=== PATIENT | female | born 1945 | race Caucasian/White ===

== ENCOUNTER 2016-09-20 11:33 | Emergency (ER) | payer MEDICARE ==
[2016-09-20 11:48] VITALS: BP 132/66; PULSE 73; RESP 16; TEMP 98.6
[2016-09-20] MEDS ORDERED: TOPICAL SKIN ADHESIVE 1 EACH AMP TOPICAL ONE (12:14)
[2016-09-20] MEDS ORDERED: DIPH,PERTUS(ACELL)TETVAC-LF 0.5 ML VIAL IM ONE (12:22)
--- NOTE | 2016-09-20 12:34 | ED ---
General Adult HPI - General Chief complaint: Wound/Laceration Stated complaint: LEFT INDEX FINGER LACERATION Time Seen by Provider: 09/20/16 11:50 Source: patient, RN notes reviewed Mode of arrival: ambulatory Limitations: no limitations - History of Present Illness Initial comments: Patient 71-year-old female who presents emergency room today with a chief complaint of laceration located to the left index finger that occurred just prior to arrival. She does admit that she was cutting up some meat for stool in the knife slipped causing laceration. States she's unsure of tetanus status. She admits to pain locally denies any other complaints. Patient denies any recent fever, chills, shortness of breath, chest pain, back pain, abdominal pain, nausea or vomiting, numbness or tingling, dysuria or hematuria, constipation or diarrhea, headaches or visual changes, or any other complaints. - Related Data Home Medications Medication Instructions Recorded Confirmed Acetaminophen Tab [Tylenol Tab] 1,000 mg PO Q4H PRN 09/20/16 09/20/16 Fluticasone/Salmeterol [Advair 1 puff INHALATION RT-BID 09/20/16 09/20/16 500-50 Diskus] Ibuprofen [Motrin] 800 mg PO Q6HR PRN 09/20/16 09/20/16 Montelukast [Singulair] 10 mg PO HS 09/20/16 09/20/16 Sertraline [Zoloft] 100 mg PO HS 09/20/16 09/20/16 Simvastatin [Zocor] 20 mg PO HS 09/20/16 09/20/16 Previous Rx's Medication Instructions Recorded Cephalexin [Keflex] 500 mg PO Q12HR 7 Days 09/20/16 Allergies Allergy/AdvReac Type Severity Reaction Status Date / Time No Known Allergies Allergy Verified 09/20/16 12:13 Review of Systems ROS Statement: Those systems with pertinent positive or pertinent negative responses have been documented in the HPI. ROS Other: All systems not noted in ROS Statement are negative. Past Medical History Past Medical History: Asthma, Hyperlipidemia History of Any Multi-Drug Resistant Organisms: None Reported Past Surgical History: Breast Surgery, Hysterectomy Past Psychological History: Depression Smoking Status: Former smoker Past Alcohol Use History: Occasional Past Drug Use History: None Reported General Exam - General Exam Comments Initial Comments: General: The patient is awake and alert, in no distress, and does not appear acutely ill. Neck: The neck is supple, there is no tenderness or JVD. Cardiovascular: There is a regular rate and rhythm. No murmur, rub or gallop is appreciated. Respiratory: Lungs are clear to auscultation, respirations are non-labored, breath sounds are equal. No wheezes, stridor, rales, or rhonchi. Musculoskeletal: Full range motion. Sensation intact. Pulses equal bilaterally 2+. Strength is 5/5 in all directions. Neurological: A&O x 3. CN II-XII intact, There are no obvious motor or sensory deficits. Coordination appears grossly intact. Speech is normal. Patient does have a 2 cm L-shaped laceration to the lateral aspect of the left proximal index finger. No active bleeding. Psychiatric: Normal mood and affect. Limitations: no limitations Course Vital Signs 09/20/16 11:44 Temperature 98.6 F Pulse Rate 73 Respiratory 16 Rate Blood Pressure 132/66 O2 Sat by Pulse 97 Oximetry Procedures - Procedures Initial comment: 2.5 cm L-shaped laceration to the lateral aspect of the left index finger. No active bleeding. Laceration site anesthetized locally with 1% lidocaine. The area was irrigated heavily with normal saline under pressure. Wound edges approximated and closed with Dermabond. Disposition Clinical Impression: Laceration Disposition: HOME SELF-CARE Condition: Good Instructions: Laceration (ED) Additional Instructions: Please allow the glue to fall off on its own over the next 3-5 days. Please watch for any signs of infection which may include increased pain, swelling, redness, fever or chills. Please use antibiotic as prescribed. Please return for any other concerns. Prescriptions: Cephalexin [Keflex] 500 mg PO Q12HR 7 Days Time of Disposition: 12:24
== END 2016-09-20 13:00 | disposition home or self-care (01) ==
LOC: EC 11:33
DX: S61.211A Laceration without foreign body of left index finger without damage to nail, initial encounter (principal); E78.5 Hyperlipidemia, unspecified; F32.9 Major depressive disorder, single episode, unspecified; J45.909 Unspecified asthma, uncomplicated; Z23 Encounter for immunization; Z79.51 Long term (current) use of inhaled steroids; Z87.891 Personal history of nicotine dependence; Z79.899 Other long term (current) drug therapy; W26.0XXA Contact with knife, initial encounter; Y93.G3 Activity, cooking and baking
CPT/HCPCS: 12001; 90471; 90715; 99282

== ENCOUNTER → 2016-10-05 | Outpatient (CLI) | payer MEDICARE ==
[2016-10-05 12:28] LABS: Appearance,Urine Clear (Clear); Basophils # (A) 0.1 k/uL (0-0.2); Basophils % (A) 1 %; Bilirubin,Urine Negative (Negative); CH 31.2; CHCM 33.3; Eosinophils # (A) 0.4 k/uL (0-0.7); Eosinophils % (A) 6 %; Glucose,Urine (UA) Negative (Negative); HCT 42.5 % (34.0-46.0); HDW 2.17; HGB 13.9 gm/dL (11.4-16.0); Ketones,Urine Negative (Negative); Leukocyte Esterase,Urine Small (Negative); Luc # (Auto) 0.11; Luc % (Auto) 2; Lymphocytes # (A) 1.2 k/uL (1.0-4.8); Lymphocytes % (A) 20 %; MCH 30.8 pg (25.0-35.0); MCHC 32.8 g/dL (31.0-37.0); MCV 94.1 fL (80.0-100.0); Mean Platelet Volume 6.8; Monocytes # (A) 0.4 k/uL (0-1.0); Monocytes % (A) 6 %; Mucus,Urine Rare /hpf; Neutrophils # (A) 3.8 k/uL (1.3-7.7); Neutrophils % (A) 65 %; Nitrite,Urine Negative (Negative); Particle Count 1569; Protein,Urine Negative (Negative); RBC 4.52 m/uL (3.80-5.40); RBC,Urine 1 /hpf (0-5); RDW 12.7 % (11.5-15.5); Squamous Epithelial Cell,Urine <1 /hpf (0-4); UA Billing (MACRO vs. MICRO) MICRO; Urobilinogen,Urine <2.0 mg/dL (<2.0); WBC 5.9 k/uL (3.8-10.6); WBC (Perox) 5.94; WBC,Urine 2 /hpf (0-5)
[2016-10-05 13:18] LABS: Prothrombin Time 10.4 sec (9.0-12.0)
[2016-10-05 13:43] LABS: ALT 30 U/L (9-52); AST 22 U/L (14-36); Alkaline Phosphatase 94 U/L (38-126); Anion Gap 10 mmol/L; Blood Urea Nitrogen 18 mg/dL (7-17); Calcium 9.4 mg/dL (8.4-10.2); Carbon Dioxide 24 mmol/L (22-30); Chloride 107 mmol/L (98-107); Glucose 89 mg/dL (74-99); Non-African American GFR(MDRD) >60 (>60 ml/min/1.73 sqM); Potassium 4.2 mmol/L (3.5-5.1); Sodium 141 mmol/L (137-145); Total Bilirubin 0.6 mg/dL (0.2-1.3); Total Protein 6.5 g/dL (6.3-8.2)
== END | disposition home or self-care (01) ==
LOC: LABPAT 11:56
PROVIDERS: ATTEND Orthopaedic Surgery
DX: Z01.812 Encounter for preprocedural laboratory examination (principal)
CPT/HCPCS: 80053; 81001; 85025; 85610; 85730; 87070

== ENCOUNTER → 2016-10-05 | Outpatient (CLI) | payer MEDICARE ==
--- NOTE | 2016-10-06 10:07 | MM ---
Reason for exam: screening (asymptomatic). Last mammogram was performed 1 year and 1 month ago. History: Patient is postmenopausal. Family history of breast cancer in maternal sister at age 73 and breast cancer in sister at age 72. Benign cyst aspiration of the right breast. 2 benign excisional biopsies of the left breast. 3 benign excisional biopsies of the right breast. Took estrogen for 9 years beginning at age 50. Physical Findings: A clinical breast exam by your physician is recommended on an annual basis and results should be correlated with mammographic findings. MG 3D Screening Mammo W/Cad Bilateral CC and MLO view(s) were taken. Prior study comparison: August 30, 2015, bilateral MG 3d screening mammo w/cad. August 28, 2014, bilateral MG diagnostic mammo w CAD [facility]. The breast tissue is heterogeneously dense. This may lower the sensitivity of mammography. Finding: There are typically benign calcifications in the right breast. No significant changes in finding since August 30, 2015 and August 28, 2014. ASSESSMENT: Benign, BI-RAD 2 RECOMMENDATION: Routine screening mammogram of both breasts in 1 year.
== END | disposition home or self-care (01) ==
LOC: RADMAMWWP 11:33
PROVIDERS: ATTEND Internal Medicine Geriatric Medicine
DX: Z12.31 Encounter for screening mammogram for malignant neoplasm of breast (principal)
CPT/HCPCS: 77063; G0202

== ENCOUNTER 2016-10-19 13:07 | Inpatient (IN) | payer MEDICARE ==
[2016-10-06 09:36] VITALS: BMI 32.1
[~2016-10-19 13:07] MED LIST: ACETAMINOPHEN TAB 500 MG TAB PO ONE; DEXAMETHASONE SOD PHOSPHATE 10 MG/ML 1 ML VIAL IV ONE; HYDROmorphone 1 MG/ML 1 ML SYRINGE IVP PRN; LIDOCAINE 1% 20 ML VIAL (10MG/ML) FOR IV START INTRADERMA PRN; MELOXICAM 7.5 MG TAB PO ONE; MIDAZOLAM 2 MG/2 ML VIAL IV PRN; ONDANSETRON 4 MG/2 ML VIAL IVP ONE; TRANEXAMIC ACID 1,000 MG in SODIUM CHLORIDE 0.9% 100 ML IVPB ONE; ceFAZolin 2 GM in SODIUM CHLORIDE 0.9% 100 ML IVPB ONE; fentaNYL (PF) 50 MCG/ML 20 ML VIAL IVP PRN
[2016-10-19] MEDS: LACTATED RINGERS 1,000 ML IV SCH ×2 (13:39→23:12)
[2016-10-19] MEDS ORDERED: fentaNYL (PF) 50 MCG/ML 2 ML AMP IV ONE (13:52)
[2016-10-19] MEDS ORDERED: TRANEXAMIC ACID 1,000 MG/10 ML VIAL ONE (14:53)
[2016-10-19] MEDS ORDERED: MIDAZOLAM 2 MG/2 ML VIAL ONE (14:53)
[2016-10-19] MEDS ORDERED: PROPOFOL 10 MG/ML 20 ML VIAL IV ONE (14:53)
[2016-10-19] MEDS ORDERED: SODIUM CHLORIDE 0.9% 100 ML BAG ONE (14:53)
[2016-10-19] MEDS ORDERED: fentaNYL (PF) 50 MCG/ML 2 ML AMP ONE (14:53)
[2016-10-19] MEDS ORDERED: ROPIVACAINE 1,100 MG, SODIUM CHLORIDE 0.9% 330 ML MISCELLANE PRN ×2 (14:55)
--- NOTE | 2016-10-19 14:57 | P.ONQ ---
Anesthesiology Proc Note - PNB - Peripheral Nerve Block Performed Right Adductor Canal Infusion Time Out Performed: Yes Indication: Acute Post-Operative Pain, Analgesia Specifically requested for management of pain by DrSridhar: Reginaldo Josue Sedation Type: Sedate with meaningful contact maintained Preparation: Sterile Prep Position: Supine Catheter Depth at Skin (cm): 8 Catheter: Indwelling Needle Types: On-Q Needle Size: 100mm (4") Needle Gauge: 20 Technique: Ultrasound Injectate: 0.5% Ropivacaine (see comment for volume) (20 cc) Blood Aspirated: No Pain Paresthesia on Injection Noted: No Resistance on Injection: Normal Events: Uneventful and Well Tolerated
[2016-10-19] MEDS ORDERED: ceFAZolin 3,000 MG in SODIUM CHLORIDE 0.9% IRRIGATIO 3,000 ML IRRIGATION ONE (15:05)
[2016-10-19] MEDS: ROPIVACAINE 246.25 MG, EPINEPHrine 0.5 MG, KETOROLAC 30 MG, cloNIDine HCL/PF 80 MCG, WA... MISCELLANE ONE ×10 (15:15→16:56)
[2016-10-19] MEDS ORDERED: LACTATED RINGERS 1,000 ML IV ONE (15:23)
--- NOTE | 2016-10-19 16:15 | P.OP ---
Date of Procedure: 10/19/16 Preoperative Diagnosis: Severe osteoarthritis right knee Postoperative Diagnosis: Severe osteoarthritis right knee Procedure(s) Performed: Right total knee arthroplasty Implants: Cho and Nephew Oxinium femoral component size 5, right Cho & Nephew Rizwana II right nonporous tibial baseplate size 5 Cho [employer] Nephew size 11 mm Legion XLPE high flexion articular insert, size 5-6 Cho [employer] Nephew Rizwana II resurfacing patellar component, 32 mm All components were cemented using Lamine bone cement.. The articulation is ceramic on polyethylene. Anesthesia: spinal Surgeon: Reginaldo Josue Manager Presentation #1: Trinity Macdonald Estimated Blood Loss (ml): 50 Pathology: other (Bone and cartilage) Condition: stable Disposition: PACU Indications for Procedure: After failure of conservative treatment we discussed the surgical and nonsurgical treatment options at length. Patient wishes to proceed with a total knee arthroplasty. Complications specific to this procedure were discussed at length, including but not limited to infection, bleeding, stiffness , and nerve injury. Patient is aware of all these complications and informed consent was obtained Operative Findings: The operative findings are consistent with severe osteoarthritis of the right knee Description of Procedure: Patient was seen in the preoperative area consent was reviewed and operative site was marked with a skin marker. Patient was then brought to the operating room and given preoperative antibiotics intravenously. A spinal anesthetic was administered by the anesthesia department. A Fan catheter was then placed by the nursing staff. A tourniquet was placed on the upper thigh and the lower extremity was prepped and draped in usual sterile fashion. A gram of transexamic acid was given. A universal timeout was then performed which confirmed the patient's name, surgical site, ALLERGIES, and consent. The lower extremity was then exsanguinated and tourniquet was inflated to 250 mmHg. A standard and anterior midline approach to the knee was performed. The skin and subcutaneous tissue was dissected down to the patellar tendon. A medial parapatellar arthrotomy was then performed. The knee was then extended, the patellar was everted, and the knee was again flexed. Anterior horns of both menisci were excised, and a release was performed to the posterior medial aspect of the knee. On gross visual inspection, there was complete loss of articular cartilage in the medial and patellofemoral joint spaces. There was also significant cartilage damage in the lateral compartment. There were multiple periarticular osteophytes which were then removed with a Ronguer. The femoral canal was then opened with the appropriate drill, and the intramedullary femoral cutting guide was then placed and set for 4 of valgus. The distal femoral cutting block was then pinned in place, and the distal femur was then cut. The cutting block was then removed and the cut was checked for flatness. Next, the sizing guide was then placed and set for 3 external rotation based off of the epicondylar axis and Whitesides line. After the femur was sized, the appropriate 4-in-1 cutting block was then pinned in place. The anterior condyles were cut without notching. The posterior and chamfer cuts were performed while protecting the collateral ligaments. The cutting block was then removed, and the femoral canal was plugged with autologous bone. Attention was then directed to the tibia. The remaining ACL was removed with a Ronguer, and the tibia was then gently subluxed forward with a large bent knee retractor. Any remaining menisci was excised. The posterior lateral corner was cauterized in order to cauterize the lateral geniculate artery. The extra medullary tibial cutting guide was then placed, set for the appropriate rotation , slope, and depth of resection. The proximal tibia cutting guide was then pinned in place. Proximal tibia was then cut and sized. Next trials were then placed with the appropriate-sized insert. The knee was able to fully extend and flex to 130 and was stable throughout all range of motion. The knee was then extended, patella everted. Patella was then measured, and then using an osteotomy guide, the patella was cut at the appropriate level. The patella was then measured and drilled and the patella trial was then placed. The knee was then taken through range of motion with the patella trial and the patella tracked normally. The knee was then extended patella trial was then removed and the patella was everted. Knee was then flexed and lug holes were drilled through the femoral trial and the femoral trial was then removed. The tibial was then exposed, and the tibial broach guide was then pinned in place after it was set for the appropriate rotation to allow for the most coverage without overhang. The tibia was then broached. The cut surfaces of bone were then irrigated with pulsatile lavage. The posterior structures were injected with the ropivacaine solution. The knee was also irrigated with Irrisept solution. The components were then opened, the cement was mixed, and the components were then cemented in place. The cement was allowed to harden with the knee in full extension. While the cement was hardening, the remaining soft tissues were injected with the ropivacaine solution. After the cemented hardened. The tourniquet was released, and hemostasis was obtained. A second gram of transexamic acid was given. The knee was again irrigated. The knee was again taken through range of motion and found to be stable throughout all range of motion of 0-130, and the patella tracked normally. The fascia was then closed with #2 strata fix suture. The subcutaneous tissue was closed with 3-0 Vicryl and 3-0 strata fix. Dermabond tape was used for the skin, and the patient was placed in a sterile dressing. Patient was then transferred to recovery room in stable condition. The digital assistant DEVIN Berry was required due the complexity surgery and the need for a skilled computer lab assistant. She assisted in positioning, draping , retraction, and closure of the wound.
[2016-10-19] MEDS ORDERED: NALOXONE 0.4 MG/ML 1 ML VIAL IV PRN (16:40)
[2016-10-19] MEDS ORDERED: DIAZEPAM 5 MG TAB PO PRN ×2 (16:40)
[2016-10-19] MEDS ORDERED: HYDROmorphone 1 MG/ML 1 ML SYRINGE IVP PRN ×2 (16:40)
[2016-10-19] MEDS ORDERED: ONDANSETRON 4 MG/2 ML VIAL IVP PRN (16:40)
[2016-10-19] MEDS ORDERED: HYDROcodone/APAP 5-325MG 1 EACH TAB PO PRN (16:40)
[2016-10-19] MEDS ORDERED: BISACODYL 10 MG SUPP RECTAL PRN (16:40)
[2016-10-19] MEDS ORDERED: MAGNESIUM HYDROXIDE 2,400 MG/10 ML CUP PO PRN (16:40)
[2016-10-19] MEDS ORDERED: FAMOTIDINE 20 MG/2 ML VIAL IVP ONE (16:43)
--- NOTE | 2016-10-19 17:35 | XR ---
EXAMINATION TYPE: XR knee limited RT DATE OF EXAM: 10/19/2016 5:06 PM COMPARISON: NONE HISTORY: Postop knee surgery TECHNIQUE: 2 views FINDINGS: There is a right total knee prosthesis. Components appear in anatomic position. IMPRESSION: No complicating process seen.
[2016-10-19] MEDS: SODIUM CHLORIDE 0.9% 1,000 ML IV SCH ×2 (18:18→20:25)
[2016-10-19] MEDS: HYDROcodone/APAP 5-325MG 1 EACH TAB PO PRN (19:14)
[2016-10-19] MEDS: ASPIRIN 325 MG TAB PO SCH (20:20)
[2016-10-19] MEDS: ATORVASTATIN 10 MG TAB PO SCH (20:20)
[2016-10-19] MEDS: SERTRALINE 100 MG TAB PO SCH (20:20)
[2016-10-19] MEDS: MONTELUKAST 10 MG TAB PO SCH (20:20)
[2016-10-19] MEDS: SENNOSIDES-DOCUSATE SODIUM 1 EACH TAB PO SCH (20:21)
[2016-10-19] MEDS: HYDROmorphone 1 MG/ML 1 ML SYRINGE IVP PRN (20:25)
[2016-10-19] MEDS: ceFAZolin 2 GM in SODIUM CHLORIDE 0.9% 100 ML IVPB SCH (23:10)
[2016-10-20] MEDS: HYDROcodone/APAP 5-325MG 1 EACH TAB PO PRN ×3 (00:18→10:34)
[2016-10-20] MEDS: hydrOXYzine PAMOATE 25 MG CAP PO PRN ×5 (00:19→20:34)
[2016-10-20] MEDS: HYDROmorphone 1 MG/ML 1 ML SYRINGE IVP PRN ×3 (01:12→21:40)
[2016-10-20] MEDS: ceFAZolin 2 GM in SODIUM CHLORIDE 0.9% 100 ML IVPB SCH (08:01)
[2016-10-20] MEDS: ASPIRIN 325 MG TAB PO SCH ×2 (08:02→20:11)
[2016-10-20] MEDS: PANTOPRAZOLE 40 MG TABLET PO SCH (08:02)
[2016-10-20] MEDS: MELOXICAM 7.5 MG TAB PO SCH (08:02)
[2016-10-20] MEDS: MULTIVITAMINS, THERA 1 EACH TAB PO SCH (08:03)
[2016-10-20] MEDS: LORATADINE 10 MG TAB PO SCH (08:03)
[2016-10-20 08:51] LABS: Basophils % (A) 0 %; CHCM 32.4; Eosinophils # (A) 0.1 k/uL (0-0.7); Eosinophils % (A) 1 %; HCT 34.6 % (34.0-46.0); HDW 2.12; HGB 11.3 gm/dL (11.4-16.0); Luc # (Auto) 0.14; Luc % (Auto) 2; Lymphocytes # (A) 0.8 k/uL (1.0-4.8); Lymphocytes % (A) 10 %; MCH 31.4 pg (25.0-35.0); MCHC 32.7 g/dL (31.0-37.0); MCV 96.2 fL (80.0-100.0); Mean Platelet Volume 6.8; Monocytes # (A) 0.6 k/uL (0-1.0); Monocytes % (A) 8 %; Neutrophils # (A) 6.1 k/uL (1.3-7.7); Neutrophils % (A) 79 %; RBC 3.59 m/uL (3.80-5.40); RDW 12.9 % (11.5-15.5); WBC 7.7 k/uL (3.8-10.6); WBC (Perox) 8.14
[2016-10-20] MEDS ORDERED: NON-FORMULARY DRUG (Ubidecarenone [Co Q-10] 100 MG) PO SCH (09:00)
[2016-10-20] MEDS: SYMBICORT 160-4.5 MCG INHALER INHALATION PRN ×2 (09:08→20:11)
[2016-10-20] MEDS: ALBUTEROL NEBULIZED 2.5 MG/3 ML INHALATION PRN (09:08)
--- NOTE | 2016-10-20 10:12 | P.PN ---
Progress Note - Text 0845. Anesthesia POD 1.'s. Patient is status post right TKR under spinal anesthesia with a right adductor canal catheter placed for postoperative pain relief. Catheter site is intact clean and dry and 0.2% ropivacaine is running at 8 mL per hour. Patient reports a VAS of 2 while at rest.
[2016-10-20] MEDS: CALCIUM CARB-VIT D 500MG-200UN 1 EACH TAB PO SCH (12:36)
[2016-10-20] MEDS ORDERED: HYDROcodone/APAP 7.5-325MG 1 EACH TAB PO PRN (13:08)
[2016-10-20] MEDS: HYDROcodone/APAP 7.5-325MG 1 EACH TAB PO PRN ×2 (15:27→20:34)
--- NOTE | 2016-10-20 15:48 | P.CONS ---
History of Present Illness - Reason for Consult Consult date: 10/20/16 medical consult medical management Requesting physician: Reginaldo Josue - History of Present Illness this 71-year-old pleasant lady patient of Dr. Schulte. She has underlying history of asthma, migraine, or [place] arthritis, GERD admitted to the hospital for right total knee arthroplasty performed on 10/19/2016. Patient denies any previous complications from surgeries, no prior history of CVA CHF VT DVT or PE in the past. Patient's doing well postoperatively. Patient has GERD symptoms earlier which has resolved. Patient denies any shortness of breath difficulty of breathing. Patient's currently receiving aspirin for DVT prophylaxis, patient does not have any melena hematochezia no dyspepsia. Review of Systems Constitutional: Reports as per HPI, Denies anorexia, Denies chills, Denies chronic headaches, Denies chronic pain, Denies daytime sleepiness, Denies fatigue, Denies fever, Denies lethargy, Denies malaise, Denies night sweats, Denies poor appetite, Denies sweats, Denies weakness, Denies weight gain, Denies weight loss Ears, nose, mouth and throat: Reports as per HPI, Denies ant. neck pain, Denies bleeding gums, Denies dental pain, Denies dysphagia, Denies epistaxis, Denies headache, Denies hoarseness, Denies mouth pain, Denies nasal congestion, Denies nasal discharge, Denies neck fullness/pressure, Denies neck lump, Denies nose pain, Denies odynophagia, Denies post-nasal drip, Denies sinus pain, Denies sinus pressure, Denies swelling in mouth, Denies swelling in throat, Denies sore throat, Denies vertigo, Denies voice changes Cardiovascular: Reports as per HPI, Denies claudication, Denies decreased exercise tolerance, Denies dyspnea on exertion, Denies edema, Denies high blood pressure, Denies irregular heart beat, Denies leg edema, Denies lightheadedness , Denies orthopnea, Denies palpitations, Denies paroxysmal nocturnal dyspnea, Denies phlebitis, Denies rapid heart beat, Denies shortness of breath, Denies syncope Respiratory: Reports as per HPI, Denies congestion, Denies cough, Denies cough with sputum, Denies dyspnea, Denies excessive sputum, Denies hemoptysis, Denies home oxygen, Denies pain, Denies pain on inspiration, Denies pleurisy, Denies respiratory infections, Denies sleep apnea, Denies snoring, Denies wheezing Gastrointestinal: Reports as per HPI, Reports dyspepsia, Denies abdominal pain, Denies belching, Denies bloating, Denies BRBPR, Denies change in bowel habits, Denies coffee ground emesis, Denies constipation, Denies diarrhea, Denies early satiety, Denies excessive gas, Denies heartburn, Denies hematemesis, Denies hematochezia, Denies indigestion, Denies jaundice, Denies lactose intolerance, Denies loss of appetite, Denies melena, Denies nausea, Denies vomiting Genitourinary: Reports as per HPI, Denies abnormal vaginal bleeding, Denies decreased libido, Denies difficulty conceiving, Denies difficulty voiding, Denies dysmenorrhea, Denies dyspareunia, Denies dysuria, Denies flank pain, Denies genital sores, Denies hematuria, Denies hot flashes, Denies incomplete emptying, Denies kidney stones, Denies menorrhagia, Denies mixed incontinence, Denies nocturia, Denies pelvic pain, Denies post void dribbling, Denies , Denies prolapse symptoms, Denies stress incontinence, Denies urge incontinence , Denies urgency, Denies urinary frequency, Denies vaginal discharge, Denies vaginal dryness, Denies vaginal itching, Denies vaginal odor Menstruation: Reports as per HPI, Denies amenorrhea, Denies amenorrhea on BC, Denies currently menstrual, Denies cycle < 21 days, Denies cycle > 35 days, Denies cycle variable, Denies menses 1-7 days, Denies menses 8 or > days, Denies menses variable, Denies period heavy, Denies period light, Denies period normal, Denies period spotting, Denies post hysterectomy, Denies postmenopausal , Denies premenarcheal Musculoskeletal: Reports as per HPI, Denies arm numbness/tingling, Denies atrophy, Denies fractures, Denies frequent falls, Denies gait dysfunction, Denies hot joints, Denies leg numbness/tingling, Denies limitation of motion, Denies loss of height, Denies low back pain, Denies morning stiffness, Denies muscle cramps, Denies muscle weakness, Denies myalgias, Denies neck pain, Denies neck stiffness, Denies prior amputations, Denies redness of joints, Denies shooting arm pain, Denies shooting leg pain Integumentary: Reports as per HPI, Denies acne, Denies boils, Denies brittle nails, Denies change in hair/nails, Denies color changes, Denies darkening of skin, Denies depigmentation, Denies dryness, Denies foot/leg ulcers, Denies growths, Denies hirsutism, Denies lesions, Denies onychomycosis, Denies pruritus , Denies rash, Denies sores, Denies striae, Denies unusual bruising, Denies wounds Neurological: Reports as per HPI, Denies aphasia, Denies ataxia, Denies balance difficulties, Denies burning pain, Denies change in mentation, Denies change in smell/taste, Denies change in speech, Denies confusion, Denies convulsions, Denies double vision, Denies gait dysfunction, Denies head injury, Denies headaches, Denies hearing difficulties, Denies lack of coordination, Denies loss of vision, Denies memory loss, Denies migraines, Denies motor disturbance, Denies numbness, Denies paralysis, Denies paresthesias, Denies seizures, Denies sensory deficit, Denies spasticity, Denies syncope, Denies tic, Denies tingling , Denies transient paralysis, Denies tremors, Denies vertigo, Denies weakness, Denies visual changes Psychiatric: Reports as per HPI, Denies anhedonia, Denies anxiety, Denies anxiety attacks, Denies change in appetite, Denies change in libido, Denies change in sleep habits, Denies confusion, Denies depression, Denies difficulty concentrating, Denies disorientation, Denies hallucinations, Denies hopelessness , Denies hypersomnia, Denies insomnia, Denies irritability, Denies memory loss, Denies mood swings, Denies paranoia, Denies sadness/tearfulness, Denies sleep disturbances, Denies suicidal ideation Endocrine: Reports as per HPI, Denies cold intolerance, Denies deepening of the voice, Denies excessive sweating, Denies excessive thirst, Denies fatigue, Denies flushing, Denies heat intolerance, Denies high blood sugars, Denies increase in ring/shoe/hat size, Denies low blood sugars, Denies nocturia, Denies palpitations, Denies polydipsia, Denies polyphagia, Denies polyuria, Denies proptosis, Denies recent glucocorticoid use, Denies thyroid mass, Denies weight change Hematologic/Lymphatic: Reports as per HPI, Denies easy bleeding, Denies easy bruising, Denies lymphadenopathy, Denies lymphedema, Denies thrombophilia Allergic/Immunologic: Reports as per HPI, Denies allergic rhinitis, Denies anaphylaxis, Denies angioedema, Denies gluten intolerance, Denies persistent infections, Denies seasonal allergies, Denies urticaria, Denies wheezing Past Medical History Past Medical History: Asthma, GERD/Reflux, Osteoarthritis (OA) Additional Past Medical History / Comment(s): MIGRAINES., RIGHT ARM FX 08/24/16 - WEARING BRACE NOW. History of Any Multi-Drug Resistant Organisms: None Reported Past Surgical History: Hysterectomy Additional Past Surgical History / Comment(s): BREAST BX (X5). Past Anesthesia/Blood Transfusion Reactions: No Reported Reaction, Motion Sickness Past Psychological History: Anxiety, Depression Smoking Status: Former smoker Past Alcohol Use History: Occasional Additional Past Alcohol Use History / Comment(s): QUIT SMOKING 05/23/2001. SMOKED APPROX 40 YEARS, 1 PPD OR LESS. Past Drug Use History: None Reported - Past Family History Sister(s) Family Medical History: Cancer, Pulmonary Embolus Additional Family Medical History / Comment(s): 2 SISTERS -BREAST CANCER Medications and Allergies Home Medications Medication Instructions Recorded Confirmed Type Acetaminophen Tab [Tylenol Tab] 1,000 mg PO Q6H PRN 09/20/16 10/19/16 History Fluticasone/Salmeterol [Advair 1 puff INHALATION RT-BID PRN 09/20/16 10/19/16 History 500-50 Diskus] Ibuprofen [Motrin] 800 mg PO BID PRN 09/20/16 10/19/16 History Montelukast [Singulair] 10 mg PO HS 09/20/16 10/19/16 History Sertraline [Zoloft] 100 mg PO HS 09/20/16 10/19/16 History Simvastatin [Zocor] 20 mg PO HS 09/20/16 10/19/16 History Albuterol Inhaler [Ventolin Hfa 1 - 2 puff INHALATION RT-Q6H PRN 10/06/16 History Inhaler] Calcium Carbonate/Vitamin D3 1 tab PO DAILY 10/06/16 10/19/16 History [Calcium 500-Vit D3 600 Tablet] Cetirizine HCl [Zyrtec] 10 mg PO DAILY 10/06/16 10/19/16 History HYDROcodone/APAP 5-325MG [Elbert 1 tab PO DIRECTED PRN 10/06/16 10/19/16 History 5-325] Multivitamins, Thera [Multivitamin] 1 tab PO DAILY 10/06/16 10/19/16 History Omeprazole [PriLOSEC] 20 mg PO AC-BRKFST 10/06/16 10/19/16 History Ubidecarenone [Co Q-10] 100 mg PO DAILY 10/06/16 10/19/16 History Ergocalciferol (Vitamin D2) 50,000 unit PO Q7D 10/19/16 10/19/16 History [Vitamin D2] Allergies Allergy/AdvReac Type Severity Reaction Status Date / Time No Known Allergies Allergy Verified 10/06/16 09:15 Physical Exam Vitals: Vital Signs Temp Pulse Pulse Pulse Resp BP Pulse Ox 10/20/16 14:17 98.1 F 69 16 99/52 90 L 10/20/16 09:16 67 10/20/16 09:08 67 10/20/16 07:00 98.3 F 66 15 95/57 91 L 10/20/16 00:15 97.9 F 58 L 16 110/66 92 L 10/19/16 19:45 68 138/66 10/19/16 19:33 97.2 F L 67 16 142/60 93 L 10/19/16 19:30 67 136/64 10/19/16 19:15 65 142/60 10/19/16 19:14 16 10/19/16 19:00 127 H 141/74 10/19/16 18:45 70 131/72 10/19/16 18:30 70 130/83 10/19/16 18:15 71 123/74 10/19/16 18:00 66 128/67 10/19/16 17:45 97.3 F L 85 16 125/69 99 10/19/16 17:22 60 16 117/58 92 L 10/19/16 17:07 58 L 16 119/58 93 L 10/19/16 16:51 62 16 113/59 93 L 10/19/16 16:36 97 F L 60 16 114/55 98 Intake and Output 10/20/16 10/20/16 10/20/16 06:59 14:59 22:59 Intake Total 600 960 Output Total 500 Balance 600 460 Intake: IV 600 Sodium Chloride 0.9% 1, 600 000 ml @ 75 mls/hr IV . [id number] Rx#:[id number] Oral 960 Output: Urine 500 Uretheral (Fan) 500 Other: # Voids 1 - Constitutional General appearance: cooperative, no acute distress, obese - EENT Eyes: anicteric sclerae, EOMI, PERRLA, dentition normal, normal appearance ENT: hearing grossly normal, NA/AT, normal oropharynx - Neck Neck: no lymphadenopathy, normal ROM, no other, no rigidity, no stridor, no thyromegaly - Respiratory Respiratory: bilateral: CTA, negative: diminished, dullness, rales, rhonchi, wheezing - Cardiovascular Rhythm: regular Heart sounds: normal: S1, S2 Abnormal Heart Sounds: no systolic murmur, no diastolic murmur, no rub, no S3 Gallop, no S4 Gallop, no click, no other - Gastrointestinal General gastrointestinal: no absent bowel sounds, no decreased bowel sounds, no distended, no hepatomegaly, no hyperactive bowel sounds, normal bowel sounds, no organomegaly, no rigid, no scaphoid, soft, no splenomegaly, no tenderness, no umbilical hernia, no ventral hernia - Integumentary Integumentary: normal, normal turgor - Neurologic Neurologic: CNII-XII intact - Musculoskeletal Musculoskeletal: strength equal bilaterally - Psychiatric Psychiatric: A&O x's 3, appropriate affect, intact judgment & insight Results CBC & Chem 7: 10/20/16 08:07 Labs: Abnormal Lab Results - Last 24 Hours (Table) 10/20/16 Range/Units 08:07 RBC 3.59 L (3.80-5.40) m/uL Hgb 11.3 L (11.4-16.0) gm/dL Lymphocytes # 0.8 L (1.0-4.8) k/uL Laboratory Results WBC 7.7 k/uL (3.8-10.6) 10/20/16 08:07 RBC 3.59 m/uL (3.80-5.40) L 10/20/16 08:07 Hgb 11.3 gm/dL (11.4-16.0) L 10/20/16 08:07 Hct 34.6 % (34.0-46.0) 10/20/16 08:07 MCV 96.2 fL (80.0-100.0) 10/20/16 08:07 MCH 31.4 pg (25.0-35.0) 10/20/16 08:07 MCHC 32.7 g/dL (31.0-37.0) 10/20/16 08:07 RDW 12.9 % (11.5-15.5) 10/20/16 08:07 Plt Count 205 k/uL (150-450) 10/20/16 08:07 Neutrophils % 79 % 10/20/16 08:07 Lymphocytes % 10 % 10/20/16 08:07 Monocytes % 8 % 10/20/16 08:07 Eosinophils % 1 % 10/20/16 08:07 Basophils % 0 % 10/20/16 08:07 Neutrophils # 6.1 k/uL (1.3-7.7) 10/20/16 08:07 Lymphocytes # 0.8 k/uL (1.0-4.8) L 10/20/16 08:07 Monocytes # 0.6 k/uL (0-1.0) 10/20/16 08:07 Eosinophils # 0.1 k/uL (0-0.7) 10/20/16 08:07 Basophils # 0.0 k/uL (0-0.2) 10/20/16 08:07 Assessment and Plan Plan: 1. Right total knee arthroplasty performed 10/19/2016, doing well postoperatively without any complications. Patient is onaspirin 325 twice a day for DVT prophylaxis, Protonix for GI prophylaxis and incentive spirometry program. Anticipate home with therapies 2. Asthma without any exacerbation patient has Advair 500 when necessary basis from home, has albuterol on a when necessary basis 3. GERD on maintenance PPI 4. ARTHRITIS 5. Migraines controlled at acquiring any prophylactic treatments 6. Surgical menopause with prior history of PAVITHRA/BSO secondary to fibroids 7. Anxiety stableon Zoloft 8. Previous tobacco use quit in 2000, asymptomatic 9. History of PE in the family related to cancer Thank you Dr. Josue in aallowing us to participate in the care of your patient. We'll going to follow her with you during this current hospitalization Further recommendations to be made on her care depending on her progress 10. DVT prophylaxis with aspirin 325 mg twice a day 11. Medication safety with [place] list for geriatric monitoring will be closely followed Time with Patient: Greater than 30
[2016-10-20] MEDS: SODIUM CHLORIDE 0.9% 1,000 ML IV SCH (20:04)
[2016-10-20] MEDS: LACTATED RINGERS 1,000 ML IV SCH (20:04)
[2016-10-20] MEDS: ATORVASTATIN 10 MG TAB PO SCH (20:11)
[2016-10-20] MEDS: SERTRALINE 100 MG TAB PO SCH (20:11)
[2016-10-20] MEDS: SENNOSIDES-DOCUSATE SODIUM 1 EACH TAB PO SCH (20:11)
[2016-10-20] MEDS: MONTELUKAST 10 MG TAB PO SCH (20:11)
--- NOTE | 2016-10-20 20:11 | P.PN ---
Subjective Principal diagnosis: Status post total knee arthroplasty. This is a pleasant 71-year-old female who is status post right total knee arthroplasty. Today's postoperative day #1. Patient is seen and evaluated at bedside today. She states that she's been up ambulating with physical therapy. Her pain is well-controlled. She has no other new complaints at this time. Objective - Vital Signs Vital signs: Vital Signs Temp 98.7 F 10/20/16 19:00 Pulse 68 10/20/16 19:00 Resp 16 10/20/16 19:00 BP 101/51 10/20/16 19:00 Pulse Ox 92 L 10/20/16 19:00 Intake & Output 10/20/16 10/20/16 10/21/16 06:59 18:59 06:59 Intake Total 900 960 480 Output Total 550 1075 Balance 350 -115 480 Intake: IV 900 Sodium Chloride 0.9% 1, 900 000 ml @ 75 mls/hr IV . [id number] CRUZ Rx#:[id number] Oral 960 480 Output: Urine 550 1075 Uretheral (Fan) 550 500 Other: Voiding Method Indwelling Catheter # Voids 1 - Exam The patient does not appear in acute distress. Alert and orientated 3. Dressing is clean dry and intact. Incision appears fine with no erythema or active drainage. Calf is soft and nontender. Good foot and ankle motion without difficulty. Sensation and circulatory status is intact. - Labs CBC & Chem 7: 10/20/16 08:07 Labs: Abnormal Lab Results - Last 24 Hours (Table) 10/20/16 Range/Units 08:07 RBC 3.59 L (3.80-5.40) m/uL Hgb 11.3 L (11.4-16.0) gm/dL Lymphocytes # 0.8 L (1.0-4.8) k/uL Assessment and Plan (1) Primary osteoarthritis of right knee Status: Acute (2) Status post right knee replacement Status: Acute Plan: 1. Continue with routine postoperative care. 2. Anticoagulation with aspirin. 3. Physical therapy and CPM today. 4. Appreciate input from medicine. 5. Anticipate discharge to home with home care likely tomorrow.
[2016-10-21] MEDS: HYDROcodone/APAP 7.5-325MG 1 EACH TAB PO PRN ×3 (02:52→14:10)
[2016-10-21] MEDS: hydrOXYzine PAMOATE 25 MG CAP PO PRN ×3 (02:52→14:11)
[2016-10-21] MEDS: ALBUTEROL NEBULIZED 2.5 MG/3 ML INHALATION PRN (08:57)
[2016-10-21] MEDS: HYDROmorphone 1 MG/ML 1 ML SYRINGE IVP PRN (08:57)
[2016-10-21] MEDS: SYMBICORT 160-4.5 MCG INHALER INHALATION PRN (08:57)
[2016-10-21] MEDS: ASPIRIN 325 MG TAB PO SCH (09:10)
[2016-10-21] MEDS: MELOXICAM 7.5 MG TAB PO SCH (09:10)
[2016-10-21] MEDS: LORATADINE 10 MG TAB PO SCH (09:11)
[2016-10-21] MEDS: MULTIVITAMINS, THERA 1 EACH TAB PO SCH (09:12)
[2016-10-21] MEDS: PANTOPRAZOLE 40 MG TABLET PO SCH (09:13)
--- NOTE | 2016-10-21 09:41 | P.DS ---
Providers Date of admission: 10/19/16 13:07 Expected date of discharge: 10/21/16 Attending physician: Reginaldo Josue Consults: 10/19/16 16:40 Consult Physician Routine Consulting Provider: Isac Myrick Reason/Comments: medical management Do you want consulting provider notified?: Yes Primary care physician: Isac Myrick - Discharge Diagnosis(es) (1) Primary osteoarthritis of right knee Current Visit: Yes Status: Acute (2) Status post right knee replacement Current Visit: Yes Status: Acute (3) History of wrist fracture Current Visit: Yes Status: Acute Hospital Course: This is a pleasant 71-year-old female last seen in our office with complaints of right knee pain. Patient has known history of degenerative arthritis of the right knee and presented to discuss options. After discussion and consideration , patient elected to proceed with a total knee arthroplasty of the right knee. The patient was seen preoperatively and medically cleared for surgery by her primary care physician. The patient was admitted to [facility] and underwent right total knee arthroplasty with Dr. Reginaldo Josue. The procedure was performed without complications or sequelae. The patient has done well postoperatively. The patient was seen and evaluated at bedside today and denies any new complaints. She did have some difficulty with pain control and her Collins has been increased. Dressing is clean dry and intact. Incision looks fine with no erythema or active drainage. Soft tissue swelling about the knee as expected with the procedure. She does have tenderness in the calf and swelling of her right lower extremity. Doppler ultrasound has been ordered to rule out DVT. The patient has full foot and ankle motion without difficulty. Patient's right lower extremity is neurovascular intact. Patient is orthopedically stable for discharge to home today if Doppler ultrasound is negative. Pertinent Studies: Laboratory Tests 10/20/16 08:07 WBC 7.7 RBC 3.59 L Hgb 11.3 L Hct 34.6 MCV 96.2 Patient Condition at Discharge: Good Plan - Discharge Summary New Discharge Prescriptions: Aspirin 325 mg PO BID #60 tab HYDROcodone/APAP 7.5-325MG [Collins 7.5] 1 - 2 each PO Q6HR PRN #90 tab PRN Reason: Pain Sennosides-Docusate Sodium [Senokot-S] 2 tab PO DAILY #60 tablet hydrOXYzine PAMOATE [Vistaril] 25 mg PO QID PRN #40 cap PRN Reason: Pain Discharge Medication List Acetaminophen Tab [Tylenol Tab] 1,000 mg PO Q6H PRN 09/20/16 [History] Fluticasone/Salmeterol [Advair 500-50 Diskus] 1 puff INHALATION RT-BID PRN 09/20 [History] Ibuprofen [Motrin] 800 mg PO BID PRN 09/20/16 [History] Montelukast [Singulair] 10 mg PO HS 09/20/16 [History] Sertraline [Zoloft] 100 mg PO HS 09/20/16 [History] Simvastatin [Zocor] 20 mg PO HS 09/20/16 [History] Albuterol Inhaler [Ventolin Hfa Inhaler] 1 - 2 puff INHALATION RT-Q6H PRN [History] Calcium Carbonate/Vitamin D3 [Calcium 500-Vit D3 600 Tablet] 1 tab PO DAILY [History] Cetirizine HCl [Zyrtec] 10 mg PO DAILY 10/06/16 [History] Multivitamins, Thera [Multivitamin] 1 tab PO DAILY 10/06/16 [History] Omeprazole [PriLOSEC] 20 mg PO AC-BRKFST 10/06/16 [History] Ubidecarenone [Co Q-10] 100 mg PO DAILY 10/06/16 [History] Ergocalciferol (Vitamin D2) [Vitamin D2] 50,000 unit PO Q7D 10/19/16 [History] Aspirin 325 mg PO BID #60 tab 10/21/16 [Rx] HYDROcodone/APAP 7.5-325MG [Collins 7.5] 1 - 2 each PO Q6HR PRN #90 tab 10/21/16 [ Rx] Sennosides-Docusate Sodium [Senokot-S] 2 tab PO DAILY #60 tablet 10/21/16 [Rx] hydrOXYzine PAMOATE [Vistaril] 25 mg PO QID PRN #40 cap 10/21/16 [Rx] Follow up Appointment(s)/Referral(s): [facility], [NON-STAFF] - 1 Week Reginaldo Josue DO [Doctor of Osteopathic Medicine] - 2 Weeks Activity/Diet/Wound Care/Special Instructions: pt to call [facility] when you get home so your CPM machine can be delivered - Weightbearing as tolerated with a walker CPM daily Daily dressing changes, keep incision clean and dry [facility] with questions or concerns [phone]
[2016-10-21] MEDS: SODIUM CHLORIDE 0.9% 1,000 ML IV SCH (10:47)
--- NOTE | 2016-10-21 11:00 | US ---
EXAMINATION TYPE: US venous doppler duplex LE RT DATE OF EXAM: 10/21/2016 10:43 AM COMPARISON: NONE CLINICAL HISTORY: 71-year-old female with pain, swelling rule out DVT. Status post right knee replace ment. Complaining of pain and swelling TECHNIQUE: Duplex Doppler ultrasound examination of the right lower extremity. FINDINGS: SIDE PERFORMED: Right VESSELS IMAGED: External Iliac Vein (EIV) Common Femoral Vein Deep Femoral Vein Greater Saphenous Vein * Femoral Vein Popliteal Vein Small Saphenous Vein * Proximal Calf Veins (* superficial vessels) Right Leg: No evidence of DVT IMPRESSION: No evidence for DVT within the right lower extremity imaged from the groin to the upper calf.
[2016-10-21 11:58] VITALS: BP 112/56; PULSE 76; RESP 14; TEMP 97.6
[2016-10-21] MEDS: CALCIUM CARB-VIT D 500MG-200UN 1 EACH TAB PO SCH (12:54)
== END 2016-10-21 14:21 | disposition home or self-care (01) | DRG 470 ==
LOC: 2ORMAIN 13:07 → 3SUR 16:59
PROVIDERS: ADMIT Orthopaedic Surgery; ATTEND Orthopaedic Surgery
PROC: 0SRC0J9 Replacement of Right Knee Joint with Synthetic Substitute, Cemented, Open Approach (ICD-10-PCS; principal; 2016-10-19 14:45)
DX: M17.11 Unilateral primary osteoarthritis, right knee (principal); F41.9 Anxiety disorder, unspecified; J45.909 Unspecified asthma, uncomplicated; K21.9 Gastro-esophageal reflux disease without esophagitis; Z87.891 Personal history of nicotine dependence; Z79.899 Other long term (current) drug therapy
CPT/HCPCS: 85025; 88300; 94640

== ENCOUNTER → 2017-10-27 | Outpatient (CLI) | payer MEDICARE ==
[2017-10-27 12:00] LABS: Blood Urea Nitrogen 24 mg/dL (7-17)
--- NOTE | 2017-10-27 12:54 | CT ---
EXAMINATION TYPE: CT chest angio for PE DATE OF EXAM: 10/27/2017 COMPARISON: NONE HISTORY: 72-year-old female Possible pulmonary embolism, trouble breathing since Wednesday. TECHNIQUE: Contiguous axial scanning of the chest performed with IV Contrast, patient injected with 1 00 mL of Omnipaque 350. Coronal/sagittal MIP reconstructions performed. CT DLP: 371.0 mGycm Automated exposure control for dose reduction was used. FINDINGS: Heart is normal size without pericardial effusion. Mild coronary vascular calcifications are present. Mildly ectatic ascending aorta at 3.6 cm. Conventional arch vessel branching anatomy. There is aneury sm of the upper descending thoracic aorta at 3.7 cm and ectasia of the lower descending thoracic aort a at 2.7 cm. No thoracic lymphadenopathy. There is satisfactory opacification of the pulmonary arterial system without evidence for pulmonary e mbolus. - Mild diffuse bronchial wall thickening and some scattered endobronchial mucous plugging such as in the basal right lower lobe, axial image 101. - Mild biapical pleural-parenchymal scarring. - 5 mm subpleural pulmonary nodule anterolateral right mid lung axial image 79. - 4 mm subpleural pulmonary nodule anterior right upper lobe axial image 59. - Adjacent 4 mm pulmonary nodule along the major fissure, axial image 56. - 4 mm pulmonary nodule peripheral right midlung axial image 51. - 4 mm left upper lobe pulmonary nodule axial image 44. - Additional scattered 3 to 4 mm pulmonary nodules on the left axial image 65 both anteriorly and pos teriorly and axial image 76. There is left lower lobar collapse noted. No pleural effusion. Moderate-sized hernia. There is some mucosal irregularity which could represent prominent gastric fol ds, refer to axial image 110 through 114. Calcified granulomas in the spleen. Bones: No osseous destructive process. IMPRESSION: 1. NO EVIDENCE FOR PULMONARY EMBOLUS. 2. 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 3. COMPLETE LEFT LOWER LOBAR COLLAPSE. ENDOBRONCHIAL EVALUATION CLINICALLY INDICATED. 4. SCATTERED 5 MM AND SMALLER PULMONARY NODULES. SIX-MONTH FOLLOW-UP RECOMMENDED. 5. MODERATE-SIZED HIATAL HERNIA. MUCOSAL IRREGULARITY COULD REPRESENT PROMINENT GASTRIC FOLDS IN THE HERNIA. DIRECT VISUALIZATION CAN EXCLUDE A POLYPOID NEOPLASM.
== END | disposition home or self-care (01) ==
LOC: RADCTMAIN 11:29
PROVIDERS: ATTEND Internal Medicine
DX: I71.2 Thoracic aortic aneurysm, without rupture (principal); J98.19 Other pulmonary collapse; R91.8 Other nonspecific abnormal finding of lung field; K44.9 Diaphragmatic hernia without obstruction or gangrene
CPT/HCPCS: 82565; 84520; 71275; 36415; Q9967

== ENCOUNTER 2017-11-04 11:27 | Day surgery (SDC) | payer MEDICARE ==
[2017-11-03 09:00] VITALS: BMI 35.5
[~2017-11-04 11:27] MED LIST changes: -ACETAMINOPHEN TAB 500 MG TAB PO ONE; +ALBUTEROL NEB (CONC) 2.5 MG/0.5 ML INHALATION ONE; -DEXAMETHASONE SOD PHOSPHATE 10 MG/ML 1 ML VIAL IV ONE; -HYDROmorphone 1 MG/ML 1 ML SYRINGE IVP PRN; +LACTATED RINGERS 1,000 ML IV ONE; -LIDOCAINE 1% 20 ML VIAL (10MG/ML) FOR IV START INTRADERMA PRN; +LIDOCAINE 2% (PF) 20 MG/ML 2 ML AMP INHALATION ONE; -MELOXICAM 7.5 MG TAB PO ONE; -MIDAZOLAM 2 MG/2 ML VIAL IV PRN; -ONDANSETRON 4 MG/2 ML VIAL IVP ONE; +Pre Op ABX Message 1 EACH MISC MISCELLANE ONE; -TRANEXAMIC ACID 1,000 MG in SODIUM CHLORIDE 0.9% 100 ML IVPB ONE; -ceFAZolin 2 GM in SODIUM CHLORIDE 0.9% 100 ML IVPB ONE; -fentaNYL (PF) 50 MCG/ML 20 ML VIAL IVP PRN
[2017-11-04 11:56] VITALS: TEMP 97.9
[2017-11-04] MEDS ORDERED: LIDOCAINE 1% 20 ML VIAL (10MG/ML) FOR IV START INTRADERMA ONE (11:57)
[2017-11-04 12:02] LABS: Glucose,Whole Blood 70 mg/dL (75-99)
[2017-11-04] MEDS ORDERED: MIDAZOLAM 2 MG/2 ML VIAL ONE (12:45)
[2017-11-04] MEDS ORDERED: PROPOFOL 10 MG/ML 20 ML VIAL IV ONE (12:45)
[2017-11-04] MEDS ORDERED: LIDOCAINE 2% INJ 20 MG/ML INTRATRACH ONE (12:59)
[2017-11-04 13:24] VITALS: BP 129/71; PULSE 87; RESP 18
[2017-11-04 16:09] LABS: Appearance,BF Hazy; Nucleated Cells, Body Fluid 28 /uL; RBC, Body Fluid 98 /uL
[2017-11-04 16:52] LABS: Mononuclear WBC,Body Fluid 84 %; Polynuclear WBC,Body Fluid 16 %; Total Cells Counted,Body Fluid 100
--- NOTE | 2017-11-04 21:05 | PCN ---
PROCEDURE NOTE Bronchoscopy and bronchoalveolar lavage of the left lower lobe. PREOPERATIVE DIAGNOSIS: Left lower lobe collapse noted on CT of the chest. POSTOPERATIVE DIAGNOSIS: No evidence of left lower lobe collapse on on bronchoscopic evaluation of the left lower lobe. ANESTHESIA USED: IV conscious sedation. Please refer to [employer] documentation. PROCEDURE: Patient was placed in the supine position, O2 was applied via nasal cannula, and we monitored her O2 saturation, monitored pulse oximetry and blood pressure was intermittently monitored, monitored. After adequate IV conscious sedation, the bronchoscope was inserted through the right naris down to the area of the vocal cords, which were patent. Lidocaine applied over the vocal cords and the bronchoscope was advanced further down. Thorough examination was done of the whole airways. There was no evidence of any endobronchial tumors. I went down to the left lower lobe, and there was clearly no evidence of endobronchial tumor and no collapse was noted of the left lower lobe. Bronchoalveolar lavage of the left lower lobe was done. Fluid was sent for the further diagnostic studies. No evidence of any immediate complications. MMODL / IJN: [id number] /
== END 2017-11-04 13:48 | disposition home or self-care (01) ==
LOC: ORWHC2ENDO 11:27
PROVIDERS: ATTEND Internal Medicine
DX: J45.21 Mild intermittent asthma with (acute) exacerbation (principal); J20.9 Acute bronchitis, unspecified; R04.2 Hemoptysis; K21.9 Gastro-esophageal reflux disease without esophagitis; E78.5 Hyperlipidemia, unspecified; F32.9 Major depressive disorder, single episode, unspecified; J45.909 Unspecified asthma, uncomplicated; Z87.891 Personal history of nicotine dependence; I10 Essential (primary) hypertension; Z79.2 Long term (current) use of antibiotics; Z79.899 Other long term (current) drug therapy; Z88.1 Allergy status to other antibiotic agents
CPT/HCPCS: 94640; 88108; 88305; 89050; 87070; 87205; 87116; 87206; 31624; J2001 ×2; J2250; J2704

== ENCOUNTER → 2017-12-15 | Outpatient (CLI) | payer MEDICARE ==
--- NOTE | 2017-12-16 16:13 | BD ---
EXAMINATION TYPE: MG DEXA axial skeleton. DATE OF EXAM: 12/15/2017 COMPARISON: NONE CLINICAL HISTORY: 72 year-old male known osteoporosis Height: 5 FT 4 IN Weight: 227 FRAX RISK QUESTIONS: Alcohol (3 or more units per day): NO Family History (Parent hip fracture): NO Glucocorticoids (More than 3mos): YES (Ex: prednisone, prednisolone, methylprednisolone, dexamethasone, and hydrocortisone). History of Fracture in Adulthood: YES Secondary Osteoporosis: 1. Type 1 Diabetes: NO 2. Hyperthyroidism: NO 3. Menopause before 45: NO 4. Malnutrition: NO 5. Chronic liver disease: NO Rheumatoid Arthritis: NO Current Tobacco Use: NO RISK FACTORS HISTORY OF: History of Wrist Fracture: RT WRIST When: 2016 Family History of Osteoporosis: YES Active: YES Postmenopausal woman: TOTAL HYST AGE 50 Take estrogen and/or progesterone medications: SHE DID NO LONGER USES Lost more than 2 inches in height since high school: YES MEDICATIONS: Prednisone or other steroids: ASTHMA How Long: CURRENTLY ON STEROIDS ON/OFF 10 YEARS Additional Medications: SPIRIVA, ALBUTEROL, SINGULAIR, PREDNISONE, ZOLOFT, OMEPRAZOLE,CYNBALTA,SIMVAS TATIN Additional History: EXAM MEASUREMENTS: Bone mineral densitometry was performed using the [employer]. Bone mineral density as measured about the Lumbar spine is: ----- L1-L4(G/cm2): 1.016 T Score Values are as follows: ----- L2: -0.7 ----- L3: -1.9 ----- L4: -1.5 ----- L1-L4: -1.4 Bone mineral density has: DECREASED -5.3 % since study of: 2014 Bone mineral density about the R hip (g/cm2): 0.900 Bone mineral density about the L hip (g/cm2): 0.899 T Score values are as follows: -----R Neck: -1.0 -----L Neck: -1.0 -----R Total: -1.0 -----L Total: -1.0 Bone mineral density has: DECREASED -6.3 % since study of: 2014 IMPRESSION: Osteopenia (T Score between -2.5 and -1). There is slightly increased risk of fracture and the patient may be considered for treatment. Re-Screen 2-5 years. NOTE: T-SCORE=SD OF THE YOUNG ADULT MEAN.
--- NOTE | 2017-12-17 10:06 | MM ---
Reason for exam: screening (asymptomatic). Last mammogram was performed 1 year and 2 months ago. History: Patient is postmenopausal. Family history of breast cancer in maternal sister at age 73 and breast cancer in sister at age 72. Benign cyst aspiration of the right breast. 2 benign excisional biopsies of the left breast. 3 benign excisional biopsies of the right breast. Took estrogen for 9 years beginning at age 50. Physical Findings: A clinical breast exam by your physician is recommended on an annual basis and results should be correlated with mammographic findings. MG 3D Screening Mammo W/Cad Bilateral CC and MLO view(s) were taken. Prior study comparison: October 05, 2016, bilateral MG 3d screening mammo w/ cad. August 30, 2015, bilateral MG 3d screening mammo w/cad. There are scattered fibroglandular densities. New suspicious focal asymmetry anterior upper inner quadrant left breast. ASSESSMENT: Incomplete: need additional imaging evaluation, BI-RAD 0 RECOMMENDATION: Special view mammogram and ultrasound of the left breast. [facility] will attempt to contact patient to return for supplemental views and ultrasound. EDWARD
== END ==
LOC: RADMAMWWP 14:38
PROVIDERS: ATTEND Internal Medicine Geriatric Medicine
DX: Z12.31 Encounter for screening mammogram for malignant neoplasm of breast (principal); M81.0 Age-related osteoporosis without current pathological fracture; M85.80 Other specified disorders of bone density and structure, unspecified site
CPT/HCPCS: 77063; 77067; 77080

== ENCOUNTER → 2017-12-24 | Outpatient (CLI) | payer MEDICARE ==
--- NOTE | 2017-12-27 11:02 | MM ---
Reason for exam: additional evaluation requested from abnormal screening. Last mammogram was performed less than 1 month ago. History: Patient is postmenopausal. Family history of breast cancer in maternal sister at age 73 and breast cancer in sister at age 72. Benign cyst aspiration of the right breast. 2 benign excisional biopsies of the left breast. 3 benign excisional biopsies of the right breast. Took estrogen for 9 years beginning at age 50. Physical Findings: Nurse Summary: 1.5cm nodule in the left breast at 11 o'clock (nurse kp). MG 3D Work Up W/Cad LT Spot compression CC, spot compression MLO, and LM view(s) were taken of the left breast. Prior study comparison: December 15, 2017, bilateral MG 3d screening mammo w/cad. October 05, 2016, bilateral MG 3d screening mammo w/cad. The breast tissue is heterogeneously dense. This may lower the sensitivity of mammography. Spiculated mass left breast 10 o'clock. These results were verbally communicated with the patient and result sheet given to the patient on 12/24/17. ASSESSMENT: Incomplete: need additional imaging evaluation, BI-RAD 0 RECOMMENDATION: Ultrasound of the left breast.
--- NOTE | 2017-12-27 11:13 | USB ---
Reason for exam: additional evaluation requested from abnormal screening. History: Patient is postmenopausal. Family history of breast cancer in maternal sister at age 73 and breast cancer in sister at age 72. Benign cyst aspiration of the right breast. 2 benign excisional biopsies of the left breast. 3 benign excisional biopsies of the right breast. Took estrogen for 9 years beginning at age 50. US Breast Workup LT Left breast ultrasound includes all four quadrants, the retroareolar region and axilla. Finding demonstrates a 0.8 x 0.5 x 0.6cm hypoechoic lesion at 10 o'clock and a 1.2 x 0.9 x 0.9cm irregular, hypoechoic lesion at 10 o'clock. These results were verbally communicated with the patient and result sheet given to the patient on 12/24/17. ASSESSMENT: Highly suggestive of malignancy, BI-RAD 5 RECOMMENDATION: Ultrasound core biopsy of the left breast. Called Dr. Myrick with mammographic findings and has scheduled an appointment for the patient for 12/30/17 at 9:[address] Austin. Biopsy scheduled for 01/05/18 at 2 o'clock. PRELIMINARY REPORT CALLED AND FAXED TO DR. AUSTIN ON 12/24/17.
== END | disposition home or self-care (01) ==
LOC: RADMAMWWP 14:51
PROVIDERS: ATTEND Internal Medicine Geriatric Medicine
DX: R92.8 Other abnormal and inconclusive findings on diagnostic imaging of breast (principal)
CPT/HCPCS: 77065; 76641; G0279

== ENCOUNTER → 2018-01-05 | Day surgery (SDC) | payer MEDICARE ==
--- NOTE | 2018-01-05 14:26 | USB ---
ULTRASOUND GUIDED ULTRASOUND CORE BIOPSY LEFT BREAST: CLINICAL HISTORY: 10:00 left breast lesion FINDINGS: The procedure was explained to the patient. The risks, complications, benefits and alternatives were discussed and any questions were answered. Informed consent was obtained. Patient was placed supin e on the ultrasound table and prepped and draped in the usual sterile fashion. Utilizing a 14 gauge needle, 4 passes were made into the requested lesion within the left breast. Clip was placed overlyi ng the lesion post procedure. Postprocedural mammogram demonstrates the clip to be in ideal location. Patient was stable throughout the procedure. Pathology is pending. All elements of maximal barrier and sterile technique were utilized. IMPRESSION: 1. Successful ultrasound guided core biopsy left breast lesion with pathology pending.
--- NOTE | 2018-01-05 14:37 | MM ---
Reason for exam: additional evaluation requested from abnormal screening. Last mammogram was performed less than 1 month ago. History: Patient is postmenopausal. Family history of breast cancer in maternal sister at age 73 and breast cancer in sister at age 72. Benign cyst aspiration of the right breast. 2 benign excisional biopsies of the left breast. 3 benign excisional biopsies of the right breast. Took estrogen for 9 years beginning at age 50. MG Diagnostic Mammo LT Wo CAD CC and MLO view(s) were taken of the left breast. Prior study comparison: December 24, 2017, left breast MG 3d work up w/cad LT. December 15, 2017, bilateral MG 3d screening mammo w/cad. ASSESSMENT: Post procedure mammogram for marker placement RECOMMENDATION: Ultrasound of the left breast in 6 months. PENDING PATHOLOGY RESULTS.
[2018-01-05 14:52] VITALS: BP 130/69; PULSE 76; RESP 18; TEMP 97.8
== END ==
LOC: RADUSWWP 11:49
PROVIDERS: ATTEND Surgery
DX: C50.212 Malignant neoplasm of upper-inner quadrant of left female breast (principal)
CPT/HCPCS: 77065; 19083; A4648; J2001; 88305; 88342

== ENCOUNTER 2018-02-08 10:02 | Day surgery (SDC) | payer MEDICARE ==
[2018-02-03 08:57] VITALS: BMI 35.5
[~2018-02-08 10:02] MED LIST changes: -ALBUTEROL NEB (CONC) 2.5 MG/0.5 ML INHALATION ONE; -LACTATED RINGERS 1,000 ML IV ONE; +LACTATED RINGERS 1,000 ML IV SCH; +LIDOCAINE 1% 20 ML VIAL (10MG/ML) FOR IV START INTRADERMA PRN; -LIDOCAINE 2% (PF) 20 MG/ML 2 ML AMP INHALATION ONE; +MIDAZOLAM 2 MG/2 ML VIAL IV PRN
[2018-02-08] MEDS ORDERED: ALPRAZolam 0.25 MG TAB PO ONE (11:43)
[2018-02-08] MEDS ORDERED: SODIUM BICARB 4% 5 ML VIAL (0.48 MEQ/ML) MISCELLANE ONE (12:08)
[2018-02-08] MEDS ORDERED: LIDOCAINE 1% INJ 10MG/ML (20 ML MDV) SQ ONE (12:08)
[2018-02-08] MEDS ORDERED: BUPIVACAINE (PF) 0.5% 30 ML VIAL SQ ONE ×2 (12:43→12:55)
[2018-02-08 12:54] LABS: Basophils % (A) 0 %; Eosinophils # (A) 0.1 k/uL (0-0.7); Eosinophils % (A) 1 %; HCT 43.2 % (34.0-46.0); HGB 14.4 gm/dL (11.4-16.0); Lymphocytes # (A) 0.7 k/uL (1.0-4.8); Lymphocytes % (A) 9 %; MCH 30.8 pg (25.0-35.0); MCHC 33.3 g/dL (31.0-37.0); MCV 92.6 fL (80.0-100.0); Mean Platelet Volume 7.2; Monocytes # (A) 0.3 k/uL (0-1.0); Monocytes % (A) 4 %; Neutrophils # (A) 6.7 k/uL (1.3-7.7); Neutrophils % (A) 86 %; Platelet Count 320 k/uL (150-450); RBC 4.66 m/uL (3.80-5.40); RDW 14.2 % (11.5-15.5); WBC 7.9 k/uL (3.8-10.6)
[2018-02-08] MEDS ORDERED: DEXAMETHASONE SOD PHOSPHATE 10 MG/ML 1 ML VIAL IV ONE (13:07)
[2018-02-08] MEDS ORDERED: ONDANSETRON 4 MG/2 ML VIAL IVP ONE (13:07)
[2018-02-08] MEDS ORDERED: HYDROCORTISONE SUCCINATE 100 MG/2 ML VIAL IV ONE (13:08)
[2018-02-08 13:10] LABS: Potassium 4.6 mmol/L (3.5-5.1)
[2018-02-08] MEDS ORDERED: ceFAZolin IN SWFI 2 GM/20 ML SYRINGE IVP STA (13:15)
[2018-02-08] MEDS ORDERED: ePHEDrine SULFATE/0.9% NACL/PF 50 MG/5 ML SYRINGE IV ONE (13:21)
[2018-02-08] MEDS ORDERED: PROPOFOL 10 MG/ML 20 ML VIAL IV ONE (13:21)
[2018-02-08] MEDS ORDERED: LIDOCAINE 1% INJ 10MG/ML (20 ML MDV) ONE (13:21)
[2018-02-08] MEDS ORDERED: ALBUTEROL INHALER 60 PUFF/8 GM INHALER INHALATION ONE (13:21)
[2018-02-08] MEDS ORDERED: fentaNYL (PF) 50 MCG/ML 2 ML AMP ONE (13:21)
[2018-02-08] MEDS ORDERED: MIDAZOLAM 2 MG/2 ML VIAL ONE (13:21)
[2018-02-08] MEDS ORDERED: SUCCINYLCHOLINE CHLORIDE 100 MG/5 ML SYR IV ONE (13:21)
--- NOTE | 2018-02-08 13:36 | NM ---
EXAMINATION TYPE: NM sentinel node injection DATE OF EXAM: 02/08/2018 COMPARISON: NONE HISTORY: IRRITATING LEFT DUCTAL CARCINOMA TECHNIQUE AND FINDINGS: The procedure of sentinel lymph node injection was explained to the patient. The benefits, alternatives, and risks were discussed. An informed consent was then obtained. Overlying skin is cleaned with sterile alcohol. Following this, 473 uCi Tc99m Tilmanocept was inject ed into the upper outer quadrant. The patient tolerated the procedure well without any immediate complication. The patient was kept in the radiology department for short stay after the procedure and then taken to surgery for surgical p rocedure what is presumed intraoperative gamma probe will be used for sentinel lymph node detection. IMPRESSION: Left breast radiotracer injection for sentinel node localization as above.
[2018-02-08 14:53] VITALS: TEMP 97
--- NOTE | 2018-02-08 14:53 | P.OP ---
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 Procedure(s) Performed: Left breast excisional biopsy with needle localization and left axillary sentinel lymph node biopsy Anesthesia: SUZE Surgeon: Talon High Estimated Blood Loss (ml): 10 Pathology: other (Left breast lumpectomy for CA and left axillary sentinel lymph node) Condition: stable Disposition: same day Indications for Procedure: The patient is a 72 white female who underwent recent mammography was found to have a suspicious density in the left breast around the 10 o'clock position upper inner quadrant. Core biopsy revealed it to be a ductal carcinoma. Lesion was somewhat small. After extensive discussion patient opted for wide excision of this lesion with needle localization in addition to a left axillary sentinel lymph node biopsy and informed consent was obtained procedure is having been explained to her including potential complication particular bleeding and infection hematoma seroma deformity etc. she understood and agree to proceed. Operative Findings: Left breast infiltrating ductal carcinoma upper inner quadrant with left axillary sentinel lymph node negative for metastases on frozen section Description of Procedure: After induction of general endotracheal anesthesia the entire left chest wall including the left breast and axilla and upper arm were prepped with ChloraPrep. Static was infiltrated into the left axillary sentinel lymph node was identified the Enigma probe. A transverse incision was made deepened through the copious subcutaneous fat. The sentinel lymph node was identified grasped with an Allis clamp and excised. There was no background count. Frozen section revealed this to be negative for metastatic disease. Attention was then turned to the needle localization site. Local anesthetic was again infiltrated in a transverse incision was made at the wire insertion site on the medial aspect the of the left breast and extended laterally. Wide excision around the wire was accomplished and specimen mammography confirmed the abnormality within the specimen. Thoroughly irrigated. Small micro-clips were placed in the base of the wound to facilitate radiation therapy. Closure was then achieved for both the wounds with interrupted 4-0 Vicryl for the subcutaneous tissues and possible Monocryl subcuticular suture and Steri-Strips for the skin. Pressure dressing was applied. All counts were correct. Patient remained stable was transferred to the recovery room in good and stable condition. Plan - Discharge Summary New Discharge Prescriptions: New traMADol HCL [Ultram] 50 mg PO Q6HR PRN 3 Days #12 tab PRN Reason: Pain Continue Sertraline [Zoloft] 100 mg PO HS Simvastatin [Zocor] 20 mg PO HS Montelukast [Singulair] 10 mg PO HS Cetirizine HCl [Zyrtec] 10 mg PO DAILY PRN PRN Reason: Allergy Symptoms Omeprazole [PriLOSEC] 20 mg PO AC-BRKFST Albuterol Inhaler [Ventolin Hfa Inhaler] 1 - 2 puff INHALATION RT-Q6H PRN PRN Reason: Shortness Of Breath predniSONE See Taper PO DAILY Fluticasone/Salmeterol [Advair 250-50 Diskus] 1 inhalation PO BID Amoxic-Pot Clav 875-125Mg [Augmentin 875-125] 1 tab PO BID Ibuprofen [Motrin] 800 mg PO TID PRN PRN Reason: Pain Discharge Medication List Montelukast [Singulair] 10 mg PO HS 09/20/16 [History] Sertraline [Zoloft] 100 mg PO HS 09/20/16 [History] Simvastatin [Zocor] 20 mg PO HS 09/20/16 [History] Albuterol Inhaler [Ventolin Hfa Inhaler] 1 - 2 puff INHALATION RT-Q6H PRN [History] Cetirizine HCl [Zyrtec] 10 mg PO DAILY PRN 10/06/16 [History] Omeprazole [PriLOSEC] 20 mg PO AC-BRKFST 10/06/16 [History] predniSONE See Taper PO DAILY 11/03/17 [History] Amoxic-Pot Clav 875-125Mg [Augmentin 875-125] 1 tab PO BID 02/03/18 [History] Fluticasone/Salmeterol [Advair 250-50 Diskus] 1 inhalation PO BID 02/03/18 [ History] Ibuprofen [Motrin] 800 mg PO TID PRN 02/03/18 [History] traMADol HCL [Ultram] 50 mg PO Q6HR PRN 3 Days #12 tab 02/08/18 [Rx] Follow up Appointment(s)/Referral(s): Talon High MD [STAFF PHYSICIAN] - 1 Week Patient Instructions/Handouts: *Surgery [facility] - ([facility]) Breast Biopsy Instructions Discharge Disposition: HOME SELF-CARE
[2018-02-08] MEDS ORDERED: HYDROmorphone 0.5 MG/0.5 ML SYRINGE IVP ONE ×3 (14:59→15:18)
[2018-02-08] MEDS ORDERED: IV FLUID CONTINUATION 825 ML IV ONE (15:44)
[2018-02-08] MEDS ORDERED: traMADol 50 MG TAB PO ONE (15:55)
[2018-02-08 15:56] VITALS: RESP 18
[2018-02-08 16:20] VITALS: BP 146/73; PULSE 67
--- NOTE | 2018-02-09 14:35 | MM ---
EXAMINATION TYPE: MG pre op needle loc LT, MG surgical specimen LT DATE OF EXAM: 02/08/2018 12:56 PM COMPARISON: NONE HISTORY: Malignancy left breast Informed consent was obtained and all the patient's questions were answered. The clip marker in question was localized mammographically. The standard sterile technique was utilized, as well as appropriate local anesthesia with 1% Lidocaine and bicarbonate. Localization needle followed by placement of a guidewire was performed under mammographic guidance. Verification images demonstrate appropriate deployment of the guidewire. The patient tolerated the procedure well and left the department in stable condition. Specimen radiograph demonstrates the clip in question to reside within the specimen. IMPRESSION: Successful needle localization and open biopsy left breast with pathology results pending . Pathology Results: Malignant A. SENTINEL LYMPH NODE #1, BIOPSY: TWO LYMPH NODES NEGATIVE FOR METASTASIS. CK7 AND MARGARITO IMMUNOPEROXIDASE STAINS ARE CONFIRMATORY (CONTROLS APPROPRIATE). B. BREAST, LEFT, LUMPECTOMY: INVASIVE DUCTAL CARCINOMA AND DUCTAL CARCINOMA IN SITU, MARGINS NEGATIVE FOR MALIGNANCY. SEE SURGICAL PATHOLOGY CANCER CASE SUMMARY. Recommendation Surgical consult of the left breast. Ultrasound of the left breast in 6 months. (second mass at 10 o'clock zone A 0.8 x 0.5 x 0.6cm may also have been surgically removed due to proximity, however 6 month follow up recommended to ensure no interval growth) MTDD
== END 2018-02-08 16:52 | disposition home or self-care (01) ==
LOC: OR 10:02
PROVIDERS: ATTEND Surgery
DX: C50.212 Malignant neoplasm of upper-inner quadrant of left female breast (principal); J45.909 Unspecified asthma, uncomplicated; F32.9 Major depressive disorder, single episode, unspecified; K21.9 Gastro-esophageal reflux disease without esophagitis; E78.00 Pure hypercholesterolemia, unspecified; Z80.3 Family history of malignant neoplasm of breast; Z79.51 Long term (current) use of inhaled steroids; Z79.899 Other long term (current) drug therapy; Z79.1 Long term (current) use of non-steroidal anti-inflammatories (NSAID); Z79.52 Long term (current) use of systemic steroids
CPT/HCPCS: 19301; 38525; 80051; 85025; 88342; 88331; 88307; 88341; 76098; 19281; 38792; A9520; J2250; J1100; J1720; J2405; J2001; J3010; J0330; J2704; J1170; 93005

== ENCOUNTER → 2018-05-05 | Outpatient (CLI) | payer MEDICARE ==
--- NOTE | 2018-05-05 17:06 | CT ---
EXAMINATION TYPE: CT chest wo/w con DATE OF EXAM: 05/05/2018 COMPARISON: Prior CT chest 10/08/2010 HISTORY: Patient complains of chronic cough. CT DLP: 883.5 mGycm Automated exposure control for dose reduction was used. CONTRAST: CT scan of the chest is performed without and with IV Contrast, patient injected with 100 mL of Isovu e 300. FINDINGS: LUNGS: The lungs are remarkable for nodular density axial image 28 right upper lobe, soft tissue nodu le is indeterminate, likely stable. Some additional subcentimeter nodular densities are present, like ly stable. There is no pleural effusion or pneumothorax seen. The tracheobronchial tree is patent. MEDIASTINUM: There are no greater than 1 cm hilar or mediastinal lymph nodes. No pericardial effusi on is seen. Pulmonary artery is prominent, correlate for possible pulmonary artery hypertension. The re are coronary artery calcifications present. AORTA: No additional significant abnormality is seen. OTHER: There is a large hiatal hernia with intrathoracic stomach which is increased in size compared to prior exam. Multiple calcifications are present within the spleen. Duodenal diverticulum is suspe cted. Liver shows low attenuation possibly due to hepatic steatosis. Colonic interposition present an terior to the liver. IMPRESSION: Large hiatal hernia with intrathoracic stomach. Correlate for possible pulmonary artery hypertension. Probable granulomatous disease. Additional findings above.
--- NOTE | 2018-05-06 12:33 | ECHOF ---
Referral Reason:J84.10 Pulmonary Fibrosis R06.02 Shortness Breath MEASUREMENTS -------- HEIGHT: 162.6 cm WEIGHT: 99.8 kg BP: RVIDd: 3.2 cm (< 3.3) IVSd: 1.2 cm (0.6 - 1.1) LVIDd: 4.6 cm (3.9 - 5.3) LVPWd: 1.2 cm (0.6 - 1.1) IVSs: 1.5 cm LVIDs: 3.5 cm LVPWs: 1.5 cm LAESV Index (A-L): 25.05 ml/m Ao Diam: 3.0 cm (2.0 - 3.7) AV Cusp: 2.1 cm (1.5 - 2.6) LA Diam: 2.5 cm (2.7 - 3.8) MV EXCURSION: 15.119 mm (> 18.000) MV EF SLOPE: 63 mm/s (70 - 150) EPSS: 1.0 cm MV E Earl: 0.51 m/s MV DecT: 242 ms MV A Earl: 0.95 m/s MV E/A Ratio: 0.53 RAP: 5.00 mmHg RVSP: 18.48 mmHg FINDINGS -------- Sinus rhythm. This was a technically good study. The left ventricular size is normal. There is mild concentric left ventricular hypertrophy. Overa ll left ventricular systolic function is normal with, an EF between 55 - 60 %. The right ventricle is mildly enlarged. Normal LA size by volume 22+/-6 ml/m2. RA appears enlarged. The aortic valve is trileaflet, and appears structurally normal. No aortic stenosis or regurgitation. The mitral valve leaflets are mildly thickened. Mild mitral regurgitation is present. Trace tricuspid regurgitation present. Right ventricular systolic pressure is normal at < 35 mmHg. The right ventricular systolic pressure, as measured by Doppler, is 18.48mmHg. The pulmonic valve was not well visualized. There is no pulmonic regurgitation present. The aortic root size is normal. Normal inferior vena cava with normal inspiratory collapse consistent with estimated right atrial pre ssure of 5 mmHg. There is no pericardial effusion. CONCLUSIONS -------- 1. Sinus rhythm. 2. This was a technically good study. 3. The left ventricular size is normal. 4. There is mild concentric left ventricular hypertrophy. 5. Overall left ventricular systolic function is normal with, an EF between 55 - 60 %. 6. The right ventricle is mildly enlarged. 7. Normal LA size by volume 22+/-6 ml/m2. 8. RA appears enlarged. 9. The aortic valve is trileaflet, and appears structurally normal. No aortic stenosis or regurgitati on. 10. The mitral valve leaflets are mildly thickened. 11. Mild mitral regurgitation is present. 12. Trace tricuspid regurgitation present. 13. Right ventricular systolic pressure is normal at < 35 mmHg. 14. The pulmonic valve was not well visualized. 15. There is no pulmonic regurgitation present. 16. The aortic root size is normal. 17. There is no pericardial effusion. CREDIT ADMINISTRATION SPECIALIST: Hadley Hobson RDCS
== END | disposition home or self-care (01) ==
LOC: RADECHMAIN 14:55
PROVIDERS: ATTEND Internal Medicine Geriatric Medicine
DX: K44.9 Diaphragmatic hernia without obstruction or gangrene (principal); I34.0 Nonrheumatic mitral (valve) insufficiency
CPT/HCPCS: 93306; 71270; Q9967

== ENCOUNTER → 2018-06-22 | Outpatient (CLI) | payer MEDICARE ==
--- NOTE | 2018-06-22 10:39 | FL ---
EXAMINATION TYPE: FL barium swallow DATE OF EXAM: 06/22/2018 CLINICAL HISTORY: Enlarging paraesophageal/hiatal hernia. TECHNIQUE: A double contrast esophagram is performed utilizing air and barium. A total of 2 minutes and 11 seconds of fluoroscopic time was utilized during procedure. 40 fluoroscopic images were saved . COMPARISON: CT thorax dated 05/05/2018. FINDINGS: The esophagus shows normal motility and emptying into the stomach. There is a moderate hiat al hernia as seen on the prior CT dated 05/05/2018. This is distensible and enlarges throughout the ex am with administration of larger volumes of contrast. Moderate grade gastroesophageal reflux and intr aesophageal reflux was seen during real time performance of this study originating from stasis of con trast in the hiatal hernia. No stricture is seen. IMPRESSION: Moderate hiatal hernia and moderate grade intraesophageal/gastroesophageal reflux origina ting from residual contrast within the hernia pouch.
== END | disposition home or self-care (01) ==
LOC: RADFLWHC 09:38
PROVIDERS: ATTEND Thoracic Surgery (Cardiothoracic Vascular Surgery)
DX: K44.9 Diaphragmatic hernia without obstruction or gangrene (principal); K21.9 Gastro-esophageal reflux disease without esophagitis
CPT/HCPCS: 74220

== ENCOUNTER → 2018-06-27 | Outpatient (CLI) | payer MEDICARE ==
--- NOTE | 2018-06-27 13:56 | NM ---
EXAMINATION TYPE: NM gastric emptying study DATE OF EXAM: 06/27/2018 COMPARISON: NONE HISTORY: 72-year-old female increased appetite, heartburn, reflux, paraesophageal hernia. Technique: Following administration of 2.1 mCi Tc 99m Sulfur Colloid with 1 cup of oatmeal projection images of the abdomen were obtained from 2 minutes up to 60 minutes post ingestion. When possible, b oth anterior and posterior projection images were obtained to allow the calculation of the geometric mean activity. Findings: Clearance: 43 % Half-life: 61 min Gastroesophageal reflux: None identified IMPRESSION: The calculated T 1/2 at 60 minutes does not suggest gastroparesis. No gastroesophageal reflux visuali zed during the course of the study. Gastric emptying normal percentage values: 60 minutes: <90% retention (>10% emptying) is normal; less than 30% retention (>70% emptying) suggest s abnormally rapid emptying. 90 minutes: <65% retention (> 35% emptying) is normal. 120 minutes: <60% retention (> 40% emptying) is normal. 180 minutes: <30% retention (> 70% emptying) is normal. Gastric emptying T-1/2: Solid: The normal range is 60-105 minutes
== END | disposition home or self-care (01) ==
LOC: RADNMMAIN 06-24 06:56
PROVIDERS: ATTEND Thoracic Surgery (Cardiothoracic Vascular Surgery)
DX: K44.9 Diaphragmatic hernia without obstruction or gangrene (principal)
CPT/HCPCS: 78264; A9541

== ENCOUNTER 2018-08-05 11:30 | Inpatient (IN) | payer MEDICARE ==
[2018-08-05] MEDS ORDERED: IPRATROPIUM 0.5 MG/2.5 ML NEBU INHALATION STA (11:55)
[2018-08-05] MEDS ORDERED: ALBUTEROL NEBULIZED 2.5 MG/3 ML INHALATION STA (11:55)
[2018-08-05] MEDS ORDERED: DEXAMETHASONE SOD PHOSPHATE 10 MG/ML 1 ML VIAL IV STA (11:56)
--- NOTE | 2018-08-05 12:02 | ED ---
General Adult HPI - General Chief complaint: Shortness of Breath Stated complaint: SOB Source: patient Limitations: no limitations - History of Present Illness Initial comments: Dictation was produced using [employer] - [place] dictation software. please excuse any grammatical, word or spelling errors. Chief Complaint: 73-year-old female with extensive history of persistent asthma presents with dyspnea. History of Present Illness: Patient states she's been feeling dyspneic for the last 2 or 3 days. Patient states she's been getting worse. She denies extensive history of asthma. She has been taking breathing treatments at home with little improvement of her symptoms. Patient has history of large hiatal hernia. She is working with a animal stunner and thoracic surgeon in [place] with plans to get hiatal hernia repair in order to alleviate some of her dyspnea symptoms. Patient states that her dyspnea has been much more worse than usual. She is currently cardiac cleared for the procedure. She has a appointment in August with animal stunner. Plan is to wean patient off steroids until September when she can undergo thoracic surgery. Patient denies any triggers her asthma causing this episode.. The ROS documented in this emergency department record has been reviewed and confirmed by me. Those systems with pertinent positive or negative responses have been documented in the HPI. All other systems are other negative and/or noncontributory. - Related Data Home Medications Medication Instructions Recorded Confirmed Montelukast [Singulair] 10 mg PO HS 09/20/16 08/05/18 Sertraline [Zoloft] 100 mg PO HS 09/20/16 08/05/18 Simvastatin [Zocor] 20 mg PO HS 09/20/16 08/05/18 Albuterol Inhaler [Ventolin Hfa 1 - 2 puff INHALATION RT-Q6H PRN 10/06/16 Inhaler] Ibuprofen [Motrin] 800 mg PO TID PRN 02/03/18 08/05/18 Albuterol Nebulized [Ventolin 2.5 mg INHALATION RT-QID 08/05/18 08/05/18 Nebulized] Budesonide/Formoterol Fumarate 1 puff INHALATION RT-DAILY 08/05/18 08/05/18 [Symbicort 160-4.5 Mcg Inhaler] Ketotifen 0.025% Ophth Soln 1 drop LEFT EYE DAILY 08/05/18 08/05/18 [Zaditor] Omeprazole [PriLOSEC] 20 mg PO BID 08/05/18 08/05/18 predniSONE 5 mg PO DAILY 08/05/18 08/05/18 Allergies Allergy/AdvReac Type Severity Reaction Status Date / Time cefuroxime Allergy Cough Verified 08/05/18 12:26 antibiotic Allergy pt to Uncoded 08/05/18 11:37 bring name day of proc. Review of Systems ROS Statement: Those systems with pertinent positive or pertinent negative responses have been documented in the HPI. ROS Other: All systems not noted in ROS Statement are negative. Past Medical History Past Medical History: Asthma, GERD/Reflux, Hyperlipidemia Additional Past Medical History / Comment(s): MIGRAINES History of Any Multi-Drug Resistant Organisms: None Reported Past Surgical History: Breast Surgery, Hysterectomy, Joint Replacement Additional Past Surgical History / Comment(s): BREAST BX (X5). RT TKA. COLONOSCOPY. BILAT CATARACT SX. hernia Past Anesthesia/Blood Transfusion Reactions: No Reported Reaction Past Psychological History: Depression Smoking Status: Former smoker Past Alcohol Use History: None Reported, Occasional Past Drug Use History: None Reported - Past Family History Sister(s) Family Medical History: Cancer, Pulmonary Embolus Additional Family Medical History / Comment(s): 2 SISTERS -BREAST CANCER General Exam - General Exam Comments Initial Comments: PHYSICAL EXAM: General Impression: Alert and oriented x3, short winded midsentence HEENT: Normocephalic atraumatic, extra-ocular movements intact, pupils equal and reactive to light bilaterally, mucous membranes moist. Cardiovascular: Heart regular rate and rhythm, S1&S2 audible, no murmurs, rubs or gallops Chest: Severe wheezing diffusely worse on the left on the right Abdomen: Bowel sounds present, abdomen soft, non-tender, non-distended, no organomegaly Musculoskeletal: Pulses present and equal in all extremities, no peripheral edema Motor: Power 5/5 bilaterally, no focal deficits noted Neurological: CN II-XII grossly intact, no focal motor or sensory deficits noted Skin: Intact with no visualized rashes Psych: Normal affect and mood Limitations: no limitations Course Vital Signs 08/05/18 08/05/18 08/05/18 11:33 12:45 12:56 Temperature 98.1 F Pulse Rate 106 H 74 70 Respiratory 26 H Rate Blood Pressure 162/95 O2 Sat by Pulse 95 Oximetry 08/05/18 08/05/18 13:13 13:15 Temperature Pulse Rate 84 Respiratory 20 Rate Blood Pressure O2 Sat by Pulse Oximetry Medical Decision Making - Medical Decision Making ED course: 73-year-old female with extensive history of asthma presents with worsening dyspnea. Vital signs upon arrival shows respiratory rate of 26, heart rate of 106, rest vital signs within normal limits. Patient's diffusely wheezy bilaterally. She is showing some signs of respiratory distress. Laboratory evaluation obtained showing no acute processes. Cardiac enzymes are negative. CBC and metabolic panel are within acceptable limits. Chest x-ray shows no acute processes. Patient's clinical presentation consistent with poorly controlled asthma. Did. At this point patient appears well when she is not exerting herself. No clear indication for BiPAP administration at this time. Patient continue around the clock breathing treatments. EKG Interpretation: A 12 lead EKG was obtained. It was interpreted by myself and attending physician. There is a P wave before every QRS complex. Rate is 74. Rhythm is sinus rhythm, OR interval 134, QS 100, QTC 461. QT is not prolonged. No ST segment depression or elevation. Overall, this EKG is unremarkable - Lab Data Result diagrams: 08/05/18 12:16 08/05/18 12:16 Lab Results 08/05/18 08/05/18 08/05/18 Range/Units 12:16 12:16 12:16 WBC 5.2 (3.8-10.6) k/uL RBC 4.21 (3.80-5.40) m/uL Hgb 13.1 (11.4-16.0) gm/dL Hct 39.1 (34.0-46.0) % MCV 92.9 (80.0-100.0) fL MCH 31.1 (25.0-35.0) pg MCHC 33.5 (31.0-37.0) g/dL RDW 13.7 (11.5-15.5) % Plt Count 223 (150-450) k/uL Neutrophils % 63 % Lymphocytes % 13 % Monocytes % 8 % Eosinophils % 13 % Basophils % 1 % Neutrophils # 3.3 (1.3-7.7) k/uL Lymphocytes # 0.7 L (1.0-4.8) k/uL Monocytes # 0.4 (0-1.0) k/uL Eosinophils # 0.7 (0-0.7) k/uL Basophils # 0.1 (0-0.2) k/uL PT (9.0-12.0) sec INR (<1.2) APTT (22.0-30.0) sec Sodium 140 (137-145) mmol/L Potassium 4.2 (3.5-5.1) mmol/L Chloride 110 H (98-107) mmol/L Carbon Dioxide 23 (22-30) mmol/L Anion Gap 7 mmol/L BUN 13 (7-17) mg/dL Creatinine 0.62 (0.52-1.04) mg/dL Est GFR (CKD-EPI)AfAm >90 (>60 ml/min/1.73 sqM) Est GFR (CKD-EPI)NonAf 89 (>60 ml/min/1.73 sqM) Glucose 94 (74-99) mg/dL Calcium 9.2 (8.4-10.2) mg/dL Magnesium 2.0 (1.6-2.3) mg/dL Total Bilirubin 0.5 (0.2-1.3) mg/dL AST 28 (14-36) U/L ALT 30 (9-52) U/L Alkaline Phosphatase 76 (38-126) U/L Total Creatine Kinase 170 H (30-135) U/L CK-MB (CK-2) 3.6 H (0.0-2.4) ng/mL CK-MB (CK-2) Rel Index 2.1 Troponin I <0.012 (0.000-0.034) ng/mL Total Protein 5.9 L (6.3-8.2) g/dL Albumin 3.6 (3.5-5.0) g/dL Influenza Type A RNA (Not Detectd) Influenza Type B (PCR) (Not Detectd) 08/05/18 08/05/18 Range/Units 12:16 13:45 WBC (3.8-10.6) k/uL RBC (3.80-5.40) m/uL Hgb (11.4-16.0) gm/dL Hct (34.0-46.0) % MCV (80.0-100.0) fL MCH (25.0-35.0) pg MCHC (31.0-37.0) g/dL RDW (11.5-15.5) % Plt Count (150-450) k/uL Neutrophils % % Lymphocytes % % Monocytes % % Eosinophils % % Basophils % % Neutrophils # (1.3-7.7) k/uL Lymphocytes # (1.0-4.8) k/uL Monocytes # (0-1.0) k/uL Eosinophils # (0-0.7) k/uL Basophils # (0-0.2) k/uL PT 9.8 (9.0-12.0) sec INR 1.0 (<1.2) APTT 21.9 L (22.0-30.0) sec Sodium (137-145) mmol/L Potassium (3.5-5.1) mmol/L Chloride (98-107) mmol/L Carbon Dioxide (22-30) mmol/L Anion Gap mmol/L BUN (7-17) mg/dL Creatinine (0.52-1.04) mg/dL Est GFR (CKD-EPI)AfAm (>60 ml/min/1.73 sqM) Est GFR (CKD-EPI)NonAf (>60 ml/min/1.73 sqM) Glucose (74-99) mg/dL Calcium (8.4-10.2) mg/dL Magnesium (1.6-2.3) mg/dL Total Bilirubin (0.2-1.3) mg/dL AST (14-36) U/L ALT (9-52) U/L Alkaline Phosphatase (38-126) U/L Total Creatine Kinase (30-135) U/L CK-MB (CK-2) (0.0-2.4) ng/mL CK-MB (CK-2) Rel Index Troponin I (0.000-0.034) ng/mL Total Protein (6.3-8.2) g/dL Albumin (3.5-5.0) g/dL Influenza Type A RNA Not Detected (Not Detectd) Influenza Type B (PCR) Not Detected (Not Detectd) Disposition Clinical Impression: Asthma Disposition: ADMITTED IP TO THIS HOSP Referrals: Isac Myrick MD [Primary Care Provider] - 1-2 days Decision Time: 15:03
[2018-08-05 12:32] LABS: Basophils # (A) 0.1 k/uL (0-0.2); Basophils % (A) 1 %; Eosinophils # (A) 0.7 k/uL (0-0.7); Eosinophils % (A) 13 %; HCT 39.1 % (34.0-46.0); HGB 13.1 gm/dL (11.4-16.0); Lymphocytes # (A) 0.7 k/uL (1.0-4.8); Lymphocytes % (A) 13 %; MCH 31.1 pg (25.0-35.0); MCHC 33.5 g/dL (31.0-37.0); MCV 92.9 fL (80.0-100.0); Mean Platelet Volume 6.8; Monocytes # (A) 0.4 k/uL (0-1.0); Monocytes % (A) 8 %; Neutrophils # (A) 3.3 k/uL (1.3-7.7); Neutrophils % (A) 63 %; Platelet Count 223 k/uL (150-450); RBC 4.21 m/uL (3.80-5.40); RDW 13.7 % (11.5-15.5); WBC 5.2 k/uL (3.8-10.6)
[2018-08-05 12:43] LABS: ALT 30 U/L (9-52); AST 28 U/L (14-36); Albumin 3.6 g/dL (3.5-5.0); Alkaline Phosphatase 76 U/L (38-126); Anion Gap 7 mmol/L; Blood Urea Nitrogen 13 mg/dL (7-17); Calcium 9.2 mg/dL (8.4-10.2); Carbon Dioxide 23 mmol/L (22-30); Chloride 110 mmol/L (98-107); Glucose 94 mg/dL (74-99); Potassium 4.2 mmol/L (3.5-5.1); Sodium 140 mmol/L (137-145); Total Bilirubin 0.5 mg/dL (0.2-1.3); Total Protein 5.9 g/dL (6.3-8.2)
[2018-08-05 12:47] LABS: Partial Thromboplastin Time 21.9 sec (22.0-30.0); Prothrombin Time 9.8 sec (9.0-12.0)
[2018-08-05 13:01] LABS: Creatine Kinase 170 U/L (30-135)
[2018-08-05 13:13] LABS: Creatine Kinase MB 3.6 ng/mL (0.0-2.4); Troponin I <0.012 ng/mL (0.000-0.034)
--- NOTE | 2018-08-05 14:10 | XR ---
EXAMINATION TYPE: XR chest 2V DATE OF EXAM: 08/05/2018 COMPARISON: 10/11/2012 INDICATION: Difficulty breathing, short of breath, asthma TECHNIQUE: Frontal and lateral views of the chest are obtained. FINDINGS: The heart size is upper limits of normal. The pulmonary vasculature is upper limits of normal. There is a focal eventration of the right diaphragm. No suspicious infiltrates are evident. Small pos terior pleural effusion, likely on the left may be present. Small hiatal hernia is present.. IMPRESSION: 1. Small posterior pleural effusion. 2. Small hiatal hernia. 3. Mild cardiomegaly. 4. Borderline prominent pulmonary vascular markings.
[2018-08-05] MEDS ORDERED: NALOXONE 0.4 MG/ML 1 ML VIAL IV PRN (14:52)
[2018-08-05 16:02] LABS: Appearance,Urine Clear (Clear); Bilirubin,Urine Negative (Negative); Blood,Urine Negative (Negative); Color,Urine Light Yellow; Glucose,Urine (UA) Negative (Negative); Ketones,Urine Negative (Negative); Leukocyte Esterase,Urine Negative (Negative); Nitrite,Urine Negative (Negative); Protein,Urine Negative (Negative); Specific Gravity,Urine 1.007 (1.001-1.035); Urobilinogen,Urine <2.0 mg/dL (<2.0)
[2018-08-05] MEDS ORDERED: IPRATROPIUM-ALBUTEROL 3 ML NEB INHALATION PRN (16:43)
[2018-08-05] MEDS: PANTOPRAZOLE 40 MG TABLET PO SCH (18:12)
[2018-08-05] MEDS: methylPREDNISolone SOD SUCCI 125 MG/2 ML VIAL IV SCH (18:12)
[2018-08-05] MEDS ORDERED: IBUPROFEN 200 MG TAB PO STA (18:45)
--- NOTE | 2018-08-05 20:34 | P.HPIM ---
History of Present Illness H&P Date: 08/05/18 Chief Complaint: Severe shortness of breath difficulty of breathing This is a 73-year-old pleasant lady patient of Dr. Myrick. She has underlying history of hypertension, hyperlipidemia, breast cancer requiring lumpectomy, GERD, hiatal hernia, migraines. She was seen in emergency room secondary significant shortness of breath, wheezing, significant cough, no fever no chills , she also has difficulty in adjusting to the new titration of the medication as they were tapering down to oral prednisone that was started 4 weeks ago, she was started on 30 mg prednisone orally oximetry [address] Myrick. She is to see Dr. Steinberg several years ago however she is now going to be transitioned by the pulmonary doctor at [facility] in preparation for her hiatal hernia surgery early next year. It was thought that the hiatal hernia is causing significant problems to her asthma, however she also has underlying both intrinsic and extrinsic asthma, her allergens are noted on the to be from cats however full panel has not been investigated so far. She has one cat at home, patient denies any fever or chills, she has been having multiple episodes of asthma exacerbation for the past several years, has been in and out of prednisone monthly, after tapering doses, patient would go back into full-blown exacerbation. Patient does not have any oxygen requirements at home, has nebulized solution, no Pulmicort, and is on maintenance Symbicort and Singulair. Patient is not on any Xolair shots, however it is unknown whether her IgE levels is elevated at 1 time or the other Review of Systems Constitutional: Reports as per HPI, Reports chills, Reports fatigue Ears, nose, mouth and throat: Reports as per HPI, Denies ant. neck pain, Denies bleeding gums, Denies dental pain, Denies dysphagia, Denies epistaxis, Denies headache, Denies hoarseness, Denies mouth pain, Denies nasal congestion, Denies nasal discharge, Denies neck fullness/pressure, Denies neck lump, Denies nose pain, Denies odynophagia, Denies post-nasal drip, Denies sinus pain, Denies sinus pressure, Denies swelling in mouth, Denies swelling in throat, Denies sore throat, Denies vertigo, Denies voice changes Cardiovascular: Reports as per HPI Respiratory: Reports cough, Reports cough with sputum, Reports dyspnea Genitourinary: Reports as per HPI Menstruation: Reports as per HPI Musculoskeletal: Reports as per HPI, Denies arm numbness/tingling, Denies atrophy, Denies fractures, Denies frequent falls, Denies gait dysfunction, Denies hot joints, Denies leg numbness/tingling, Denies limitation of motion, Denies loss of height, Denies low back pain, Denies morning stiffness, Denies muscle cramps, Denies muscle weakness, Denies myalgias, Denies neck pain, Denies neck stiffness, Denies prior amputations, Denies redness of joints, Denies shooting arm pain, Denies shooting leg pain Integumentary: Reports as per HPI, Denies acne, Denies boils, Denies brittle nails, Denies change in hair/nails, Denies color changes, Denies darkening of skin, Denies depigmentation, Denies dryness, Denies foot/leg ulcers, Denies growths, Denies hirsutism, Denies lesions, Denies onychomycosis, Denies pruritus , Denies rash, Denies sores, Denies striae, Denies unusual bruising, Denies wounds Neurological: Reports as per HPI, Denies aphasia, Denies ataxia, Denies balance difficulties, Denies burning pain, Denies change in mentation, Denies change in smell/taste, Denies change in speech, Denies confusion, Denies convulsions, Denies double vision, Denies gait dysfunction, Denies head injury, Denies headaches, Denies hearing difficulties, Denies lack of coordination, Denies loss of vision, Denies memory loss, Denies migraines, Denies motor disturbance, Denies numbness, Denies paralysis, Denies paresthesias, Denies seizures, Denies sensory deficit, Denies spasticity, Denies syncope, Denies tic, Denies tingling , Denies transient paralysis, Denies tremors, Denies vertigo, Denies weakness, Denies visual changes Psychiatric: Reports as per HPI, Reports anxiety Endocrine: Reports as per HPI, Reports deepening of the voice, Denies cold intolerance, Denies excessive sweating, Denies excessive thirst, Denies fatigue , Denies flushing, Denies heat intolerance, Denies high blood sugars, Denies increase in ring/shoe/hat size, Denies low blood sugars, Denies nocturia, Denies palpitations, Denies polydipsia, Denies polyphagia, Denies polyuria, Denies proptosis, Denies recent glucocorticoid use, Denies thyroid mass, Denies weight change Hematologic/Lymphatic: Reports as per HPI, Denies easy bleeding, Denies easy bruising, Denies lymphadenopathy, Denies lymphedema, Denies thrombophilia Allergic/Immunologic: Reports as per HPI, Denies allergic rhinitis, Denies anaphylaxis, Denies angioedema, Denies gluten intolerance, Denies persistent infections, Denies seasonal allergies, Denies urticaria, Denies wheezing Past Medical History Past Medical History: Asthma, GERD/Reflux, Hyperlipidemia Additional Past Medical History / Comment(s): MIGRAINES, breast cancer with radiation History of Any Multi-Drug Resistant Organisms: None Reported Past Surgical History: Breast Surgery, Hysterectomy, Joint Replacement Additional Past Surgical History / Comment(s): BREAST BX (X5). RT TKA. COLONOSCOPY. BILAT CATARACT SX. hernia with mesh placement. cardiac cath Past Anesthesia/Blood Transfusion Reactions: No Reported Reaction Past Psychological History: Depression Additional Psychological History / Comment(s): mild Smoking Status: Former smoker Past Alcohol Use History: None Reported, Occasional Additional Past Alcohol Use History / Comment(s): QUIT SMOKING 05/23/2001. SMOKED APPROX 40 YEARS, 1 PPD OR LESS. Past Drug Use History: None Reported Additional History: Mother from old age father from old age, 2 son healthy one daughter healthy - Past Family History Sister(s) Family Medical History: Cancer (Breast cancer), Pulmonary Embolus Additional Family Medical History / Comment(s): 2 SISTERS -BREAST CANCER Brother(s) Family Medical History: Cancer (Melanoma prostate cancer) Medications and Allergies Home Medications Medication Instructions Recorded Confirmed Type Montelukast [Singulair] 10 mg PO HS 09/20/16 08/05/18 History Sertraline [Zoloft] 100 mg PO HS 09/20/16 08/05/18 History Simvastatin [Zocor] 20 mg PO HS 09/20/16 08/05/18 History Albuterol Inhaler [Ventolin Hfa 1 - 2 puff INHALATION RT-Q6H PRN 10/06/16 History Inhaler] Ibuprofen [Motrin] 800 mg PO TID PRN 02/03/18 08/05/18 History Albuterol Nebulized [Ventolin 2.5 mg INHALATION RT-QID 08/05/18 08/05/18 History Nebulized] Budesonide/Formoterol Fumarate 1 puff INHALATION RT-DAILY 08/05/18 08/05/18 History [Symbicort 160-4.5 Mcg Inhaler] Ketotifen 0.025% Ophth Soln 1 drop LEFT EYE DAILY 08/05/18 08/05/18 History [Zaditor] Omeprazole [PriLOSEC] 20 mg PO BID 08/05/18 08/05/18 History predniSONE 5 mg PO DAILY 08/05/18 08/05/18 History Allergies Allergy/AdvReac Type Severity Reaction Status Date / Time cefuroxime Allergy Cough Verified 08/05/18 12:26 antibiotic Allergy pt to Uncoded 08/05/18 11:37 bring name day of proc. Physical Exam Vitals: Vital Signs Temp Pulse Pulse Resp BP BP Pulse Ox 08/05/18 17:30 22 08/05/18 16:58 97.7 F 77 20 140/81 94 L 08/05/18 16:40 98.2 F 84 18 140/79 93 L 08/05/18 16:30 80 18 143/77 90 L 08/05/18 16:20 74 16 143/77 93 L 08/05/18 16:10 79 16 143/77 93 L 08/05/18 16:00 89 20 139/76 92 L 08/05/18 15:50 83 16 139/76 92 L 08/05/18 15:40 80 14 139/76 91 L 08/05/18 15:30 81 20 135/84 92 L 08/05/18 15:20 122/92 08/05/18 15:10 122/92 08/05/18 15:00 73 16 132/75 94 L 08/05/18 14:50 78 20 132/75 93 L 08/05/18 14:40 80 17 132/75 95 08/05/18 14:30 86 15 124/61 93 L 08/05/18 14:20 83 18 124/61 93 L 08/05/18 14:10 86 20 124/61 94 L 08/05/18 14:00 124/61 08/05/18 13:50 74 19 124/61 96 08/05/18 13:40 80 16 122/69 96 08/05/18 13:30 80 16 122/69 96 08/05/18 13:20 122/69 08/05/18 13:15 20 08/05/18 13:13 84 08/05/18 13:10 75 18 122/69 97 08/05/18 13:00 70 15 124/80 98 08/05/18 12:56 70 08/05/18 12:50 76 17 124/80 98 08/05/18 12:45 74 08/05/18 12:40 68 18 124/80 96 08/05/18 12:30 78 16 124/66 97 08/05/18 12:20 80 18 124/66 94 L 08/05/18 12:10 87 18 124/66 97 08/05/18 12:00 78 20 126/68 95 08/05/18 11:51 20 08/05/18 11:33 98.1 F 106 H 26 H 162/95 95 Intake and Output 08/05/18 08/05/18 08/05/18 06:59 14:59 22:59 Other: Voiding Method Toilet Weight 104.326 kg - Constitutional General appearance: cooperative, mild distress, no acute distress - EENT Eyes: anicteric sclerae, EOMI, PERRLA, dentition normal ENT: NA/AT, normal oropharynx - Neck Neck: normal ROM - Respiratory Respiratory: bilateral: rhonchi, wheezing, prolonged inspiration, negative: prolonged expiration, other - Cardiovascular Rhythm: regular Heart sounds: normal: S1, S2 Abnormal Heart Sounds: no systolic murmur, no diastolic murmur, no rub, no S3 Gallop, no S4 Gallop, no click, no other - Gastrointestinal General gastrointestinal: normal bowel sounds, soft - Integumentary Integumentary: decreased turgor, normal - Neurologic Neurologic: CNII-XII intact - Musculoskeletal Musculoskeletal: gait normal, strength equal bilaterally - Psychiatric Psychiatric: A&O x's 3, appropriate affect, intact judgment & insight Results CBC & Chem 7: 08/05/18 12:16 08/05/18 12:16 Labs: Abnormal Lab Results - Last 24 Hours (Table) 1108/05/18 08/05/18 Range/Units 12:16 12:16 12:16 Lymphocytes # 0.7 L (1.0-4.8) k/uL APTT (22.0-30.0) sec Chloride 110 H (98-107) mmol/L Total Creatine Kinase 170 H (30-135) U/L CK-MB (CK-2) 3.6 H (0.0-2.4) ng/mL Total Protein 5.9 L (6.3-8.2) g/dL 08/05/18 Range/Units 12:16 Lymphocytes # (1.0-4.8) k/uL APTT 21.9 L (22.0-30.0) sec Chloride (98-107) mmol/L Total Creatine Kinase (30-135) U/L CK-MB (CK-2) (0.0-2.4) ng/mL Total Protein (6.3-8.2) g/dL Laboratory Results WBC 5.2 k/uL (3.8-10.6) 08/05/18 12:16 RBC 4.21 m/uL (3.80-5.40) 08/05/18 12:16 Hgb 13.1 gm/dL (11.4-16.0) 08/05/18 12:16 Hct 39.1 % (34.0-46.0) 08/05/18 12:16 MCV 92.9 fL (80.0-100.0) 08/05/18 12:16 MCH 31.1 pg (25.0-35.0) 08/05/18 12:16 MCHC 33.5 g/dL (31.0-37.0) 08/05/18 12:16 RDW 13.7 % (11.5-15.5) 08/05/18 12:16 Plt Count 223 k/uL (150-450) 08/05/18 12:16 Neutrophils % 63 % 08/05/18 12:16 Lymphocytes % 13 % 08/05/18 12:16 Monocytes % 8 % 08/05/18 12:16 Eosinophils % 13 % 08/05/18 12:16 Basophils % 1 % 08/05/18 12:16 Neutrophils # 3.3 k/uL (1.3-7.7) 08/05/18 12:16 Lymphocytes # 0.7 k/uL (1.0-4.8) L 08/05/18 12:16 Monocytes # 0.4 k/uL (0-1.0) 08/05/18 12:16 Eosinophils # 0.7 k/uL (0-0.7) 08/05/18 12:16 Basophils # 0.1 k/uL (0-0.2) 08/05/18 12:16 PT 9.8 sec (9.0-12.0) 08/05/18 12:16 INR 1.0 (<1.2) 08/05/18 12:16 APTT 21.9 sec (22.0-30.0) L 08/05/18 12:16 Sodium 140 mmol/L (137-145) 08/05/18 12:16 Potassium 4.2 mmol/L (3.5-5.1) 08/05/18 12:16 Chloride 110 mmol/L (98-107) H 08/05/18 12:16 Carbon Dioxide 23 mmol/L (22-30) 08/05/18 12:16 Anion Gap 7 mmol/L 08/05/18 12:16 BUN 13 mg/dL (7-17) 08/05/18 12:16 Creatinine 0.62 mg/dL (0.52-1.04) 08/05/18 12:16 Est GFR (CKD-EPI)AfAm >90 (>60 ml/min/1.73 sqM) 08/05/18 12:16 Est GFR (CKD-EPI)NonAf 89 (>60 ml/min/1.73 sqM) 08/05/18 12:16 Glucose 94 mg/dL (74-99) 08/05/18 12:16 Calcium 9.2 mg/dL (8.4-10.2) 08/05/18 12:16 Magnesium 2.0 mg/dL (1.6-2.3) 08/05/18 12:16 Total Bilirubin 0.5 mg/dL (0.2-1.3) 08/05/18 12:16 AST 28 U/L (14-36) 08/05/18 12:16 ALT 30 U/L (9-52) 08/05/18 12:16 Alkaline Phosphatase 76 U/L (38-126) 08/05/18 12:16 Total Creatine Kinase 170 U/L (30-135) H 08/05/18 12:16 CK-MB (CK-2) 3.6 ng/mL (0.0-2.4) H 08/05/18 12:16 CK-MB (CK-2) Rel Index 2.1 08/05/18 12:16 Troponin I <0.012 ng/mL (0.000-0.034) 08/05/18 12:16 Total Protein 5.9 g/dL (6.3-8.2) L 08/05/18 12:16 Albumin 3.6 g/dL (3.5-5.0) 08/05/18 12:16 Urine Color Light Yellow 08/05/18 15:25 Urine Appearance Clear (Clear) 08/05/18 15:25 Urine pH 5.0 (5.0-8.0) 08/05/18 15:25 Ur Specific [place] 1.007 (1.001-1.035) 08/05/18 15:25 Urine Protein Negative (Negative) 08/05/18 15:25 Urine Glucose (UA) Negative (Negative) 08/05/18 15:25 Urine Ketones Negative (Negative) 08/05/18 15:25 Urine Blood Negative (Negative) 08/05/18 15:25 Urine Nitrite Negative (Negative) 08/05/18 15:25 Urine Bilirubin Negative (Negative) 08/05/18 15:25 Urine Urobilinogen <2.0 mg/dL (<2.0) 08/05/18 15:25 Ur Leukocyte Esterase Negative (Negative) 08/05/18 15:25 Influenza Type A RNA Not Detected (Not Detectd) 08/05/18 13:45 Influenza Type B (PCR) Not Detected (Not Detectd) 08/05/18 13:45 Thrombosis Risk Factor Assmnt - DVT/VTE Prophylaxis DVT/VTE Prophylaxis: Pharmacologic Prophylaxis ordered, Mechanical Prophylaxis ordered - Choose All That Apply Any of the Below Risk Factors Present?: No Each Factor Represents 1 point: Obesity (BMI >25), Serious lung disease incl. pneumonia (< 1month) Each Risk Factor Represents 2 Points: Age 61-74 years, Malignancy Thrombosis Risk Factor Assessment Total Risk Factor Score: 6 Thrombosis Risk Factor Assessment Level: High Risk Assessment and Plan Plan: 1. Severe persistent asthma, having significant difficulties despite prednisone use, patient would be seen by pulmonary, Solu-Medrol IV 60 mg every 6 hours, and nebulized albuterol and Atrovent. Has impending respiratory failure related to her asthma, O2 supplementation, magnesium sulfate 1 g to be given, IgE levels, CT of the chest to rule out pulmonary emboli, patient is high risk based on history of malignancy of the breast in the past, no d-dimer is done Lovenox for prophylaxis influenza test is negative IgE levels to be done, hypersensitivity pneumonitis, Harman level and samaria reflex alpha-1 antitrypsin level 2. Hypoxemic rest or failure, secondary to asthma exacerbation, cannot rule out pulmonary emboli, no d-dimer was done from the ER, we'll going to proceed to CT angiogram to evaluate for PE, patient is high risk for pulmonary emboli with known history of malignancy, O2 supplementation 2. 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 Hyperlipidemia, 4. 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 Known history of breast malignancy in the past, lumpectomy with radiation and chemotherapy 6. Large hiatal hernia, with the anticipated surgery at [facility] for laparoscopic lap Abrahan fundoplication robotic approach planned for early next year at [facility] 7. Extrinsic asthma, with known cat Allergy, unknown whether other allergy testing was performed the past, including mold, food or chemicals this could be decided to be done as an outpatient, GI prophylaxis DVT prophylaxis Lovenox 40 mg subcutaneous every [address] scan chest PE protocol to be done, then can decrease to 40 mg daily
[2018-08-05 20:45] LABS: Glucose,Whole Blood 143 mg/dL (75-99)
[2018-08-05] MEDS: IPRATROPIUM-ALBUTEROL 3 ML NEB INHALATION SCH (20:47)
[2018-08-05] MEDS: BUDESONIDE 1 MG/2 ML NEBU INHALATION SCH (20:47)
[2018-08-05] MEDS: ATORVASTATIN 10 MG TAB PO SCH (22:17)
[2018-08-05] MEDS: MONTELUKAST 10 MG TAB PO SCH (22:17)
[2018-08-05] MEDS: SERTRALINE 100 MG TAB PO SCH (22:17)
[2018-08-05] MEDS: ACETAMINOPHEN TAB 500 MG TAB PO PRN (22:20)
[2018-08-05] MEDS: MELATONIN 5 MG TABLET PO SCH (22:21)
[2018-08-05] MEDS: INSULIN ASPART 100 UNIT/ML 1 ML 10 ML VIAL SQ SCH (22:21)
[2018-08-05] MEDS: ENOXAPARIN 40 MG/0.4 ML SYRINGE SQ SCH (22:21)
[2018-08-06] MEDS: methylPREDNISolone SOD SUCCI 125 MG/2 ML VIAL IV SCH ×4 (00:40→18:22)
[2018-08-06 02:44] LABS: Hemoglobin A1C 5.7 % (4.0-6.0)
[2018-08-06 07:07] LABS: Glucose,Whole Blood 135 mg/dL (75-99)
[2018-08-06] MEDS: BUDESONIDE 1 MG/2 ML NEBU INHALATION SCH ×2 (08:05→20:28)
[2018-08-06] MEDS: IPRATROPIUM-ALBUTEROL 3 ML NEB INHALATION SCH ×4 (08:05→20:28)
--- NOTE | 2018-08-06 09:16 | CT ---
EXAMINATION TYPE: CT angio chest DATE OF EXAM: 08/06/2018 COMPARISON: CT chest May 05, 2018 HISTORY: Cough, SOB CT DLP: 412.2 mGycm. Automated Exposure Control for Dose Reduction was Utilized. CONTRAST: CTA scan of the thorax is performed with IV Contrast, patient injected with 72 mL of Isovue 370, pulm onary embolism protocol. MIP Images are created on CT scanner and reviewed. FINDINGS: LUNGS: There is patchy bibasilar linear scarring and/or atelectasis. There is new focal peripheral co nsolidation in the inferior lateral aspect left upper lobe. There is mild biapical pleural/parenchyma l scarring on current study. No pleural effusion or pneumothorax is seen bilaterally. No suspicious n ew parenchymal nodules or masses are seen. There is stable 6 x 5 mm subpleural nodule right middle lo be axial image 86. This is grossly unchanged from October 27, 2017 study. Smaller nodules superior t o this are stable. Continued CT follow-up advised. MEDIASTINUM: There is slightly suboptimal bolus with heterogeneity but there is no CT evidence for pu lmonary embolism. There are no new greater than 1 cm noncalcified hilar or mediastinal lymph nodes. No significant pericardial effusion is seen. Cardiac silhouette size is stable and upper limits of normal. Coronary artery calcification is redemonstrated which is noted marker for coronary artery dis ease. Moderate size hiatal hernia is redemonstrated. Main pulmonary artery measures 3.0 cm in diamete r on axial image 51. CT findings consistent with mild underlying pulmonary artery hypertension. OTHER: Liver is diffusely low dense consistent with fatty infiltration. Scattered calcifications thro ughout the spleen consistent with product of old granulomatous disease are redemonstrated. Osseous st ructures are somewhat demineralized. IMPRESSION: 1. No CT evidence for acute pulmonary embolism. 2. New patchy bilateral consolidation inferior left upper lobe could reflect focal pneumonia, correla te clinically.
[2018-08-06 10:05] LABS: Basophils % (A) 0 %; Eosinophils % (A) 0 %; HCT 41.3 % (34.0-46.0); HGB 13.7 gm/dL (11.4-16.0); Lymphocytes # (A) 0.3 k/uL (1.0-4.8); Lymphocytes % (A) 5 %; MCH 31.1 pg (25.0-35.0); MCHC 33.2 g/dL (31.0-37.0); MCV 93.6 fL (80.0-100.0); Mean Platelet Volume 6.9; Monocytes # (A) 0.1 k/uL (0-1.0); Monocytes % (A) 2 %; Neutrophils # (A) 6.4 k/uL (1.3-7.7); Neutrophils % (A) 93 %; Platelet Count 239 k/uL (150-450); RBC 4.42 m/uL (3.80-5.40); RDW 13.7 % (11.5-15.5); WBC 6.9 k/uL (3.8-10.6)
[2018-08-06 10:29] LABS: Anion Gap 9 mmol/L; Blood Urea Nitrogen 18 mg/dL (7-17); Carbon Dioxide 23 mmol/L (22-30); Chloride 106 mmol/L (98-107); Glucose 171 mg/dL (74-99); Potassium 4.1 mmol/L (3.5-5.1); Sodium 138 mmol/L (137-145)
[2018-08-06] MEDS: INSULIN ASPART 100 UNIT/ML 1 ML 10 ML VIAL SQ SCH ×4 (10:49→21:28)
[2018-08-06] MEDS: KETOTIFEN 0.025% OPHTH DROPS 5 ML BTL LEFT EYE SCH (10:49)
[2018-08-06] MEDS: ENOXAPARIN 40 MG/0.4 ML SYRINGE SQ SCH (10:50)
[2018-08-06] MEDS: PANTOPRAZOLE 40 MG TABLET PO SCH (10:50)
--- NOTE | 2018-08-06 11:40 | P.CNPUL ---
History of Present Illness Consult date: 08/06/18 Requesting physician: Shelia Thompson Reason for consult: dyspnea, asthma Chief complaint: Shortness of breath, chest tightness, wheezing History of present illness: This is a very pleasant 73-year-old female patient who follows with Dr. Myrick as her primary care physician. She has a history of breast cancer, depression, gastroesophageal reflux disease, migraines, hyperlipidemia, ALLERGIC rhinitis, large hiatal hernia. She was has a history of moderate persistent steroid dependent chronic bronchial asthma and follows with Dr. Ayon in our office for the same. She was last seen in May and treated for an exacerbation. Since that time she had been doing quite well. She has been maintained on Advair, Singulair, Ventolin. She is also on prednisone 5 mg daily. He is being considered for hiatal hernia repair through [facility]. She presented here to the emergency room yesterday after developing increasing shortness of breath, cough and congestion over the past 2 days. Her chest x- ray revealed evidence of small posterior pleural effusion, hiatal hernia, Mild cardiomegaly with prominent pulmonary vascular markings. CT angiogram showed no evidence of pulmonary embolism. There is new patchy bilateral consolidation inferior left upper lobe could reflect a focal pneumonia. No leukocytosis. She 's been afebrile. Maintaining O2 saturations in the 90s on room air. Hemodynamically stable. White count 6.9. Hemoglobin 13.7. Creatinine 0.58. Influenza screen negative. She is seen today in consultation on the regular medical floor. She is awake and alert in no acute distress. She does have a loose nonproductive cough. No chills or night sweats. Review of Systems 14 point review of system was conducted. All negative other than as mentioned in the HPI. Past Medical History Past Medical History: Asthma, GERD/Reflux, Hyperlipidemia Additional Past Medical History / Comment(s): MIGRAINES, breast cancer with radiation History of Any Multi-Drug Resistant Organisms: None Reported Past Surgical History: Breast Surgery, Hysterectomy, Joint Replacement Additional Past Surgical History / Comment(s): BREAST BX (X5). RT TKA. COLONOSCOPY. BILAT CATARACT SX. hernia with mesh placement. cardiac cath Past Anesthesia/Blood Transfusion Reactions: No Reported Reaction Past Psychological History: Depression Additional Psychological History / Comment(s): mild Smoking Status: Former smoker Past Alcohol Use History: None Reported, Occasional Additional Past Alcohol Use History / Comment(s): QUIT SMOKING 05/23/2001. SMOKED APPROX 40 YEARS, 1 PPD OR LESS. Past Drug Use History: None Reported - Past Family History Sister(s) Family Medical History: Cancer (Breast cancer), Pulmonary Embolus Additional Family Medical History / Comment(s): 2 SISTERS -BREAST CANCER Brother(s) Family Medical History: Cancer (Melanoma prostate cancer) Medications and Allergies Home Medications Medication Instructions Recorded Confirmed Type Montelukast [Singulair] 10 mg PO HS 09/20/16 08/05/18 History Sertraline [Zoloft] 100 mg PO HS 09/20/16 08/05/18 History Simvastatin [Zocor] 20 mg PO HS 09/20/16 08/05/18 History Albuterol Inhaler [Ventolin Hfa 1 - 2 puff INHALATION RT-Q6H PRN 10/06/16 History Inhaler] Ibuprofen [Motrin] 800 mg PO TID PRN 02/03/18 08/05/18 History Albuterol Nebulized [Ventolin 2.5 mg INHALATION RT-QID 08/05/18 08/05/18 History Nebulized] Budesonide/Formoterol Fumarate 1 puff INHALATION RT-DAILY 08/05/18 08/05/18 History [Symbicort 160-4.5 Mcg Inhaler] Ketotifen 0.025% Ophth Soln 1 drop LEFT EYE DAILY 08/05/18 08/05/18 History [Zaditor] Letrozole [Femara] 2.5 dose PO HS 08/05/18 08/05/18 History Omeprazole [PriLOSEC] 20 mg PO BID 08/05/18 08/05/18 History predniSONE 5 mg PO DAILY 08/05/18 08/05/18 History Allergies Allergy/AdvReac Type Severity Reaction Status Date / Time cefuroxime Allergy Cough Verified 08/05/18 12:26 antibiotic Allergy pt to Uncoded 08/05/18 11:37 bring name day of proc. Physical Exam Vitals: Vital Signs Temp Pulse Pulse Resp BP BP Pulse Ox 08/06/18 08:24 88 08/06/18 08:05 86 08/06/18 07:42 97.0 F L 90 16 131/77 90 L 08/05/18 23:00 96.8 F L 73 18 143/75 96 08/05/18 21:04 88 08/05/18 20:48 84 08/05/18 17:30 22 08/05/18 16:58 97.7 F 77 20 140/81 94 L 08/05/18 16:40 98.2 F 84 18 140/79 93 L 08/05/18 16:30 80 18 143/77 90 L 08/05/18 16:20 74 16 143/77 93 L 08/05/18 16:10 79 16 143/77 93 L 08/05/18 16:00 89 20 139/76 92 L 08/05/18 15:50 83 16 139/76 92 L 08/05/18 15:40 80 14 139/76 91 L 08/05/18 15:30 81 20 135/84 92 L 08/05/18 15:20 122/92 08/05/18 15:10 122/92 08/05/18 15:00 73 16 132/75 94 L 08/05/18 14:50 78 20 132/75 93 L 08/05/18 14:40 80 17 132/75 95 08/05/18 14:30 86 15 124/61 93 L 08/05/18 14:20 83 18 124/61 93 L 08/05/18 14:10 86 20 124/61 94 L 08/05/18 14:00 124/61 08/05/18 13:50 74 19 124/61 96 08/05/18 13:40 80 16 122/69 96 08/05/18 13:30 80 16 122/69 96 08/05/18 13:20 122/69 08/05/18 13:15 20 08/05/18 13:13 84 08/05/18 13:10 75 18 122/69 97 08/05/18 13:00 70 15 124/80 98 08/05/18 12:56 70 08/05/18 12:50 76 17 124/80 98 08/05/18 12:45 74 08/05/18 12:40 68 18 124/80 96 08/05/18 12:30 78 16 124/66 97 08/05/18 12:20 80 18 124/66 94 L 08/05/18 12:10 87 18 124/66 97 08/05/18 12:00 78 20 126/68 95 08/05/18 11:51 20 08/05/18 11:33 98.1 F 106 H 26 H 162/95 95 Intake and Output 08/05/18 08/06/18 08/06/18 22:59 06:59 14:59 Other: Voiding Method Toilet # Voids 2 2 GENERAL EXAM: Alert, active, comfortable in no apparent distress. HEAD: Normocephalic. EYES: Normal reaction of pupils, equal size. NOSE: Clear with pink turbinates. THROAT: No erythema or exudates. NECK: No masses, no JVD. CHEST: No chest wall deformity. LUNGS: Equal air entry with lateral end expiratory wheeze, few scattered rhonchi CVS: S1 and S2 normal with no audible murmur, regular rhythm. ABDOMEN: No hepatosplenomegaly, normal bowel sounds, no guarding or rigidity. SPINE: No scoliosis or deformity SKIN: No rashes CENTRAL NERVOUS SYSTEM: No focal deficits, tone is normal in all 4 extremities. EXTREMITIES: There is no peripheral edema. No clubbing, no cyanosis. Peripheral pulses are intact. Results - Laboratory Findings CBC and BMP: 08/06/18 09:25 08/06/18 09:25 PT/INR, D-dimer PT 9.8 sec (9.0-12.0) 08/05/18 12:16 INR 1.0 (<1.2) 08/05/18 12:16 Abnormal lab findings: Abnormal Labs 08/05/18 08/05/18 08/05/18 12:16 12:16 12:16 Lymphocytes # 0.7 L APTT Chloride 110 H BUN Glucose POC Glucose (mg/dL) Total Creatine Kinase 170 H CK-MB (CK-2) 3.6 H Total Protein 5.9 L 08/05/18 08/05/18 08/06/18 12:16 20:44 07:02 Lymphocytes # APTT 21.9 L Chloride BUN Glucose POC Glucose (mg/dL) 143 H 135 H Total Creatine Kinase CK-MB (CK-2) Total Protein 08/06/18 08/06/18 09:25 09:25 Lymphocytes # 0.3 L APTT Chloride BUN 18 H Glucose 171 H POC Glucose (mg/dL) Total Creatine Kinase CK-MB (CK-2) Total Protein - Diagnostic Findings Chest x-ray: image reviewed CT scan - chest: image reviewed Assessment and Plan Assessment: Impression: #1 Acute exacerbation of moderate persistent asthma possibly, complicated by left upper lobe focal pneumonia. #2 Moderate hiatal hernia. #3 Gastroesophageal reflux disease. #4 History of depression. #5 Is to have migraines. #6 Hyperlipidemia. #7 History of breast cancer status post radiation. Plan: The patient was seen and evaluated by Dr. Ayon. Chest x-ray CAT scan and labs all reviewed. We'll go ahead and continue her treatment for her asthma exacerbation and including Symbicort, Singulair, DuoNeb inhalations, IV Solu- Medrol. She isn't on antibiotics in the form of Levaquin. Lovenox for DVT prophylaxis. Protonix for GI prophylaxis. We will increase her activity as tolerated. We'll continue to follow and make further recommendations based on her clinical status. I, the cosigning physician, performed a history & physical examination of the patient. Lungs sounds with bilateral end expiratory wheeze, few scattered rhonchi Maintaining good O2 saturations in the 90s on room air. I discussed the assessment and plan of care with my nurse practitioner, Gwen Moura. I attest to the above consultation as dictated by her. Time with Patient: Greater than 30
[2018-08-06 12:13] LABS: Glucose,Whole Blood 111 mg/dL (75-99)
[2018-08-06] MEDS: LEVOFLOXACIN 750MG-D5W PMX 750 MG in DEXTROSE/WATER 1 150ML.BAG IVPB SCH (13:46)
[2018-08-06] MEDS: PROMETHAZ-COD 6.25-10 MG/5 ML 5 ML CUP PO PRN (15:17)
--- NOTE | 2018-08-06 16:46 | P.PN ---
Subjective Progress Note Date: 08/06/18 This is a 73-year-old pleasant lady patient of Dr. Myrick. She has underlying history of hypertension, hyperlipidemia, breast cancer requiring lumpectomy, GERD, hiatal hernia, migraines. She was seen in emergency room secondary significant shortness of breath, wheezing, significant cough, no fever no chills , she also has difficulty in adjusting to the new titration of the medication as they were tapering down to oral prednisone that was started 4 weeks ago, she was started on 30 mg prednisone orally oximetry [address] Mryick. She is to see Dr. Steinberg several years ago however she is now going to be transitioned by the pulmonary doctor at [facility] in preparation for her hiatal hernia surgery early next year. It was thought that the hiatal hernia is causing significant problems to her asthma, however she also has underlying both intrinsic and extrinsic asthma, her allergens are noted on the to be from cats however full panel has not been investigated so far. She has one cat at home, patient denies any fever or chills, she has been having multiple episodes of asthma exacerbation for the past several years, has been in and out of prednisone monthly, after tapering doses, patient would go back into full-blown exacerbation. Patient does not have any oxygen requirements at home, has nebulized solution, no Pulmicort, and is on maintenance Symbicort and Singulair. Patient is not on any Xolair shots, however it is unknown whether her IgE levels is elevated at 1 time or the other. 08/06: Patient states that she is continuing to cough and still has shortness of breath with ambulation. She is still using O2 at night at 2 L. Patient did have a CTA done today to rule out PE. CTA results show no acute pulmonary embolism. New patchy bilateral consolidation inferior left upper lobe could reflect focal pneumonia. Patient has been afebrile vital signs have remained stable. Review of systems: All systems: negative Constitutional: Denies fatigue, Denies chills, Denies fever Eyes: denies blurred vision, denies pain Ears, nose, mouth and throat: Denies headache, Denies sore throat Cardiovascular: Reports decreased exercise tolerance, Reports dyspnea on exertion, Denies chest pain, Denies lightheadedness, Denies shortness of breath , Denies syncope Respiratory: Denies cough, Denies cough with sputum, Denies dyspnea, Denies excessive sputum, Denies hemoptysis, Denies home oxygen, Denies wheezing Gastrointestinal: Denies abdominal pain, Denies diarrhea, Denies nausea, Denies vomiting Genitourinary: Denies dysuria Musculoskeletal: Denies myalgias Integumentary: Denies pruritus, Denies rash Neurological: Denies numbness, Denies weakness Psychiatric: Denies anxiety, Denies depression Endocrine: Denies fatigue, Denies weight change Objective - Vital Signs Vital signs: Vital Signs Temp 97.6 F 08/06/18 14:43 Pulse 92 08/06/18 16:08 Resp 18 08/06/18 16:08 BP 138/73 08/06/18 14:43 Pulse Ox 93 L 08/06/18 14:43 Intake & Output 08/05/18 08/06/18 08/06/18 18:59 06:59 18:59 Intake Total 600 Balance 600 Weight 104.326 kg Intake: Oral 600 Other: Voiding Method Toilet Toilet # Voids 2 3 - Constitutional General appearance: Present: cooperative, no acute distress, obese - EENT Eyes: Present: anicteric sclerae, EOMI, PERRLA ENT: Present: hearing grossly normal, normal oropharynx - Neck Neck: Present: normal ROM. Absent: lymphadenopathy - Respiratory Respiratory: bilateral: diminished, rhonchi, wheezing, negative: dullness, rales - Cardiovascular Rhythm: regular Heart sounds: normal: S1, S2 Abnormal Heart Sounds: Absent: systolic murmur, diastolic murmur, rub, S3 Gallop , S4 Gallop, click, other - Gastrointestinal General gastrointestinal: Present: normal bowel sounds, soft. Absent: tenderness - Integumentary Integumentary: Present: decreased turgor, normal - Neurologic Neurologic: Present: CNII-XII intact - Musculoskeletal Musculoskeletal: Present: gait normal, generalized weakness, strength equal bilaterally - Labs CBC & Chem 7: 08/06/18 09:25 08/06/18 09:25 Labs: Abnormal Lab Results - Last 24 Hours (Table) 08/05/18 08/06/18 08/06/18 Range/Units 20:44 07:02 09:25 Lymphocytes # 0.3 L (1.0-4.8) k/uL BUN (7-17) mg/dL Glucose (74-99) mg/dL POC Glucose (mg/dL) 143 H 135 H (75-99) mg/dL 08/06/18 08/06/18 Range/Units 09:25 11:53 Lymphocytes # (1.0-4.8) k/uL BUN 18 H (7-17) mg/dL Glucose 171 H (74-99) mg/dL POC Glucose (mg/dL) 111 H (75-99) mg/dL Microbiology - Last 24 Hours (Table) 08/05/18 12:16 Blood Culture - Preliminary Blood No Growth after 24 hours Assessment and Plan Plan: 1. Severe persistent asthma, having significant difficulties despite prednisone use, patient would be seen by pulmonary, Solu-Medrol IV 60 mg every 6 hours, and nebulized albuterol and Atrovent. Has impending respiratory failure related to her asthma, O2 supplementation, magnesium sulfate 1 g to be given, IgE levels, CTA of the chest was negative for pulmonary emboli. 2. Hypoxemic rest or failure, secondary to asthma exacerbation, prednisone 60 mg IV every 6 6 hours 2. 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 Community-acquired pneumonia, levofloxacin 750 mg daily 4. Hyperlipidemia, atorvastatin 10 mg 5. CK D stage II, nephrotoxins to be avoided, 6. Known history of breast malignancy in the past, lumpectomy with radiation and chemotherapy 7. Large hiatal hernia, with the anticipated surgery at [facility] for laparoscopic lap Abrahan fundoplication robotic approach planned for early next year at [facility] 8. Extrinsic asthma, with known cat Allergy, unknown whether other allergy testing was performed the past, including mold, food or chemicals this could be decided to be done as an outpatient, continue Singulair 10 mg by mouth at night GI prophylaxis Protonix DVT prophylaxis Lovenox 40 mg subcutaneous daily Impression and plan of care have been directed as dictated by the signing physician. Kady Lopes nurse practitioner acting as scribe for signing physician.
[2018-08-06 17:35] LABS: Glucose,Whole Blood 141 mg/dL (75-99)
[2018-08-06 20:13] LABS: Glucose,Whole Blood 120 mg/dL (75-99)
[2018-08-06] MEDS: SERTRALINE 100 MG TAB PO SCH (21:27)
[2018-08-06] MEDS: ATORVASTATIN 10 MG TAB PO SCH (21:27)
[2018-08-06] MEDS: MONTELUKAST 10 MG TAB PO SCH (21:27)
[2018-08-06] MEDS: MELATONIN 5 MG TABLET PO SCH (21:28)
[2018-08-06] MEDS: LETROZOLE 2.5 MG TAB PO SCH (21:36)
[2018-08-06] MEDS: IBUPROFEN 800 MG TAB PO PRN (21:50)
[2018-08-07] MEDS: methylPREDNISolone SOD SUCCI 125 MG/2 ML VIAL IV SCH ×5 (00:05→23:10)
[2018-08-07] MEDS: PSYLLIUM HUSK 100% 6 GM PACKET PO PRN ×2 (00:13→20:50)
[2018-08-07] MEDS: PROMETHAZ-COD 6.25-10 MG/5 ML 5 ML CUP PO PRN (05:23)
[2018-08-07] MEDS: IBUPROFEN 800 MG TAB PO PRN ×2 (07:06→21:36)
[2018-08-07 07:32] LABS: Glucose,Whole Blood 122 mg/dL (75-99)
[2018-08-07] MEDS: INSULIN ASPART 100 UNIT/ML 1 ML 10 ML VIAL SQ SCH ×4 (07:36→20:48)
[2018-08-07] MEDS: ENOXAPARIN 40 MG/0.4 ML SYRINGE SQ SCH (07:39)
[2018-08-07] MEDS: PANTOPRAZOLE 40 MG TABLET PO SCH (07:39)
[2018-08-07] MEDS: KETOTIFEN 0.025% OPHTH DROPS 5 ML BTL LEFT EYE SCH (07:40)
[2018-08-07] MEDS: BUDESONIDE 1 MG/2 ML NEBU INHALATION SCH ×2 (07:47→19:22)
[2018-08-07] MEDS: IPRATROPIUM-ALBUTEROL 3 ML NEB INHALATION SCH ×4 (07:47→19:22)
[2018-08-07] MEDS: LEVOFLOXACIN 750MG-D5W PMX 750 MG in DEXTROSE/WATER 1 150ML.BAG IVPB SCH (09:47)
[2018-08-07 11:50] LABS: Glucose,Whole Blood 127 mg/dL (75-99)
--- NOTE | 2018-08-07 15:32 | P.PN ---
Subjective Progress Note Date: 08/07/18 Principal diagnosis: Acute exacerbation of moderate persistent bronchial asthma. Possible left upper lobe limited pneumonia. This is a very pleasant 73-year-old female patient who follows with Dr. Myrick as her primary care physician. She has a history of breast cancer, depression, gastroesophageal reflux disease, migraines, hyperlipidemia, ALLERGIC rhinitis, large hiatal hernia. She was has a history of moderate persistent steroid dependent chronic bronchial asthma and follows with Dr. Ayon in our office for the same. She was last seen in May and treated for an exacerbation. Since that time she had been doing quite well. She has been maintained on Advair, Singulair, Ventolin. She is also on prednisone 5 mg daily. He is being considered for hiatal hernia repair through [facility]. She presented here to the emergency room yesterday after developing increasing shortness of breath, cough and congestion over the past 2 days. Her chest x- ray revealed evidence of small posterior pleural effusion, hiatal hernia, Mild cardiomegaly with prominent pulmonary vascular markings. CT angiogram showed no evidence of pulmonary embolism. There is new patchy bilateral consolidation inferior left upper lobe could reflect a focal pneumonia. No leukocytosis. She 's been afebrile. Maintaining O2 saturations in the 90s on room air. Hemodynamically stable. White count 6.9. Hemoglobin 13.7. Creatinine 0.58. Influenza screen negative. She is seen today in consultation on the regular medical floor. She is awake and alert in no acute distress. She does have a loose nonproductive cough. No chills or night sweats. Patient was seen today on 08/07/2018, continues to have cough wheezing shortness of breath, she has difficulty clearing her secretions. Patient is maximized on bronchodilators, steroids, antibiotics, but no significant improvement is noted in the last 24 hours. Today I recommended a sputum culture , and depending on the culture if diagnostic we could consider addressing that accordingly with antibiotics. In the meantime the patient is on Levaquin. Objective - Vital Signs Vital signs: Vital Signs Temp 98.3 F 08/07/18 05:56 Pulse 88 08/07/18 15:15 Resp 18 08/07/18 05:56 BP 146/83 08/07/18 05:56 Pulse Ox 93 L 08/07/18 07:47 Intake & Output 1108/07/18 08/07/18 18:59 06:59 18:59 Intake Total 1200 Balance 1200 Intake: Oral 1200 Other: Voiding Method Toilet # Voids 1 2 - Exam GENERAL EXAM: Revealed a 73-year-old female in no distress.. HEAD: Normocephalic. Atraumatic EYES: PERRLA, EOMI, no icterus. NOSE: Clear with pink turbinates. THROAT: No erythema or exudates. NECK: No masses, no JVD. CHEST: No chest wall deformity. LUNGS: Diffuse rhonchi and wheezes noted bilaterally. Symmetrical chest expansion noted. No dullness. No chest wall tenderness. CVS: S1 and S2 normal with no audible murmur, regular rhythm. ABDOMEN: Obese, soft, No hepatosplenomegaly, normal bowel sounds, no guarding or rigidity. SPINE: No scoliosis or deformity SKIN: No rashes CENTRAL NERVOUS SYSTEM: Alert oriented 3, no gross focal neurologic deficits. EXTREMITIES: There is no peripheral edema. No clubbing, no cyanosis. Peripheral pulses are intact. - Labs CBC & Chem 7: 08/06/18 09:25 08/06/18 09:25 Labs: Abnormal Lab Results - Last 24 Hours (Table) 08/06/18 08/06/18 08/07/18 Range/Units 16:59 20:13 07:06 POC Glucose (mg/dL) 141 H 120 H 122 H (75-99) mg/dL 08/07/18 Range/Units 11:48 POC Glucose (mg/dL) 127 H (75-99) mg/dL Microbiology - Last 24 Hours (Table) 08/05/18 12:16 Blood Culture - Preliminary Blood No Growth after 48 hours Assessment and Plan Assessment: #1 Acute exacerbation of moderate persistent asthma possibly, possibly complicated by limited left upper lobe infiltrate, not seen on chest x-ray, but seen on CT of the chest only. Possible community-acquired pneumonia. #2 Moderate hiatal hernia. #3 Gastroesophageal reflux disease. #4 History of depression. #5 Is to have migraines. #6 Hyperlipidemia. #7 History of breast cancer status post radiation. Recommendation: Continue antibiotics/Levaquin, continue bronchodilators, steroids, requested sputum for culture, may have to eventually consider bronchoscopy depending on the response to treatment over the next few days. Time with Patient: Less than 30
--- NOTE | 2018-08-07 16:04 | P.PN ---
Subjective Progress Note Date: 08/07/18 This is a 73-year-old pleasant lady patient of Dr. Myrick. She has underlying history of hypertension, hyperlipidemia, breast cancer requiring lumpectomy, GERD, hiatal hernia, migraines. She was seen in emergency room secondary significant shortness of breath, wheezing, significant cough, no fever no chills , she also has difficulty in adjusting to the new titration of the medication as they were tapering down to oral prednisone that was started 4 weeks ago, she was started on 30 mg prednisone orally oximetry [address] Myrick. She is to see Dr. Steinberg several years ago however she is now going to be transitioned by the pulmonary doctor at [facility] in preparation for her hiatal hernia surgery early next year. It was thought that the hiatal hernia is causing significant problems to her asthma, however she also has underlying both intrinsic and extrinsic asthma, her allergens are noted on the to be from cats however full panel has not been investigated so far. She has one cat at home, patient denies any fever or chills, she has been having multiple episodes of asthma exacerbation for the past several years, has been in and out of prednisone monthly, after tapering doses, patient would go back into full-blown exacerbation. Patient does not have any oxygen requirements at home, has nebulized solution, no Pulmicort, and is on maintenance Symbicort and Singulair. Patient is not on any Xolair shots, however it is unknown whether her IgE levels is elevated at 1 time or the other. 08/06: Patient states that she is continuing to cough and still has shortness of breath with ambulation. She is still using O2 at night at 2 L. Patient did have a CTA done today to rule out PE. CTA results show no acute pulmonary embolism. New patchy bilateral consolidation inferior left upper lobe could reflect focal pneumonia. Patient has been afebrile vital signs have remained stable. 08/07: Patient is ambulatory in her room still complaining of a cough and wheezes. She states that she is feeling better she has saturating 93% on room air. Discussed with patient that we will change her from IV steroids to oral steroids probably tomorrow. Patient remained afebrile and vital signs are stable. Review Of Systems: Constitutional: No fever, no chills, no night sweats. No weight change. No weakness, fatigue or lethargy. No daytime sleepiness. EENT: No headache. No blurred vision or double vision, no loss of vision. No loss of Hearing, no ringing in the ears, no dizziness. No nasal drainage or congestion. No epistaxis. No sore throat. Lungs: No shortness of breath, cough, no sputum production. No wheezing. Cardiovascular: No chest pain, no lower extremity edema. No palpitations. No paroxysmal nocturnal dyspnea. No orthopnea. No lightheadedness or dizziness. No syncopal episodes. Abdominal: no abdominal discomfort. No nausea, vomiting. no diarrhea. No constipation. No bloody or tarry stools. improved loss of appetite. Genitourinary: No dysuria, increased frequency, urgency. No urinary retention. Musculoskeletal: No myalgias. No muscle weakness, no gait dysfunction, no frequent falls. No back pain. No neck pain. Integumentary: No wounds, no lesions. No rash or pruritus. No unusual bruising. No change in hair or nails. Neurologic: No aphasia. No facial droop. No change in mentation. No head injury. No headache. No paralysis. No paresthesia. Psychiatric: No depression. No anxiety. No mood swings. Endocrine: No abnormal blood sugars. No weight change. No excessive sweating or thirst. Objective - Vital Signs Vital signs: Vital Signs Temp 97.4 F L 08/07/18 14:53 Pulse 90 08/07/18 15:25 Resp 16 08/07/18 14:53 BP 134/79 08/07/18 14:53 Pulse Ox 93 L 08/07/18 14:53 Intake & Output 08/06/18 08/07/18 08/07/18 18:59 06:59 18:59 Intake Total 1200 600 Balance 1200 600 Intake: Oral 1200 600 Other: Voiding Method Toilet # Voids 1 2 3 - Constitutional General appearance: Present: cooperative, no acute distress, obese - EENT Eyes: Present: anicteric sclerae, EOMI, PERRLA ENT: Present: hearing grossly normal, NA/AT - Neck Neck: Present: normal ROM. Absent: lymphadenopathy, rigidity - Respiratory Respiratory: bilateral: wheezing, negative: diminished, dullness, rales, rhonchi - Cardiovascular Rhythm: regular Heart sounds: normal: S1, S2 Abnormal Heart Sounds: Absent: systolic murmur, diastolic murmur, rub, S3 Gallop , S4 Gallop, click, other - Gastrointestinal General gastrointestinal: Present: normal bowel sounds, soft. Absent: organomegaly, tenderness - Integumentary Integumentary: Present: normal turgor - Neurologic Neurologic: Present: CNII-XII intact - Musculoskeletal Musculoskeletal: Present: gait normal, generalized weakness, strength equal bilaterally - Psychiatric Psychiatric: Present: A&O x's 3, appropriate affect, intact judgment & insight - Labs CBC & Chem 7: 08/06/18 09:25 08/06/18 09:25 Labs: Abnormal Lab Results - Last 24 Hours (Table) 08/06/18 08/06/18 08/07/18 Range/Units 16:59 20:13 07:06 POC Glucose (mg/dL) 141 H 120 H 122 H (75-99) mg/dL 08/07/18 Range/Units 11:48 POC Glucose (mg/dL) 127 H (75-99) mg/dL Microbiology - Last 24 Hours (Table) 08/05/18 12:16 Blood Culture - Preliminary Blood No Growth after 48 hours Assessment and Plan Plan: 1. Severe persistent asthma, having significant difficulties despite prednisone use, patient would be seen by pulmonary, Solu-Medrol IV 60 mg every 6 hours, and nebulized albuterol and Atrovent. Has impending respiratory failure related to her asthma, O2 supplementation, magnesium sulfate 1 g to be given, IgE levels, CTA of the chest was negative for pulmonary emboli. 2. Hypoxemic rest or failure, secondary to asthma exacerbation, IV Solu-Medrol 60 mg every 6 hours we will consider changing to oral prednisone tomorrow 2. 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 Community-acquired pneumonia, levofloxacin 750 mg daily 4. Hyperlipidemia, atorvastatin 10 mg 5. CK D stage II, nephrotoxins to be avoided, 6. Known history of breast malignancy in the past, lumpectomy with radiation and chemotherapy 7. Large hiatal hernia, with the anticipated surgery at [facility] for laparoscopic lap Abrahan fundoplication robotic approach planned for early next year at [facility] 8. Extrinsic asthma, with known cat Allergy, unknown whether other allergy testing was performed the past, including mold, food or chemicals this could be decided to be done as an outpatient, continue Singulair 10 mg by mouth at night GI prophylaxis Protonix DVT prophylaxis Lovenox 40 mg subcutaneous daily Impression and plan of care have been directed as dictated by the signing physician. Kady Lopes nurse practitioner acting as scribe for signing physician.
[2018-08-07] MEDS: guaiFENesin-Coden 100-10MG/5ML 10 ML CUP PO PRN ×2 (17:06→23:10)
[2018-08-07 17:21] LABS: Glucose,Whole Blood 130 mg/dL (75-99)
[2018-08-07 20:40] LABS: Glucose,Whole Blood 175 mg/dL (75-99)
[2018-08-07] MEDS: SERTRALINE 100 MG TAB PO SCH (20:49)
[2018-08-07] MEDS: LETROZOLE 2.5 MG TAB PO SCH (20:49)
[2018-08-07] MEDS: ATORVASTATIN 10 MG TAB PO SCH (20:49)
[2018-08-07] MEDS: MONTELUKAST 10 MG TAB PO SCH (21:34)
[2018-08-07] MEDS: MELATONIN 5 MG TABLET PO SCH (21:34)
[2018-08-08] MEDS: methylPREDNISolone SOD SUCCI 125 MG/2 ML VIAL IV SCH ×4 (05:09→23:26)
[2018-08-08 05:16] LABS: Angiotensin-1 Converting Enz. 23 U/L (8-52)
[2018-08-08] MEDS ORDERED: ASPIRIN-ACET-CAFF 250-250-65MG 1 EACH TAB PO PRN (06:09)
[2018-08-08 07:05] LABS: Glucose,Whole Blood 121 mg/dL (75-99)
[2018-08-08] MEDS: INSULIN ASPART 100 UNIT/ML 1 ML 10 ML VIAL SQ SCH ×4 (07:15→21:37)
[2018-08-08] MEDS: PANTOPRAZOLE 40 MG TABLET PO SCH (07:44)
[2018-08-08] MEDS: ENOXAPARIN 40 MG/0.4 ML SYRINGE SQ SCH (07:44)
[2018-08-08] MEDS: KETOTIFEN 0.025% OPHTH DROPS 5 ML BTL LEFT EYE SCH (07:45)
[2018-08-08] MEDS: IPRATROPIUM-ALBUTEROL 3 ML NEB INHALATION SCH ×4 (08:20→21:16)
[2018-08-08] MEDS: BUDESONIDE 1 MG/2 ML NEBU INHALATION SCH ×2 (08:20→21:16)
[2018-08-08] MEDS: LEVOFLOXACIN 750MG-D5W PMX 750 MG in DEXTROSE/WATER 1 150ML.BAG IVPB SCH (10:35)
[2018-08-08 12:19] LABS: Glucose,Whole Blood 117 mg/dL (75-99)
[2018-08-08] MEDS: guaiFENesin-Coden 100-10MG/5ML 10 ML CUP PO PRN ×2 (14:33→21:38)
[2018-08-08] MEDS: PSYLLIUM HUSK 100% 6 GM PACKET PO PRN (14:33)
--- NOTE | 2018-08-08 15:20 | P.PN ---
Subjective Progress Note Date: 08/08/18 Principal diagnosis: Acute exacerbation of moderate persistent bronchial asthma, complicated by left upper lobe limited pneumonia. This is a very pleasant 73-year-old female patient who follows with Dr. Myrick as her primary care physician. She has a history of breast cancer, depression, gastroesophageal reflux disease, migraines, hyperlipidemia, ALLERGIC rhinitis, large hiatal hernia. She was has a history of moderate persistent steroid dependent chronic bronchial asthma and follows with Dr. Ayon in our office for the same. She was last seen in May and treated for an exacerbation. Since that time she had been doing quite well. She has been maintained on Advair, Singulair, Ventolin. She is also on prednisone 5 mg daily. He is being considered for hiatal hernia repair through [facility]. She presented here to the emergency room yesterday after developing increasing shortness of breath, cough and congestion over the past 2 days. Her chest x- ray revealed evidence of small posterior pleural effusion, hiatal hernia, Mild cardiomegaly with prominent pulmonary vascular markings. CT angiogram showed no evidence of pulmonary embolism. There is new patchy bilateral consolidation inferior left upper lobe could reflect a focal pneumonia. No leukocytosis. She 's been afebrile. Maintaining O2 saturations in the 90s on room air. Hemodynamically stable. White count 6.9. Hemoglobin 13.7. Creatinine 0.58. Influenza screen negative. She is seen today in consultation on the regular medical floor. She is awake and alert in no acute distress. She does have a loose nonproductive cough. No chills or night sweats. Patient was seen today on 08/07/2018, continues to have cough wheezing shortness of breath, she has difficulty clearing her secretions. Patient is maximized on bronchodilators, steroids, antibiotics, but no significant improvement is noted in the last 24 hours. Today I recommended a sputum culture , and depending on the culture if diagnostic we could consider addressing that accordingly with antibiotics. In the meantime the patient is on Levaquin. The patient is seen again today 08/08/2018 in follow-up on the regular medical floor. She's been slow to progress. She continues with a loose nonproductive cough. Still short of breath with minimal exertion. She is afebrile. Maintaining O2 saturations in the 90s on room air. Blood culture reveals no growth to date. He has been maintained on DuoNeb inhalations, Pulmicort inhalations, Singulair, IV Solu-Medrol him a antibiotics in the form of Levaquin. Objective - Vital Signs Vital signs: Vital Signs Temp 97.8 F 08/08/18 14:12 Pulse 98 08/08/18 14:12 Resp 22 08/08/18 14:12 BP 163/71 08/08/18 14:12 Pulse Ox 96 08/08/18 14:12 Intake & Output 08/07/18 08/08/18 08/08/18 18:59 06:59 18:59 Intake Total 600 600 Balance 600 600 Intake: Oral 600 600 Other: Voiding Method Toilet # Voids 3 2 2 - Exam GENERAL EXAM: Revealed a 73-year-old female in no distress.. HEAD: Normocephalic. Atraumatic EYES: PERRLA, EOMI, no icterus. NOSE: Clear with pink turbinates. THROAT: No erythema or exudates. NECK: No masses, no JVD. CHEST: No chest wall deformity. LUNGS: Diffuse rhonchi and wheezes noted bilaterally. Symmetrical chest expansion noted. No dullness. No chest wall tenderness. CVS: S1 and S2 normal with no audible murmur, regular rhythm. ABDOMEN: Obese, soft, No hepatosplenomegaly, normal bowel sounds, no guarding or rigidity. SPINE: No scoliosis or deformity SKIN: No rashes CENTRAL NERVOUS SYSTEM: Alert oriented 3, no gross focal neurologic deficits. EXTREMITIES: There is no peripheral edema. No clubbing, no cyanosis. Peripheral pulses are intact. - Labs CBC & Chem 7: 08/06/18 09:25 08/06/18 09:25 Labs: Abnormal Lab Results - Last 24 Hours (Table) 08/07/18 08/07/18 08/08/18 Range/Units 17:00 20:38 07:01 POC Glucose (mg/dL) 130 H 175 H 121 H (75-99) mg/dL 08/08/18 Range/Units 12:16 POC Glucose (mg/dL) 117 H (75-99) mg/dL Microbiology - Last 24 Hours (Table) 08/05/18 12:16 Blood Culture - Preliminary Blood No Growth after 72 hours Assessment and Plan Assessment: Impression: #1 Acute exacerbation of moderate persistent asthma possibly, complicated by left upper lobe focal pneumonia. #2 Moderate hiatal hernia. #3 Gastroesophageal reflux disease. #4 History of depression. #5 Is to have migraines. #6 Hyperlipidemia. #7 History of breast cancer status post radiation. Plan: The patient was seen and evaluated by Dr. Hernández. We will continue with her current medications. We'll plan for bronchoscopy with BAL in the a.m. We will increase her activity as tolerated. We'll continue to follow and make further recommendations based on her clinical status. I, the cosigning physician, performed a history & physical examination of the patient. Lungs sounds with bilateral end expiratory wheeze, few scattered rhonchi. Maintaining good O2 saturations in the 90s on room air. I discussed the assessment and plan of care with my nurse practitioner, Gwen Moura. I attest to the above consultation as dictated by her.
--- NOTE | 2018-08-08 16:27 | P.PN ---
Subjective Progress Note Date: 08/08/18 This is a 73-year-old pleasant lady patient of Dr. Myrick. She has underlying history of hypertension, hyperlipidemia, breast cancer requiring lumpectomy, GERD, hiatal hernia, migraines. She was seen in emergency room secondary significant shortness of breath, wheezing, significant cough, no fever no chills , she also has difficulty in adjusting to the new titration of the medication as they were tapering down to oral prednisone that was started 4 weeks ago, she was started on 30 mg prednisone orally oximetry [address] Myrick. She is to see Dr. Steinberg several years ago however she is now going to be transitioned by the pulmonary doctor at [facility] in preparation for her hiatal hernia surgery early next year. It was thought that the hiatal hernia is causing significant problems to her asthma, however she also has underlying both intrinsic and extrinsic asthma, her allergens are noted on the to be from cats however full panel has not been investigated so far. She has one cat at home, patient denies any fever or chills, she has been having multiple episodes of asthma exacerbation for the past several years, has been in and out of prednisone monthly, after tapering doses, patient would go back into full-blown exacerbation. Patient does not have any oxygen requirements at home, has nebulized solution, no Pulmicort, and is on maintenance Symbicort and Singulair. Patient is not on any Xolair shots, however it is unknown whether her IgE levels is elevated at 1 time or the other. 08/06: Patient states that she is continuing to cough and still has shortness of breath with ambulation. She is still using O2 at night at 2 L. Patient did have a CTA done today to rule out PE. CTA results show no acute pulmonary embolism. New patchy bilateral consolidation inferior left upper lobe could reflect focal pneumonia. Patient has been afebrile vital signs have remained stable. 08/07: Patient is ambulatory in her room still complaining of a cough and wheezes. She states that she is feeling better she has saturating 93% on room air. Discussed with patient that we will change her from IV steroids to oral steroids probably tomorrow. Patient remained afebrile and vital signs are stable. 08/08: Patient has been seen by Dr. Hernández and scheduled for bronchoscopy tomorrow. Patient appears to be comfortable while at rest and breathing is stable. She does get short of breath with minimal activity. She continues to have cough. She is continued on Solu-Medrol 60 mg every 6 hours. She states she had a better night and didn't get more sleep. This morning she refused her cough medicine and she wanted Dr. Urias to hear her without the medicine. Patient's is at the bedside and all questions have been answered. Review Of Systems: Constitutional: No fever, no chills, no night sweats. No weight change. No weakness, fatigue or lethargy. No daytime sleepiness. EENT: No headache. No blurred vision or double vision, no loss of vision. No loss of Hearing, no ringing in the ears, no dizziness. No nasal drainage or congestion. No epistaxis. No sore throat. Lungs: + shortness of breath, +cough, +sputum production. + wheezing. Cardiovascular: No chest pain, no lower extremity edema. No palpitations. No paroxysmal nocturnal dyspnea. No orthopnea. No lightheadedness or dizziness. No syncopal episodes. Abdominal: no abdominal discomfort. No nausea, vomiting. no diarrhea. No constipation. No bloody or tarry stools. improved loss of appetite. Genitourinary: No dysuria, increased frequency, urgency. No urinary retention. Musculoskeletal: No myalgias. No muscle weakness, no gait dysfunction, no frequent falls. No back pain. No neck pain. Integumentary: No wounds, no lesions. No rash or pruritus. No unusual bruising. No change in hair or nails. Neurologic: No aphasia. No facial droop. No change in mentation. No head injury. No headache. No paralysis. No paresthesia. Psychiatric: No depression. No anxiety. No mood swings. Endocrine: No abnormal blood sugars. No weight change. No excessive sweating or thirst. Objective - Vital Signs Vital signs: Vital Signs Temp 98.1 F 08/08/18 05:47 Pulse 88 08/08/18 08:40 Resp 16 08/08/18 05:47 BP 137/79 08/08/18 05:47 Pulse Ox 90 L 08/08/18 05:47 Intake & Output 08/07/18 08/08/18 08/08/18 18:59 06:59 18:59 Intake Total 600 Balance 600 Intake: Oral 600 Other: Voiding Method Toilet # Voids 3 2 - Exam General appearance: Present: cooperative, no acute distress, obese, patient is sitting up on the edge of the bed - EENT Eyes: Present: anicteric sclerae, EOMI, PERRLA ENT: Present: hearing grossly normal, NA/AT - Neck Neck: Present: normal ROM. Absent: lymphadenopathy, rigidity - Respiratory Respiratory: bilateral: wheezing, negative: diminished, dullness, rales, rhonchi - Cardiovascular Rhythm: regular Heart sounds: normal: S1, S2 Abnormal Heart Sounds: Absent: systolic murmur, diastolic murmur, rub, S3 Gallop , S4 Gallop, click, other - Gastrointestinal General gastrointestinal: Present: normal bowel sounds, soft. Absent: organomegaly, tenderness - Integumentary Integumentary: Present: normal turgor - Neurologic Neurologic: Present: CNII-XII intact - Musculoskeletal Musculoskeletal: Present: gait normal, generalized weakness, strength equal bilaterally - Psychiatric Psychiatric: Present: A&O x's 3, appropriate affect, intact judgment & insight - Labs CBC & Chem 7: 08/06/18 09:25 08/06/18 09:25 Labs: Abnormal Lab Results - Last 24 Hours (Table) 08/07/18 08/07/18 08/07/18 Range/Units 11:48 17:00 20:38 POC Glucose (mg/dL) 127 H 130 H 175 H (75-99) mg/dL 08/08/18 Range/Units 07:01 POC Glucose (mg/dL) 121 H (75-99) mg/dL Microbiology - Last 24 Hours (Table) 08/05/18 12:16 Blood Culture - Preliminary Blood No Growth after 48 hours Assessment and Plan Plan: 1. Acute exacerbation of moderate persistent asthma, having significant difficulties despite prednisone use a pulmonary consult is appreciated. Continue Solu-Medrol 60 mg every 6 hours, DuoNeb treatments 4 times daily and as needed, Pulmicort twice daily, singulair, CTA of the chest was negative for pulmonary emboli. 2. Acute respiratory distress without documented failure, secondary to asthma exacerbation, IV Solu-Medrol 3. 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 Community-acquired pneumonia, levofloxacin 750 mg daily 4. Hyperlipidemia, atorvastatin 10 mg 5. CKD stage II, nephrotoxins to be avoided, 6. Known history of breast malignancy in the past, lumpectomy with radiation and chemotherapy 7. Large hiatal hernia, with the anticipated surgery at [facility] for laparoscopic lap Abrahan fundoplication robotic approach planned for early next year at [facility] 8. Extrinsic asthma, with known cat Allergy, unknown whether other allergy testing was performed the past, including mold, food or chemicals this could be decided to be done as an outpatient, continue Singulair 10 mg by mouth at night GI prophylaxis Protonix DVT prophylaxis Lovenox 40 mg subcutaneous daily Discharge plan: Home Impression and plan of care have been directed as dictated by the signing physician. Julieta Wynn nurse practitioner acting as scribe for signing physician.
[2018-08-08 16:41] LABS: Glucose,Whole Blood 108 mg/dL (75-99)
[2018-08-08] MEDS: MONTELUKAST 10 MG TAB PO SCH (20:58)
[2018-08-08] MEDS: SERTRALINE 100 MG TAB PO SCH (20:58)
[2018-08-08] MEDS: LACTATED RINGERS 1,000 ML IV SCH (20:58)
[2018-08-08] MEDS: LETROZOLE 2.5 MG TAB PO SCH (20:59)
[2018-08-08] MEDS: ATORVASTATIN 10 MG TAB PO SCH (20:59)
[2018-08-08 21:13] LABS: Glucose,Whole Blood 136 mg/dL (75-99)
[2018-08-08] MEDS: MELATONIN 5 MG TABLET PO SCH (21:37)
[2018-08-09] MEDS: methylPREDNISolone SOD SUCCI 125 MG/2 ML VIAL IV SCH ×4 (05:21→23:16)
[2018-08-09] MEDS: BUDESONIDE 1 MG/2 ML NEBU INHALATION SCH ×2 (06:49→20:00)
[2018-08-09] MEDS: IPRATROPIUM-ALBUTEROL 3 ML NEB INHALATION SCH ×4 (06:49→20:00)
[2018-08-09 07:33] LABS: Glucose,Whole Blood 113 mg/dL (75-99)
[2018-08-09] MEDS: INSULIN ASPART 100 UNIT/ML 1 ML 10 ML VIAL SQ SCH ×4 (08:48→21:16)
[2018-08-09] MEDS: KETOTIFEN 0.025% OPHTH DROPS 5 ML BTL LEFT EYE SCH (09:16)
[2018-08-09] MEDS: LEVOFLOXACIN 750MG-D5W PMX 750 MG in DEXTROSE/WATER 1 150ML.BAG IVPB SCH (11:13)
[2018-08-09 12:11] LABS: Glucose,Whole Blood 119 mg/dL (75-99)
[2018-08-09] MEDS ORDERED: IV FLUID CONTINUATION 1,000 ML IV ONE (12:40)
[2018-08-09] MEDS ORDERED: LIDOCAINE 2% INJ 20 MG/ML INTRATRACH ONE (12:57)
--- NOTE | 2018-08-09 13:06 | P.PN ---
Subjective Progress Note Date: 08/09/18 Principal diagnosis: Acute exacerbation of moderate persistent bronchial asthma, complicated by left upper lobe limited pneumonia. This is a very pleasant 73-year-old female patient who follows with Dr. Myrick as her primary care physician. She has a history of breast cancer, depression, gastroesophageal reflux disease, migraines, hyperlipidemia, ALLERGIC rhinitis, large hiatal hernia. She was has a history of moderate persistent steroid dependent chronic bronchial asthma and follows with Dr. Ayon in our office for the same. She was last seen in May and treated for an exacerbation. Since that time she had been doing quite well. She has been maintained on Advair, Singulair, Ventolin. She is also on prednisone 5 mg daily. He is being considered for hiatal hernia repair through [facility]. She presented here to the emergency room yesterday after developing increasing shortness of breath, cough and congestion over the past 2 days. Her chest x- ray revealed evidence of small posterior pleural effusion, hiatal hernia, Mild cardiomegaly with prominent pulmonary vascular markings. CT angiogram showed no evidence of pulmonary embolism. There is new patchy bilateral consolidation inferior left upper lobe could reflect a focal pneumonia. No leukocytosis. She 's been afebrile. Maintaining O2 saturations in the 90s on room air. Hemodynamically stable. White count 6.9. Hemoglobin 13.7. Creatinine 0.58. Influenza screen negative. She is seen today in consultation on the regular medical floor. She is awake and alert in no acute distress. She does have a loose nonproductive cough. No chills or night sweats. Patient was seen today on 08/07/2018, continues to have cough wheezing shortness of breath, she has difficulty clearing her secretions. Patient is maximized on bronchodilators, steroids, antibiotics, but no significant improvement is noted in the last 24 hours. Today I recommended a sputum culture , and depending on the culture if diagnostic we could consider addressing that accordingly with antibiotics. In the meantime the patient is on Levaquin. The patient is seen again today 08/08/2018 in follow-up on the regular medical floor. She's been slow to progress. She continues with a loose nonproductive cough. Still short of breath with minimal exertion. She is afebrile. Maintaining O2 saturations in the 90s on room air. Blood culture reveals no growth to date. He has been maintained on DuoNeb inhalations, Pulmicort inhalations, Singulair, IV Solu-Medrol him a antibiotics in the form of Levaquin. Patient is seen again today 08/09/2018 in follow-up in the bronch suite. She is currently awake and alert in no acute distress. She continues with a loose nonproductive cough. She is maintaining good O2 saturations at 90% on room air. She's been afebrile. Hemodynamically stable. She is still not quite back to her baseline. The plan is for bronchoscopy with BAL today with Dr. Hernández. Objective - Vital Signs Vital signs: Vital Signs Temp 98.3 F 08/09/18 07:00 Pulse 70 08/09/18 11:08 Resp 20 08/09/18 07:00 BP 153/75 08/09/18 07:00 Pulse Ox 90 L 08/09/18 07:00 Intake & Output 08/08/18 08/09/18 08/09/18 18:59 06:59 18:59 Intake Total 600 300 Output Total 1 Balance 600 299 Intake: Oral 600 300 Output: Stool 1 Other: Voiding Method Toilet # Voids 2 1 - Exam GENERAL EXAM: Revealed a 73-year-old female in no distress. On room air. HEAD: Normocephalic. Atraumatic EYES: PERRLA, EOMI, no icterus. NOSE: Clear with pink turbinates. THROAT: No erythema or exudates. NECK: No masses, no JVD. CHEST: No chest wall deformity. LUNGS: Diffuse rhonchi and wheezes noted bilaterally. Symmetrical chest expansion noted. No dullness. No chest wall tenderness. CVS: S1 and S2 normal with no audible murmur, regular rhythm. ABDOMEN: Obese, soft, No hepatosplenomegaly, normal bowel sounds, no guarding or rigidity. SPINE: No scoliosis or deformity SKIN: No rashes CENTRAL NERVOUS SYSTEM: Alert oriented 3, no gross focal neurologic deficits. EXTREMITIES: There is no peripheral edema. No clubbing, no cyanosis. Peripheral pulses are intact. - Labs CBC & Chem 7: 08/06/18 09:25 08/06/18 09:25 Labs: Abnormal Lab Results - Last 24 Hours (Table) 08/08/18 08/08/18 08/09/18 Range/Units 16:38 21:11 07:19 POC Glucose (mg/dL) 108 H 136 H 113 H (75-99) mg/dL 08/09/18 Range/Units 12:07 POC Glucose (mg/dL) 119 H (75-99) mg/dL Microbiology - Last 24 Hours (Table) 08/05/18 12:16 Blood Culture - Preliminary Blood No Growth after 72 hours Assessment and Plan Assessment: Impression: #1 Acute exacerbation of moderate persistent asthma possibly, complicated by left upper lobe focal pneumonia. #2 Moderate hiatal hernia. #3 Gastroesophageal reflux disease. #4 History of depression. #5 Is to have migraines. #6 Hyperlipidemia. #7 History of breast cancer status post radiation. Plan: The patient was seen and evaluated by Dr. Hernández. Bronchoscopy with BAL performed today. She was noted to have a moderate amount of copious secretions. Cultures and analysis are pending. We will continue with her current medications including bronchodilators, Singulair, IV Solu-Medrol. She remains on Levaquin. We'll continue to follow and make further recommendations based on her clinical status. I, the cosigning physician, performed a history & physical examination of the patient. Lungs sounds with bilateral end expiratory wheeze, few scattered rhonchi. Maintaining good O2 saturations in the 90s on room air. I discussed the assessment and plan of care with my nurse practitioner, Gwen Moura. I attest to the above consultation as dictated by her.
--- NOTE | 2018-08-09 13:29 | PCN ---
PROCEDURE NOTE PROCEDURES: Bronchoscopy, airway exam, therapeutic lavage and BAL right middle lobe. PREOPERATIVE DIAGNOSIS: Tracheobronchomalacia. POSTOPERATIVE DIAGNOSIS: Tracheobronchomalacia. There was informed consent. There was universal timeout. The patient's procedure was done in room #1 of the [facility]. MACHINE [employer]ER provided general anesthesia unconscious sedation. The operators were Dr. Hernández and Dr. Moura. Also in attendance were Marquis and , both RNs. After the patient was adequately sedated and being fully monitored, the bronchoscope was inserted through the right nostril. It passed through the right nasopharynx into the oropharynx. The hypopharynx was identified and topicalized. The hypopharyngeal structures appeared relatively normal save for the right vocal cord which had an area of hemorrhage. The anterior commissure, true cords, false cords, arytenoids, piriform sinuses, right and left vallecula and the epiglottis otherwise appeared normal. After topicalization, bronchoscope was pushed through the glottic opening into the trachea. 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 There was thick secretions noted in the mid to distal trachea. Tracheal kelvin was sharp. The right and left mainstem were topicalized. The right upper lobe and its 3 segments, right middle lobe and its 2 segments, right lower lobe and its 5 segments, the left upper lobe proper and its 2 segments, the lingula and its 2 segments and the left lower lobe and its 4 segments, all had similar findings of moderate to severe bronchitis. There was diffuse airway erythema and hyperemia. There were thick secretions that were noted primarily in the lower lobes. The secretions were very viscid and tenacious and very inspissated and very difficult dissection. They were suctioned with saline lavage. Afterwards, the bronchoscope was wedged into the right middle lobe. The BAL took place. There was no immediate complications. The patient tolerated the procedure relatively well. There was no dominant mass or lesions. Again, the airways were inflamed and there were some areas of mucosal friability noted. The bronchoscope was then withdrawn and the patient will be recovered. MMODL / IJN: [id number] /
[2018-08-09] MEDS: ENOXAPARIN 40 MG/0.4 ML SYRINGE SQ SCH (14:04)
[2018-08-09] MEDS: PANTOPRAZOLE 40 MG TABLET PO SCH (14:04)
[2018-08-09] MEDS: FUROSEMIDE 20 MG TAB PO SCH (15:05)
[2018-08-09] MEDS: IBUPROFEN 800 MG TAB PO PRN (15:06)
[2018-08-09 15:33] LABS: Appearance,BF Cloudy; Color,BF Colorless
--- NOTE | 2018-08-09 15:43 | P.PN ---
Subjective Progress Note Date: 08/09/18 This is a 73-year-old pleasant lady patient of Dr. Myrick. She has underlying history of hypertension, hyperlipidemia, breast cancer requiring lumpectomy, GERD, hiatal hernia, migraines. She was seen in emergency room secondary significant shortness of breath, wheezing, significant cough, no fever no chills , she also has difficulty in adjusting to the new titration of the medication as they were tapering down to oral prednisone that was started 4 weeks ago, she was started on 30 mg prednisone orally oximetry [address] Myrick. She is to see Dr. Steinberg several years ago however she is now going to be transitioned by the pulmonary doctor at [facility] in preparation for her hiatal hernia surgery early next year. It was thought that the hiatal hernia is causing significant problems to her asthma, however she also has underlying both intrinsic and extrinsic asthma, her allergens are noted on the to be from cats however full panel has not been investigated so far. She has one cat at home, patient denies any fever or chills, she has been having multiple episodes of asthma exacerbation for the past several years, has been in and out of prednisone monthly, after tapering doses, patient would go back into full-blown exacerbation. Patient does not have any oxygen requirements at home, has nebulized solution, no Pulmicort, and is on maintenance Symbicort and Singulair. Patient is not on any Xolair shots, however it is unknown whether her IgE levels is elevated at 1 time or the other. 08/06: Patient states that she is continuing to cough and still has shortness of breath with ambulation. She is still using O2 at night at 2 L. Patient did have a CTA done today to rule out PE. CTA results show no acute pulmonary embolism. New patchy bilateral consolidation inferior left upper lobe could reflect focal pneumonia. Patient has been afebrile vital signs have remained stable. 08/07: Patient is ambulatory in her room still complaining of a cough and wheezes. She states that she is feeling better she has saturating 93% on room air. Discussed with patient that we will change her from IV steroids to oral steroids probably tomorrow. Patient remained afebrile and vital signs are stable. 08/08: Patient has been seen by Dr. Hernández and scheduled for bronchoscopy tomorrow. Patient appears to be comfortable while at rest and breathing is stable. She does get short of breath with minimal activity. She continues to have cough. She is continued on Solu-Medrol 60 mg every 6 hours. She states she had a better night and didn't get more sleep. This morning she refused her cough medicine and she wanted Dr. Urias to hear her without the medicine. Patient's is at the bedside and all questions have been answered. 08/09: Patient underwent bronchoscopy with therapeutic lavage and BAL in the right middle lobe. 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 Noted thick secretions with diffuse airway erythema and hyperemia. Patient states the discharge is planned for or Wednesday of this week. She is continued on the same medications. She has been afebrile, pulse ox 90-92% on 2 L nasal cannula. Review Of Systems: Constitutional: No fever, no chills, no night sweats. No weight change. No weakness, fatigue or lethargy. No daytime sleepiness. EENT: No headache. No blurred vision or double vision, no loss of vision. No loss of Hearing, no ringing in the ears, no dizziness. No nasal drainage or congestion. No epistaxis. No sore throat. Lungs: + shortness of breath, +cough, +sputum production. + wheezing. Cardiovascular: No chest pain, no lower extremity edema. No palpitations. No paroxysmal nocturnal dyspnea. No orthopnea. No lightheadedness or dizziness. No syncopal episodes. Abdominal: no abdominal discomfort. No nausea, vomiting. no diarrhea. No constipation. No bloody or tarry stools. improved loss of appetite. Genitourinary: No dysuria, increased frequency, urgency. No urinary retention. Musculoskeletal: No myalgias. No muscle weakness, no gait dysfunction, no frequent falls. No back pain. No neck pain. Integumentary: No wounds, no lesions. No rash or pruritus. No unusual bruising. No change in hair or nails. Neurologic: No aphasia. No facial droop. No change in mentation. No head injury. No headache. No paralysis. No paresthesia. Psychiatric: No depression. No anxiety. No mood swings. Endocrine: No abnormal blood sugars. No weight change. No excessive sweating or thirst. Objective - Vital Signs Vital signs: Vital Signs Temp 98.3 F 08/09/18 07:00 Pulse 72 08/09/18 07:09 Resp 20 08/09/18 07:00 BP 153/75 08/09/18 07:00 Pulse Ox 90 L 08/09/18 07:00 Intake & Output 08/08/18 08/09/18 08/09/18 18:59 06:59 18:59 Intake Total 600 300 Output Total 1 Balance 600 299 Intake: Oral 600 300 Output: Stool 1 Other: Voiding Method Toilet # Voids 2 1 - Exam General appearance: Present: cooperative, no acute distress, obese, patient is sitting up in bed - EENT Eyes: Present: anicteric sclerae, EOMI, PERRLA ENT: Present: hearing grossly normal, NA/AT - Neck Neck: Present: normal ROM. Absent: lymphadenopathy, rigidity - Respiratory Respiratory: bilateral: wheezing, negative: diminished, dullness, rales, rhonchi - Cardiovascular Rhythm: regular Heart sounds: normal: S1, S2 Abnormal Heart Sounds: Absent: systolic murmur, diastolic murmur, rub, S3 Gallop , S4 Gallop, click, other - Gastrointestinal General gastrointestinal: Present: normal bowel sounds, soft. Absent: organomegaly, tenderness - Integumentary Integumentary: Present: normal turgor - Neurologic Neurologic: Present: CNII-XII intact - Musculoskeletal Musculoskeletal: Present: gait normal, generalized weakness, strength equal bilaterally - Psychiatric Psychiatric: Present: A&O x's 3, appropriate affect, intact judgment & insight - Labs CBC & Chem 7: 08/06/18 09:25 08/06/18 09:25 Labs: Abnormal Lab Results - Last 24 Hours (Table) 08/08/18 08/08/18 08/08/18 Range/Units 12:16 16:38 21:11 POC Glucose (mg/dL) 117 H 108 H 136 H (75-99) mg/dL 08/09/18 Range/Units 07:19 POC Glucose (mg/dL) 113 H (75-99) mg/dL Microbiology - Last 24 Hours (Table) 08/05/18 12:16 Blood Culture - Preliminary Blood No Growth after 72 hours Assessment and Plan Plan: 1. Acute exacerbation of moderate persistent asthma, having significant difficulties despite prednisone use a pulmonary consult is appreciated. Continue Solu-Medrol 60 mg every 6 hours, DuoNeb treatments 4 times daily and as needed, Pulmicort twice daily, singulair, CTA of the chest was negative for pulmonary emboli. Patient is status post bronchoscopy and BAL. 2. Acute respiratory distress without documented failure, secondary to asthma exacerbation, IV Solu-Medrol 3. 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 Community-acquired pneumonia, levofloxacin 750 mg daily 4. Hyperlipidemia, atorvastatin 10 mg 5. CKD stage II, nephrotoxins to be avoided, 6. Known history of breast malignancy in the past, lumpectomy with radiation and chemotherapy 7. Large hiatal hernia, with the anticipated surgery at [facility] for laparoscopic lap Abrahan fundoplication robotic approach planned for early next year at [facility] 8. Extrinsic asthma, with known cat Allergy, unknown whether other allergy testing was performed the past, including mold, food or chemicals this could be decided to be done as an outpatient, continue Singulair 10 mg by mouth at night GI prophylaxis Protonix DVT prophylaxis Lovenox 40 mg subcutaneous daily Discharge plan: Home Impression and plan of care have been directed as dictated by the signing physician. Julieta Wynn nurse practitioner acting as scribe for signing physician.
[2018-08-09 17:10] LABS: Glucose,Whole Blood 140 mg/dL (75-99)
[2018-08-09 17:33] LABS: Nucleated Cells, Body Fluid 600 /uL; RBC, Body Fluid 5840 /uL
[2018-08-09 17:35] LABS: Mononuclear WBC,Body Fluid 26 %; Polynuclear WBC,Body Fluid 74 %; Total Cells Counted,Body Fluid 100
[2018-08-09] MEDS: LACTATED RINGERS 1,000 ML IV SCH (18:43)
[2018-08-09] MEDS: MELATONIN 5 MG TABLET PO SCH (21:11)
[2018-08-09] MEDS: MONTELUKAST 10 MG TAB PO SCH (21:11)
[2018-08-09] MEDS: ATORVASTATIN 10 MG TAB PO SCH (21:11)
[2018-08-09] MEDS: LETROZOLE 2.5 MG TAB PO SCH (21:11)
[2018-08-09] MEDS: SERTRALINE 100 MG TAB PO SCH (21:11)
[2018-08-09] MEDS: guaiFENesin-Coden 100-10MG/5ML 10 ML CUP PO PRN (21:27)
[2018-08-09 21:29] LABS: Glucose,Whole Blood 109 mg/dL (75-99)
[2018-08-10] MEDS: methylPREDNISolone SOD SUCCI 125 MG/2 ML VIAL IV SCH (05:35)
[2018-08-10] MEDS: BUDESONIDE 1 MG/2 ML NEBU INHALATION SCH ×2 (07:12→19:38)
[2018-08-10] MEDS: IPRATROPIUM-ALBUTEROL 3 ML NEB INHALATION SCH ×4 (07:12→19:38)
[2018-08-10 07:37] LABS: Glucose,Whole Blood 116 mg/dL (75-99)
[2018-08-10] MEDS: INSULIN ASPART 100 UNIT/ML 1 ML 10 ML VIAL SQ SCH ×4 (09:40→21:36)
[2018-08-10] MEDS: ENOXAPARIN 40 MG/0.4 ML SYRINGE SQ SCH (09:43)
[2018-08-10] MEDS: FUROSEMIDE 20 MG TAB PO SCH (09:43)
[2018-08-10] MEDS: LEVOFLOXACIN 750MG-D5W PMX 750 MG in DEXTROSE/WATER 1 150ML.BAG IVPB SCH (09:43)
[2018-08-10] MEDS: PANTOPRAZOLE 40 MG TABLET PO SCH (09:43)
[2018-08-10] MEDS: KETOTIFEN 0.025% OPHTH DROPS 5 ML BTL LEFT EYE SCH (09:44)
[2018-08-10] MEDS: IBUPROFEN 800 MG TAB PO PRN ×2 (09:51→16:23)
[2018-08-10] MEDS ORDERED: LEVOFLOXACIN 750 MG TAB PO SCH (10:00)
[2018-08-10 10:32] LABS: HCT 39.7 % (34.0-46.0); HGB 13.6 gm/dL (11.4-16.0); MCH 32.1 pg (25.0-35.0); MCHC 34.3 g/dL (31.0-37.0); MCV 93.7 fL (80.0-100.0); Mean Platelet Volume 6.8; Platelet Count 250 k/uL (150-450); RBC 4.23 m/uL (3.80-5.40); RDW 13.6 % (11.5-15.5); WBC 7.5 k/uL (3.8-10.6)
--- NOTE | 2018-08-10 10:43 | P.PN ---
Subjective Progress Note Date: 08/10/18 Principal diagnosis: Acute exacerbation of moderate persistent bronchial asthma, complicated by left upper lobe limited pneumonia This is a very pleasant 73-year-old female patient who follows with Dr. Myrick as her primary care physician. She has a history of breast cancer, depression, gastroesophageal reflux disease, migraines, hyperlipidemia, ALLERGIC rhinitis, large hiatal hernia. She was has a history of moderate persistent steroid dependent chronic bronchial asthma and follows with Dr. Ayon in our office for the same. She was last seen in May and treated for an exacerbation. Since that time she had been doing quite well. She has been maintained on Advair, Singulair, Ventolin. She is also on prednisone 5 mg daily. He is being considered for hiatal hernia repair through [facility]. She presented here to the emergency room yesterday after developing increasing shortness of breath, cough and congestion over the past 2 days. Her chest x- ray revealed evidence of small posterior pleural effusion, hiatal hernia, Mild cardiomegaly with prominent pulmonary vascular markings. CT angiogram showed no evidence of pulmonary embolism. There is new patchy bilateral consolidation inferior left upper lobe could reflect a focal pneumonia. No leukocytosis. She 's been afebrile. Maintaining O2 saturations in the 90s on room air. Hemodynamically stable. White count 6.9. Hemoglobin 13.7. Creatinine 0.58. Influenza screen negative. She is seen today in consultation on the regular medical floor. She is awake and alert in no acute distress. She does have a loose nonproductive cough. No chills or night sweats. Patient was seen today on 08/07/2018, continues to have cough wheezing shortness of breath, she has difficulty clearing her secretions. Patient is maximized on bronchodilators, steroids, antibiotics, but no significant improvement is noted in the last 24 hours. Today I recommended a sputum culture , and depending on the culture if diagnostic we could consider addressing that accordingly with antibiotics. In the meantime the patient is on Levaquin. The patient is seen again today 08/08/2018 in follow-up on the regular medical floor. She's been slow to progress. She continues with a loose nonproductive cough. Still short of breath with minimal exertion. She is afebrile. Maintaining O2 saturations in the 90s on room air. Blood culture reveals no growth to date. He has been maintained on DuoNeb inhalations, Pulmicort inhalations, Singulair, IV Solu-Medrol him a antibiotics in the form of Levaquin. Patient is seen again today 08/09/2018 in follow-up in the bronch suite. She is currently awake and alert in no acute distress. She continues with a loose nonproductive cough. She is maintaining good O2 saturations at 90% on room air. She's been afebrile. Hemodynamically stable. She is still not quite back to her baseline. The plan is for bronchoscopy with BAL today with Dr. Hernández. On 08/10/2018 patient seen in follow-up on medical surgical floor. Patient is status post bronchoscopy with BAL, on today's exam, patient is awake and alert, sitting up in his bed, in no acute distress, coughing has subsided, she has some scattered rhonchi, no dyspnea. Remainder pulse ox is 95% with patient is afebrile, bronchial wash cultures are still pending at this time. Oncology is pending, patient remains on empiric antibiotics, on Levaquin. On IV steroids, nebulized bronchodilators, is improving. Objective - Vital Signs Vital signs: Vital Signs Temp 97.9 F 08/10/18 07:00 Pulse 72 08/10/18 07:35 Resp 18 08/10/18 07:00 BP 164/78 08/10/18 07:00 Pulse Ox 95 08/10/18 07:00 Intake & Output 08/09/18 08/10/18 08/10/18 18:59 06:59 18:59 Intake Total 300 300 Balance 300 300 Intake: IV 300 Oral 300 Other: Voiding Method Toilet Toilet # Voids 4 1 1 - Exam GENERAL EXAM: Revealed a 73-year-old female in no distress. On room air. HEAD: Normocephalic. Atraumatic EYES: PERRLA, EOMI, no icterus. NOSE: Clear with pink turbinates. THROAT: No erythema or exudates. NECK: No masses, no JVD. CHEST: No chest wall deformity. LUNGS: Diffuse rhonchi bilaterally. Symmetrical chest expansion noted. No dullness. No chest wall tenderness. CVS: S1 and S2 normal with no audible murmur, regular rhythm. ABDOMEN: Obese, soft, No hepatosplenomegaly, normal bowel sounds, no guarding or rigidity. SPINE: No scoliosis or deformity SKIN: No rashes CENTRAL NERVOUS SYSTEM: Alert oriented 3, no gross focal neurologic deficits. EXTREMITIES: There is no peripheral edema. No clubbing, no cyanosis. Peripheral pulses are intact. - Labs CBC & Chem 7: 08/06/18 09:25 08/06/18 09:25 Labs: Abnormal Lab Results - Last 24 Hours (Table) 08/09/18 08/09/18 08/09/18 Range/Units 12:07 17:07 21:16 POC Glucose (mg/dL) 119 H 140 H 109 H (75-99) mg/dL 08/10/18 Range/Units 07:16 POC Glucose (mg/dL) 116 H (75-99) mg/dL Microbiology - Last 24 Hours (Table) 08/09/18 12:45 Acid Fast Bacilli Smear - Final Bronchial Washings - Right Acid Fast Bacilli Culture - Preliminary 08/09/18 12:45 Gram Stain - Preliminary Bronchial Washings - Right Bronchial Washings Culture - Preliminary 08/09/18 12:45 Fungal Culture - Preliminary Bronchial Washings - Right 08/05/18 12:16 Blood Culture - Preliminary Blood No Growth after 96 hours Assessment and Plan Plan: #1 Acute exacerbation of moderate persistent asthma possibly, complicated by left upper lobe focal pneumonia. #2 Moderate hiatal hernia. #3 Gastroesophageal reflux disease. #4 History of depression. #5 Is to have migraines. #6 Hyperlipidemia. #7 History of breast cancer status post radiation. Plan: Continue current medical treatment, continue IV steroids, antibiotics, bronchial washing cytology are still pending at this time, no fever no chills, no worsening dyspnea, the cough has subsided, patient is less wheezy on today's exam. Not quite ready for discharge. Continue to follow I performed a history & physical examination of the patient and discussed their management with my nurse practitioner, Cherri Taylor. I reviewed the nurse practitioner's note and agree with the documented findings and plan of care. Lung sounds are positive for diffuse rhonchi. The findings and the impression was discussed with the patient. I attest to the documentation by the nurse practitioner. Time with Patient: Less than 30
[2018-08-10 10:47] LABS: Anion Gap 7 mmol/L; Blood Urea Nitrogen 20 mg/dL (7-17); Calcium 9.3 mg/dL (8.4-10.2); Carbon Dioxide 29 mmol/L (22-30); Chloride 102 mmol/L (98-107); Glucose 101 mg/dL (74-99); Potassium 4.3 mmol/L (3.5-5.1); Sodium 138 mmol/L (137-145)
[2018-08-10 11:54] LABS: Glucose,Whole Blood 122 mg/dL (75-99)
--- NOTE | 2018-08-10 12:45 | P.PN ---
Subjective Progress Note Date: 08/10/18 This is a 73-year-old pleasant lady patient of Dr. Myrick. She has underlying history of hypertension, hyperlipidemia, breast cancer requiring lumpectomy, GERD, hiatal hernia, migraines. She was seen in emergency room secondary significant shortness of breath, wheezing, significant cough, no fever no chills , she also has difficulty in adjusting to the new titration of the medication as they were tapering down to oral prednisone that was started 4 weeks ago, she was started on 30 mg prednisone orally oximetry [address] Myrick. She is to see Dr. Steinberg several years ago however she is now going to be transitioned by the pulmonary doctor at [facility] in preparation for her hiatal hernia surgery early next year. It was thought that the hiatal hernia is causing significant problems to her asthma, however she also has underlying both intrinsic and extrinsic asthma, her allergens are noted on the to be from cats however full panel has not been investigated so far. She has one cat at home, patient denies any fever or chills, she has been having multiple episodes of asthma exacerbation for the past several years, has been in and out of prednisone monthly, after tapering doses, patient would go back into full-blown exacerbation. Patient does not have any oxygen requirements at home, has nebulized solution, no Pulmicort, and is on maintenance Symbicort and Singulair. Patient is not on any Xolair shots, however it is unknown whether her IgE levels is elevated at 1 time or the other. 08/06: Patient states that she is continuing to cough and still has shortness of breath with ambulation. She is still using O2 at night at 2 L. Patient did have a CTA done today to rule out PE. CTA results show no acute pulmonary embolism. New patchy bilateral consolidation inferior left upper lobe could reflect focal pneumonia. Patient has been afebrile vital signs have remained stable. 08/07: Patient is ambulatory in her room still complaining of a cough and wheezes. She states that she is feeling better she has saturating 93% on room air. Discussed with patient that we will change her from IV steroids to oral steroids probably tomorrow. Patient remained afebrile and vital signs are stable. 08/08: Patient has been seen by Dr. Hernández and scheduled for bronchoscopy tomorrow. Patient appears to be comfortable while at rest and breathing is stable. She does get short of breath with minimal activity. She continues to have cough. She is continued on Solu-Medrol 60 mg every 6 hours. She states she had a better night and didn't get more sleep. This morning she refused her cough medicine and she wanted Dr. Urias to hear her without the medicine. Patient's is at the bedside and all questions have been answered. 08/09: Patient underwent bronchoscopy with therapeutic lavage and BAL in the right middle lobe. 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 Noted thick secretions with diffuse airway erythema and hyperemia. Patient states the discharge is planned for or Wednesday of this week. She is continued on the same medications. She has been afebrile, pulse ox 90-92% on 2 L nasal cannula. 08/10: The patient is found sitting up in bed and appears to be in no acute distress. Coughing is improving. She denies any shortness of breath. Pulse ox is 95% on room air. Pulmonary medicine continues to follow. Cytology report is pending. Solu-Medrol will be decreased to 40 mg every 8 hours Anticipate discharge home tomorrow. Review Of Systems: Constitutional: No fever, no chills, no night sweats. No weight change. No weakness, fatigue or lethargy. No daytime sleepiness. EENT: No headache. No blurred vision or double vision, no loss of vision. No loss of Hearing, no ringing in the ears, no dizziness. No nasal drainage or congestion. No epistaxis. No sore throat. Lungs: + shortness of breath, improved cough, no sputum production. + wheezing. Cardiovascular: No chest pain, no lower extremity edema. No palpitations. No paroxysmal nocturnal dyspnea. No orthopnea. No lightheadedness or dizziness. No syncopal episodes. Abdominal: no abdominal discomfort. No nausea, vomiting. no diarrhea. No constipation. No bloody or tarry stools. improved loss of appetite. Genitourinary: No dysuria, increased frequency, urgency. No urinary retention. Musculoskeletal: No myalgias. No muscle weakness, no gait dysfunction, no frequent falls. No back pain. No neck pain. Integumentary: No wounds, no lesions. No rash or pruritus. No unusual bruising. No change in hair or nails. Neurologic: No aphasia. No facial droop. No change in mentation. No head injury. No headache. No paralysis. No paresthesia. Psychiatric: No depression. No anxiety. No mood swings. Endocrine: No abnormal blood sugars. No weight change. No excessive sweating or thirst. Objective - Vital Signs Vital signs: Vital Signs Temp 97.9 F 08/10/18 07:00 Pulse 72 08/10/18 11:16 Resp 18 08/10/18 07:00 BP 164/78 08/10/18 07:00 Pulse Ox 95 08/10/18 07:00 Intake & Output 08/09/18 08/10/18 08/10/18 18:59 06:59 18:59 Intake Total 300 300 Balance 300 300 Intake: IV 300 Oral 300 Other: Voiding Method Toilet Toilet # Voids 4 1 1 - Exam General appearance: Present: cooperative, no acute distress, obese, patient is sitting up in bed - EENT Eyes: Present: anicteric sclerae, EOMI, PERRLA ENT: Present: hearing grossly normal, NA/AT - Neck Neck: Present: normal ROM. Absent: lymphadenopathy, rigidity - Respiratory Respiratory: bilateral: rhonchi, negative: diminished, dullness, rales - Cardiovascular Rhythm: regular Heart sounds: normal: S1, S2 Abnormal Heart Sounds: Absent: systolic murmur, diastolic murmur, rub, S3 Gallop , S4 Gallop, click, other - Gastrointestinal General gastrointestinal: Present: normal bowel sounds, soft. Absent: organomegaly, tenderness - Integumentary Integumentary: Present: normal turgor - Neurologic Neurologic: Present: CNII-XII intact - Musculoskeletal Musculoskeletal: Present: gait normal, generalized weakness, strength equal bilaterally - Psychiatric Psychiatric: Present: A&O x's 3, appropriate affect, intact judgment & insight - Labs CBC & Chem 7: 08/10/18 10:08 08/10/18 10:08 Labs: Abnormal Lab Results - Last 24 Hours (Table) 08/09/18 08/09/18 08/10/18 Range/Units 17:07 21:16 07:16 BUN (7-17) mg/dL Glucose (74-99) mg/dL POC Glucose (mg/dL) 140 H 109 H 116 H (75-99) mg/dL 08/10/18 08/10/18 Range/Units 10:08 11:52 BUN 20 H (7-17) mg/dL Glucose 101 H (74-99) mg/dL POC Glucose (mg/dL) 122 H (75-99) mg/dL Microbiology - Last 24 Hours (Table) 08/09/18 12:45 Acid Fast Bacilli Smear - Final Bronchial Washings - Right Acid Fast Bacilli Culture - Preliminary 08/09/18 12:45 Gram Stain - Preliminary Bronchial Washings - Right Bronchial Washings Culture - Preliminary 08/09/18 12:45 Fungal Culture - Preliminary Bronchial Washings - Right 08/05/18 12:16 Blood Culture - Preliminary Blood No Growth after 96 hours Assessment and Plan Plan: 1. Acute exacerbation of moderate persistent asthma, having significant difficulties despite prednisone use a pulmonary consult is appreciated. Continue Solu-Medrol 60 mg every 6 hours, DuoNeb treatments 4 times daily and as needed, Pulmicort twice daily, singulair, CTA of the chest was negative for pulmonary emboli. Patient is status post bronchoscopy and BAL. Cough is improved. 2. Acute respiratory distress without documented failure, secondary to asthma exacerbation, IV Solu-Medrol decreased to 40 mg every 8 hours 3. 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 Community-acquired pneumonia, levofloxacin 750 mg daily 4. Hyperlipidemia, atorvastatin 10 mg 5. CKD stage II, nephrotoxins to be avoided, 6. Known history of breast malignancy in the past, lumpectomy with radiation and chemotherapy 7. Large hiatal hernia, with the anticipated surgery at [facility] for laparoscopic lap Abrahan fundoplication robotic approach planned for early next year at [facility] 8. Extrinsic asthma, with known cat Allergy, unknown whether other allergy testing was performed the past, including mold, food or chemicals this could be decided to be done as an outpatient, continue Singulair 10 mg by mouth at night GI prophylaxis Protonix DVT prophylaxis Lovenox 40 mg subcutaneous daily Discharge plan: Home in the next 24 hours Impression and plan of care have been directed as dictated by the signing physician. Julieta Wynn nurse practitioner acting as scribe for signing physician.
[2018-08-10 14:18] LABS: Alpha 1 Anti-Trypsin 138 mg/dL (90 - 200)
[2018-08-10] MEDS: methylPREDNISolone SOD SUCCI 40 MG/ML 1 ML VIAL IV SCH (16:23)
[2018-08-10 17:34] LABS: Glucose,Whole Blood 92 mg/dL (75-99)
[2018-08-10] MEDS: FORMOTEROL FUMARATE 20 MCG/2 ML NEBU INHALATION SCH (19:38)
[2018-08-10] MEDS: ATORVASTATIN 10 MG TAB PO SCH (20:45)
[2018-08-10] MEDS: LACTATED RINGERS 1,000 ML IV SCH (20:45)
[2018-08-10] MEDS: SERTRALINE 100 MG TAB PO SCH (20:46)
[2018-08-10] MEDS: LETROZOLE 2.5 MG TAB PO SCH (20:46)
[2018-08-10] MEDS: MONTELUKAST 10 MG TAB PO SCH (20:46)
[2018-08-10] MEDS: MELATONIN 5 MG TABLET PO SCH (20:46)
[2018-08-10] MEDS: PSYLLIUM HUSK 100% 6 GM PACKET PO PRN (20:52)
[2018-08-10 20:57] LABS: Glucose,Whole Blood 142 mg/dL (75-99)
[2018-08-10] MEDS: ACETAMINOPHEN TAB 500 MG TAB PO PRN (21:36)
[2018-08-10 23:24] VITALS: TEMP 98.3
[2018-08-11] MEDS: methylPREDNISolone SOD SUCCI 40 MG/ML 1 ML VIAL IV SCH ×2 (00:03→07:35)
[2018-08-11 06:10] VITALS: BP 123/71; RESP 17
[2018-08-11 07:21] LABS: Glucose,Whole Blood 101 mg/dL (75-99)
[2018-08-11] MEDS: IPRATROPIUM-ALBUTEROL 3 ML NEB INHALATION SCH ×2 (07:30→11:34)
[2018-08-11] MEDS: FORMOTEROL FUMARATE 20 MCG/2 ML NEBU INHALATION SCH (07:30)
[2018-08-11] MEDS: BUDESONIDE 1 MG/2 ML NEBU INHALATION SCH (07:30)
[2018-08-11] MEDS: INSULIN ASPART 100 UNIT/ML 1 ML 10 ML VIAL SQ SCH ×2 (07:32→12:30)
[2018-08-11] MEDS: PANTOPRAZOLE 40 MG TABLET PO SCH (07:36)
[2018-08-11] MEDS: ENOXAPARIN 40 MG/0.4 ML SYRINGE SQ SCH (07:36)
[2018-08-11] MEDS: FUROSEMIDE 20 MG TAB PO SCH (07:36)
[2018-08-11] MEDS: KETOTIFEN 0.025% OPHTH DROPS 5 ML BTL LEFT EYE SCH (07:37)
[2018-08-11] MEDS ORDERED: LEVOFLOXACIN 750 MG TAB PO SCH (10:00)
[2018-08-11] MEDS: IBUPROFEN 800 MG TAB PO PRN (11:18)
[2018-08-11 11:44] VITALS: PULSE 80
[2018-08-11 12:30] LABS: Glucose,Whole Blood 94 mg/dL (75-99)
--- NOTE | 2018-08-11 14:00 | P.PN ---
Subjective Progress Note Date: 08/11/18 Principal diagnosis: Acute exacerbation of moderate persistent bronchial asthma, complicated by left upper lobe limited pneumonia. This is a very pleasant 73-year-old female patient who follows with Dr. Myrick as her primary care physician. She has a history of breast cancer, depression, gastroesophageal reflux disease, migraines, hyperlipidemia, ALLERGIC rhinitis, large hiatal hernia. She was has a history of moderate persistent steroid dependent chronic bronchial asthma and follows with Dr. Ayon in our office for the same. She was last seen in May and treated for an exacerbation. Since that time she had been doing quite well. She has been maintained on Advair, Singulair, Ventolin. She is also on prednisone 5 mg daily. He is being considered for hiatal hernia repair through [facility]. She presented here to the emergency room yesterday after developing increasing shortness of breath, cough and congestion over the past 2 days. Her chest x- ray revealed evidence of small posterior pleural effusion, hiatal hernia, Mild cardiomegaly with prominent pulmonary vascular markings. CT angiogram showed no evidence of pulmonary embolism. There is new patchy bilateral consolidation inferior left upper lobe could reflect a focal pneumonia. No leukocytosis. She 's been afebrile. Maintaining O2 saturations in the 90s on room air. Hemodynamically stable. White count 6.9. Hemoglobin 13.7. Creatinine 0.58. Influenza screen negative. She is seen today in consultation on the regular medical floor. She is awake and alert in no acute distress. She does have a loose nonproductive cough. No chills or night sweats. Patient was seen today on 08/07/2018, continues to have cough wheezing shortness of breath, she has difficulty clearing her secretions. Patient is maximized on bronchodilators, steroids, antibiotics, but no significant improvement is noted in the last 24 hours. Today I recommended a sputum culture , and depending on the culture if diagnostic we could consider addressing that accordingly with antibiotics. In the meantime the patient is on Levaquin. The patient is seen again today 08/08/2018 in follow-up on the regular medical floor. She's been slow to progress. She continues with a loose nonproductive cough. Still short of breath with minimal exertion. She is afebrile. Maintaining O2 saturations in the 90s on room air. Blood culture reveals no growth to date. He has been maintained on DuoNeb inhalations, Pulmicort inhalations, Singulair, IV Solu-Medrol him a antibiotics in the form of Levaquin. Patient is seen again today 08/09/2018 in follow-up in the bronch suite. She is currently awake and alert in no acute distress. She continues with a loose nonproductive cough. She is maintaining good O2 saturations at 90% on room air. She's been afebrile. Hemodynamically stable. She is still not quite back to her baseline. The plan is for bronchoscopy with BAL today with Dr. Hernández. On 08/10/2018 patient seen in follow-up on medical surgical floor. Patient is status post bronchoscopy with BAL, on today's exam, patient is awake and alert, sitting up in his bed, in no acute distress, coughing has subsided, she has some scattered rhonchi, no dyspnea. Remainder pulse ox is 95% with patient is afebrile, bronchial wash cultures are still pending at this time. Oncology is pending, patient remains on empiric antibiotics, on Levaquin. On IV steroids, nebulized bronchodilators, is improving. The patient is seen again today 08/11/2018 in follow-up on the regular medical floor. She is awake and alert in no acute distress. Currently sitting up at the bedside. Maintaining good O2 saturations in the 90s on room air. She denies any worsening shortness of breath, cough or congestion. She does have some low back pain. Otherwise stable. Bronchial wash findings are pending. Blood culture reveals no growth. She remains on Levaquin. Objective - Vital Signs Vital signs: Vital Signs Temp 98.3 F 08/11/18 06:09 Pulse 80 08/11/18 11:44 Resp 17 08/11/18 06:09 BP 123/71 08/11/18 06:09 Pulse Ox 94 L 08/11/18 06:09 Intake & Output 08/10/18 08/11/18 08/11/18 18:59 06:59 18:59 Intake Total 0 Balance 0 Intake: Intake, IV Titration 0 Amount IV Fluid Continuation 1, 0 000 ml @ 0 mls/hr IV .[facility] Rx#:[id number] Lactated Ringers 1,000 ml 0 @ 20 mls/hr IV .Q24H [facility] Rx#:[id number] Other: Voiding Method Toilet # Voids 1 1 - Exam GENERAL EXAM: Revealed a 73-year-old female in no distress. On room air. HEAD: Normocephalic. Atraumatic EYES: PERRLA, EOMI, no icterus. NOSE: Clear with pink turbinates. THROAT: No erythema or exudates. NECK: No masses, no JVD. CHEST: No chest wall deformity. LUNGS: End expiratory wheezes noted bilaterally. Symmetrical chest expansion noted. No dullness. No chest wall tenderness. CVS: S1 and S2 normal with no audible murmur, regular rhythm. ABDOMEN: Obese, soft, No hepatosplenomegaly, normal bowel sounds, no guarding or rigidity. SPINE: No scoliosis or deformity SKIN: No rashes CENTRAL NERVOUS SYSTEM: Alert oriented 3, no gross focal neurologic deficits. EXTREMITIES: There is no peripheral edema. No clubbing, no cyanosis. Peripheral pulses are intact. - Labs CBC & Chem 7: 08/10/18 10:08 08/10/18 10:08 Labs: Abnormal Lab Results - Last 24 Hours (Table) 08/10/18 08/11/18 Range/Units 20:56 07:16 POC Glucose (mg/dL) 142 H 101 H (75-99) mg/dL Microbiology - Last 24 Hours (Table) 08/09/18 12:45 Gram Stain - Final Bronchial Washings - Right Bronchial Washings Culture - Final 08/05/18 12:16 Blood Culture - Preliminary Blood No Growth after 120 hours Assessment and Plan Assessment: Impression: #1 Acute exacerbation of moderate persistent asthma, complicated by left upper lobe focal pneumonia. Status post bronchoscopy with BAL. Cultures are pending. #2 Moderate hiatal hernia. #3 Gastroesophageal reflux disease. #4 History of depression. #5 Is to have migraines. #6 Hyperlipidemia. #7 History of breast cancer status post radiation. Plan: The patient was seen and evaluated by Dr. Hernández. She is cleared for discharge from the pulmonary standpoint. Complete her course of antibiotics. Complete a prednisone burst and taper. Follow-up in our office in 1 week's time. We'll repeat a chest x-ray then. She is encouraged to call sooner with any recurrence of symptoms or other questions or concerns. I, the cosigning physician, performed a history & physical examination of the patient. Lungs sounds with bilateral end expiratory wheeze, Maintaining good O2 saturations in the 90s on room air. I discussed the assessment and plan of care with my nurse practitioner, Gwen Moura. I attest to the above consultation as dictated by her.
--- NOTE | 2018-08-11 14:21 | P.DS ---
Providers Date of admission: 08/07/18 15:06 Expected date of discharge: 08/11/18 Attending physician: Shelia Thompson Consults: 08/05/18 15:01 Consult Physician Routine Consulting Provider: Clare Ayon Consult Reason/Comments: asthma Do you want consulting provider notified?: Yes Primary care physician: [facility] Course: This is a 73-year-old pleasant lady patient of Dr. Myrick. She has underlying history of hypertension, hyperlipidemia, breast cancer requiring lumpectomy, GERD, hiatal hernia, migraines. She was seen in emergency room secondary significant shortness of breath, wheezing, significant cough, no fever no chills , she also has difficulty in adjusting to the new titration of the medication as they were tapering down to oral prednisone that was started 4 weeks ago, she was started on 30 mg prednisone orally oximetry [address] Myrick. She is to see Dr. Steinberg several years ago however she is now going to be transitioned by the pulmonary doctor at [facility] in preparation for her hiatal hernia surgery early next year. It was thought that the hiatal hernia is causing significant problems to her asthma, however she also has underlying both intrinsic and extrinsic asthma, her allergens are noted on the to be from cats however full panel has not been investigated so far. She has one cat at home, patient denies any fever or chills, she has been having multiple episodes of asthma exacerbation for the past several years, has been in and out of prednisone monthly, after tapering doses, patient would go back into full-blown exacerbation. Patient does not have any oxygen requirements at home, has nebulized solution, no Pulmicort, and is on maintenance Symbicort and Singulair. Patient is not on any Xolair shots, however it is unknown whether her IgE levels is elevated at 1 time or the other. 08/06: Patient states that she is continuing to cough and still has shortness of breath with ambulation. She is still using O2 at night at 2 L. Patient did have a CTA done today to rule out PE. CTA results show no acute pulmonary embolism. New patchy bilateral consolidation inferior left upper lobe could reflect focal pneumonia. Patient has been afebrile vital signs have remained stable. 08/07: Patient is ambulatory in her room still complaining of a cough and wheezes. She states that she is feeling better she has saturating 93% on room air. Discussed with patient that we will change her from IV steroids to oral steroids probably tomorrow. Patient remained afebrile and vital signs are stable. 08/08: Patient has been seen by Dr. Hernández and scheduled for bronchoscopy tomorrow. Patient appears to be comfortable while at rest and breathing is stable. She does get short of breath with minimal activity. She continues to have cough. She is continued on Solu-Medrol 60 mg every 6 hours. She states she had a better night and didn't get more sleep. This morning she refused her cough medicine and she wanted Dr. Urias to hear her without the medicine. Patient's is at the bedside and all questions have been answered. 08/09: Patient underwent bronchoscopy with therapeutic lavage and BAL in the right middle lobe. 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 Noted thick secretions with diffuse airway erythema and hyperemia. Patient states the discharge is planned for or Wednesday of this week. She is continued on the same medications. She has been afebrile, pulse ox 90-92% on 2 L nasal cannula. 08/10: The patient is found sitting up in bed and appears to be in no acute distress. Coughing is improving. She denies any shortness of breath. Pulse ox is 95% on room air. Pulmonary medicine continues to follow. Cytology report is pending. Solu-Medrol will be decreased to 40 mg every 8 hours Anticipate discharge home tomorrow. 08/11: Pulse ox is 94% on room air, patient is been afebrile, vital signs are stable. Patient has been cleared for discharge by Dr. Hernández. She is requesting a prescription for ibuprofen and is complaining of lower back pain on the right side since the bronchoscopy. We will also add in Flexeril for home. The patient will be discharged home today in stable condition. Discharge diagnoses: 1. Acute exacerbation of moderate persistent asthma 2. Acute respiratory distress without documented failure, secondary to asthma exacerbation 3. Eosinophilic asthma 4. Community-acquired pneumonia 5. Hyperlipidemia 6. CKD stage II 7. Known history of breast malignancy in the past, lumpectomy with radiation and chemotherapy 8. Large hiatal hernia, with the anticipated surgery at [facility] for laparoscopic lap Abrahan fundoplication robotic approach planned for early next year 9. Extrinsic asthma, with known cat Allergy, Discharge plan: Home Impression and plan of care have been directed as dictated by the signing physician. Julieta Wynn nurse practitioner acting as scribe for signing physician. Patient Condition at Discharge: Good Plan - Discharge Summary New Discharge Prescriptions: New Levofloxacin [Levaquin] 750 mg PO Q24H #3 tab predniSONE 0 mg PO DIRECTED #40 tab Cyclobenzaprine [Flexeril] 5 mg PO TID PRN #30 tablet PRN Reason: muscle spasms Continue Sertraline [Zoloft] 100 mg PO HS Simvastatin [Zocor] 20 mg PO HS Montelukast [Singulair] 10 mg PO HS Albuterol Inhaler [Ventolin Hfa Inhaler] 1 - 2 puff INHALATION RT-Q6H PRN PRN Reason: Shortness Of Breath Ketotifen 0.025% Ophth Soln [Zaditor] 1 drop LEFT EYE DAILY Albuterol Nebulized [Ventolin Nebulized] 2.5 mg INHALATION RT-QID Omeprazole [PriLOSEC] 20 mg PO BID Budesonide/Formoterol Fumarate [Symbicort 160-4.5 Mcg Inhaler] 1 puff INHALATION RT-DAILY Letrozole [Femara] 2.5 dose PO HS Ibuprofen [Motrin] 800 mg PO TID PRN #60 tab PRN Reason: Pain Discontinued predniSONE 5 mg PO DAILY Discharge Medication List Montelukast [Singulair] 10 mg PO HS 09/20/16 [History] Sertraline [Zoloft] 100 mg PO HS 09/20/16 [History] Simvastatin [Zocor] 20 mg PO HS 09/20/16 [History] Albuterol Inhaler [Ventolin Hfa Inhaler] 1 - 2 puff INHALATION RT-Q6H PRN [History] Albuterol Nebulized [Ventolin Nebulized] 2.5 mg INHALATION RT-QID 08/05/18 [ History] Budesonide/Formoterol Fumarate [Symbicort 160-4.5 Mcg Inhaler] 1 puff INHALATION RT-DAILY 08/05/18 [History] Ketotifen 0.025% Ophth Soln [Zaditor] 1 drop LEFT EYE DAILY 08/05/18 [History] Letrozole [Femara] 2.5 dose PO HS 08/05/18 [History] Omeprazole [PriLOSEC] 20 mg PO BID 08/05/18 [History] Cyclobenzaprine [Flexeril] 5 mg PO TID PRN #30 tablet 08/11/18 [Rx] Ibuprofen [Motrin] 800 mg PO TID PRN #60 tab 08/11/18 [Rx] Levofloxacin [Levaquin] 750 mg PO Q24H #3 tab 08/11/18 [Rx] predniSONE 0 mg PO DIRECTED #40 tab 08/11/18 [Rx] Follow up Appointment(s)/Referral(s): Isac Myrick MD [Primary Care Provider] - 1 Week Alexis Hernández DO [Doctor of Osteopathic Medicine] - 1 Week Patient Instructions/Handouts: Asthma (DC), Pneumonia (DC) Activity/Diet/Wound Care/Special Instructions: activity as tolerated resume regular diet Discharge Disposition: HOME SELF-CARE
[2018-08-12] MEDS ORDERED: predniSONE 20 MG TAB PO SCH (09:00)
[2018-08-12 12:11] LABS: Alternaria Alternata IgG <2.0 mcg/mL (< 13.6); Aspergillus fumigatus IgG Not detected (Not detected); Aureobasidium pullulans IgG <2.0 mcg/mL (< 13.6); Cladosporium herbarium IgG 5.7 mcg/mL (< 14.7); Phoma ssp. IgG <2.0 mcg/mL (< 6.6); Saccaharomospora viridis Not detected (Not detected); Saccaharopoly. rectivirgula Not detected (Not detected)
== END 2018-08-11 14:03 | disposition home or self-care (01) | DRG 202 ==
LOC: EC 11:30 → 4MS4W 15:14 → OBSVTOIN 08-07 15:06
PROVIDERS: ADMIT Family Medicine; ATTEND Family Medicine
PROC: 0B9D8ZX Drainage of Right Middle Lung Lobe, Via Natural or Artificial Opening Endoscopic, Diagnostic (ICD-10-PCS; principal; 2018-08-07)
DX: J45.51 Severe persistent asthma with (acute) exacerbation (principal); J18.9 Pneumonia, unspecified organism; J90 Pleural effusion, not elsewhere classified; E78.5 Hyperlipidemia, unspecified; F32.9 Major depressive disorder, single episode, unspecified; G43.909 Migraine, unspecified, not intractable, without status migrainosus; I51.7 Cardiomegaly; R06.03 Acute respiratory distress; J39.8 Other specified diseases of upper respiratory tract; K21.9 Gastro-esophageal reflux disease without esophagitis; K44.9 Diaphragmatic hernia without obstruction or gangrene; N18.2 Chronic kidney disease, stage 2 (mild); R09.02 Hypoxemia; Z79.51 Long term (current) use of inhaled steroids; Z79.52 Long term (current) use of systemic steroids; Z80.3 Family history of malignant neoplasm of breast; Z80.8 Family history of malignant neoplasm of other organs or systems; Z85.3 Personal history of malignant neoplasm of breast; Z86.711 Personal history of pulmonary embolism; Z87.891 Personal history of nicotine dependence; Z90.710 Acquired absence of both cervix and uterus; Z92.3 Personal history of irradiation; Z96.651 Presence of right artificial knee joint; I12.9 Hypertensive chronic kidney disease with stage 1 through stage 4 chronic kidney disease, or unspecified chronic kidney disease; Z92.21 Personal history of antineoplastic chemotherapy; Z98.42 Cataract extraction status, left eye; Z98.41 Cataract extraction status, right eye; Z96.1 Presence of intraocular lens
CPT/HCPCS: 31624; 36415; 71046; 71275; 80048; 80053; 81003; 82103; 82104; 82164; 82550; 82553; 82785; 83036; 83735; 84484; 85025; 85027; 85610; 85730; 86001; 86606; 86609; 87040; 87070; 87102; 87116; 87205; 87206; 87252; 87496; 87498; 87502; 87529; 87634; 87798; 88108; 88305; 89050; 93005; 94640; 94760; 96374; 99285

== ENCOUNTER 2018-08-15 09:56 | Emergency (ER) | payer MEDICARE ==
--- NOTE | 2018-08-15 10:36 | ED ---
SOB HPI - General Chief Complaint: Shortness of Breath Stated Complaint: SOB Time Seen by Provider: 08/15/18 10:03 Source: patient, RN notes reviewed, old records reviewed Mode of arrival: wheelchair Limitations: no limitations - History of Present Illness Initial Comments: This is a 73-year-old female who presents with complaints of shortness of breath and low back pain. She states she was in the hospital 10 days ago and just discharged last week who shortness of breath. She did have a bronchoscopy done during that time. She states she had some pain she was placed on muscle relaxers and ibuprofen she cannot take those because of upset stomach. She states she has sharp pain in her low thoracic back increases with deep breathing and certain movements she feels short of breath because of this. She denies any fevers chills nausea vomiting sweats phlegm production. MD Complaint: shortness of breath, chest pain - Related Data Home Medications Medication Instructions Recorded Confirmed Montelukast [Singulair] 10 mg PO HS 09/20/16 08/15/18 Sertraline [Zoloft] 100 mg PO HS 09/20/16 08/15/18 Simvastatin [Zocor] 20 mg PO HS 09/20/16 08/15/18 Albuterol Inhaler [Ventolin Hfa 1 - 2 puff INHALATION RT-Q6H PRN 10/06/16 Inhaler] Albuterol Nebulized [Ventolin 2.5 mg INHALATION RT-QID 08/05/18 08/15/18 Nebulized] Budesonide/Formoterol Fumarate 1 puff INHALATION RT-DAILY 08/05/18 08/15/18 [Symbicort 160-4.5 Mcg Inhaler] Ketotifen 0.025% Ophth Soln 1 drop LEFT EYE DAILY 08/05/18 08/15/18 [Zaditor] Letrozole [Femara] 2.5 dose PO HS 08/05/18 08/15/18 Omeprazole [PriLOSEC] 20 mg PO BID 08/05/18 08/15/18 predniSONE See Taper PO DIRECTED 08/15/18 08/15/18 Previous Rx's Medication Instructions Recorded Cyclobenzaprine [Flexeril] 5 mg PO TID PRN #30 tablet 08/11/18 Ibuprofen [Motrin] 800 mg PO TID PRN #60 tab 08/11/18 Levofloxacin [Levaquin] 750 mg PO Q24H #3 tab 08/11/18 Hydrocodone/Acetaminophen [[place] 1 each PO Q6HR PRN #12 tab 08/15/18 5-325] Allergies Allergy/AdvReac Type Severity Reaction Status Date / Time cefuroxime AdvReac Cough Verified 08/15/18 10:32 Review of Systems ROS Statement: Those systems with pertinent positive or pertinent negative responses have been documented in the HPI. ROS Other: All systems not noted in ROS Statement are negative. Past Medical History Past Medical History: Asthma, GERD/Reflux, Hyperlipidemia Additional Past Medical History / Comment(s): MIGRAINES, breast cancer with radiation History of Any Multi-Drug Resistant Organisms: None Reported Past Surgical History: Breast Surgery, Hysterectomy, Joint Replacement Additional Past Surgical History / Comment(s): BREAST BX (X5). RT TKA. COLONOSCOPY. BILAT CATARACT SX. hernia with mesh placement. cardiac cath Past Anesthesia/Blood Transfusion Reactions: No Reported Reaction Past Psychological History: Depression Smoking Status: Former smoker Past Alcohol Use History: None Reported, Occasional Past Drug Use History: None Reported - Past Family History Sister(s) Family Medical History: Cancer (Breast cancer), Pulmonary Embolus Additional Family Medical History / Comment(s): 2 SISTERS -BREAST CANCER Brother(s) Family Medical History: Cancer (Melanoma prostate cancer) General Exam - General Exam Comments Initial Comments: This is a well-developed well-nourished awake alert oriented 3 female. Limitations: no limitations General appearance: alert, anxious Head exam: Present: atraumatic, normocephalic, normal inspection Eye exam: Present: normal appearance, PERRL, EOMI. Absent: scleral icterus, conjunctival injection, periorbital swelling ENT exam: Present: normal exam, mucous membranes moist Neck exam: Present: normal inspection. Absent: tenderness, meningismus, lymphadenopathy Respiratory exam: Present: decreased breath sounds. Absent: respiratory distress, wheezes, rales, rhonchi, stridor Cardiovascular Exam: Present: regular rate, normal rhythm, normal heart sounds. Absent: systolic murmur, diastolic murmur, rubs, gallop, clicks GI/Abdominal exam: Present: soft, normal bowel sounds. Absent: distended, tenderness, guarding, rebound, rigid, bruit, pulsatile mass Extremities exam: Present: normal inspection, full ROM, normal capillary refill. Absent: tenderness, pedal edema, joint swelling, calf tenderness Back exam: Present: normal inspection, tenderness, CVA tenderness (L) (Is palpation over the paraspinous muscles of the lower thoracic back that does reproduce the pain) Neurological exam: Present: alert, oriented X3, CN II-XII intact Psychiatric exam: Present: normal affect, normal mood Skin exam: Present: warm, dry, intact, normal color. Absent: rash Course Vital Signs 08/15/18 08/15/18 09:58 12:12 Temperature 98.1 F Pulse Rate 77 69 Respiratory 28 H 20 Rate Blood Pressure 143/85 129/78 O2 Sat by Pulse 97 95 Oximetry Medical Decision Making - Medical Decision Making Some improvement with pain I did discuss case with Dr. Myrick patient will be discharged to follow-up in the office several hearing short course of [place] for pain control as she is not tolerating the current medication well. - Lab Data Result diagrams: 08/15/18 10:15 08/15/18 10:15 Lab Results 08/15/18 08/15/18 08/15/18 Range/Units 10:15 10:15 10:15 WBC 7.8 (3.8-10.6) k/uL RBC 4.96 (3.80-5.40) m/uL Hgb 14.7 (11.4-16.0) gm/dL Hct 45.7 (34.0-46.0) % MCV 92.1 (80.0-100.0) fL MCH 29.5 (25.0-35.0) pg MCHC 32.1 (31.0-37.0) g/dL RDW 13.8 (11.5-15.5) % Plt Count 266 (150-450) k/uL Neutrophils % 73 % Lymphocytes % 14 % Monocytes % 8 % Eosinophils % 3 % Basophils % 0 % Neutrophils # 5.7 (1.3-7.7) k/uL Lymphocytes # 1.1 (1.0-4.8) k/uL Monocytes # 0.6 (0-1.0) k/uL Eosinophils # 0.2 (0-0.7) k/uL Basophils # 0.0 (0-0.2) k/uL PT (9.0-12.0) sec INR (<1.2) APTT (22.0-30.0) sec D-Dimer (<0.60) mg/L FEU Sodium 138 (137-145) mmol/L Potassium 3.8 (3.5-5.1) mmol/L Chloride 105 (98-107) mmol/L Carbon Dioxide 29 (22-30) mmol/L Anion Gap 4 mmol/L BUN 19 H (7-17) mg/dL Creatinine 0.59 (0.52-1.04) mg/dL Est GFR (CKD-EPI)AfAm >90 (>60 ml/min/1.73 sqM) Est GFR (CKD-EPI)NonAf >90 (>60 ml/min/1.73 sqM) Glucose 88 (74-99) mg/dL Calcium 9.2 (8.4-10.2) mg/dL Magnesium 2.3 (1.6-2.3) mg/dL Total Bilirubin 0.6 (0.2-1.3) mg/dL AST 18 (14-36) U/L ALT 28 (9-52) U/L Alkaline Phosphatase 65 (38-126) U/L Total Creatine Kinase 29 L (30-135) U/L CK-MB (CK-2) 0.7 (0.0-2.4) ng/mL CK-MB (CK-2) Rel Index 2.4 Troponin I <0.012 (0.000-0.034) ng/mL NT-Pro-B Natriuret Pep pg/mL Total Protein 6.0 L (6.3-8.2) g/dL Albumin 3.5 (3.5-5.0) g/dL 08/15/18 08/15/18 Range/Units 10:15 10:15 WBC (3.8-10.6) k/uL RBC (3.80-5.40) m/uL Hgb (11.4-16.0) gm/dL Hct (34.0-46.0) % MCV (80.0-100.0) fL MCH (25.0-35.0) pg MCHC (31.0-37.0) g/dL RDW (11.5-15.5) % Plt Count (150-450) k/uL Neutrophils % % Lymphocytes % % Monocytes % % Eosinophils % % Basophils % % Neutrophils # (1.3-7.7) k/uL Lymphocytes # (1.0-4.8) k/uL Monocytes # (0-1.0) k/uL Eosinophils # (0-0.7) k/uL Basophils # (0-0.2) k/uL PT 9.7 (9.0-12.0) sec INR 1.0 (<1.2) APTT 20.9 L (22.0-30.0) sec D-Dimer 1.41 H (<0.60) mg/L FEU Sodium (137-145) mmol/L Potassium (3.5-5.1) mmol/L Chloride (98-107) mmol/L Carbon Dioxide (22-30) mmol/L Anion Gap mmol/L BUN (7-17) mg/dL Creatinine (0.52-1.04) mg/dL Est GFR (CKD-EPI)AfAm (>60 ml/min/1.73 sqM) Est GFR (CKD-EPI)NonAf (>60 ml/min/1.73 sqM) Glucose (74-99) mg/dL Calcium (8.4-10.2) mg/dL Magnesium (1.6-2.3) mg/dL Total Bilirubin (0.2-1.3) mg/dL AST (14-36) U/L ALT (9-52) U/L Alkaline Phosphatase (38-126) U/L Total Creatine Kinase (30-135) U/L CK-MB (CK-2) (0.0-2.4) ng/mL CK-MB (CK-2) Rel Index Troponin I (0.000-0.034) ng/mL NT-Pro-B Natriuret Pep 166 pg/mL Total Protein (6.3-8.2) g/dL Albumin (3.5-5.0) g/dL - EKG Data -: EKG Interpreted by Me EKG shows normal: sinus rhythm (Sinus rhythm a 69. Interval 1:30 QRS duration 90 QT since QTC 376/42 evidence of left exodeviation incomplete right bundle- branch block evidence of LVH nonspecific ST-T wave configuration.) - Radiology Data Radiology results: report reviewed (I did review the imaging and report no evidence of pulmonary embolism there are several areas past she had basal linear scarring or atelectasis. No focal peripheral consolidation inferior lateral aspect left upper lobe evidence of a thoracic wedge deformity query new please see the complete report.), image reviewed Disposition Clinical Impression: Thoracic back pain Disposition: ADMITTED IP TO THIS HOSP Condition: Good Prescriptions: Hydrocodone/Acetaminophen [[place] 5-325] 1 each PO Q6HR PRN #12 tab PRN Reason: Pain Is patient prescribed a controlled substance at d/c from ED?: Yes When asked, does pt state using other controlled substances?: No If prescribed controlled substance>3 days was MAPS reviewed?: Prescribed <3 Days If opioid is for acute pain is fill amount 7 days or less?: Yes If Rx opioid, was Start Talking consent form obtained?: Yes Referrals: Isac Myrick MD [Primary Care Provider] - 1-2 days
[2018-08-15] MEDS ORDERED: KETOROLAC 30 MG/ML 1 ML VIAL IVP STA (10:37)
[2018-08-15 10:46] LABS: Basophils % (A) 0 %; Eosinophils # (A) 0.2 k/uL (0-0.7); Eosinophils % (A) 3 %; HCT 45.7 % (34.0-46.0); HGB 14.7 gm/dL (11.4-16.0); Lymphocytes # (A) 1.1 k/uL (1.0-4.8); Lymphocytes % (A) 14 %; MCH 29.5 pg (25.0-35.0); MCHC 32.1 g/dL (31.0-37.0); MCV 92.1 fL (80.0-100.0); Mean Platelet Volume 6.3; Monocytes # (A) 0.6 k/uL (0-1.0); Monocytes % (A) 8 %; Neutrophils # (A) 5.7 k/uL (1.3-7.7); Neutrophils % (A) 73 %; Platelet Count 266 k/uL (150-450); RBC 4.96 m/uL (3.80-5.40); RDW 13.8 % (11.5-15.5); WBC 7.8 k/uL (3.8-10.6)
[2018-08-15 10:51] LABS: ALT 28 U/L (9-52); AST 18 U/L (14-36); Albumin 3.5 g/dL (3.5-5.0); Alkaline Phosphatase 65 U/L (38-126); Anion Gap 4 mmol/L; Blood Urea Nitrogen 19 mg/dL (7-17); Calcium 9.2 mg/dL (8.4-10.2); Carbon Dioxide 29 mmol/L (22-30); Chloride 105 mmol/L (98-107); Glucose 88 mg/dL (74-99); Magnesium 2.3 mg/dL (1.6-2.3); Potassium 3.8 mmol/L (3.5-5.1); Sodium 138 mmol/L (137-145); Total Bilirubin 0.6 mg/dL (0.2-1.3)
--- NOTE | 2018-08-15 11:00 | XR ---
EXAMINATION TYPE: XR chest 2V DATE OF EXAM: 08/15/2018 COMPARISON: 08/05/2018 and 08/06/2018. HISTORY: Left-sided chest pain and difficulty breathing TECHNIQUE: Frontal and lateral views of the chest are obtained. FINDINGS: There is no focal air space opacity, pleural effusion, or pneumothorax seen. The cardiac silhouette size is again enlarged. The osseous structures are intact. There is mild generalized oss eous demineralization. IMPRESSION: The recently seen opacity within the left upper lobe on the CT dated 08/06/2018 is not w ell appreciated radiographically. Resolving pneumonia is again a possibility.
[2018-08-15 11:06] LABS: Creatine Kinase 29 U/L (30-135)
[2018-08-15 11:07] LABS: Partial Thromboplastin Time 20.9 sec (22.0-30.0); Prothrombin Time 9.7 sec (9.0-12.0)
[2018-08-15 11:20] LABS: Creatine Kinase MB 0.7 ng/mL (0.0-2.4); Troponin I <0.012 ng/mL (0.000-0.034)
[2018-08-15 11:22] LABS: D-Dimer 1.41 mg/L FEU (<0.60)
--- NOTE | 2018-08-15 12:50 | CT ---
EXAMINATION TYPE: CT angio chest DATE OF EXAM: 08/15/2018 12:12 PM COMPARISON: 08/06/2018 HISTORY: Shiortness of breath CT DLP: 396.7 mGycm Automated exposure control for dose reduction was used. CONTRAST: CTA scan of the thorax is performed with IV Contrast, patient injected with 100, wasted 36 ml mL of I sovue 370, pulmonary embolism protocol. . FINDINGS: LUNGS: There is patchy bibasilar linear scarring and/or atelectasis. There is new focal peripheral co nsolidation in the inferior lateral aspect left upper lobe. There is mild biapical pleural/parenchyma l scarring on current study. No pleural effusion or pneumothorax is seen bilaterally. There is stable 6 x 5 mm subpleural nodule right middle lobe which is stable. Smaller nodule superior to this are st able. Numerous subpleural nodules again noted appears stable. Recommend continued follow-up CT scan. Metastases not excluded. Subsegmental consolidation involving the left upper lobe extending from the hilum to the pleura is stable may be postinflammatory rather than infectious correlate clinically. MEDIASTINUM: There is satisfactory enhancement of the pulmonary artery and its branches, there is no CT evidence for pulmonary embolism. There are no greater than 1 cm hilar or mediastinal lymph nodes. The heart is enlarged and there is coronary artery calcification. No pericardial effusion is seen. Moderate-sized hiatal hernia noted. Pulmonary artery measures 3 cm suggestive of mild pulmonary pillo rial hypertension. OTHER: Liver is diffusely low dense consistent with fatty infiltration. Scattered calcifications thr oughout the spleen consistent with product of old granulomatous disease are redemonstrated. Osseous s tructures are somewhat demineralized. Hypertrophic degenerative change of the spine are noted. There is a compression fracture in the midthoracic spine of indeterminate age. Abnormal attenuation within the left breast noted correlate for previous biopsy with surgical clips and skin thickening noted. Co rrelate for history of previous breast cancer. Large hiatal hernia noted. IMPRESSION: 1. No diagnostic evidence of pulmonary embolism. 2. There is a new moderate to wedge fracture involving the mid thoracic spine are not seen on the rec ent CT scan. This could be correlated with follow-up MRI to assess for pathologic fracture. 3. Multiple subcentimeter pulmonary nodules as discussed above but noted on recent exam. Findings are too small to characterize. Metastases not excluded. 4. Persistent left upper lobe area of consolidation may be postinflammatory or postinfectious. 5. Skin thickening and abnormal attenuation within the left breast with suggestion previous biopsy. C orrelate for history of surgical intervention and biopsy. Correlate for history of previous breast ca ncer.
--- NOTE | 2018-08-15 13:35 | ED ---
Medical Decision Making - Lab Data Result diagrams: 08/15/18 10:15 08/15/18 10:15 Lab Results 08/15/18 08/15/18 08/15/18 Range/Units 10:15 10:15 10:15 WBC 7.8 (3.8-10.6) k/uL RBC 4.96 (3.80-5.40) m/uL Hgb 14.7 (11.4-16.0) gm/dL Hct 45.7 (34.0-46.0) % MCV 92.1 (80.0-100.0) fL MCH 29.5 (25.0-35.0) pg MCHC 32.1 (31.0-37.0) g/dL RDW 13.8 (11.5-15.5) % Plt Count 266 (150-450) k/uL Neutrophils % 73 % Lymphocytes % 14 % Monocytes % 8 % Eosinophils % 3 % Basophils % 0 % Neutrophils # 5.7 (1.3-7.7) k/uL Lymphocytes # 1.1 (1.0-4.8) k/uL Monocytes # 0.6 (0-1.0) k/uL Eosinophils # 0.2 (0-0.7) k/uL Basophils # 0.0 (0-0.2) k/uL PT (9.0-12.0) sec INR (<1.2) APTT (22.0-30.0) sec D-Dimer (<0.60) mg/L FEU Sodium 138 (137-145) mmol/L Potassium 3.8 (3.5-5.1) mmol/L Chloride 105 (98-107) mmol/L Carbon Dioxide 29 (22-30) mmol/L Anion Gap 4 mmol/L BUN 19 H (7-17) mg/dL Creatinine 0.59 (0.52-1.04) mg/dL Est GFR (CKD-EPI)AfAm >90 (>60 ml/min/1.73 sqM) Est GFR (CKD-EPI)NonAf >90 (>60 ml/min/1.73 sqM) Glucose 88 (74-99) mg/dL Calcium 9.2 (8.4-10.2) mg/dL Magnesium 2.3 (1.6-2.3) mg/dL Total Bilirubin 0.6 (0.2-1.3) mg/dL AST 18 (14-36) U/L ALT 28 (9-52) U/L Alkaline Phosphatase 65 (38-126) U/L Total Creatine Kinase 29 L (30-135) U/L CK-MB (CK-2) 0.7 (0.0-2.4) ng/mL CK-MB (CK-2) Rel Index 2.4 Troponin I <0.012 (0.000-0.034) ng/mL NT-Pro-B Natriuret Pep pg/mL Total Protein 6.0 L (6.3-8.2) g/dL Albumin 3.5 (3.5-5.0) g/dL 08/15/18 08/15/18 Range/Units 10:15 10:15 WBC (3.8-10.6) k/uL RBC (3.80-5.40) m/uL Hgb (11.4-16.0) gm/dL Hct (34.0-46.0) % MCV (80.0-100.0) fL MCH (25.0-35.0) pg MCHC (31.0-37.0) g/dL RDW (11.5-15.5) % Plt Count (150-450) k/uL Neutrophils % % Lymphocytes % % Monocytes % % Eosinophils % % Basophils % % Neutrophils # (1.3-7.7) k/uL Lymphocytes # (1.0-4.8) k/uL Monocytes # (0-1.0) k/uL Eosinophils # (0-0.7) k/uL Basophils # (0-0.2) k/uL PT 9.7 (9.0-12.0) sec INR 1.0 (<1.2) APTT 20.9 L (22.0-30.0) sec D-Dimer 1.41 H (<0.60) mg/L FEU Sodium (137-145) mmol/L Potassium (3.5-5.1) mmol/L Chloride (98-107) mmol/L Carbon Dioxide (22-30) mmol/L Anion Gap mmol/L BUN (7-17) mg/dL Creatinine (0.52-1.04) mg/dL Est GFR (CKD-EPI)AfAm (>60 ml/min/1.73 sqM) Est GFR (CKD-EPI)NonAf (>60 ml/min/1.73 sqM) Glucose (74-99) mg/dL Calcium (8.4-10.2) mg/dL Magnesium (1.6-2.3) mg/dL Total Bilirubin (0.2-1.3) mg/dL AST (14-36) U/L ALT (9-52) U/L Alkaline Phosphatase (38-126) U/L Total Creatine Kinase (30-135) U/L CK-MB (CK-2) (0.0-2.4) ng/mL CK-MB (CK-2) Rel Index Troponin I (0.000-0.034) ng/mL NT-Pro-B Natriuret Pep 166 pg/mL Total Protein (6.3-8.2) g/dL Albumin (3.5-5.0) g/dL Disposition Clinical Impression: Thoracic back pain Disposition: ADMITTED IP TO THIS HOSP Condition: Good Instructions: Thoracic Pain (ED) Prescriptions: Hydrocodone/Acetaminophen [[place] 5-325] 1 each PO Q6HR PRN #12 tab PRN Reason: Pain Referrals: Isac Myrick MD [Primary Care Provider] - 1-2 days
[2018-08-15 13:47] VITALS: BP 125/76; PULSE 70; RESP 18; TEMP 98.3
== END 2018-08-15 13:49 | disposition home or self-care (01) ==
LOC: EC 09:56
DX: M54.6 Pain in thoracic spine (principal); R06.02 Shortness of breath; R07.9 Chest pain, unspecified; E78.5 Hyperlipidemia, unspecified; F32.9 Major depressive disorder, single episode, unspecified; J45.909 Unspecified asthma, uncomplicated; K21.9 Gastro-esophageal reflux disease without esophagitis; Z87.891 Personal history of nicotine dependence; Z79.899 Other long term (current) drug therapy; Z79.51 Long term (current) use of inhaled steroids; Z88.1 Allergy status to other antibiotic agents; Z85.3 Personal history of malignant neoplasm of breast
CPT/HCPCS: 99285; 96374; 36415; 93005; 85379; 83880; 80053; 82550; 82553; 83735; 84484; 85025; 85610; 85730; 71046; 71275; J1885; Q9967

== ENCOUNTER 2018-08-18 21:15 | Emergency (ER) | payer MEDICARE ==
[2018-08-18 21:28] VITALS: TEMP 98.2
[2018-08-18] MEDS ORDERED: MORPHINE SULFATE 4 MG/ML SYRINGE IVP PRN (21:40)
[2018-08-18] MEDS ORDERED: ONDANSETRON 4 MG/2 ML VIAL IVP STA (21:41)
--- NOTE | 2018-08-18 21:45 | ED ---
General Adult HPI - General Chief complaint: Recheck/Abnormal Lab/Rx Stated complaint: Pain control -sent by Source: family Mode of arrival: wheelchair Limitations: no limitations - History of Present Illness Initial comments: Dictation was produced using [employer] dictation software. please excuse any grammatical, word or spelling errors. Chief Complaint: Back pain History of Present Illness: Patient is 73-year-old female who was recently diagnosed with compression fracture of the mid thoracic spine. Patient was experiencing significant back pain. She was recently diagnosed with this while she was inpatient being treated for something else. Patient had seen the spinal specialist. She is given prescription for [place] and Percocet. She states that it exacerbates her GERD symptoms. Patient is on Protonix. Patient called her primary care physician earlier today. She was instructed that if her pain is so severe she should come to the emergency department for IV analgesics. The ROS documented in this emergency department record has been reviewed and confirmed by me. Those systems with pertinent positive or negative responses have been documented in the HPI. All other systems are other negative and/or noncontributory. - Related Data Home Medications Medication Instructions Recorded Confirmed Montelukast [Singulair] 10 mg PO HS 09/20/16 08/18/18 Sertraline [Zoloft] 100 mg PO HS 09/20/16 08/18/18 Simvastatin [Zocor] 20 mg PO HS 09/20/16 08/18/18 Albuterol Inhaler [Ventolin Hfa 1 - 2 puff INHALATION RT-Q6H PRN 10/06/16 Inhaler] Omeprazole [PriLOSEC] 20 mg PO BID 08/05/18 08/18/18 predniSONE See Taper PO DIRECTED 08/15/18 08/18/18 Baclofen [Lioresal] 10 mg PO TID 08/18/18 08/18/18 Gabapentin [Neurontin] 100 mg PO QID 08/18/18 08/18/18 Previous Rx's Medication Instructions Recorded Ibuprofen [Motrin] 800 mg PO TID PRN #60 tab 08/11/18 Hydrocodone/Acetaminophen [[place] 1 each PO Q6HR PRN #12 tab 08/15/18 5-325] Ondansetron Odt [Zofran Odt] 4 mg PO Q8HR PRN #12 tab 08/18/18 Allergies Allergy/AdvReac Type Severity Reaction Status Date / Time cefuroxime AdvReac Cough Verified 08/18/18 22:21 Review of Systems ROS Statement: Those systems with pertinent positive or pertinent negative responses have been documented in the HPI. ROS Other: All systems not noted in ROS Statement are negative. Past Medical History Past Medical History: Asthma, GERD/Reflux, Hyperlipidemia Additional Past Medical History / Comment(s): MIGRAINES, breast cancer with radiation History of Any Multi-Drug Resistant Organisms: None Reported Past Surgical History: Breast Surgery, Hysterectomy, Joint Replacement Additional Past Surgical History / Comment(s): BREAST BX (X5). RT TKA. COLONOSCOPY. BILAT CATARACT SX. hernia with mesh placement. cardiac cath Past Anesthesia/Blood Transfusion Reactions: No Reported Reaction Past Psychological History: Depression Smoking Status: Former smoker Past Alcohol Use History: None Reported, Occasional Past Drug Use History: None Reported - Past Family History Sister(s) Family Medical History: Cancer (Breast cancer), Pulmonary Embolus Additional Family Medical History / Comment(s): 2 SISTERS -BREAST CANCER Brother(s) Family Medical History: Cancer (Melanoma prostate cancer) General Exam - General Exam Comments Initial Comments: PHYSICAL EXAM: General Impression: Alert and oriented x3, acute distress secondary to pain HEENT: Normocephalic atraumatic, extra-ocular movements intact, pupils equal and reactive to light bilaterally, mucous membranes moist. Cardiovascular: Heart regular rate and rhythm, S1&S2 audible, no murmurs, rubs or gallops Chest: Lungs clear to auscultation bilaterally, no rhonchi, no wheeze, no rales Abdomen: Bowel sounds present, abdomen soft, non-tender, non-distended, no organomegaly Musculoskeletal: Pulses present and equal in all extremities, no peripheral edema, tenderness to palpation of the back Motor: Power 5/5 bilaterally, no focal deficits noted Neurological: CN II-XII grossly intact, no focal motor or sensory deficits noted Skin: Intact with no visualized rashes Psych: Normal affect and mood Limitations: no limitations Course Vital Signs 08/18/18 08/18/18 21:24 23:09 Temperature 98.2 F Pulse Rate 64 88 Respiratory 18 19 Rate Blood Pressure 145/79 125/80 O2 Sat by Pulse 95 95 Oximetry Medical Decision Making - Medical Decision Making ED course: 73-year-old female who presents here for treatment of her compression fracture. Patient is failed outpatient analgesics. All signs upon arrival are within acceptable limits. Chart review shows that patient had recent CT showing To moderate wedge fracture of the mid thoracic spine. Patient believes she got this injury from coughing really hard. Patient is given morphine. She is reevaluated still persistent symptoms. Patient was given 1 mg of IV Dilaudid with improvement of symptoms. Discussed with patient that the Dilaudid while wearout however and her pain will return. Patient does not want to be admitted to the hospital for pain control. Patient given another 0.5 mg of IV Dilaudid. Patient to be discharge. She states she will contact her primary care physician tomorrow for outpatient treatment of her compression fracture. Disposition Clinical Impression: Pain Disposition: HOME SELF-CARE Condition: Good Prescriptions: Ondansetron Odt [Zofran Odt] 4 mg PO Q8HR PRN #12 tab PRN Reason: Nausea Is patient prescribed a controlled substance at d/c from ED?: No Referrals: Isac Myrick MD [Primary Care Provider] - 1-2 days Time of Disposition: 23:24
[2018-08-18] MEDS ORDERED: HYDROmorphone 1 MG/ML 1 ML SYRINGE IVP STA ×2 (22:47→23:22)
[2018-08-18 23:12] VITALS: BP 125/80; PULSE 88; RESP 19
== END 2018-08-18 23:52 | disposition home or self-care (01) ==
LOC: EC 21:15
DX: S22.008A Other fracture of unspecified thoracic vertebra, initial encounter for closed fracture (principal); J45.909 Unspecified asthma, uncomplicated; K21.9 Gastro-esophageal reflux disease without esophagitis; E78.5 Hyperlipidemia, unspecified; F32.9 Major depressive disorder, single episode, unspecified; Z85.3 Personal history of malignant neoplasm of breast; Z95.818 Presence of other cardiac implants and grafts; Z87.891 Personal history of nicotine dependence; Z96.651 Presence of right artificial knee joint; Z79.52 Long term (current) use of systemic steroids; Z79.899 Other long term (current) drug therapy; Z88.1 Allergy status to other antibiotic agents; X58.XXXA Exposure to other specified factors, initial encounter
CPT/HCPCS: 99284; 96374; 96375 ×2; 96376; J2270; J2405; J1170

== ENCOUNTER → 2018-08-25 | Outpatient (CLI) | payer MEDICARE ==
--- NOTE | 2018-08-25 13:55 | NM ---
EXAMINATION TYPE: NM bone 3 phase DATE OF EXAM: 08/25/2018 COMPARISON: CTA chest from 10 days ago. HISTORY: Left breast upper inner quadrant cancer with multiple areas of pain thoracic reason for 3 we eks. Triple phase bone scintigraphy was performed following the injection of 24.6 mCi Tc 99m MDP. Immedia te images and 5 hours post injection images acquired. Images are obtained of the thorax and abdomen. FINDINGS: Dynamic arterial images show no suspicious focal air of increased radiotracer uptake. Normal mild daniel kground lung and renal parenchymal uptake is present. Soft tissue phase images show small focus of in creased radiotracer uptake right of midline in the mid to lower thoracic spine. Delayed phased images show more prominent uptake at this level with some additional involvement horizontally noted. Corresponding to recent CT shows some sclerosis and mild to moderate height loss involving the inferi or T8 vertebra corresponding to area of nuclear medicine concern. IMPRESSION: Differential includes acute/subacute compression fracture versus focal acute infection/os teomyelitis. Correlate clinically.
== END | disposition home or self-care (01) ==
LOC: RADNMMAIN 07:30
PROVIDERS: ATTEND Internal Medicine Geriatric Medicine
DX: C50.212 Malignant neoplasm of upper-inner quadrant of left female breast (principal)
CPT/HCPCS: 78315; A9503

== ENCOUNTER → 2018-08-26 | Outpatient (CLI) | payer MEDICARE ==
[2018-08-26 14:46] LABS: Basophils % (A) 0 %; Eosinophils # (A) 0.1 k/uL (0-0.7); Eosinophils % (A) 1 %; HCT 40.1 % (34.0-46.0); HGB 12.9 gm/dL (11.4-16.0); Lymphocytes # (A) 0.4 k/uL (1.0-4.8); Lymphocytes % (A) 5 %; MCH 29.6 pg (25.0-35.0); MCHC 32.1 g/dL (31.0-37.0); MCV 92.3 fL (80.0-100.0); Mean Platelet Volume 6.5; Monocytes # (A) 0.2 k/uL (0-1.0); Monocytes % (A) 3 %; Neutrophils # (A) 6.5 k/uL (1.3-7.7); Neutrophils % (A) 90 %; Platelet Count 265 k/uL (150-450); RBC 4.35 m/uL (3.80-5.40); RDW 13.6 % (11.5-15.5); WBC 7.2 k/uL (3.8-10.6)
[2018-08-26 15:52] LABS: Erythrocyte Sedimentation Rate 8 mm/hr (0-20)
[2018-08-26 18:48] LABS: Albumin 4.1 g/dL (3.80-4.90); Albumin/Globulin Ratio 3.15 (1.20-2.10); Anion Gap 8.5 mmol/L (4.00-12.00); Calcium 8.8 mg/dL (8.7-10.3); Carbon Dioxide 26.5 mmol/L (21.6-31.8); Globulin 1.3 g/dL (2.1-3.7); Potassium 3.9 mmol/L (3.5-5.5); Total Bilirubin 0.4 mg/dL (0.3-1.2); Total Protein 5.4 g/dL (6.2-8.2)
== END ==
LOC: LABWHC1 14:05
PROVIDERS: ATTEND Internal Medicine Geriatric Medicine
DX: D63.8 Anemia in other chronic diseases classified elsewhere (principal); C50.212 Malignant neoplasm of upper-inner quadrant of left female breast; R60.9 Edema, unspecified
CPT/HCPCS: 36415; 80053; 85025; 85652; 87040

== ENCOUNTER → 2018-08-27 | Outpatient (CLI) | payer MEDICARE | END | disposition home or self-care (01) | LOC: RADPETMAIN 13:58 | PROVIDERS: ATTEND Internal Medicine Critical Care Medicine | DX: Z53.9 Procedure and treatment not carried out, unspecified reason (principal) ==

== ENCOUNTER → 2018-09-02 | Outpatient (CLI) | payer MEDICARE ==
[2018-09-02 15:05] LABS: Appearance,Urine Clear (Clear); Bilirubin,Urine Negative (Negative); Blood,Urine Negative (Negative); Color,Urine Yellow; Glucose,Urine (UA) Negative (Negative); Ketones,Urine Negative (Negative); Leukocyte Esterase,Urine Negative (Negative); Nitrite,Urine Negative (Negative); PH, Urine 6.5 (5.0-8.0); Protein,Urine Negative (Negative); Specific Gravity,Urine 1.015 (1.001-1.035); Urobilinogen,Urine <2.0 mg/dL (<2.0)
[2018-09-02 15:21] LABS: Basophils % (A) 1 %; Eosinophils # (A) 0.1 k/uL (0-0.7); Eosinophils % (A) 2 %; HCT 43.6 % (34.0-46.0); HGB 13.7 gm/dL (11.4-16.0); Lymphocytes # (A) 0.6 k/uL (1.0-4.8); Lymphocytes % (A) 9 %; MCH 29.6 pg (25.0-35.0); MCHC 31.4 g/dL (31.0-37.0); MCV 94.3 fL (80.0-100.0); Mean Platelet Volume 6.6; Monocytes # (A) 0.5 k/uL (0-1.0); Monocytes % (A) 7 %; Neutrophils # (A) 5.4 k/uL (1.3-7.7); Neutrophils % (A) 80 %; Platelet Count 347 k/uL (150-450); RBC 4.62 m/uL (3.80-5.40); RDW 13.8 % (11.5-15.5); WBC 6.8 k/uL (3.8-10.6)
[2018-09-02 15:31] LABS: INR 0.9 (<1.2); Prothrombin Time 9.7 sec (9.0-12.0)
[2018-09-02 18:32] LABS: Albumin 4.4 g/dL (3.80-4.90); Albumin/Globulin Ratio 3.14 (1.20-2.10); Anion Gap 7.9 mmol/L (4.00-12.00); Calcium 9.4 mg/dL (8.7-10.3); Carbon Dioxide 26.1 mmol/L (21.6-31.8); Globulin 1.4 g/dL (1.6-3.3); Potassium 4.8 mmol/L (3.5-5.5); Total Bilirubin 0.3 mg/dL (0.2-1.2); Total Protein 5.8 g/dL (6.2-8.2)
== END | disposition home or self-care (01) ==
LOC: LABWHC1 14:30
PROVIDERS: ATTEND Nurse Practitioner Family
DX: Z01.812 Encounter for preprocedural laboratory examination (principal)
CPT/HCPCS: 36415; 80053; 81003; 85025; 85610; 85730

== ENCOUNTER → 2018-09-03 | Outpatient (CLI) | payer MEDICARE ==
--- NOTE | 2018-09-04 06:27 | PE ---
EXAMINATION TYPE: PET CT fusion skull to thigh DATE OF EXAM: 09/03/2018 COMPARISON: CTA chest August 15, 2018 and older CTs. HISTORY: Solitary pulmonary nodule . History of left-sided breast cancer 2018. TECHNIQUE: Following the intravenous administration of 11.576 mCi of F-18 FDG, whole body images are performed from the skull base to the midthigh. Images are reviewed on the computer in the coronal, axial, and sagittal planes. Reconstructed rotating images are created on independent workstation and reviewed on the computer. A noncontrast CT is performed in conjunction with the PET scan. SCAN: Initial Scan FINDINGS: SKULL BASE AND NECK: No suspicious hypermetabolic uptake is present. CHEST, MEDIASTINUM, AND HILAR REGION: There is redemonstration of focal peripheral elongated consolid ation in the lateral aspect left lung inferiorly mostly in the lingula near axial image 88, superior extension is improved or resolved from prior. No suspicious hypermetabolic uptake is present at this level or remainder of the thorax. There is stable 5 x 4 mm subpleural nodular opacity axial image 96 unchanged from multiple prior studies with additional scattered smaller subpleural nodules redemonstr ated. Surgical changes overlying left breast are noted. ABDOMEN AND PELVIS: No suspicious hypermetabolic uptake is present. OSSEOUS STRUCTURES: Increased hypermetabolic uptake is seen at level of compression fracture T8 level with progression now more moderate in appearance. OTHER CT: Main pulmonary artery measures 3.8 cm at bifurcation axial image 78, CT findings consistent with underlying pulmonary hypertension. Adjacent ascending aorta measures 3.7 cm in diameter. Moderate size fixed hiatal hernia is redemonstrated. Scattered calcifications throughout the spleen are again seen. Uterus is surgically absent or markedly atrophic. There is multilevel facet arthropathy in the mid to lower lumbar spine. IMPRESSION: No suspicious hypermetabolic uptake is seen to suggest malignancy. Increased hypermetabol ic uptake correlates with acute/subacute moderate compression fracture at T8 level.
== END | disposition home or self-care (01) ==
LOC: RADPETMAIN 08:01
PROVIDERS: ATTEND Internal Medicine Critical Care Medicine
DX: M48.54XA Collapsed vertebra, not elsewhere classified, thoracic region, initial encounter for fracture (principal); R91.1 Solitary pulmonary nodule
CPT/HCPCS: 78815; A9552

== ENCOUNTER 2018-09-04 21:25 | Inpatient (IN) | payer MEDICARE ==
--- NOTE | 2018-09-04 21:56 | ED ---
Chest Pain HPI - General Chief Complaint: Chest Pain Stated Complaint: Chest Pain Time Seen by Provider: 09/04/18 21:37 Source: patient, EMS Mode of arrival: EMS Limitations: no limitations - History of Present Illness Initial Comments: Patient is a 73-year-old female presenting for chest pain. Patient states that this pain started suddenly around 8 PM and is located in the middle of her chest. Physical pressure that does not radiate and there are no modifying factors. It is associated with nausea but no vomiting or diarrhea. She also denies any abdominal pain. She has a history of breast cancer and states that on Wednesday, she had a PET scan as well as a bronchoscopy. She admits to having some coughing with blood streaks in it. - Related Data Home Medications Medication Instructions Recorded Confirmed Montelukast [Singulair] 10 mg PO HS 09/20/16 09/04/18 Sertraline [Zoloft] 100 mg PO HS 09/20/16 09/04/18 Simvastatin [Zocor] 20 mg PO HS 09/20/16 09/04/18 Albuterol Inhaler [Ventolin Hfa 1 - 2 puff INHALATION RT-Q6H PRN 10/06/16 Inhaler] Omeprazole [PriLOSEC] 20 mg PO BID 08/05/18 09/04/18 Baclofen [Lioresal] 10 mg PO TID 08/18/18 09/04/18 Gabapentin [Neurontin] 200 mg PO BID 08/18/18 09/04/18 Budesonide [Pulmicort] 0.5 mg INHALATION RT-BID 09/02/18 09/04/18 Doxycycline Hyclate [Vibramycin] 100 mg PO BID 09/02/18 09/04/18 Formoterol Fumarate [Perforomist] 20 mcg INHALATION RT-BID 09/02/18 09/04/18 HYDROcodone/APAP 7.5-325MG [[place] 1 tab PO Q6HR PRN 09/02/18 09/04/18 7.5-325] Ipratropium-Albuterol Nebulize 3 ml INHALATION RT-DAILY PRN 09/02/18 09/04/18 [Duoneb 0.5 mg-3 mg/3 ml Soln] Letrozole [Femara] 2.5 mg PO HS 09/02/18 09/04/18 predniSONE 5 mg PO DAILY 09/02/18 09/04/18 Allergies Allergy/AdvReac Type Severity Reaction Status Date / Time cefuroxime AdvReac Cough Verified 09/04/18 22:00 Review of Systems ROS Statement: Those systems with pertinent positive or pertinent negative responses have been documented in the HPI. Constitutional: Negative for chills, fatigue and fever. HENT: Negative for congestion. Respiratory: Negative for chest tightness, shortness of breath and wheezing. Negative for cough Cardiovascular: Positive for chest pain and negative for palpitations. Gastrointestinal: Negative for abdominal pain. Negative for abdominal distention , diarrhea, nausea and vomiting. Genitourinary: Negative for dysuria. Musculoskeletal: Negative for back pain, neck pain and neck stiffness. Skin: Negative for color change. Neurological: Negative for dizziness, speech difficulty, weakness and light- headedness. Psychiatric/Behavioral: Negative for agitation and confusion. Negative for anxiety ROS Other: All systems not noted in ROS Statement are negative. EKG Findings - EKG Comments: EKG Findings:: EKG shows sinus bradycardia with rate of 58 bpm, AL interval 140 , QRS 94, QTC 428. There are diffuse T-wave inversions in leads V1 through V6. There is 1-[address] depressions in leads V5 and V6. 22:36 - repeat EKG shows normal sinus rhythm with a rate of 70 bpm, AL interval 144, QRS 94, QTC 442. There remains T-wave inversions in V1 through V6. There are no significant changes to ST depressions compared to prior EKG. Past Medical History Past Medical History: Asthma, GERD/Reflux, Hyperlipidemia Additional Past Medical History / Comment(s): MIGRAINES, breast cancer with radiation History of Any Multi-Drug Resistant Organisms: None Reported Past Surgical History: Breast Surgery, Hysterectomy, Joint Replacement Additional Past Surgical History / Comment(s): BREAST BX (X5). RT TKA. COLONOSCOPY. BILAT CATARACT SX. hernia with mesh placement. cardiac cath Past Anesthesia/Blood Transfusion Reactions: No Reported Reaction Past Psychological History: Depression Past Alcohol Use History: None Reported, Occasional - Past Family History Sister(s) Family Medical History: Cancer, Pulmonary Embolus Additional Family Medical History / Comment(s): 2 SISTERS -BREAST CANCER Brother(s) Family Medical History: Cancer Additional Family Medical History / Comment(s): MELANOMA, PROSTATE General Exam - General Exam Comments Initial Comments: Constitutional: Pt is oriented to person, place, and time. Pt appears well- developed and well-nourished. Patient is diaphoretic HENT: Head: Normocephalic and atraumatic. Eyes: EOM are normal. Neck: Normal range of motion. Neck supple. Cardiovascular: Normal rate, regular rhythm, S1 normal, S2 normal and normal heart sounds. Exam reveals no gallop and no friction rub. No murmur heard. Pulmonary/Chest: Effort normal and breath sounds normal. No tachypnea and no bradypnea. No respiratory distress. No wheezes or rales noted. Abdominal: Soft. Bowel sounds are normal. Pt exhibits no shifting dullness, no distension, no pulsatile liver, no fluid wave, no abdominal bruit and no ascites. There is no tenderness. There is no rigidity, no rebound, no guarding, no tenderness at McBurney's point and negative Musa's sign. Musculoskeletal: Normal range of motion. Neurological: Pt is alert and oriented to person, place, and time. No cranial nerve deficit. Skin: Skin is warm and dry. No rash noted. Pt is not diaphoretic. No erythema. No pallor. Psychiatric: Pt has a normal mood and affect. Pt behavior is normal. Thought content normal. Limitations: no limitations Course Vital Signs 09/04/18 09/04/18 09/04/18 21:27 21:33 21:50 Temperature 97.7 F Pulse Rate 63 Respiratory 22 24 Rate Blood Pressure 91/59 91/59 O2 Sat by Pulse 98 Oximetry 09/04/18 09/04/18 09/04/18 22:40 23:10 23:20 Temperature Pulse Rate 72 74 80 Respiratory 15 20 20 Rate Blood Pressure 112/73 108/64 103/65 O2 Sat by Pulse 95 96 96 Oximetry 09/04/18 09/04/18 23:40 23:50 Temperature Pulse Rate 74 81 Respiratory 17 17 Rate Blood Pressure 106/65 114/64 O2 Sat by Pulse 92 L 92 L Oximetry - Reevaluation(s) Reevaluation #1: 09/04/18 22:37 Patient remains hemodynamically stable. D-dimer is elevated therefore CT PE studies will be performed. Repeat EKG shows no progression to a STEMI. Chest Pain MDM - MDM Laboratory studies showed that there is no leukocytosis and from a cardiac standpoint, troponin was negative. Serial EKGs also showed no evidence of acute VT. However, because the patient did have risk factors for pulmonary embolism, he diarrhea was performed and noted to be elevated. Therefore CT PE study was performed and showed bilateral lower lobe pulmonary emboli. Therefore the patient was put on heparin and thought to be appropriate for the telemetry floor as vital signs were within normal limits and there is no evidence of right heart strain.Explained all labs and diagnostic test results and that we will admit patient to hospital. Pt is agreeable to plan and case has been discussed with Dr. Gallo and they agree to accept the pt. Disposition Clinical Impression: Bilateral pulmonary embolism, Elevated troponin, Chest pain Disposition: ADMITTED IP TO THIS HOSP Condition: Fair Referrals: Isac Myrick MD [Primary Care Provider] - 1-2 days Decision to Admit Reason: Admit from EC Decision Date: 09/05/18 Decision Time: 00:25
[2018-09-04] MEDS ORDERED: fentaNYL (PF) 50 MCG/ML 2 ML AMP IV STA (21:58)
[2018-09-04 22:02] LABS: Basophils # (A) 0.1 k/uL (0-0.2); Basophils % (A) 1 %; Eosinophils # (A) 0.2 k/uL (0-0.7); Eosinophils % (A) 3 %; HCT 39.1 % (34.0-46.0); Lymphocytes # (A) 1.3 k/uL (1.0-4.8); Lymphocytes % (A) 25 %; MCH 30.7 pg (25.0-35.0); MCHC 33.2 g/dL (31.0-37.0); MCV 92.4 fL (80.0-100.0); Mean Platelet Volume 6.5; Monocytes # (A) 0.7 k/uL (0-1.0); Monocytes % (A) 13 %; Neutrophils # (A) 2.9 k/uL (1.3-7.7); Neutrophils % (A) 55 %; Platelet Count 318 k/uL (150-450); RBC 4.23 m/uL (3.80-5.40); RDW 13.8 % (11.5-15.5); WBC 5.2 k/uL (3.8-10.6)
[2018-09-04 22:11] LABS: ALT 20 U/L (9-52); AST 17 U/L (14-36); Albumin 3.5 g/dL (3.5-5.0); Alkaline Phosphatase 104 U/L (38-126); Anion Gap 7 mmol/L; Blood Urea Nitrogen 25 mg/dL (7-17); Carbon Dioxide 22 mmol/L (22-30); Chloride 109 mmol/L (98-107); Glucose 117 mg/dL (74-99); Lipase 135 U/L (23-300); Magnesium 2.2 mg/dL (1.6-2.3); Potassium 4.3 mmol/L (3.5-5.1); Sodium 138 mmol/L (137-145); Total Bilirubin 0.2 mg/dL (0.2-1.3); Total Protein 5.7 g/dL (6.3-8.2)
--- NOTE | 2018-09-04 22:14 | XR ---
EXAMINATION TYPE: XR chest 2V DATE OF EXAM: 09/04/2018 COMPARISON: NONE HISTORY: Chest pain TECHNIQUE: Frontal and lateral views of the chest are obtained. FINDINGS: There is no heart failure nor confluent pneumonic infiltrate. There is 75% anterior wedgin g of T8 vertebra. There is no pleural effusion. There are chest leads. There are no hilar masses. IMPRESSION: No active cardiopulmonary disease. There is progression of T8 compression fracture heriberto red to old exam.
[2018-09-04 22:21] LABS: Creatine Kinase 35 U/L (30-135)
[2018-09-04 22:25] LABS: INR 0.9 (<1.2); Prothrombin Time 9.7 sec (9.0-12.0)
[2018-09-04 22:31] LABS: D-Dimer 1.49 mg/L FEU (<0.60)
[2018-09-04 22:32] LABS: Partial Thromboplastin Time 19.7 sec (22.0-30.0)
[2018-09-04 22:34] LABS: Creatine Kinase MB 0.6 ng/mL (0.0-2.4); Troponin I <0.012 ng/mL (0.000-0.034)
--- NOTE | 2018-09-04 23:30 | CT ---
EXAMINATION TYPE: CT chest angio for PE DATE OF EXAM: 09/04/2018 COMPARISON: HISTORY: SOB, Chest pain CT DLP: 350.1 mGycm Automated exposure control for dose reduction was used. CONTRAST: CT Chest for pulmonary embolism performed with with IV Contrast, patient injected with 100 mL of Isov ue 300. FINDINGS: There is subsegmental atelectasis at the lung bases. There is hiatal hernia. There is no pericardial effusion. There is no pleural effusion. There are no hilar masses. Thoracic aorta shows mild atheroma tous change. There is no evidence of dissection. Ascending aorta measures 3.9 cm. There are multiple filling defects in the lower lobe pulmonary artery branches bilaterally. There is no evidence of a saddle embolism. Right ventricle has normal size. Intraventricular septum is in norm al position. IMPRESSION: The exam shows bilateral lower lobe pulmonary emboli. No evidence of right ventricle strain. Exam was discussed with ER physician at 11:30 AM. Patchy linear mild infiltrate and atelectasis at the right lung base and to lesser extent left lung b ase.
[2018-09-04] MEDS ORDERED: HEPARIN SODIUM,PORCINE 5,000 UNIT/ML 1 ML VIAL IV STA (23:31)
[2018-09-05] MEDS: HEPARIN SOD,PORK IN 0.45% NACL 25,000 UNIT in 0.45% NACL 1 250ML.BAG IV SCH ×2 (00:25→13:31)
[2018-09-05] MEDS ORDERED: MORPHINE SULFATE 4 MG/ML SYRINGE IV PRN (00:27)
[2018-09-05] MEDS ORDERED: NITROGLYCERIN SL TABS 0.4 MG TAB SUBLINGUAL PRN (00:27)
[2018-09-05 01:08] VITALS: BMI 36.8
[2018-09-05 04:23] LABS: Creatine Kinase 29 U/L (30-135)
[2018-09-05 04:36] LABS: Creatine Kinase MB 0.5 ng/mL (0.0-2.4); Troponin I <0.012 ng/mL (0.000-0.034)
[2018-09-05] MEDS: oxyCODONE-APAP 7.5-325MG 1 EACH TAB PO PRN ×2 (04:40→11:36)
[2018-09-05] MEDS ORDERED: IPRATROPIUM-ALBUTEROL 3 ML NEB INHALATION PRN (07:50)
[2018-09-05] MEDS ORDERED: BUDESONIDE 0.5 MG/2 ML NEBU INHALATION SCH (08:00)
[2018-09-05] MEDS ORDERED: FORMOTEROL FUMARATE 20 MCG/2 ML NEBU INHALATION SCH (08:00)
[2018-09-05] MEDS ORDERED: predniSONE 5 MG TAB PO SCH (09:00)
[2018-09-05] MEDS ORDERED: DOXYCYCLINE 100 MG CAP PO SCH (09:00)
[2018-09-05] MEDS ORDERED: GABAPENTIN 100 MG CAP PO SCH (09:00)
[2018-09-05 09:04] VITALS: RESP 20
[2018-09-05 11:05] LABS: Creatine Kinase 29 U/L (30-135)
[2018-09-05 11:19] LABS: Creatine Kinase MB 0.5 ng/mL (0.0-2.4); Troponin I <0.012 ng/mL (0.000-0.034)
[2018-09-05 12:14] VITALS: BP 125/68; PULSE 85; TEMP 98.3
--- NOTE | 2018-09-05 12:34 | CONS ---
CONSULTATION This is a pulmonary critical care consultation dated 09/05/2018. DATE OF SERVICE: 09/05/2018 This is a 73-year-old female well known to me. I believe her primary doctor is Dr. Myrick. She presents to the emergency room on September 04 with complaints of chest pain. This started suddenly about 8:00 pm. It was noted in the middle of her chest. She felt like she was having a heart attack. She ended up complaining also some nausea, but did not have any vomiting or diarrhea. She was thought to initially have myocardial infarction. Anyway, the patient was checked out, had blood work and x-rays and also had a CT angiogram which revealed pulmonary embolism. She recently had a bronchoscopy for COPD exacerbation. The cytology was negative. She also had a PET scan that I ordered recently. That was also negative. She denies any other complaints including fever, chills. She was not particularly short of breath. She did not think her COPD was acting up. Currently, she is doing reasonably well. She was going to have kyphoplasty performed by Dr. Medina but that will have to be on hold. HOME MEDICATIONS: Include Singulair, Zoloft, Zocor, albuterol inhaler, omeprazole, baclofen, gabapentin, Pulmicort and Perforomist twice a day, Vibramycin, [place], Duonebs, Famira and prednisone. She is on a small dose of prednisone to help control her disease. ALLERGIES ARE CEFUROXIME. PAST MEDICAL HISTORY: Positive for asthma/COPD, GERD, hyperlipidemia, migraine cephalgia, breast cancer, status post radiation, hysterectomy, joint replacement, and a number of other procedures. She also had a recent bronchoscopy which was cytologically negative. SOCIAL HISTORY: Noncontributory. FAMILY HISTORY: Positive for cancer, pulmonary embolism, melanoma, etc. REVIEW OF SYSTEMS: CONSTITUTIONAL: Negative. Neurologic negative. HEENT negative. Cardiovascular chest pain. PULMONARY: Negative. GI/ negative. Rheumatologic/ Immunological: Negative. Hematologic negative. ENDOCRINOLOGIC/DERMATOLOGIC: Negative. PHYSICAL EXAMINATION: Current vital signs are reviewed. Temperature is 98.5, heart rate 70, respiratory 20, blood pressure 127/64 mean 85, room air saturation 93%. Appears no acute distress. Mostly complaining of back pain where she has a compression fracture. HEENT examination is grossly unremarkable. Mucous membranes are moist. No oral lesions. NECK: Supple. Full range of motion. No adenopathy or thyromegaly. Neck veins are flat. Cardiovascular examination reveals regular rhythm and rate. Heart rate 70. S1, S2 normal. Lungs reveal relatively clear breath sounds. A few scattered mild rhonchi. No wheezes. No crackles. Breath sounds are equal bilaterally. ABDOMEN: Soft. Bowel sounds are heard. Extremities are intact. No cyanosis, clubbing, or edema. Skin without rash. Neurologic examination is brief but nonfocal. LAB DATA: Reviewed. CBC is normal. D-dimer is elevated at 1.49. PT and INR and PTT are all normal. Sodium 138, potassium 4.3, chloride 109 CO2 of 22, BUN and creatinine were 25 and 0.5. Total protein 5.7. X-RAY: Shows no active cardiopulmonary disease. There is progression of T8 compression fracture. CT angiogram of the chest done yesterday at 10:30 at night tonight shows bilateral lower lobe pulmonary emboli. No evidence of right heart strain. Medications are reviewed. ASSESSMENT: 1. Chest pain, secondary to bilateral pulmonary emboli. 2. History of asthma, with recent exacerbation. 3. Status post recent bronchoscopy for airway secretion control. 4. Recent negative PET scan. 5. Hyperlipidemia. 6. Gastroesophageal reflux disease. 7. Migraine cephalgia. 8. History of breast cancer. PLAN: The patient will need Dopplers of the lower extremities to rule out DVT. She should be treated for 3 months. She will be started on a factor 10A inhibitor. I told that the heparin does not break down the clot but rather prevents additional clots from forming and prevents the clots from currently there to be from getting any larger. Her risk factor for pulmonary embolism was very inactive/sedentary lifestyle recently. Additional recommendations and suggestions are forthcoming. She should follow up with her primary doctor. In addition, she should follow up with us in the future. She will need a followup CT scan in about 8-10 weeks. Additional recommendations and suggestions forthcoming. Prognosis is guarded. MMODL / IJN: [id number] /
--- NOTE | 2018-09-05 12:44 | P.HPIM ---
History of Present Illness H&P Date: 09/05/18 (Document also both his H&P and discharge summary) This is a 73-year-old pleasant lady patient of Dr. Myrick. She has underlying history of hypertension, hyperlipidemia, breast cancer requiring lumpectomy, GERD, hiatal hernia, migraines. She was last admitted in August 06 for acute exacerbation of asthma with the community-acquired pneumonia she was seen by pulmonary and bronchoscopy was performed last visit. Patient also underwent CTA on August 06 with no evidence of pulmonary embolism during that visit. Followed by another CTA on August 15 with no evidence of PE in that CTA as well. Patient did improve and was followed in the clinic. She did have some back pain and concern for compression fracture in the thoracic vertebrae. MRI was performed that suggested osteomyelitis. Patient had follow-up with Dr. Medina for bone biopsy. Patient comes in today with acute onset of chest pain that started last night. Patient decided to come to the ER. D-dimer was elevated, CTA was performed which suggested bilateral subsegmental pulmonary embolism. On evaluation patient had a pulse of 88 saturating on room air to 92% with blood pressure 125/68. Labs evaluate suggest a CBC which was normal, CMP suggest a chloride of 109, BUN 25 creatinine 0.5 glucose 117. UA was clear of any infection. We initiated on heparin drip. Pulmonary and Hemoccult was consulted for evaluation of anticoagulation. Patient does document decreased mobility and history of breast cancer that could be the risk factors for patient 's pulmonary embolism. Ultrasound lower extremity was done with which suggested chronic wall changes but normal flow no acute DVT documented. Troponin 3 negative no right heart strain seen. Patient will be followed up in the clinic for assessment of symptoms and echocardiogram if needed Review of Systems Constitutional: Denies chills, Denies fever, Denies lethargy, Denies malaise, Denies poor appetite, Denies weakness, Denies weight loss Eyes: denies decreased vision, denies diplopia, denies discharge, denies pain Ears: deny: decreased hearing Ears, nose, mouth and throat: Denies dental pain, Denies headache, Denies nasal discharge, Denies nose pain Cardiovascular: Endorses chest pain, endorses decreased exercise tolerance, Denies edema, Denies high blood pressure, Denies irregular heart beat, Denies palpitations, Denies paroxysmal nocturnal dyspnea, Denies rapid heart beat, Denies shortness of breath Respiratory: Denies congestion, Denies cough, Denies cough with sputum, Denies dyspnea, Denies home oxygen, Denies wheezing Gastrointestinal: Denies abdominal pain, Denies change in bowel habits, Denies coffee ground emesis, Denies early satiety, Denies excessive gas, Denies heartburn, Denies hematemesis, Denies hematochezia, Denies loss of appetite, Denies nausea, Denies vomiting Genitourinary: Denies dysuria, Denies flank pain, Denies kidney stones, Denies menorrhagia, Denies urgency, Denies urinary frequency Musculoskeletal: Denies gait dysfunction, Denies limitation of motion, Denies morning stiffness, Denies muscle cramps Integumentary: Denies rash, Denies wounds, Denies brittle nails, Denies change in hair/nails, Denies darkening of skin Neurological: Denies balance difficulties, Denies change in speech, Denies double vision, Denies gait dysfunction, Denies loss of vision, Denies motor disturbance, Denies numbness, Denies paralysis, Denies paresthesias, Denies seizures Psychiatric: Denies anxiety, Denies depression Endocrine: Denies excessive sweating, Denies excessive thirst, Denies high blood sugars, Denies palpitations Hematologic/Lymphatic: Denies easy bruising, Denies lymphadenopathy Past Medical History Past Medical History: Asthma, GERD/Reflux, Hyperlipidemia, Pneumonia Additional Past Medical History / Comment(s): MIGRAINES, breast cancer with radiation (march-april)2017 History of Any Multi-Drug Resistant Organisms: None Reported Past Surgical History: Breast Surgery, Heart Catheterization, Hysterectomy, Joint Replacement Additional Past Surgical History / Comment(s): BREAST BX (X5). RT TKA. COLONOSCOPY. BILAT CATARACT SX. hernia with mesh placement. cardiac cath Past Anesthesia/Blood Transfusion Reactions: No Reported Reaction Past Psychological History: Depression Additional Psychological History / Comment(s): mild Smoking Status: Former smoker Past Alcohol Use History: None Reported, Occasional Additional Past Alcohol Use History / Comment(s): QUIT SMOKING 05/23/2001. SMOKED APPROX 40 YEARS, 1 PPD OR LESS. Past Drug Use History: None Reported - Past Family History Sister(s) Family Medical History: Cancer, Pulmonary Embolus Additional Family Medical History / Comment(s): 2 SISTERS -BREAST CANCER Brother(s) Family Medical History: Cancer Additional Family Medical History / Comment(s): MELANOMA, PROSTATE Medications and Allergies Home Medications Medication Instructions Recorded Confirmed Type Montelukast [Singulair] 10 mg PO HS 09/20/16 09/04/18 History Sertraline [Zoloft] 100 mg PO HS 09/20/16 09/04/18 History Simvastatin [Zocor] 20 mg PO HS 09/20/16 09/04/18 History Albuterol Inhaler [Ventolin Hfa 1 - 2 puff INHALATION RT-Q6H PRN 10/06/16 History Inhaler] Omeprazole [PriLOSEC] 20 mg PO BID 08/05/18 09/04/18 History Baclofen [Lioresal] 10 mg PO TID 08/18/18 09/04/18 History Gabapentin [Neurontin] 200 mg PO BID 08/18/18 09/04/18 History Budesonide [Pulmicort] 0.5 mg INHALATION RT-BID 09/02/18 09/04/18 History Doxycycline Hyclate [Vibramycin] 100 mg PO BID 09/02/18 09/04/18 History Formoterol Fumarate [Perforomist] 20 mcg INHALATION RT-BID 09/02/18 09/04/18 History HYDROcodone/APAP 7.5-325MG [[place] 1 tab PO Q6HR PRN 09/02/18 09/04/18 History 7.5-325] Ipratropium-Albuterol Nebulize 3 ml INHALATION RT-DAILY PRN 09/02/18 09/04/18 History [Duoneb 0.5 mg-3 mg/3 ml Soln] Letrozole [Femara] 2.5 mg PO HS 09/02/18 09/04/18 History predniSONE 5 mg PO DAILY 09/02/18 09/04/18 History Apixaban [Eliquis] 5 mg PO BID #60 tab 09/05/18 Rx Allergies Allergy/AdvReac Type Severity Reaction Status Date / Time cefuroxime AdvReac Cough Verified 09/04/18 22:00 Physical Exam Vitals: Vital Signs Temp Pulse Pulse Resp BP BP Pulse Ox 09/05/18 12:00 98.3 F 85 20 125/68 96 09/05/18 10:28 86 12/24/18 10:21 88 09/05/18 10:20 88 09/05/18 10:07 88 09/05/18 09:02 70 20 09/05/18 09:01 98.5 F 70 18 127/64 93 L 09/05/18 04:00 97.9 F 82 18 136/83 93 L 09/05/18 01:24 84 18 09/05/18 01:23 98.1 F 84 18 133/66 95 09/05/18 00:47 98.6 F 09/05/18 00:36 98.1 F 84 18 133/66 95 09/04/18 23:50 81 17 114/64 92 L 09/04/18 23:40 74 17 106/65 92 L 09/04/18 23:20 80 20 103/65 96 09/04/18 23:10 74 20 108/64 96 09/04/18 22:40 72 15 112/73 95 09/04/18 21:50 91/59 09/04/18 21:33 24 09/04/18 21:27 97.7 F 63 22 91/59 98 Intake and Output 09/04/18 09/05/18 09/05/18 22:59 06:59 14:59 Intake Total 144 397.355 Output Total 300 Balance -156 397.355 Intake: Intake, IV Titration 144 157.355 Amount Heparin Sod,Pork in 0.45% 144 157.355 NaCl 25,000 unit In 0.45 % NaCl 1 250ml.bag @ 18 UNITS/KG/HR 18.77 mls/hr IV .[id number] [facility] Rx#: [id number] Oral 240 Output: Urine 300 Other: Voiding Method Bedside Commode Toilet # Voids 1 Weight 104.326 kg 103.5 kg - Constitutional General appearance: cooperative, no acute distress, obese - EENT Eyes: anicteric sclerae, PERRLA, normal appearance ENT: hearing grossly normal - Neck Neck: no lymphadenopathy, normal ROM, no other, no rigidity, no stridor, no thyromegaly - Respiratory Respiratory: bilateral: CTA, negative: diminished, dullness, rales, rhonchi - Cardiovascular Rhythm: regular Heart sounds: normal: S1, S2 Abnormal Heart Sounds: no systolic murmur, no diastolic murmur, no rub, no S3 Gallop, no S4 Gallop, no click, no other - Gastrointestinal General gastrointestinal: normal bowel sounds, soft - Integumentary Integumentary: no rash - Neurologic Neurologic: CNII-XII intact - Musculoskeletal Musculoskeletal: gait normal, strength equal bilaterally - Psychiatric Psychiatric: A&O x's 3, appropriate affect Results CBC & Chem 7: 09/04/18 21:38 09/04/18 21:38 Labs: Abnormal Lab Results - Last 24 Hours (Table) 09/04/18 09/04/18 09/05/18 Range/Units 21:38 21:38 03:51 APTT 19.7 L (22.0-30.0) sec D-Dimer 1.49 H (<0.60) mg/L FEU Chloride 109 H (98-107) mmol/L BUN 25 H (7-17) mg/dL Creatinine 0.50 L (0.52-1.04) mg/dL Glucose 117 H (74-99) mg/dL Total Creatine Kinase 29 L (30-135) U/L Total Protein 5.7 L (6.3-8.2) g/dL 09/05/18 09/05/18 Range/Units 07:25 10:07 APTT 94.3 H (22.0-30.0) sec D-Dimer (<0.60) mg/L FEU Chloride (98-107) mmol/L BUN (7-17) mg/dL Creatinine (0.52-1.04) mg/dL Glucose (74-99) mg/dL Total Creatine Kinase 29 L (30-135) U/L Total Protein (6.3-8.2) g/dL Thrombosis Risk Factor Assmnt - Choose All That Apply Any of the Below Risk Factors Present?: Yes Each Factor Represents 1 point: Medical pt on bed rest, Obesity (BMI >25) Other Risk Factors: Yes Each Risk Factor Represents 3 Points: Age 75 years or older, History of DVT/PE Other congenital or acquired thrombophilia - If yes, enter type in comment: No Thrombosis Risk Factor Assessment Total Risk Factor Score: 8 Thrombosis Risk Factor Assessment Level: High Risk Assessment and Plan Plan: 1. Acute subsegmental pulmonary embolism no right heart strain. An end 3 negative. Patient initiated on heparin drip ultrasound Doppler lower extremity ordered no acute DVT noted. Patient will be discharged on Levaquin is 10 mg twice a day for 7 days followed by 5 mg twice a day. With follow-up with Dr. Hernández. Dr. Cortés as outpatient. 2. Moderate persistent asthma DuoNeb treatments 4 times daily and as needed, Pulmicort twice daily, singulair, CTA of the chest was negative for pulmonary emboli. Patient is status post bronchoscopy and BAL. Tinea prednisone 5 mg by mouth daily 3. 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 Hyperlipidemia, atorvastatin 10 mg 5. CKD stage II, nephrotoxins to be avoided, 6. Known history of breast malignancy in the past, lumpectomy with radiation and chemotherapy 7. Large hiatal hernia, with the anticipated surgery at [facility] for laparoscopic lap Abrahan fundoplication robotic approach planned for early next year at [facility] 8. Extrinsic asthma, with known cat Allergy, unknown whether other allergy testing was performed the past, including mold, food or chemicals this could be decided to be done as an outpatient, continue Singulair 10 mg by mouth at night 9. Compression fracture thoracic spine with concern of osteomellitus on antibiotics. Plan or bone biopsy on will have to likely postpone it as patient is on blood thinners 10. GI prophylaxis Protonix DVT prophylaxis on heparin drip Discharge plan: Home today
--- NOTE | 2018-09-05 14:51 | ECHOF ---
Referral Reason:Pulmonary embolism, evaluation for heart strain MEASUREMENTS -------- HEIGHT: 167.6 cm WEIGHT: 104.3 kg BP: 136/83 RVIDd: 3.4 cm (< 3.3) IVSd: 1.2 cm (0.6 - 1.1) LVIDd: 5.0 cm (3.9 - 5.3) LVPWd: 1.3 cm (0.6 - 1.1) IVSs: 1.6 cm LVIDs: 3.5 cm LVPWs: 1.8 cm LA Diam: 3.9 cm (2.7 - 3.8) LAESV Index (A-L): 27.33 ml/m Ao Diam: 3.6 cm (2.0 - 3.7) AV Cusp: 1.6 cm (1.5 - 2.6) MV EXCURSION: 15.965 mm (> 18.000) MV EF SLOPE: 79 mm/s (70 - 150) EPSS: 1.1 cm MV E Earl: 0.91 m/s MV DecT: 207 ms MV A Earl: 1.15 m/s MV E/A Ratio: 0.79 AV maxP.05 mmHg AV meanP.69 mmHg RAP: 5.00 mmHg RVSP: 33.58 mmHg FINDINGS -------- Sinus rhythm. This was a technically adequate study. The left ventricular size is normal. There is mild concentric left ventricular hypertrophy. Overa ll left ventricular systolic function is normal with, an EF between 60 - 65 %. The right ventricle is mildly enlarged. Normal LA size by volume 22+/-6 ml/m2. The right atrium is normal in size. There is mild aortic valve sclerosis. The mitral valve is normal. Mild tricuspid regurgitation present. There is borderline pulmonary hypertension. The right ventr icular systolic pressure, as measured by Doppler, is 33.58mmHg. The pulmonic valve was not well visualized. The aortic root size is normal. IVC Not well visulized. There is no pericardial effusion. CONCLUSIONS -------- 1. Sinus rhythm. 2. This was a technically adequate study. 3. The left ventricular size is normal. 4. There is mild concentric left ventricular hypertrophy. 5. Overall left ventricular systolic function is normal with, an EF between 60 - 65 %. 6. The right ventricle is mildly enlarged. 7. Normal LA size by volume 22+/-6 ml/m2. 8. The right atrium is normal in size. 9. There is mild aortic valve sclerosis. 10. The mitral valve is normal. 11. Mild tricuspid regurgitation present. 12. There is borderline pulmonary hypertension. 13. The right ventricular systolic pressure, as measured by Doppler, is 33.58mmHg. 14. The pulmonic valve was not well visualized. 15. The aortic root size is normal. 16. IVC Not well visulized. 17. There is no pericardial effusion. SLAG WORKER: Siobhan Nguyễn RDCS
--- NOTE | 2018-09-05 16:18 | US ---
EXAMINATION TYPE: US venous doppler duplex LE BI DATE OF EXAM: 09/05/2018 12:11 PM COMPARISON: US, CT CLINICAL HISTORY: 73-year-old female R/O DVT. PE; Breast CA 2018 SIDE PERFORMED: Bilateral TECHNIQUE: The lower extremity deep venous system is examined utilizing real time linear array sonog noel with graded compression, Doppler sonography and color-flow sonography. FINDINGS: VESSELS IMAGED: Common Femoral Vein Deep Femoral Vein Greater Saphenous Vein * Femoral Vein Popliteal Vein Small Saphenous Vein * Proximal Calf Veins (* superficial vessels) Right Leg: Positive for non occluding DVT right Femoral Vein. 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 Chronic and largely recanalized on the left at the level of the common femoral vein and upper to mid superficial femoral vein. Also nonocclu sive on the right at the level of the femoral vein. No occlusive DVT seen.
[2018-09-05] MEDS ORDERED: MONTELUKAST 10 MG TAB PO SCH (21:00)
[2018-09-05] MEDS ORDERED: SERTRALINE 100 MG TAB PO SCH (21:00)
[2018-09-05] MEDS ORDERED: ATORVASTATIN 10 MG TAB PO SCH (21:00)
[2018-09-05] MEDS ORDERED: LETROZOLE 2.5 MG TAB PO SCH (21:00)
[2018-09-06] MEDS ORDERED: PANTOPRAZOLE 40 MG TABLET PO SCH (07:30)
[2018-09-06] MEDS ORDERED: ASPIRIN 325 MG TAB PO SCH (09:00)
== END 2018-09-05 15:15 | disposition home or self-care (01) | DRG 176 ==
LOC: SUPCPDRO 21:25 → EC 21:25 → 3SCARD 09-05 00:30
PROVIDERS: ADMIT Internal Medicine; ATTEND Internal Medicine
DX: I26.99 Other pulmonary embolism without acute cor pulmonale (principal); M48.54XA Collapsed vertebra, not elsewhere classified, thoracic region, initial encounter for fracture; M86.9 Osteomyelitis, unspecified; E78.5 Hyperlipidemia, unspecified; F32.9 Major depressive disorder, single episode, unspecified; G43.909 Migraine, unspecified, not intractable, without status migrainosus; I12.9 Hypertensive chronic kidney disease with stage 1 through stage 4 chronic kidney disease, or unspecified chronic kidney disease; J44.9 Chronic obstructive pulmonary disease, unspecified; K21.9 Gastro-esophageal reflux disease without esophagitis; K44.9 Diaphragmatic hernia without obstruction or gangrene; N18.2 Chronic kidney disease, stage 2 (mild); J45.40 Moderate persistent asthma, uncomplicated; R77.9 Abnormality of plasma protein, unspecified; Z79.52 Long term (current) use of systemic steroids; Z79.899 Other long term (current) drug therapy; Z88.1 Allergy status to other antibiotic agents; Z96.651 Presence of right artificial knee joint; Z92.3 Personal history of irradiation; Z90.710 Acquired absence of both cervix and uterus; Z87.891 Personal history of nicotine dependence; Z85.3 Personal history of malignant neoplasm of breast; Z98.42 Cataract extraction status, left eye; Z98.41 Cataract extraction status, right eye; Z96.1 Presence of intraocular lens; Z80.8 Family history of malignant neoplasm of other organs or systems; Z80.3 Family history of malignant neoplasm of breast; Z82.49 Family history of ischemic heart disease and other diseases of the circulatory system; Z80.42 Family history of malignant neoplasm of prostate
CPT/HCPCS: 36415; 71046; 71275; 78815; 80053; 81003; 82550; 82553; 83690; 83735; 83880; 84484; 85025; 85379; 85610; 85730; 93005; 93306; 93970; 94640; 96365; 96375; 96376; 99285

== ENCOUNTER → 2018-11-07 | Outpatient (CLI) | payer MEDICARE ==
--- NOTE | 2018-11-07 11:52 | MM ---
Reason for exam: additional evaluation requested from prior study. Last mammogram was performed 10 months ago. History: Patient is postmenopausal and has history of breast cancer at age 72. Family history of breast cancer in maternal sister at age 73 and breast cancer in sister at age 72. Malignant MG pre op needle loc LT of the left breast, February 08, 2018. Lumpectomy of the left breast, February 08, 2018. Malignant US breast needle core LT of the left breast, January 05, 2018. Benign cyst aspiration of the right breast. 2 benign excisional biopsies of the left breast. 3 benign excisional biopsies of the right breast. Took estrogen for 9 years beginning at age 50. Physical Findings: Nurse did not find any significant physical abnormalities on exam. MG 3D Diag Mammo W/Cad LEOBARDO Bilateral CC and MLO view(s) were taken. Prior study comparison: January 05, 2018, left breast MG diagnostic mammo LT wo CAD. December 24, 2017, left breast MG 3d work up w/cad LT. The breast tissue is heterogeneously dense. This may lower the sensitivity of mammography. No significant new findings when compared with previous films. These results were verbally communicated with the patient and result sheet given to the patient on 11/07/18. ASSESSMENT: Benign, BI-RAD 2 RECOMMENDATION: Follow-up diagnostic mammogram of both breasts in 1 year.
== END | disposition home or self-care (01) ==
LOC: RADMAMWWP 10:53
PROVIDERS: ATTEND Radiology Diagnostic Radiology
DX: C50.212 Malignant neoplasm of upper-inner quadrant of left female breast (principal)
CPT/HCPCS: 77066; G0279; 77062

== ENCOUNTER 2018-11-14 11:49 | Inpatient (IN) | payer MEDICARE ==
[2018-11-14] MEDS ORDERED: ALBUTEROL NEBULIZED 2.5 MG/3 ML INHALATION STA (12:30)
[2018-11-14] MEDS ORDERED: methylPREDNISolone SOD SUCCI 125 MG/2 ML VIAL IV STA (12:30)
[2018-11-14] MEDS ORDERED: IPRATROPIUM 0.5 MG/2.5 ML NEBU INHALATION STA (12:30)
--- NOTE | 2018-11-14 12:35 | ED ---
General Adult HPI - General Chief complaint: Shortness of Breath Stated complaint: SOB Time Seen by Provider: 11/14/18 11:50 Source: patient, RN notes reviewed Mode of arrival: ambulatory Limitations: no limitations - History of Present Illness Initial comments: This is a 73-year-old female who presents emergency Department with a recent past medical history significant for pneumonia back in August. Patient states she also has a history of asthma. Patient states after she was seen in July she was diagnosed with pulmonary embolus was because she was sitting on the house and not moving at all. Patient states his embolism started in her legs. Patient comes in today because she's been having left-sided chest pain that is pleuritic in nature and much worse with coughing. Patient states she has been coughing a lot more over that week and coughing up some sputum. Patient states she's very short of breath but that is got some [place] worse over the last couple of days. Patient denies any actual anterior chest pain. Patient denies any fever or chills. Patient denies any previous history of congestive heart. Patient denies any abdominal pain patient denies nausea vomiting or diarrhea. Patient denies any lightheadedness dizziness or near syncopal episode. - Related Data Home Medications Medication Instructions Recorded Confirmed Montelukast [Singulair] 10 mg PO HS 09/20/16 11/14/18 Sertraline [Zoloft] 100 mg PO HS 09/20/16 11/14/18 Simvastatin [Zocor] 20 mg PO HS 09/20/16 11/14/18 Albuterol Inhaler [Ventolin Hfa 1 - 2 puff INHALATION RT-Q6H PRN 10/06/16 Inhaler] Omeprazole [PriLOSEC] 20 mg PO BID 08/05/18 11/14/18 Budesonide [Pulmicort] 0.5 mg INHALATION RT-BID 09/02/18 11/14/18 Formoterol Fumarate [Perforomist] 20 mcg INHALATION RT-BID 09/02/18 11/14/18 HYDROcodone/APAP 7.5-325MG [[place] 1 tab PO Q6HR PRN 09/02/18 11/14/18 7.5-325] Ipratropium-Albuterol Nebulize 3 ml INHALATION RT-DAILY PRN 09/02/18 11/14/18 [Duoneb 0.5 mg-3 mg/3 ml Soln] Letrozole [Femara] 2.5 mg PO HS 09/02/18 11/14/18 Gabapentin [Neurontin] 300 mg PO BID 11/14/18 11/14/18 predniSONE 10 mg PO DAILY 11/14/18 11/14/18 Previous Rx's Medication Instructions Recorded Apixaban [Eliquis] 5 mg PO BID #60 tab 09/05/18 Allergies Allergy/AdvReac Type Severity Reaction Status Date / Time cefuroxime AdvReac Cough Verified 11/14/18 12:20 Review of Systems ROS Statement: Those systems with pertinent positive or pertinent negative responses have been documented in the HPI. ROS Other: All systems not noted in ROS Statement are negative. Past Medical History Past Medical History: Asthma, GERD/Reflux, Hyperlipidemia, Pneumonia, Pulmonary Embolus (PE) Additional Past Medical History / Comment(s): MIGRAINES, breast cancer with radiation (march-april)2017 History of Any Multi-Drug Resistant Organisms: None Reported Past Surgical History: Breast Surgery, Heart Catheterization, Hysterectomy, Joint Replacement Additional Past Surgical History / Comment(s): BREAST BX (X5). RT TKA. COLONOSCOPY. BILAT CATARACT SX. hernia with mesh placement. cardiac cath Past Anesthesia/Blood Transfusion Reactions: No Reported Reaction Past Psychological History: Depression Smoking Status: Former smoker Past Alcohol Use History: None Reported, Occasional Past Drug Use History: None Reported - Past Family History Sister(s) Family Medical History: Cancer, Pulmonary Embolus Additional Family Medical History / Comment(s): 2 SISTERS -BREAST CANCER Brother(s) Family Medical History: Cancer Additional Family Medical History / Comment(s): MELANOMA, PROSTATE General Exam - General Exam Comments Initial Comments: GENERAL: Patient is well-developed and well-nourished. Patient is nontoxic and well- hydrated and is in mild distress. ENT: Neck is soft and supple. No significant lymphadenopathy is noted. Oropharynx is clear. Moist mucous membranes. Neck has full range of motion without eliciting any pain. EYES: The sclera were anicteric and conjunctiva were pink and moist. Extraocular movements were intact and pupils were equal round and reactive to light. Eyelids were unremarkable. PULMONARY: Patient has expiratory wheezing bilaterally and has rhonchi in bases much worse on the left than the right CARDIOVASCULAR: There is a regular rate and rhythm without any murmurs gallops or rubs. ABDOMEN: Soft and nontender with normal bowel sounds. SKIN: Skin is clear with no lesions or rashes and otherwise unremarkable. NEUROLOGIC: Patient is alert and oriented x3. Cranial nerves II through XII are grossly intact. Motor and sensory are also intact. Normal speech, volume and content. Symmetrical smile. MUSCULOSKELETAL: Normal extremities with adequate strength and full range of motion. No lower extremity swelling or edema. No calf tenderness. LYMPHATICS: No significant lymphadenopathy is noted PSYCHIATRIC: Normal psychiatric evaluation. Normal interpersonal interactions appears functionally intact in deals appropriately with others. No signs of depression. No signs of anxiety. Limitations: no limitations Course Vital Signs 11/14/18 11/14/18 11/14/18 11:51 12:55 13:13 Temperature 97.9 F Pulse Rate 95 96 100 Respiratory 18 Rate Blood Pressure 154/78 O2 Sat by Pulse 95 Oximetry 11/14/18 11/14/18 11/14/18 13:30 14:30 15:20 Temperature Pulse Rate 80 90 108 H Respiratory 20 18 22 Rate Blood Pressure 131/72 140/73 135/94 O2 Sat by Pulse 95 95 90 L Oximetry Medical Decision Making - Medical Decision Making EKG shows normal sinus rhythm at 90 bpm MN interval 1:30 QRS is 94 QT interval 358 QTC is 437. Patient's EKG shows no ST segment elevation or depression or T wave abnormalities are noted. Patient's chest x-ray shows no acute abnormality. Patient's CT of the chest showed no pulmonary embolus. Patient was resting comfortably in bed still had the patient ambulated and her pulse ox dropped to 90% she was very tachypneic and this time did not feel she could go home. I spoke with Dr. Coleman he agreed to admit the patient admitted the patient I continue breathing treatments [id number] and I continued steroids. I also consult her planner/scheduler. - Lab Data Result diagrams: 11/14/18 12:10 11/14/18 12:10 Lab Results 11/14/18 11/14/18 11/14/18 Range/Units 12:10 12:10 12:10 WBC 10.9 H (3.8-10.6) k/uL RBC 4.75 (3.80-5.40) m/uL Hgb 14.6 (11.4-16.0) gm/dL Hct 44.6 (34.0-46.0) % MCV 93.8 (80.0-100.0) fL MCH 30.7 (25.0-35.0) pg MCHC 32.7 (31.0-37.0) g/dL RDW 13.9 (11.5-15.5) % Plt Count 281 (150-450) k/uL Neutrophils % 87 % Lymphocytes % 6 % Monocytes % 5 % Eosinophils % 1 % Basophils % 1 % Neutrophils # 9.5 H (1.3-7.7) k/uL Lymphocytes # 0.6 L (1.0-4.8) k/uL Monocytes # 0.5 (0-1.0) k/uL Eosinophils # 0.2 (0-0.7) k/uL Basophils # 0.1 (0-0.2) k/uL PT (9.0-12.0) sec INR (<1.2) APTT (22.0-30.0) sec Sodium 139 (137-145) mmol/L Potassium 4.4 (3.5-5.1) mmol/L Chloride 107 (98-107) mmol/L Carbon Dioxide 22 (22-30) mmol/L Anion Gap 10 mmol/L BUN 20 H (7-17) mg/dL Creatinine 0.57 (0.52-1.04) mg/dL Est GFR (CKD-EPI)AfAm >90 (>60 ml/min/1.73 sqM) Est GFR (CKD-EPI)NonAf >90 (>60 ml/min/1.73 sqM) Glucose 103 H (74-99) mg/dL Calcium 10.0 (8.4-10.2) mg/dL Magnesium 2.1 (1.6-2.3) mg/dL Total Bilirubin 0.6 (0.2-1.3) mg/dL AST 21 (14-36) U/L ALT 30 (9-52) U/L Alkaline Phosphatase 119 (38-126) U/L Troponin I (0.000-0.034) ng/mL NT-Pro-B Natriuret Pep 134 pg/mL Total Protein 7.0 (6.3-8.2) g/dL Albumin 4.6 (3.5-5.0) g/dL 11/14/18 11/14/18 Range/Units 12:10 12:10 WBC (3.8-10.6) k/uL RBC (3.80-5.40) m/uL Hgb (11.4-16.0) gm/dL Hct (34.0-46.0) % MCV (80.0-100.0) fL MCH (25.0-35.0) pg MCHC (31.0-37.0) g/dL RDW (11.5-15.5) % Plt Count (150-450) k/uL Neutrophils % % Lymphocytes % % Monocytes % % Eosinophils % % Basophils % % Neutrophils # (1.3-7.7) k/uL Lymphocytes # (1.0-4.8) k/uL Monocytes # (0-1.0) k/uL Eosinophils # (0-0.7) k/uL Basophils # (0-0.2) k/uL PT 9.8 (9.0-12.0) sec INR 0.9 (<1.2) APTT 24.2 (22.0-30.0) sec Sodium (137-145) mmol/L Potassium (3.5-5.1) mmol/L Chloride (98-107) mmol/L Carbon Dioxide (22-30) mmol/L Anion Gap mmol/L BUN (7-17) mg/dL Creatinine (0.52-1.04) mg/dL Est GFR (CKD-EPI)AfAm (>60 ml/min/1.73 sqM) Est GFR (CKD-EPI)NonAf (>60 ml/min/1.73 sqM) Glucose (74-99) mg/dL Calcium (8.4-10.2) mg/dL Magnesium (1.6-2.3) mg/dL Total Bilirubin (0.2-1.3) mg/dL AST (14-36) U/L ALT (9-52) U/L Alkaline Phosphatase (38-126) U/L Troponin I <0.012 (0.000-0.034) ng/mL NT-Pro-B Natriuret Pep pg/mL Total Protein (6.3-8.2) g/dL Albumin (3.5-5.0) g/dL Disposition Clinical Impression: Asthma with exacerbation Disposition: ADMITTED IP TO THIS HOSP Referrals: Isac Myrick MD [Primary Care Provider] - 1-2 days Time of Disposition: 15:42
[2018-11-14 12:47] LABS: Basophils # (A) 0.1 k/uL (0-0.2); Basophils % (A) 1 %; Eosinophils # (A) 0.2 k/uL (0-0.7); Eosinophils % (A) 1 %; HCT 44.6 % (34.0-46.0); HGB 14.6 gm/dL (11.4-16.0); Lymphocytes # (A) 0.6 k/uL (1.0-4.8); Lymphocytes % (A) 6 %; MCH 30.7 pg (25.0-35.0); MCHC 32.7 g/dL (31.0-37.0); MCV 93.8 fL (80.0-100.0); Mean Platelet Volume 6.7; Monocytes # (A) 0.5 k/uL (0-1.0); Monocytes % (A) 5 %; Neutrophils # (A) 9.5 k/uL (1.3-7.7); Neutrophils % (A) 87 %; Platelet Count 281 k/uL (150-450); RBC 4.75 m/uL (3.80-5.40); RDW 13.9 % (11.5-15.5); WBC 10.9 k/uL (3.8-10.6)
--- NOTE | 2018-11-14 12:59 | XR ---
EXAMINATION TYPE: XR chest 2V DATE OF EXAM: 11/14/2018 COMPARISON: 09/04/2018 HISTORY: Right lower quadrant pain and shortness of breath. History of breast cancer enhancement. TECHNIQUE: Frontal and lateral views of the chest are obtained. FINDINGS: There is no focal air space opacity, pleural effusion, or pneumothorax seen. The cardiac silhouette size is within normal limits. The osseous structures are intact. There is a stable mid t horacic compression deformity. There is generalized osseous demineralization. Moderate hiatal hernia is noted. IMPRESSION: No acute cardiopulmonary process.
[2018-11-14 13:07] LABS: ALT 30 U/L (9-52); AST 21 U/L (14-36); Albumin 4.6 g/dL (3.5-5.0); Alkaline Phosphatase 119 U/L (38-126); Anion Gap 10 mmol/L; Blood Urea Nitrogen 20 mg/dL (7-17); Carbon Dioxide 22 mmol/L (22-30); Chloride 107 mmol/L (98-107); Glucose 103 mg/dL (74-99); Magnesium 2.1 mg/dL (1.6-2.3); Potassium 4.4 mmol/L (3.5-5.1); Sodium 139 mmol/L (137-145); Total Bilirubin 0.6 mg/dL (0.2-1.3)
[2018-11-14 13:13] LABS: INR 0.9 (<1.2); Partial Thromboplastin Time 24.2 sec (22.0-30.0); Prothrombin Time 9.8 sec (9.0-12.0)
--- NOTE | 2018-11-14 14:53 | CT ---
EXAMINATION TYPE: CT chest angio for PE DATE OF EXAM: 11/14/2018 COMPARISON: HISTORY: PE CT DLP: 500.5 mGycm Automated exposure control for dose reduction was used. CONTRAST: CT Chest for pulmonary embolism performed with without and with IV Contrast, patient injected with 10 0 ml mL of Isovue 370. FINDINGS: LUNGS: The lungs are remarkable for some probable basilar atelectatic change, there is no concerning parenchymal mass or nodule identified. There is no pleural effusion or pneumothorax seen. The trac heobronchial tree is patent. MEDIASTINUM: There is satisfactory enhancement of the pulmonary artery and its central branches, ther e is no CT evidence for pulmonary embolism. Small subsegmental branch vessels show no definite filli ng defect but are not all optimally opacified. There are no greater than 1 cm hilar or mediastinal ly mph nodes. No pericardial effusion is seen. AORTA: No additional significant abnormality is seen. OTHER: Duodenal diverticulum is present. There is a partial intrathoracic stomach, hiatal hernia. Sm all cortical cyst associated with the right kidney. Thoracic compression fracture is again noted as o n prior exam. Some mild retropulsion is present. Scattered calcifications within the spleen likely du e to old granulomatous disease. IMPRESSION: No evident pulmonary embolism within the limitations described above. Partial intrathoracic stomac h noted. Additional findings above.
[2018-11-14] MEDS: HYDROcodone/APAP 7.5-325MG 1 EACH TAB PO PRN ×2 (18:16→23:24)
[2018-11-14] MEDS: methylPREDNISolone SOD SUCCI 125 MG/2 ML VIAL IV SCH ×2 (18:16→23:24)
[2018-11-14 20:45] LABS: Glucose,Whole Blood 137 mg/dL (75-99)
[2018-11-14] MEDS: APIXABAN 5 MG TAB PO SCH (20:48)
[2018-11-14] MEDS: GABAPENTIN 300 MG CAP PO SCH (20:48)
[2018-11-14] MEDS: MONTELUKAST 10 MG TAB PO SCH (20:48)
[2018-11-14] MEDS: LETROZOLE 2.5 MG TAB PO SCH (20:49)
[2018-11-14] MEDS: INSULIN ASPART (NovoLOG) 100 UNIT/ML VIAL SQ SCH (20:49)
[2018-11-14] MEDS: SERTRALINE 100 MG TAB PO SCH (20:49)
[2018-11-14] MEDS: IPRATROPIUM-ALBUTEROL 3 ML NEB INHALATION PRN (23:14)
[2018-11-15] MEDS: HYDROcodone/APAP 7.5-325MG 1 EACH TAB PO PRN ×4 (05:26→23:42)
[2018-11-15] MEDS: methylPREDNISolone SOD SUCCI 125 MG/2 ML VIAL IV SCH ×4 (05:27→23:40)
[2018-11-15 06:47] LABS: Glucose,Whole Blood 124 mg/dL (75-99)
[2018-11-15] MEDS: INSULIN ASPART (NovoLOG) 100 UNIT/ML VIAL SQ SCH ×4 (07:21→20:30)
[2018-11-15] MEDS: IPRATROPIUM-ALBUTEROL 3 ML NEB INHALATION PRN ×4 (07:37→20:15)
[2018-11-15] MEDS: APIXABAN 5 MG TAB PO SCH ×2 (08:47→20:40)
[2018-11-15] MEDS: GABAPENTIN 300 MG CAP PO SCH ×2 (08:47→20:40)
[2018-11-15] MEDS ORDERED: ACETAMINOPHEN TAB 325 MG TAB PO PRN (10:17)
--- NOTE | 2018-11-15 11:00 | P.HPIM ---
History of Present Illness H&P Date: 11/15/18 Chief Complaint: Dyspnea with increased cough This is a 73-year-old female one of Dr. 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, hyperlipidemia, history of asthma, GERD, halo hernia, history of breast cancer status post left lumpectomy with radiation therapy currently on letrozole and her 6 month mammogram is free of disease, major depressive disorder, anxiety disorder, patient was recently hospitalized at [facility] on 09/05/2018 after she was found to have bilateral subsegmental pulmonary emboli and she was started on Eliquis 5 mg orally twice every day, patient presented to the emergency department yesterday complaining of increased left-sided rib pain associated with increased shortness of breath and increased coughing patient underwent CTA yesterday that was negative for pulmonary and was of however did show hiatal hernia with partial midthoracic stomach, and subsegmental atelectasis without evidence of any acute pneumonia, patient was getting ready to be discharged home however she developed to have a significant shortness breath and her oxygen dropped to 89% so she was admitted to the hospital for acute asthma exacerbation she was started on Solu-Medrol 60 mg IV push every 6 hours oxygen and pulmonary consultation was obtained. Review of Systems Constitutional: Reports weight gain, Denies anorexia, Denies chronic headaches, Denies lethargy, Denies malaise, Denies weakness Eyes: denies blurred vision, denies bulging eye, denies decreased vision Ears: deny: decreased hearing Ears, nose, mouth and throat: Denies dysphagia, Denies neck fullness/pressure, Denies sore throat, Denies vertigo Cardiovascular: Reports decreased exercise tolerance, Reports dyspnea on exertion, Reports shortness of breath, Denies chest pain, Denies lightheadedness , Denies rapid heart beat, Denies syncope Respiratory: Reports congestion, Reports cough, Denies hemoptysis, Denies home oxygen, Denies sleep apnea, Denies snoring, Denies wheezing Gastrointestinal: Denies abdominal pain, Denies BRBPR, Denies heartburn, Denies hematemesis, Denies hematochezia, Denies melena, Denies nausea, Denies vomiting Genitourinary: Denies dysuria, Denies hematuria Menstruation: Reports postmenopausal Musculoskeletal: Denies myalgias Musculoskeletal: absent: ankle pain, ankle stiffness, ankle swelling, elbow pain , elbow stiffness, elbow swelling, foot pain, foot stiffness, foot swelling, hand pain, hand stiffness, hand swelling, hip pain, hip stiffness, hip swelling , knee pain, knee stiffness, knee swelling, shoulder pain, shoulder stiffness, shoulder swelling, wrist pain, wrist stiffness, wrist swelling Integumentary: Denies pruritus, Denies rash Neurological: Denies numbness, Denies weakness Psychiatric: Reports anxiety, Reports depression, Denies sadness/tearfulness, Denies sleep disturbances, Denies suicidal ideation Endocrine: Reports excessive sweating, Reports flushing, Reports weight change, Denies fatigue Past Medical History Past Medical History: Asthma, GERD/Reflux, Hyperlipidemia, Osteoarthritis (OA), Pneumonia, Pulmonary Embolus (PE) Additional Past Medical History / Comment(s): MIGRAINES, breast cancer with radiation (march-april)2017 History of Any Multi-Drug Resistant Organisms: None Reported Past Surgical History: Breast Surgery, Heart Catheterization, Hysterectomy, Joint Replacement Additional Past Surgical History / Comment(s): BREAST BX (X5). RT TKA. COLONOSCOPY. BILAT CATARACT SX. hernia with mesh placement. cardiac cath Past Anesthesia/Blood Transfusion Reactions: No Reported Reaction Past Psychological History: Anxiety, Depression Additional Psychological History / Comment(s): mild Smoking Status: Former smoker Past Alcohol Use History: None Reported, Occasional Additional Past Alcohol Use History / Comment(s): QUIT SMOKING 05/23/2001. SMOKED APPROX 40 YEARS, 1 PPD OR LESS. Past Drug Use History: None Reported - Past Family History Sister(s) Family Medical History: Cancer (Patient has 2 sisters with breast cancer there 5 year survivor.), Pulmonary Embolus Additional Family Medical History / Comment(s): 2 SISTERS -BREAST CANCER Brother(s) Family Medical History: Cancer (Patient has 2 brothers one of them with prostate cancer his 82-year-old now and the other one with melanoma his 81-year- old now) Additional Family Medical History / Comment(s): MELANOMA, PROSTATE Son(s) Family Medical History: No Reported History (Patient has 2 sons no major medical problems.) Daughter(s) Family Medical History: No Reported History (Patient has one daughter major medical problems.) Mother Family Medical History: Asthma (Mother at age of 93 from old age and she had a history of asthma.) Father Family Medical History: No Reported History (Father at age 91 from old age. ) Medications and Allergies Home Medications Medication Instructions Recorded Confirmed Type Montelukast [Singulair] 10 mg PO HS 09/20/16 11/14/18 History Sertraline [Zoloft] 100 mg PO HS 09/20/16 11/14/18 History Simvastatin [Zocor] 20 mg PO HS 09/20/16 11/14/18 History Albuterol Inhaler [Ventolin Hfa 1 - 2 puff INHALATION RT-Q6H PRN 10/06/16 History Inhaler] Omeprazole [PriLOSEC] 20 mg PO BID 08/05/18 11/14/18 History Budesonide [Pulmicort] 0.5 mg INHALATION RT-BID 09/02/18 11/14/18 History Formoterol Fumarate [Perforomist] 20 mcg INHALATION RT-BID 09/02/18 11/14/18 History HYDROcodone/APAP 7.5-325MG [[place] 1 tab PO Q6HR PRN 09/02/18 11/14/18 History 7.5-325] Ipratropium-Albuterol Nebulize 3 ml INHALATION RT-DAILY PRN 09/02/18 11/14/18 History [Duoneb 0.5 mg-3 mg/3 ml Soln] Letrozole [Femara] 2.5 mg PO HS 09/02/18 11/14/18 History Apixaban [Eliquis] 5 mg PO BID #60 tab 09/05/18 11/14/18 Rx Gabapentin [Neurontin] 300 mg PO BID 11/14/18 11/14/18 History predniSONE 10 mg PO DAILY 11/14/18 11/14/18 History Allergies Allergy/AdvReac Type Severity Reaction Status Date / Time cefuroxime AdvReac Cough Verified 11/14/18 12:20 Physical Exam Vitals: Vital Signs Temp Pulse Pulse Pulse Resp BP BP 11/15/18 08:54 98 154/72 11/15/18 07:57 88 11/15/18 07:37 100 11/15/18 05:24 71 155/77 11/15/18 05:15 97.5 F L 97 18 179/99 11/14/18 23:24 81 16 03/04/19 23:17 11/14/18 23:14 83 16 11/14/18 20:30 97.7 F 86 18 163/87 11/14/18 17:07 98 F 84 18 163/78 11/14/18 16:30 97.8 F 96 20 128/87 11/14/18 15:58 98.0 F 86 20 128/87 11/14/18 15:20 108 H 22 135/94 11/14/18 14:30 90 18 140/73 11/14/18 13:30 80 20 131/72 11/14/18 13:13 100 11/14/18 12:55 96 11/14/18 11:51 97.9 F 95 18 154/78 Pulse Ox 11/15/18 08:54 11/15/18 07:57 11/15/18 07:37 11/15/18 05:24 11/15/18 05:15 94 L 11/14/18 23:24 11/14/18 23:17 93 L 11/14/18 23:14 11/14/18 20:30 95 11/14/18 17:07 93 L 11/14/18 16:30 94 L 11/14/18 15:58 96 11/14/18 15:20 90 L 11/14/18 14:30 95 11/14/18 13:30 95 11/14/18 13:13 11/14/18 12:55 11/14/18 11:51 95 Intake and Output 11/14/18 11/15/18 11/15/18 22:59 06:59 14:59 Intake Total 240 Balance 240 Intake: Oral 240 Other: Voiding Method Toilet # Voids 1 2 - Constitutional General appearance: mild distress, obese - EENT Eyes: anicteric sclerae, EOMI, PERRLA, no ptosis, no scleral icterus, normal appearance ENT: hearing grossly normal, NA/AT, normal oropharynx, no thrush Ears: bilateral: normal - Neck Neck: no lymphadenopathy, normal ROM, no rigidity, no stridor, no thyromegaly Carotids: bilateral: upstroke normal Thyroid: bilateral: normal size - Respiratory Respiratory: bilateral: diminished, wheezing, prolonged expiration, negative: dullness, rales, rhonchi - Cardiovascular Rhythm: regular Heart sounds: normal: S1, S2 Abnormal Heart Sounds: systolic murmur, no rub, no S3 Gallop, no S4 Gallop, no click - Gastrointestinal General gastrointestinal: normal bowel sounds, soft, no tenderness, no umbilical hernia, no ventral hernia - Integumentary Integumentary: normal, normal turgor - Neurologic Neurologic: CNII-XII intact - Musculoskeletal Musculoskeletal: gait normal, strength equal bilaterally - Psychiatric Psychiatric: A&O x's 3, appropriate affect, intact judgment & insight Results CBC & Chem 7: 11/14/18 12:10 11/14/18 12:10 Labs: Abnormal Lab Results - Last 24 Hours (Table) 11/14/18 11/14/18 11/14/18 Range/Units 12:10 12:10 20:43 WBC 10.9 H (3.8-10.6) k/uL Neutrophils # 9.5 H (1.3-7.7) k/uL Lymphocytes # 0.6 L (1.0-4.8) k/uL BUN 20 H (7-17) mg/dL Glucose 103 H (74-99) mg/dL POC Glucose (mg/dL) 137 H (75-99) mg/dL 11/15/18 Range/Units 06:45 WBC (3.8-10.6) k/uL Neutrophils # (1.3-7.7) k/uL Lymphocytes # (1.0-4.8) k/uL BUN (7-17) mg/dL Glucose (74-99) mg/dL POC Glucose (mg/dL) 124 H (75-99) mg/dL Thrombosis Risk Factor Assmnt - DVT/VTE Prophylaxis DVT/VTE Prophylaxis: Pharmacologic Prophylaxis ordered, Mechanical Prophylaxis ordered - Choose All That Apply Each Risk Factor Represents 3 Points: Age 75 years or older, History of DVT/PE Thrombosis Risk Factor Assessment Total Risk Factor Score: 6 Thrombosis Risk Factor Assessment Level: High Risk Assessment and Plan Assessment: Assessment and plan: 1. Acute respiratory insufficiency secondary to acute asthma exacerbation. Continue Solu-Medrol 60 mg push every 6 hours, DuoNeb 3 mL nebulization 4 times every day, Pulmicort 0.5 mg nebulization twice every day, continue oxygen as needed, continue with IV fluid normal saline 75 mL an hour, pulmonary consultation , we'll continue patient on singular 10 mg at bedtime. 2. Left-sided rib pain thought to be due to coughing and musculoskeletal sprain. Reviewed her EKG showed chronic changes without evidence of acute ST-T wave changes, patient did have left heart catheter physician the past. Continue current pain management. 3. History of breast cancer status post left lumpectomy with radiation therapy. Continue letrozole 2.5 mg orally once every day. 4. Profuse sweating thought to be due to combination of medication side effects as well as hormonal changes. Discussed the patient switching Zoloft to [place]/Paxil at 30 mg orally once every day, this would be done as an outpatient, furthermore this is could be a side effect of letrozole and Zoloft. 5. Elevated blood pressure without history of hypertension. Start the patient on small dose of losartan 25 mg orally once every day. 6. Steroid-induced hyperglycemia. Start the patient on sliding scale insulin. 7. Hyperlipidemia. Continue patient on simvastatin 20 mg at bedtime. 8. History of pulmonary emboli. Continue patient on [place] 5 minute gram orally twice every day for 6 month. 9. GERD with hiatal hernia. Continue patient on Prilosec 20 mg orally once every day. 10. Compression fracture of the thoracic vertebrae. Continue patient on Mcdonald as needed. 11. DVT prophylaxis. Continue patient on Eliquis. 12. GI prophylaxis. Continue with PPI. 13. Full code. 14. Admitted to inpatient. Estimate a length of stay 2 midnights.
[2018-11-15 11:03] LABS: Glucose,Whole Blood 116 mg/dL (75-99)
--- NOTE | 2018-11-15 11:22 | P.CNPUL ---
History of Present Illness Consult date: 11/15/18 Requesting physician: Jeanmarie Coleman Reason for consult: dyspnea Chief complaint: Shortness of breath History of present illness: This is a very pleasant 73-year-old female patient who follows with Dr. Myrick as her primary care physician. She has a history of hyperlipidemia, gastroesophageal reflux disease, chronic migraines, breast cancer status post lumpectomy/radiation, anxiety/depression, pulmonary embolism anticoagulated with Eliquis. She does have a history of chronic bronchial asthma follows with Dr. Dr. Hernández in our office for the same. She had previous bronchoscopy, cytology was negative. She had previous PET scan that was negative as well. She presented here to the emergency room yesterday with complaints of increasing shortness of breath, cough and congestion. She had some left-sided rib pain as well. Chest x-ray showed no acute cardiopulmonary process. CT angiogram showed no evidence of pulmonary embolism. There was partial intrathoracic stomach/hiatal hernia noted. She is seen today in consultation on the regular medical floor. She is awake and alert in no acute distress. She denies any worsening shortness of breath, cough or congestion. Still some left-sided chest discomfort. Some dyspnea on exertion. Currently maintaining O2 saturations in the upper 90s on 2 L/m per nasal cannula. She's been afebrile. Somewhat hypertensive. White count 10.9. Hemoglobin 14.6. Creatinine 0.57. She's been initiated on DuoNeb inhalations, Pulmicort and Perforomist inhalations, IV Solu-Medrol. Continue with Eliquis for anticoagulation. Review of Systems Constitutional: Reports fatigue, Reports weakness Eyes: denies blurred vision, denies decreased vision Ears: deny: decreased hearing Ears, nose, mouth and throat: Denies headache, Denies sore throat Cardiovascular: Reports dyspnea on exertion, Reports shortness of breath Respiratory: Reports cough, Reports dyspnea, Reports pleurisy, Reports wheezing Gastrointestinal: Denies abdominal pain, Denies diarrhea, Denies nausea, Denies vomiting Genitourinary: Denies dysuria, Denies hematuria Musculoskeletal: Denies myalgias Integumentary: Denies pruritus, Denies rash Neurological: Denies numbness, Denies weakness Psychiatric: Reports anxiety Endocrine: Denies fatigue, Denies weight change Hematologic/Lymphatic: Reports as per HPI Allergic/Immunologic: Reports as per HPI Past Medical History Past Medical History: Asthma, GERD/Reflux, Hyperlipidemia, Osteoarthritis (OA), Pneumonia, Pulmonary Embolus (PE) Additional Past Medical History / Comment(s): MIGRAINES, breast cancer with radiation (march-april)2017 History of Any Multi-Drug Resistant Organisms: None Reported Past Surgical History: Breast Surgery, Heart Catheterization, Hysterectomy, Joint Replacement Additional Past Surgical History / Comment(s): BREAST BX (X5). RT TKA. COLONOSCOPY. BILAT CATARACT SX. hernia with mesh placement. cardiac cath Past Anesthesia/Blood Transfusion Reactions: No Reported Reaction Past Psychological History: Anxiety, Depression Additional Psychological History / Comment(s): mild Smoking Status: Former smoker Past Alcohol Use History: None Reported, Occasional Additional Past Alcohol Use History / Comment(s): QUIT SMOKING 05/23/2001. SMOKED APPROX 40 YEARS, 1 PPD OR LESS. Past Drug Use History: None Reported - Past Family History Sister(s) Family Medical History: Cancer (Patient has 2 sisters with breast cancer there 5 year survivor.), Pulmonary Embolus Additional Family Medical History / Comment(s): 2 SISTERS -BREAST CANCER Brother(s) Family Medical History: Cancer (Patient has 2 brothers one of them with prostate cancer his 82-year-old now and the other one with melanoma his 81-year- old now) Additional Family Medical History / Comment(s): MELANOMA, PROSTATE Son(s) Family Medical History: No Reported History (Patient has 2 sons no major medical problems.) Daughter(s) Family Medical History: No Reported History (Patient has one daughter major medical problems.) Mother Family Medical History: Asthma (Mother at age of 93 from old age and she had a history of asthma.) Father Family Medical History: No Reported History (Father at age 91 from old age. ) Medications and Allergies Home Medications Medication Instructions Recorded Confirmed Type Montelukast [Singulair] 10 mg PO HS 09/20/16 11/14/18 History Sertraline [Zoloft] 100 mg PO HS 09/20/16 11/14/18 History Simvastatin [Zocor] 20 mg PO HS 09/20/16 11/14/18 History Albuterol Inhaler [Ventolin Hfa 1 - 2 puff INHALATION RT-Q6H PRN 10/06/16 History Inhaler] Omeprazole [PriLOSEC] 20 mg PO BID 08/05/18 11/14/18 History Budesonide [Pulmicort] 0.5 mg INHALATION RT-BID 09/02/18 11/14/18 History Formoterol Fumarate [Perforomist] 20 mcg INHALATION RT-BID 09/02/18 11/14/18 History HYDROcodone/APAP 7.5-325MG [[place] 1 tab PO Q6HR PRN 09/02/18 11/14/18 History 7.5-325] Ipratropium-Albuterol Nebulize 3 ml INHALATION RT-DAILY PRN 09/02/18 11/14/18 History [Duoneb 0.5 mg-3 mg/3 ml Soln] Letrozole [Femara] 2.5 mg PO HS 09/02/18 11/14/18 History Apixaban [Eliquis] 5 mg PO BID #60 tab 09/05/18 11/14/18 Rx Gabapentin [Neurontin] 300 mg PO BID 11/14/18 11/14/18 History predniSONE 10 mg PO DAILY 11/14/18 11/14/18 History Allergies Allergy/AdvReac Type Severity Reaction Status Date / Time cefuroxime AdvReac Cough Verified 11/14/18 12:20 Physical Exam Vitals: Vital Signs Temp Pulse Pulse Pulse Resp BP BP 11/15/18 08:54 98 154/72 11/15/18 07:57 88 11/15/18 07:37 100 11/15/18 05:24 71 155/77 11/15/18 05:15 97.5 F L 97 18 179/99 11/14/18 23:24 81 16 11/14/18 23:17 11/14/18 23:14 83 16 11/14/18 20:30 97.7 F 86 18 163/87 11/14/18 17:07 98 F 84 18 163/78 11/14/18 16:30 97.8 F 96 20 128/87 11/14/18 15:58 98.0 F 86 20 128/87 11/14/18 15:20 108 H 22 135/94 11/14/18 14:30 90 18 140/73 11/14/18 13:30 80 20 131/72 11/14/18 13:13 100 11/14/18 12:55 96 11/14/18 11:51 97.9 F 95 18 154/78 Pulse Ox 11/15/18 08:54 11/15/18 07:57 11/15/18 07:37 11/15/18 05:24 11/15/18 05:15 94 L 11/14/18 23:24 11/14/18 23:17 93 L 11/14/18 23:14 11/14/18 20:30 95 11/14/18 17:07 93 L 11/14/18 16:30 94 L 11/14/18 15:58 96 11/14/18 15:20 90 L 11/14/18 14:30 95 11/14/18 13:30 95 11/14/18 13:13 11/14/18 12:55 11/14/18 11:51 95 Intake and Output 11/14/18 11/15/18 11/15/18 22:59 06:59 14:59 Intake Total 240 Balance 240 Intake: Oral 240 Other: Voiding Method Toilet # Voids 1 2 GENERAL EXAM: Alert, active, comfortable in no apparent distress. HEAD: Normocephalic. EYES: Normal reaction of pupils, equal size. NOSE: Clear with pink turbinates. THROAT: No erythema or exudates. NECK: No masses, no JVD. CHEST: No chest wall deformity. LUNGS: Equal air entry with bilateral end expiratory wheeze, diminished. CVS: S1 and S2 normal with no audible murmur, regular rhythm. ABDOMEN: No hepatosplenomegaly, normal bowel sounds, no guarding or rigidity. SPINE: No scoliosis or deformity SKIN: No rashes CENTRAL NERVOUS SYSTEM: No focal deficits, tone is normal in all 4 extremities. EXTREMITIES: There is no peripheral edema. No clubbing, no cyanosis. Peripheral pulses are intact. Results - Laboratory Findings CBC and BMP: 11/14/18 12:10 11/14/18 12:10 PT/INR, D-dimer PT 9.8 sec (9.0-12.0) 11/14/18 12:10 INR 0.9 (<1.2) 11/14/18 12:10 Abnormal lab findings: Abnormal Labs 11/14/18 11/14/18 11/14/18 12:10 12:10 20:43 WBC 10.9 H Neutrophils # 9.5 H Lymphocytes # 0.6 L BUN 20 H Glucose 103 H POC Glucose (mg/dL) 137 H 11/15/18 11/15/18 06:45 11:00 WBC Neutrophils # Lymphocytes # BUN Glucose POC Glucose (mg/dL) 124 H 116 H - Diagnostic Findings Chest x-ray: image reviewed CT scan - chest: image reviewed Assessment and Plan Assessment: Impression: #1 Acute exacerbation of chronic moderate persistent bronchial asthma. #2 History of [place] embolism, anticoagulated with Eliquis. No evidence of PE on yesterday's CT angiogram. #3 Obesity. #4 Hypertension. #5 Anxiety/depression. #6 History of breast cancer status post lumpectomy/radiation. Plan: The patient was seen and evaluated by Dr. Ayon. Chest x-ray, CAT scan and labs were all reviewed. We'll continue treatment for her asthma exacerbation. Increase her activity as tolerated. Probable discharge in the a.m. We'll continue to follow. I, the cosigning physician, performed a history & physical examination of the patient. Lungs sounds with bilateral end expiratory wheeze. Maintaining good O2 saturations in the 90s on 2 L/m per nasal cannula. I discussed the assessment and plan of care with my nurse practitioner, Gwne Moura. I attest to the above consultation as dictated by her. Time with Patient: Greater than 30
[2018-11-15] MEDS: LOSARTAN 25 MG TAB PO SCH (11:24)
[2018-11-15 17:01] LABS: Glucose,Whole Blood 126 mg/dL (75-99)
[2018-11-15] MEDS: FORMOTEROL FUMARATE 20 MCG/2 ML NEBU INHALATION SCH (20:15)
[2018-11-15] MEDS: BUDESONIDE 0.5 MG/2 ML NEBU INHALATION SCH (20:15)
[2018-11-15 20:27] LABS: Glucose,Whole Blood 125 mg/dL (75-99)
[2018-11-15] MEDS: MONTELUKAST 10 MG TAB PO SCH (20:40)
[2018-11-15] MEDS: SERTRALINE 100 MG TAB PO SCH (20:40)
[2018-11-15] MEDS: LETROZOLE 2.5 MG TAB PO SCH (20:40)
[2018-11-15] MEDS: ATORVASTATIN 10 MG TAB PO SCH (21:29)
[2018-11-16] MEDS: methylPREDNISolone SOD SUCCI 125 MG/2 ML VIAL IV SCH (05:52)
[2018-11-16] MEDS: HYDROcodone/APAP 7.5-325MG 1 EACH TAB PO PRN ×3 (05:53→20:31)
[2018-11-16 07:06] LABS: Glucose,Whole Blood 129 mg/dL (75-99)
[2018-11-16] MEDS: IPRATROPIUM-ALBUTEROL 3 ML NEB INHALATION PRN ×4 (08:26→20:46)
[2018-11-16] MEDS: FORMOTEROL FUMARATE 20 MCG/2 ML NEBU INHALATION SCH ×2 (08:26→20:46)
[2018-11-16] MEDS: BUDESONIDE 0.5 MG/2 ML NEBU INHALATION SCH ×2 (08:26→20:46)
[2018-11-16] MEDS: INSULIN ASPART (NovoLOG) 100 UNIT/ML VIAL SQ SCH ×4 (09:13→20:19)
[2018-11-16] MEDS: GABAPENTIN 300 MG CAP PO SCH ×2 (09:16→20:30)
[2018-11-16] MEDS: LOSARTAN 25 MG TAB PO SCH (09:16)
[2018-11-16] MEDS: APIXABAN 5 MG TAB PO SCH ×2 (09:17→20:31)
[2018-11-16] MEDS: PANTOPRAZOLE 40 MG TABLET PO SCH (09:17)
--- NOTE | 2018-11-16 11:04 | P.PN ---
Subjective Progress Note Date: 11/16/18 This is a 73-year-old female one of Dr. 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, hyperlipidemia, history of asthma, GERD, halo hernia, history of breast cancer status post left lumpectomy with radiation therapy currently on letrozole and her 6 month mammogram is free of disease, major depressive disorder, anxiety disorder, patient was recently hospitalized at [facility] on 09/05/2018 after she was found to have bilateral subsegmental pulmonary emboli and she was started on Eliquis 5 mg orally twice every day, patient presented to the emergency department yesterday complaining of increased left-sided rib pain associated with increased shortness of breath and increased coughing patient underwent CTA yesterday that was negative for pulmonary and was of however did show hiatal hernia with partial midthoracic stomach, and subsegmental atelectasis without evidence of any acute pneumonia, patient was getting ready to be discharged home however she developed to have a significant shortness breath and her oxygen dropped to 89% so she was admitted to the hospital for acute asthma exacerbation she was started on Solu-Medrol 60 mg IV push every 6 hours oxygen and pulmonary consultation was obtained. 11/16: Patient is very anxious to be discharged home. She states her breathing is improved. She is currently on Solu-Medrol 60 mg every 6 hours and will be decreased to 40 every 12 hours and plan to start prednisone tomorrow. Blood pressure continues to be high despite starting losartan yesterday possibly related to steroids. Patient is requesting medication to help with sleep and melatonin will be added. Plan to monitor her overnight and discharge tomorrow. Review of Systems Constitutional: Reports weight gain, Denies anorexia, Denies chronic headaches, Denies lethargy, Denies malaise, Denies weakness Eyes: denies blurred vision, denies bulging eye, denies decreased vision Ears: deny: decreased hearing Ears, nose, mouth and throat: Denies dysphagia, Denies neck fullness/pressure, Denies sore throat, Denies vertigo Cardiovascular: Reports decreased exercise tolerance, Reports dyspnea on exertion, Reports shortness of breath, Denies chest pain, Denies lightheadedness, Denies rapid heart beat, Denies syncope, reports high blood p ressure Respiratory: Reports congestion, Reports cough, Denies hemoptysis, Denies home oxygen, Denies sleep apnea, Denies snoring, Denies wheezing Gastrointestinal: Denies abdominal pain, Denies BRBPR, Denies heartburn, Denies hematemesis, Denies hematochezia, Denies melena, Denies nausea, Denies vomiting Genitourinary: Denies dysuria, Denies hematuria Menstruation: Reports postmenopausal Musculoskeletal: Denies myalgias Musculoskeletal: absent: ankle pain, ankle stiffness, ankle swelling, elbow pain, elbow stiffness, elbow swelling, foot pain, foot stiffness, foot swelling, hand pain, hand stiffness, hand swelling, hip pain, hip stiffness, hip swelling, knee pain, knee stiffness, knee swelling, shoulder pain, shoulder stiffness, shoulder swelling, wrist pain, wrist stiffness, wrist swelling Integumentary: Denies pruritus, Denies rash Neurological: Denies numbness, Denies weakness Psychiatric: Reports anxiety, Reports depression, Denies sadness/tearfulness, Denies sleep disturbances, Denies suicidal ideation Endocrine: Reports excessive sweating, Reports flushing, Reports weight change, Denies fatigue Objective - Vital Signs Vital signs: Vital Signs Temp 97.8 F 11/16/18 05:00 Pulse 70 11/16/18 08:53 Resp 20 11/16/18 05:00 BP 165/84 11/16/18 05:00 Pulse Ox 96 11/16/18 08:29 Intake & Output 11/15/18 11/16/18 11/16/18 18:59 06:59 18:59 Other: Voiding Method Toilet # Voids 4 1 - Exam - Constitutional General appearance: no distress, obese - EENT Eyes: anicteric sclerae, EOMI, PERRLA, no ptosis, no scleral icterus, normal appearance ENT: hearing grossly normal, NA/AT, normal oropharynx, no thrush Ears: bilateral: normal - Neck Neck: no lymphadenopathy, normal ROM, no rigidity, no stridor, no thyromegaly Carotids: bilateral: upstroke normal Thyroid: bilateral: normal size - Respiratory Respiratory: bilateral: diminished, wheezing, prolonged expiration, negative: dullness, rales, rhonchi - Cardiovascular Rhythm: regular Heart sounds: normal: S1, S2 Abnormal Heart Sounds: systolic murmur, no rub, no S3 Gallop, no S4 Gallop, no c lick - Gastrointestinal General gastrointestinal: normal bowel sounds, soft, no tenderness, no umbilical hernia, no ventral hernia - Integumentary Integumentary: normal, normal turgor - Neurologic Neurologic: CNII-XII intact - Musculoskeletal Musculoskeletal: gait normal, strength equal bilaterally - Psychiatric Psychiatric: A&O x's 3, appropriate affect, intact judgment & insight - Labs CBC & Chem 7: 11/14/18 12:10 11/14/18 12:10 Labs: Abnormal Lab Results - Last 24 Hours (Table) 11/15/18 11/15/18 11/15/18 Range/Units 11:00 16:59 20:25 POC Glucose (mg/dL) 116 H 126 H 125 H (75-99) mg/dL 11/16/18 Range/Units 07:05 POC Glucose (mg/dL) 129 H (75-99) mg/dL Microbiology - Last 24 Hours (Table) 11/14/18 12:10 Blood Culture - Preliminary Blood No Growth after 24 hours Assessment and Plan Plan: 1. Acute respiratory insufficiency secondary to acute asthma exacerbation. Continue Solu-Medrol decreased to 40 mg every 8 hours and transition to oral prednisone tomorrow, DuoNeb 3 mL nebulization 4 times every day, Pulmicort 0.5 mg nebulization twice every day, continue oxygen as needed, DC IV fluids, pulmonary consultation appreciated, continue singular 10 mg at bedtime. 2. Left-sided rib pain thought to be due to coughing and musculoskeletal sprain. Reviewed her EKG showed chronic changes without evidence of acute ST-T wave changes, patient did have left heart catheter physician the past. Continue current pain management. 3. History of breast cancer status post left lumpectomy with radiation therapy. Continue letrozole 2.5 mg orally once every day. 4. Profuse sweating thought to be due to combination of medication side effects as well as hormonal changes. Discussed the patient switching Zoloft to [place]/Paxil at 30 mg orally once every day, this would be done as an outpatient, furthermore this is could be a side effect of letrozole and Zoloft. 5. Elevated blood pressure without history of hypertension. Start the patient on small dose of losartan 25 mg orally once every day. 6. Steroid-induced hyperglycemia. Start the patient on sliding scale insulin. 7. Hyperlipidemia. Continue patient on simvastatin 20 mg at bedtime. 8. History of pulmonary emboli. Continue patient on [place] 5 minute gram orally twice every day for 6 month. 9. GERD with hiatal hernia. Continue patient on Prilosec 20 mg orally once every day. 10. Compression fracture of the thoracic vertebrae. Continue patient on [place] as needed. 11. DVT prophylaxis. Continue patient on Eliquis. 12. GI prophylaxis. Continue with PPI. 13. Full code. Discharge plan: Home tomorrow Impression and plan of care have been directed as dictated by the signing physician. Julieta Wynn nurse practitioner acting as scribe for signing physician.
[2018-11-16 11:08] LABS: Glucose,Whole Blood 116 mg/dL (75-99)
--- NOTE | 2018-11-16 12:21 | P.PN ---
Subjective Progress Note Date: 11/16/18 Principal diagnosis: Acute exacerbation of moderate persistent asthma This is a very pleasant 73-year-old female patient who follows with Dr. Myrick as her primary care physician. She has a history of hyperlipidemia, gastroesophageal reflux disease, chronic migraines, breast cancer status post lumpectomy/radiation, anxiety/depression, pulmonary embolism anticoagulated with Eliquis. She does have a history of chronic bronchial asthma follows with Dr. Dr. Hernández in our office for the same. She had previous bronchoscopy, cytology was negative. She had previous PET scan that was negative as well. She presented here to the emergency room yesterday with complaints of increasing shortness of breath, cough and congestion. She had some left-sided rib pain as well. Chest x-ray showed no acute cardiopulmonary process. CT angiogram showed no evidence of pulmonary embolism. There was partial intrathoracic stomach/hiatal hernia noted. She is seen today in consultation on the regular medical floor. She is awake and alert in no acute distress. She denies any worsening shortness of breath, cough or congestion. Still some left-sided chest discomfort. Some dyspnea on exertion. Currently maintaining O2 saturations in the upper 90s on 2 L/m per nasal cannula. She's been afebrile. Somewhat hypertensive. White count 10.9. Hemoglobin 14.6. Creatinine 0.57. She's been initiated on DuoNeb inhalations, Pulmicort and Perforomist inhalations, IV Solu-Medrol. Continue with Eliquis for anticoagulation. Patient was reevaluated today on 11/16/2018, feeling much better, breathing a lot easier. Hardly any cough no wheezing no shortness of breath, patient will be cleared for discharge planning today if felt possible by her admitting physician. Objective - Vital Signs Vital signs: Vital Signs Temp 97.8 F 11/16/18 05:00 Pulse 80 11/16/18 11:50 Resp 20 11/16/18 05:00 BP 165/84 11/16/18 05:00 Pulse Ox 96 11/16/18 08:29 Intake & Output 11/15/18 11/16/18 11/16/18 18:59 06:59 18:59 Other: Voiding Method Toilet Toilet # Voids 4 1 - Exam Physical Exam: Revealed a 73-year-old female in no distress. Head: Cushingoid, atraumatic, normocephalic. HEENT:[Neck is supple.] [No neck masses.] [No thyromegaly.] [No JVD.] Chest: [Clear throughout, no crackles, no rhonchi, no wheezes.] Cardiac Exam: [Normal S1 and S2, no S3 gallop, no murmur.] Abdomen: [Soft, nontender, no megaly, no rebound, no guarding, normal bowel sounds.] Extremities: [No clubbing, no edema, no cyanosis.] Neurological Exam: [No focal neurologic deficit.] Alert oriented 3. Skin: No rashes. However she had an area of erythema at the side of her last IV access in the right upper extremity. Lymphatics: No lymphadenopathy. - Labs CBC & Chem 7: 11/14/18 12:10 11/14/18 12:10 Labs: Abnormal Lab Results - Last 24 Hours (Table) 11/15/18 11/15/18 11/16/18 Range/Units 16:59 20:25 07:05 POC Glucose (mg/dL) 126 H 125 H 129 H (75-99) mg/dL 11/16/18 Range/Units 11:06 POC Glucose (mg/dL) 116 H (75-99) mg/dL Microbiology - Last 24 Hours (Table) 11/14/18 12:10 Blood Culture - Preliminary Blood No Growth after 24 hours Assessment and Plan Assessment: #1 Acute exacerbation of chronic moderate persistent bronchial asthma. Significantly improved since admission. And her left-sided pleuritic chest pain has resolved. #2 History of pulmonary embolism, anticoagulated with Eliquis. CT angiogram of the chest was nondiagnostic on this admission #3 Obesity. #4 Hypertension. #5 Anxiety/depression. #6 History of breast cancer status post lumpectomy/radiation. Recommendation: Switch patient to oral prednisone, clear for discharge today or in the next 24 hours at the most. Follow-up with Dr. Hernández on outpatient basis. Time with Patient: Less than 30
[2018-11-16 17:00] LABS: Glucose,Whole Blood 94 mg/dL (75-99)
[2018-11-16 20:05] LABS: Glucose,Whole Blood 89 mg/dL (75-99)
[2018-11-16] MEDS: LETROZOLE 2.5 MG TAB PO SCH (20:30)
[2018-11-16] MEDS: SERTRALINE 100 MG TAB PO SCH (20:30)
[2018-11-16] MEDS: MONTELUKAST 10 MG TAB PO SCH (20:31)
[2018-11-16] MEDS: ATORVASTATIN 10 MG TAB PO SCH (20:31)
[2018-11-16] MEDS ORDERED: MELATONIN 3 MG TABLET PO SCH (21:00)
[2018-11-16] MEDS ORDERED: methylPREDNISolone SOD SUCCI 40 MG/ML 1 ML VIAL IV SCH (21:00)
[2018-11-17 05:51] VITALS: BP 159/85; RESP 18; TEMP 97.5
[2018-11-17 06:50] LABS: Glucose,Whole Blood 93 mg/dL (75-99)
[2018-11-17] MEDS: FORMOTEROL FUMARATE 20 MCG/2 ML NEBU INHALATION SCH (07:18)
[2018-11-17] MEDS: BUDESONIDE 0.5 MG/2 ML NEBU INHALATION SCH (07:18)
[2018-11-17] MEDS: IPRATROPIUM-ALBUTEROL 3 ML NEB INHALATION PRN ×2 (07:18→10:32)
[2018-11-17] MEDS: INSULIN ASPART (NovoLOG) 100 UNIT/ML VIAL SQ SCH ×2 (07:46→12:53)
[2018-11-17] MEDS: PANTOPRAZOLE 40 MG TABLET PO SCH (07:53)
[2018-11-17] MEDS: GABAPENTIN 300 MG CAP PO SCH (07:53)
[2018-11-17] MEDS: APIXABAN 5 MG TAB PO SCH (07:54)
[2018-11-17] MEDS: LOSARTAN 25 MG TAB PO SCH (07:54)
[2018-11-17] MEDS ORDERED: predniSONE 10 MG TAB PO SCH (09:00)
[2018-11-17] MEDS ORDERED: predniSONE 20 MG TAB PO SCH (09:00)
[2018-11-17 10:43] VITALS: PULSE 88
[2018-11-17] MEDS ORDERED: LOSARTAN 25 MG TAB PO STA (11:08)
--- NOTE | 2018-11-17 11:30 | P.PN ---
Subjective Progress Note Date: 11/17/18 Principal diagnosis: Acute exacerbation of moderate persistent asthma This is a very pleasant 73-year-old female patient who follows with Dr. Myrick as her primary care physician. She has a history of hyperlipidemia, gastroesophageal reflux disease, chronic migraines, breast cancer status post lumpectomy/radiation, anxiety/depression, pulmonary embolism anticoagulated with Eliquis. She does have a history of chronic bronchial asthma follows with Dr. Dr. Hernández in our office for the same. She had previous bronchoscopy, cytology was negative. She had previous PET scan that was negative as well. She presented here to the emergency room yesterday with complaints of increasing shortness of breath, cough and congestion. She had some left-sided rib pain as well. Chest x-ray showed no acute cardiopulmonary process. CT angiogram showed no evidence of pulmonary embolism. There was partial intrathoracic stomach/hiatal hernia noted. She is seen today in consultation on the regular medical floor. She is awake and alert in no acute distress. She denies any worsening shortness of breath, cough or congestion. Still some left-sided chest discomfort. Some dyspnea on exertion. Currently maintaining O2 saturations in the upper 90s on 2 L/m per nasal cannula. She's been afebrile. Somewhat hypertensive. White count 10.9. Hemoglobin 14.6. Creatinine 0.57. She's been initiated on DuoNeb inhalations, Pulmicort and Perforomist inhalations, IV Solu- Medrol. Continue with Eliquis for anticoagulation. Patient was reevaluated today on 11/16/2018, feeling much better, breathing a lot easier. Hardly any cough no wheezing no shortness of breath, patient will be cleared for discharge planning today if felt possible by her admitting physician. The patient is seen today 11/17/2018 in follow-up on the regular medical floor. She is currently sitting up in chair at the bedside. Awake and alert in no acute distress. Feeling quite a bit better and nearly back to her baseline. Maintaining good O2 saturations in the 90s on room air. She's been afebrile. Hemodynamically stable. Blood culture reveals no growth. She's been maintained on DuoNeb inhalations, Pulmicort and Perforomist inhalations, Singulair, prednisone. Objective - Vital Signs Vital signs: Vital Signs Temp 97.5 F L 11/17/18 04:51 Pulse 88 11/17/18 10:43 Resp 18 11/17/18 04:51 BP 159/85 11/17/18 04:51 Pulse Ox 94 L 11/17/18 04:51 Intake & Output 11/16/18 11/17/18 11/17/18 18:59 06:59 18:59 Intake Total 950 Balance 950 Intake: Oral 950 Other: Voiding Method Toilet Toilet Toilet # Voids 3 2 - Exam GENERAL EXAM: Alert, active, comfortable in no apparent distress. On room air. HEAD: Normocephalic. EYES: Normal reaction of pupils, equal size. NOSE: Clear with pink turbinates. THROAT: No erythema or exudates. NECK: No masses, no JVD. CHEST: No chest wall deformity. LUNGS: Equal air entry with faint end expiratory wheeze. CVS: S1 and S2 normal with no audible murmur, regular rhythm. ABDOMEN: No hepatosplenomegaly, normal bowel sounds, no guarding or rigidity. SPINE: No scoliosis or deformity SKIN: No rashes CENTRAL NERVOUS SYSTEM: No focal deficits, tone is normal in all 4 extremities. EXTREMITIES: There is no peripheral edema. No clubbing, no cyanosis. Peripheral pulses are intact. - Labs CBC & Chem 7: 11/14/18 12:10 11/14/18 12:10 Labs: Microbiology - Last 24 Hours (Table) 11/14/18 12:10 Blood Culture - Preliminary Blood No Growth after 48 hours Assessment and Plan Assessment: Impression: #1 Acute exacerbation of chronic moderate persistent bronchial asthma. Recovered. #2 History of pulmonary embolism, anticoagulated with Eliquis. No evidence of PE on yesterday's CT angiogram. #3 Obesity. #4 Hypertension. #5 Anxiety/depression. #6 History of breast cancer status post lumpectomy/radiation. Plan: The patient was seen and evaluated by Dr. Ayon. She is cleared for discharge from the pulmonary standpoint. Follow-up in our office in 1-2 weeks' time. Complete a prednisone taper. Continue home pulmonary medications. She is encouraged to call sooner with any recurrence of symptoms or other questions or concerns. I, the cosigning physician, performed a history & physical examination of the patient. Lungs sounds with faint end expiratory wheeze. Maintaining good O2 saturations in the 90s on room air. I discussed the assessment and plan of care with my nurse practitioner, Gwen Moura. I attest to the above consultation as dictated by her.
--- NOTE | 2018-11-17 11:42 | P.DS ---
Providers Date of admission: 11/14/18 15:43 Expected date of discharge: 11/17/18 Attending physician: Jeanmarie Coleman Consults: 11/14/18 15:43 Consult Physician Routine Consulting Provider: Nika Butler Consult Reason/Comments: Asthma exacerbation Do you want consulting provider notified?: Yes Primary care physician: [facility] Course: This is a 73-year-old female one of Dr. 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, hyperlipidemia, history of asthma, GERD, halo hernia, history of breast cancer status post left lumpectomy with radiation therapy currently on letrozole and her 6 month mammogram is free of disease, major depressive disorder, anxiety disorder, patient was recently hospitalized at [facility] on 09/05/2018 after she was found to have bilateral subsegmental pulmonary emboli and she was started on Eliquis 5 mg orally twice every day, patient presented to the emergency department yesterday complaining of increased left-sided rib pain associated with increased shortness of breath and increased coughing patient underwent CTA yesterday that was negative for pulmonary and was of however did show hiatal hernia with partial midthoracic stomach, and subsegmental atelectasis without evidence of any acute pneumonia, patient was getting ready to be discharged home however she developed to have a significant shortness breath and her oxygen dropped to 89% so she was admitted to the hospital for acute asthma exacerbation she was started on Solu-Medrol 60 mg IV push every 6 hours oxygen and pulmonary consultation was obtained. 11/16: Patient is very anxious to be discharged home. She states her breathing is improved. She is currently on Solu-Medrol 60 mg every 6 hours and will be decreased to 40 every 12 hours and plan to start prednisone tomorrow. Blood pressure continues to be high despite starting losartan yesterday possibly related to steroids. Patient is requesting medication to help with sleep and melatonin will be added. Plan to monitor her overnight and discharge tomorrow. 11/17: Dr. Ayon has cleared the patient for discharge and follow-up with Dr. Hernández on outpatient basis. Patient has been afebrile, HR 80s, BP 159/85, pulseox 94% on room air. His blood pressure is still running high, we'll increase losartan 50 mg daily. Patient's breathing is improved. She is anxious to be discharged. She states that she has not been having the sweating episodes while here. Patient instructed to follow Dr. Myrick regarding this. Patient will be discharged home today in stable condition. Prescription will be provided for blood pressure machine for home. Discharge diagnoses: 1. Acute respiratory insufficiency secondary to acute asthma exacerbation, chronic moderate persistent bronchial asthma. 2. Left-sided rib pain thought to be due to coughing and musculoskeletal sprain. 3. History of breast cancer status post left lumpectomy with radiation therapy. 4. Profuse sweating thought to be due to combination of medication side effects as well as hormonal changes. Discussed the patient switching Zoloft to Brisdelle/Paxil at 30 mg orally once every day, this would be done as an outpatient, furthermore this is could be a side effect of letrozole and Zoloft. 5. Hypertension, newly diagnosed. 6. Steroid-induced hyperglycemia. 7. Hyperlipidemia. 8. History of pulmonary emboli. 9. GERD with hiatal hernia. 10. Compression fracture of the thoracic vertebrae. Discharge plan: Home Impression and plan of care have been directed as dictated by the signing physician. Julieta Wynn nurse practitioner acting as scribe for signing physician. Patient Condition at Discharge: Good Plan - Discharge Summary Discharge Rx Participant: No New Discharge Prescriptions: New Losartan [Cozaar] 50 mg PO DAILY #30 tab predniSONE 0 mg PO DIRECTED #30 tab Continue Sertraline [Zoloft] 100 mg PO HS Simvastatin [Zocor] 20 mg PO HS Montelukast [Singulair] 10 mg PO HS Albuterol Inhaler [Ventolin Hfa Inhaler] 1 - 2 puff INHALATION RT-Q6H PRN PRN Reason: Shortness Of Breath Omeprazole [PriLOSEC] 20 mg PO BID Budesonide [Pulmicort] 0.5 mg INHALATION RT-BID Formoterol Fumarate [Perforomist] 20 mcg INHALATION RT-BID HYDROcodone/APAP 7.5-325MG [[place] 7.5-325] 1 tab PO Q6HR PRN PRN Reason: Pain Ipratropium-Albuterol Nebulize [Duoneb 0.5 mg-3 mg/3 ml Soln] 3 ml INHALATION RT-DAILY PRN PRN Reason: Shortness Of Breath Letrozole [Femara] 2.5 mg PO HS Apixaban [Eliquis] 5 mg PO BID #60 tab predniSONE 10 mg PO DAILY Gabapentin [Neurontin] 300 mg PO BID Discharge Medication List Montelukast [Singulair] 10 mg PO HS 09/20/16 [History] Sertraline [Zoloft] 100 mg PO HS 09/20/16 [History] Simvastatin [Zocor] 20 mg PO HS 09/20/16 [History] Albuterol Inhaler [Ventolin Hfa Inhaler] 1 - 2 puff INHALATION RT-Q6H PRN 10/06/16 [History] Omeprazole [PriLOSEC] 20 mg PO BID 08/05/18 [History] Budesonide [Pulmicort] 0.5 mg INHALATION RT-BID 09/02/18 [History] Formoterol Fumarate [Perforomist] 20 mcg INHALATION RT-BID 09/02/18 [History] HYDROcodone/APAP 7.5-325MG [[place] 7.5-325] 1 tab PO Q6HR PRN 09/02/18 [History] Ipratropium-Albuterol Nebulize [Duoneb 0.5 mg-3 mg/3 ml Soln] 3 ml INHALATION RT-DAILY PRN 09/02/18 [History] Letrozole [Femara] 2.5 mg PO HS 09/02/18 [History] Apixaban [Eliquis] 5 mg PO BID #60 tab 09/05/18 [Rx] Gabapentin [Neurontin] 300 mg PO BID 11/14/18 [History] predniSONE 10 mg PO DAILY 11/14/18 [History] Losartan [Cozaar] 50 mg PO DAILY #30 tab 11/17/18 [Rx] predniSONE 0 mg PO DIRECTED #30 tab 11/17/18 [Rx] Follow up Appointment(s)/Referral(s): Clare Ayon MD [STAFF PHYSICIAN] - 11/25/18 3:00 pm Isac Myrick MD [Primary Care Provider] - 11/24/18 10:30 am Discharge Disposition: HOME SELF-CARE
[2018-11-17 12:00] LABS: Glucose,Whole Blood 116 mg/dL (75-99)
[2018-11-17] MEDS: HYDROcodone/APAP 7.5-325MG 1 EACH TAB PO PRN (13:06)
== END 2018-11-17 13:10 | disposition home or self-care (01) | DRG 202 ==
LOC: EC 11:49 → 3NMEDONC 15:43
PROVIDERS: ADMIT Internal Medicine; ATTEND Internal Medicine
DX: J45.41 Moderate persistent asthma with (acute) exacerbation (principal); J98.11 Atelectasis; M48.54XA Collapsed vertebra, not elsewhere classified, thoracic region, initial encounter for fracture; E66.9 Obesity, unspecified; Z68.37 Body mass index [BMI] 37.0-37.9, adult; E78.5 Hyperlipidemia, unspecified; F32.9 Major depressive disorder, single episode, unspecified; F41.9 Anxiety disorder, unspecified; I10 Essential (primary) hypertension; K21.9 Gastro-esophageal reflux disease without esophagitis; K44.9 Diaphragmatic hernia without obstruction or gangrene; T38.0X5A Adverse effect of glucocorticoids and synthetic analogues, initial encounter; Z79.01 Long term (current) use of anticoagulants; R73.9 Hyperglycemia, unspecified; Z79.52 Long term (current) use of systemic steroids; Z79.811 Long term (current) use of aromatase inhibitors; Z79.899 Other long term (current) drug therapy; Z80.3 Family history of malignant neoplasm of breast; Z80.8 Family history of malignant neoplasm of other organs or systems; Z82.5 Family history of asthma and other chronic lower respiratory diseases; Z80.42 Family history of malignant neoplasm of prostate; Z85.3 Personal history of malignant neoplasm of breast; Z86.711 Personal history of pulmonary embolism; Z87.891 Personal history of nicotine dependence; Z90.710 Acquired absence of both cervix and uterus; Z96.651 Presence of right artificial knee joint; Z98.42 Cataract extraction status, left eye; Z98.41 Cataract extraction status, right eye; Z92.3 Personal history of irradiation; S23.41XA Sprain of ribs, initial encounter; R61 Generalized hyperhidrosis; T43.225A Adverse effect of selective serotonin reuptake inhibitors, initial encounter; T45.1X5A Adverse effect of antineoplastic and immunosuppressive drugs, initial encounter; Z88.8 Allergy status to other drugs, medicaments and biological substances
CPT/HCPCS: 36415; 71046; 71275; 80053; 83735; 83880; 84484; 85025; 85610; 85730; 87040; 93005; 94640; 94760; 96374; 99285

== ENCOUNTER → 2018-12-21 | Outpatient (CLI) | payer MEDICARE ==
--- NOTE | 2018-12-21 15:44 | BD ---
EXAMINATION TYPE: Axial Bone Density DATE OF EXAM: 12/21/2018 COMPARISON: 2018 CLINICAL HISTORY: Postmenopausal female. Osteoporosis screening. Height: 63.5 Weight: 223.0 FRAX RISK QUESTIONS: Alcohol (3 or more units per day): no Family History (Parent hip fracture): no Glucocorticoids (More than 3mos): yes (Ex: prednisone, prednisolone, methylprednisolone, dexamethasone, and hydrocortisone). History of Fracture in Adulthood: yes Secondary Osteoporosis: 1. Type 1 Diabetes: no 2. Hyperthyroidism: no 3. Menopause before 45: no 4. Malnutrition: no 5. Chronic liver disease: no Rheumatoid Arthritis: no Current Tobacco Use: no RISK FACTORS HISTORY OF: History of Wrist Fracture: right wrist Family History of Osteoporosis: no Active: sometimes Diet low in dairy products/other sources of calcium: no Postmenopausal woman: age 50 Lost more than 2 inches in height since high school: yes MEDICATIONS: letrozole, zoloft, omeprazole, simvastatin, losartan, gabapentin Prednisone or other steroids: yes How Long: off and on for 11 years Additional History: pt had breast cancer 2018 EXAM MEASUREMENTS: Bone mineral densitometry was performed using the [employer] System. Bone mineral density as measured about the Lumbar spine is: ----- L1-L4(G/cm2): 0.927 T Score Values are as follows: ----- L2: -1.8 ----- L3: -2.3 ----- L4: -2.3 ----- L1-L4: -2.1 Bone mineral density has: decreased -8.4 % since study of: 12.15.2017 Bone mineral density about the R hip (g/cm2): 0.949 Bone mineral density about the L hip (g/cm2): 0.922 T Score values are as follows: -----R Neck: -0.6 -----L Neck: -0.8 -----R Total: -0.8 -----L Total: -1.0 Bone mineral density has: increased 1.7 % since study of: 12.15.2017 IMPRESSION: Osteopenia (T Score between -2.5 and -1). There is slightly increased risk of fracture and the patient may be considered for treatment. Re-Screen 2-5 years. NOTE: T-SCORE=SD OF THE YOUNG ADULT MEAN.
== END | disposition home or self-care (01) ==
LOC: RADBDWWP 09:55
PROVIDERS: ATTEND Internal Medicine Hematology & Oncology
DX: C50.212 Malignant neoplasm of upper-inner quadrant of left female breast (principal); M85.80 Other specified disorders of bone density and structure, unspecified site
CPT/HCPCS: 77080

== ENCOUNTER → 2020-01-17 | Outpatient (CLI) | payer MEDICARE ==
--- NOTE | 2020-01-17 16:57 | CT ---
EXAMINATION TYPE: CT abdomen pelvis w con DATE OF EXAM: 01/17/2020 COMPARISON: CT 11/14/2018 HISTORY: LLQ pain with diarrhea. Small umbilical hernia contains fat. CT DLP: 1533.8 mGycm Automated exposure control for dose reduction was used. TECHNIQUE: Helical acquisition of images from the lung bases through the pelvis have been completed. CONTRAST: Performed with Oral Contrast and with IV Contrast, patient injected with 100 mL of Isovue 300. FINDINGS: There is a large hiatal hernia containing fixed portion of the stomach. LUNG BASES: No significant abnormality is appreciated. AORTA: No significant abnormality is appreciated. LIVER/GB: No significant abnormality is appreciated. PANCREAS: No significant abnormality is seen. SPLEEN: Multiple calcifications within the spleen likely software support representative of old granulomatous disease ADRENALS: No significant abnormality is seen. KIDNEYS: Probable cortical cyst associated with the right kidney midpole.. REPRODUCTIVE ORGANS: Uterus is not seen, ovaries not identified. BOWEL: There is diverticular change associated with the sigmoid colon. Inflammatory changes present in the pericolonic location axial image #66, 67 and 68, coronal images #50 and 49, increased attenuat ion present in the surrounding fat. Duodenal diverticulum present at the level of the head of the rodriguez creas shows some luminal contrast and measures approximately 2 cm in greatest transverse dimension. FREE AIR: No Free Air visible. ASCITES: None visible. PELVIC ADENOPATHY: None visualized. RETROPERITONEAL ADENOPATHY: No Retroperitoneal Adenopathy visible. URINARY BLADDER: No significant abnormality is seen. OSSEOUS STRUCTURES: Chronic severe compression fracture present at T8 as on prior. IMPRESSION: FINDINGS SUGGEST MILD DIVERTICULITIS WITH DIVERTICULOSIS. POSTOP CHANGES. HIATAL HERNIA WITH FIXED IN TRATHORACIC STOMACH, UMBILICAL HERNIA.
== END | disposition home or self-care (01) ==
LOC: RADCTMAIN 14:11
PROVIDERS: ATTEND Internal Medicine Geriatric Medicine
DX: K42.9 Umbilical hernia without obstruction or gangrene (principal); K44.9 Diaphragmatic hernia without obstruction or gangrene; Z98.890 Other specified postprocedural states
CPT/HCPCS: 74177; Q9967

== ENCOUNTER → 2020-02-21 | Outpatient (CLI) | payer MEDICARE ==
--- NOTE | 2020-02-22 08:08 | MM ---
Reason for exam: additional evaluation requested from prior study. Last mammogram was performed 1 year and 3 months ago. History: Patient is postmenopausal and has history of breast cancer at age 72. Family history of breast cancer in maternal sister at age 73 and breast cancer in sister at age 72. Malignant MG pre op needle loc LT of the left breast, February 08, 2018. Lumpectomy of the left breast, February 08, 2018. Malignant US breast needle core LT of the left breast, January 05, 2018. Benign cyst aspiration of the right breast. 2 benign excisional biopsies of the left breast. 3 benign excisional biopsies of the right breast. Took estrogen for 9 years beginning at age 50. Physical Findings: Nurse did not find any significant physical abnormalities on exam. MG 3D Diag Mammo W/Cad LEOBARDO Bilateral CC and MLO view(s) were taken. CCRM view(s) were taken of the right breast. Prior study comparison: November 07, 2018, bilateral MG 3d diag mammo w/cad LEOBARDO. January 05, 2018, left breast MG diagnostic mammo LT wo CAD. The breast tissue is heterogeneously dense. This may lower the sensitivity of mammography. Finding #1: Architectural distortion. Finding #2: There are typically benign calcifications in the right breast. Post surgical changes on the left breast. These results were verbally communicated with the patient and result sheet given to the patient on 02/21/20. ASSESSMENT: Benign, BI-RAD 2 RECOMMENDATION: Follow-up diagnostic mammogram of both breasts in 1 year.
== END | disposition home or self-care (01) ==
LOC: RADMAMWWP 12:54
PROVIDERS: ATTEND Radiology Diagnostic Radiology
DX: C50.912 Malignant neoplasm of unspecified site of left female breast (principal)
CPT/HCPCS: 77066; G0279; 77062

== ENCOUNTER 2020-11-18 09:58 | Observation (INO) | payer MEDICARE ==
[2020-11-18] MEDS ORDERED: IPRATROPIUM-ALBUTEROL 3 ML NEB INHALATION STA (10:14)
[2020-11-18] MEDS ORDERED: SODIUM CHLORIDE 0.9% 500 ML 500 ML IV STA (10:14)
--- NOTE | 2020-11-18 10:22 | ED ---
SOB HPI - General Chief Complaint: Shortness of Breath Stated Complaint: sob Time Seen by Provider: 11/18/20 10:02 Source: patient Mode of arrival: wheelchair Limitations: no limitations - History of Present Illness Initial Comments: Patient is a 75-year-old female, with history of asthma, DVT, tracheobronchomalacia, presenting to the emergency Department with complaints of cough, congestion and increasing shortness of breath over the past week. Gabriela ent's symptoms started about a week and a half ago with typical shortness of breath and cough. She states her cough has been productive. She did go to her sueding machine operator, Dr. Butler who started her on Bactrim. Patient has been on Bactrim for 5 days without improvement in her symptoms. She continues to feel short of breath and coughing up lots of sputum. She denies any fevers or chills. She has been doing her at-home nebulizer treatments without much improvement. She also has home O2 which he uses intermittently, she has been using this a lot more over the past week, 2 L. She denies any abdominal pain, no nausea or vomiting, no diarrhea. She denies any sick contacts. She states this feels like her normal asthma exacerbation. She denies any chest pains. He does have history of DVT, she is no longer on blood thinners. She has no further complaints at this time. Upon arrival to the ER, she is slightly tachycardia at 104, afebrile at 98.8, 95% on room air. - Related Data Home Medications Medication Instructions Recorded Confirmed Simvastatin [Zocor] 20 mg PO HS 09/20/16 11/18/20 Omeprazole [PriLOSEC] 40 mg PO DAILY 08/05/18 11/18/20 Budesonide [Pulmicort] 0.5 mg INHALATION RT-BID PRN 09/02/18 11/18/20 Formoterol Fumarate [Perforomist] 20 mcg INHALATION RT-BID PRN 09/02/18 11/18/20 Letrozole [Femara] 2.5 mg PO HS 09/02/18 11/18/20 Albuterol Sulfate [Ventolin HFA] 2 puff INHALATION RT-Q4H PRN 11/18/20 11/18/20 Alendronate Sodium [Fosamax] 70 mg PO 11/18/20 11/18/20 Montelukast [Singulair] 10 mg PO HS 11/18/20 11/18/20 Oxybutynin Chloride 5 mg PO BID 11/18/20 11/18/20 PARoxetine [Paxil] 10 mg PO HS 11/18/20 11/18/20 Sulfamethox-Tmp 800-160Mg [Bactrim 1 tab PO BID 11/18/20 11/18/20 DS 800-160 mg] Vit C/E/Zn/Coppr/Lutein/Zeaxan 1 cap PO BID 11/18/20 11/18/20 [Preservision Areds 2 Softgel] Previous Rx's Medication Instructions Recorded Losartan [Cozaar] 50 mg PO DAILY #30 tab 11/17/18 Allergies Allergy/AdvReac Type Severity Reaction Status Date / Time cefuroxime AdvReac Cough Verified 11/18/20 10:42 Review of Systems ROS Statement: Those systems with pertinent positive or pertinent negative responses have been documented in the HPI. ROS Other: All systems not noted in ROS Statement are negative. Past Medical History Past Medical History: Asthma, GERD/Reflux, Hyperlipidemia, Osteoarthritis (OA), Pneumonia, Pulmonary Embolus (PE) Additional Past Medical History / Comment(s): MIGRAINES, breast cancer with radiation (march-april)2017 History of Any Multi-Drug Resistant Organisms: None Reported Past Surgical History: Breast Surgery, Heart Catheterization, Hysterectomy, Joint Replacement Additional Past Surgical History / Comment(s): BREAST BX (X5). RT TKA. COLONOSCOPY. BILAT CATARACT SX. hernia with mesh placement. cardiac cath Past Anesthesia/Blood Transfusion Reactions: No Reported Reaction Past Psychological History: Anxiety, Depression Smoking Status: Former smoker Past Alcohol Use History: Occasional Past Drug Use History: None Reported - Past Family History Sister(s) Family Medical History: Cancer (Patient has 2 sisters with breast cancer there 5 year survivor.), Pulmonary Embolus Additional Family Medical History / Comment(s): 2 SISTERS -BREAST CANCER Brother(s) Family Medical History: Cancer (Patient has 2 brothers one of them with prostate cancer his 82-year-old now and the other one with melanoma his 81-year-old now) Additional Family Medical History / Comment(s): MELANOMA, PROSTATE Son(s) Family Medical History: No Reported History (Patient has 2 sons no major medical problems.) Daughter(s) Family Medical History: No Reported History (Patient has one daughter major medical problems.) Mother Family Medical History: Asthma (Mother at age of 93 from old age and she had a history of asthma.) Father Family Medical History: No Reported History (Father at age 91 from old age. ) General Exam - General Exam Comments Initial Comments: GENERAL: Patient is well-developed and well-nourished. Patient is nontoxic and in moderate distress. HEAD: Atraumatic, normocephalic. EYES: Pupils equal round and reactive to light, extraocular movements intact, sclera anicteric, conjunctiva are normal. Eyelids were unremarkable. ENT: TMs normal, nares patent, oropharynx clear without exudates. Moist mucous membranes. NECK: Normal range of motion, supple without lymphadenopathy or JVD. LUNGS: Labored respirations, scattered wheezes throughout entire moura. HEART: Slightly tachycardia rate and rhythm without murmurs, rubs or gallops. ABDOMEN: Soft, nontender, normoactive bowel sounds. No guarding, no rebound. No masses appreciated. : Deferred MUSCULOSKELETAL: Normal extremities with adequate strength and normal range of motion, no pitting or edema. No clubbing or cyanosis. NEUROLOGICAL: Patient is alert and oriented x 3. Motor and sensory are also intact. Cranial nerves II through XII grossly intact. Symmetrical smile. Normal speech, normal gait. PSYCH: Normal mood, normal affect. SKIN: Warm, Dry, normal turgor, no rashes or lesions noted. Limitations: no limitations Course Vital Signs 11/18/20 11/18/20 11/18/20 09:59 10:35 10:44 Temperature 98.8 F Pulse Rate 104 H 94 87 Respiratory 18 24 Rate Blood Pressure 134/81 O2 Sat by Pulse 95 92 L Oximetry 11/18/20 11/18/20 11/18/20 10:54 11:52 12:51 Temperature 98.4 F 98.5 F Pulse Rate 93 98 88 Respiratory 22 20 18 Rate Blood Pressure 131/68 118/75 O2 Sat by Pulse 94 L 96 95 Oximetry Medical Decision Making - Medical Decision Making Patient 75-year-old female with history of asthma, tracheobronchomalacia, presenting with shortness of breath, cough, congestion that been increasing over the past week and a half. No fevers. She is slightly tach upon arrival, afebrile, 95% on room air. On exam, she is in moderate distress, cannot complete a whole sentence without stopping to take a breath. Scattered wheezes throughout entire lung field. Currently on Bactrim. Labs showed a normal white count, troponin negative, d-dimer slightly elevated at 0.93, CT of the chest reveals no evidence for PE, scattered mild peripheral fibrotic changes that are new, correlate for possible bronchiolitis. Rapid Covid is not detected. Patient received breathing treatment, steroids, is currently on 2 L of oxygen. Patient continues to feel short of breath, syncopal going home. Patient will be admitted for asthma exacerbation, we will consult pulmonology. Dr. Gallo is accepting. Case discussed with Dr. Good. - Lab Data Result diagrams: 11/18/20 10:20 11/18/20 10:20 Lab Results 11/18/20 11/18/20 11/18/20 Range/Units 10:20 10:20 10:20 WBC 4.7 (3.8-10.6) k/uL RBC 4.62 (3.80-5.40) m/uL Hgb 14.0 (11.4-16.0) gm/dL Hct 42.1 (34.0-46.0) % MCV 91.1 (80.0-100.0) fL MCH 30.3 (25.0-35.0) pg MCHC 33.3 (31.0-37.0) g/dL RDW 15.3 (11.5-15.5) % Plt Count 298 (150-450) k/uL MPV 7.1 Neutrophils % 59 % Lymphocytes % 17 % Monocytes % 10 % Eosinophils % 11 % Basophils % 1 % Neutrophils # 2.8 (1.3-7.7) k/uL Lymphocytes # 0.8 L (1.0-4.8) k/uL Monocytes # 0.5 (0-1.0) k/uL Eosinophils # 0.5 (0-0.7) k/uL Basophils # 0.1 (0-0.2) k/uL PT 10.1 (9.0-12.0) sec INR 0.9 (<1.2) APTT 22.1 (22.0-30.0) sec D-Dimer 0.93 H (<0.60) mg/L FEU Sodium 137 (137-145) mmol/L Potassium 4.2 (3.5-5.1) mmol/L Chloride 104 (98-107) mmol/L Carbon Dioxide 22 (22-30) mmol/L Anion Gap 11 mmol/L BUN 17 (7-17) mg/dL Creatinine 0.61 (0.52-1.04) mg/dL Est GFR (CKD-EPI)AfAm >90 (>60 ml/min/1.73 sqM) Est GFR (CKD-EPI)NonAf 88 (>60 ml/min/1.73 sqM) Glucose 100 H (74-99) mg/dL Plasma Lactic Acid Deshaun (0.7-2.0) mmol/L Calcium 9.8 (8.4-10.2) mg/dL Magnesium 2.0 (1.6-2.3) mg/dL Total Bilirubin 0.5 (0.2-1.3) mg/dL AST 30 (14-36) U/L ALT 20 (4-34) U/L Alkaline Phosphatase 99 (38-126) U/L Troponin I (0.000-0.034) ng/mL C-Reactive Protein <5.0 (<10.0) mg/L NT-Pro-B Natriuret Pep pg/mL Total Protein 6.6 (6.3-8.2) g/dL Albumin 4.5 (3.5-5.0) g/dL Coronavirus (PCR) (Not Detectd) 11/18/20 11/18/20 11/18/20 Range/Units 10:20 10:20 10:20 WBC (3.8-10.6) k/uL RBC (3.80-5.40) m/uL Hgb (11.4-16.0) gm/dL Hct (34.0-46.0) % MCV (80.0-100.0) fL MCH (25.0-35.0) pg MCHC (31.0-37.0) g/dL RDW (11.5-15.5) % Plt Count (150-450) k/uL MPV Neutrophils % % Lymphocytes % % Monocytes % % Eosinophils % % Basophils % % Neutrophils # (1.3-7.7) k/uL Lymphocytes # (1.0-4.8) k/uL Monocytes # (0-1.0) k/uL Eosinophils # (0-0.7) k/uL Basophils # (0-0.2) k/uL PT (9.0-12.0) sec INR (<1.2) APTT (22.0-30.0) sec D-Dimer (<0.60) mg/L FEU Sodium (137-145) mmol/L Potassium (3.5-5.1) mmol/L Chloride (98-107) mmol/L Carbon Dioxide (22-30) mmol/L Anion Gap mmol/L BUN (7-17) mg/dL Creatinine (0.52-1.04) mg/dL Est GFR (CKD-EPI)AfAm (>60 ml/min/1.73 sqM) Est GFR (CKD-EPI)NonAf (>60 ml/min/1.73 sqM) Glucose (74-99) mg/dL Plasma Lactic Acid Deshaun 1.2 (0.7-2.0) mmol/L Calcium (8.4-10.2) mg/dL Magnesium (1.6-2.3) mg/dL Total Bilirubin (0.2-1.3) mg/dL AST (14-36) U/L ALT (4-34) U/L Alkaline Phosphatase (38-126) U/L Troponin I <0.012 (0.000-0.034) ng/mL C-Reactive Protein (<10.0) mg/L NT-Pro-B Natriuret Pep 102 pg/mL Total Protein (6.3-8.2) g/dL Albumin (3.5-5.0) g/dL Coronavirus (PCR) (Not Detectd) 11/18/20 Range/Units 10:20 WBC (3.8-10.6) k/uL RBC (3.80-5.40) m/uL Hgb (11.4-16.0) gm/dL Hct (34.0-46.0) % MCV (80.0-100.0) fL MCH (25.0-35.0) pg MCHC (31.0-37.0) g/dL RDW (11.5-15.5) % Plt Count (150-450) k/uL MPV Neutrophils % % Lymphocytes % % Monocytes % % Eosinophils % % Basophils % % Neutrophils # (1.3-7.7) k/uL Lymphocytes # (1.0-4.8) k/uL Monocytes # (0-1.0) k/uL Eosinophils # (0-0.7) k/uL Basophils # (0-0.2) k/uL PT (9.0-12.0) sec INR (<1.2) APTT (22.0-30.0) sec D-Dimer (<0.60) mg/L FEU Sodium (137-145) mmol/L Potassium (3.5-5.1) mmol/L Chloride (98-107) mmol/L Carbon Dioxide (22-30) mmol/L Anion Gap mmol/L BUN (7-17) mg/dL Creatinine (0.52-1.04) mg/dL Est GFR (CKD-EPI)AfAm (>60 ml/min/1.73 sqM) Est GFR (CKD-EPI)NonAf (>60 ml/min/1.73 sqM) Glucose (74-99) mg/dL Plasma Lactic Acid Deshaun (0.7-2.0) mmol/L Calcium (8.4-10.2) mg/dL Magnesium (1.6-2.3) mg/dL Total Bilirubin (0.2-1.3) mg/dL AST (14-36) U/L ALT (4-34) U/L Alkaline Phosphatase (38-126) U/L Troponin I (0.000-0.034) ng/mL C-Reactive Protein (<10.0) mg/L NT-Pro-B Natriuret Pep pg/mL Total Protein (6.3-8.2) g/dL Albumin (3.5-5.0) g/dL Coronavirus (PCR) Not Detected (Not Detectd) - EKG Data EKG Comments: Normal sinus rhythm, left atrial enlargement, left axis deviation, septal infarct, age undetermined, this is similar to her previous EKG on 11/14/2018. No signs of an acute ischemia. Ventricular rate 99, FL interval 140, QT 358. Disposition Clinical Impression: Asthma with exacerbation, Hypoxia Disposition: ADMITTED IP TO THIS HOSP Condition: Stable Decision Date: 11/18/20 Decision Time: 13:10
[2020-11-18 10:37] LABS: Basophils # (A) 0.1 k/uL (0-0.2); Basophils % (A) 1 %; Eosinophils # (A) 0.5 k/uL (0-0.7); Eosinophils % (A) 11 %; HCT 42.1 % (34.0-46.0); Lymphocytes # (A) 0.8 k/uL (1.0-4.8); Lymphocytes % (A) 17 %; MCH 30.3 pg (25.0-35.0); MCHC 33.3 g/dL (31.0-37.0); MCV 91.1 fL (80.0-100.0); Mean Platelet Volume 7.1; Monocytes # (A) 0.5 k/uL (0-1.0); Monocytes % (A) 10 %; Neutrophils # (A) 2.8 k/uL (1.3-7.7); Neutrophils % (A) 59 %; Platelet Count 298 k/uL (150-450); RBC 4.62 m/uL (3.80-5.40); RDW 15.3 % (11.5-15.5); WBC 4.7 k/uL (3.8-10.6)
[2020-11-18 10:51] LABS: ALT 20 U/L (4-34); AST 30 U/L (14-36); African American GFR (CKD) >90 (>60 ml/min/1.73 sqM); Albumin 4.5 g/dL (3.5-5.0); Alkaline Phosphatase 99 U/L (38-126); Anion Gap 11 mmol/L; Blood Urea Nitrogen 17 mg/dL (7-17); C Reactive Protein <5.0 mg/L (<10.0); Calcium 9.8 mg/dL (8.4-10.2); Carbon Dioxide 22 mmol/L (22-30); Chloride 104 mmol/L (98-107); Glucose 100 mg/dL (74-99); Non-African American GFR(CKD) 88 (>60 ml/min/1.73 sqM); Potassium 4.2 mmol/L (3.5-5.1); Sodium 137 mmol/L (137-145); Total Bilirubin 0.5 mg/dL (0.2-1.3); Total Protein 6.6 g/dL (6.3-8.2)
[2020-11-18 10:56] LABS: INR 0.9 (<1.2); Partial Thromboplastin Time 22.1 sec (22.0-30.0); Prothrombin Time 10.1 sec (9.0-12.0)
--- NOTE | 2020-11-18 11:25 | XR ---
EXAMINATION TYPE: XR chest 2V DATE OF EXAM: 11/18/2020 COMPARISON: 11/14/2018, 10/14/2020 HISTORY: 75 year-old female shortness of breath, difficulty breathing TECHNIQUE: PA and lateral views FINDINGS: Heart normal size. Interstitial opacities particularly in the periphery of the right upper lobe. Roun ded retrocardiac lucency. Some patchy left basilar opacity noted. No pleural effusion. Large appearan ce to the main right and left pulmonary arteries on the lateral view. IMPRESSION: 1. There may be underlying pulmonary arterial hypertension. 2. Interstitial opacities. Correlate for possible bronchitis or chronic asthma. 3. There are more focal patchy densities in the periphery of the right upper lobe and left base that could represent atelectasis or developing infiltrate. Follow-up recommended. 4. Underlying moderate to large sized hiatal hernia.
[2020-11-18] MEDS ORDERED: IBUPROFEN 600 MG TAB PO STA (11:37)
[2020-11-18] MEDS ORDERED: methylPREDNISolone SOD SUCCI 125 MG/2 ML VIAL IV STA (11:37)
[2020-11-18 11:51] LABS: D-Dimer 0.93 mg/L FEU (<0.60)
--- NOTE | 2020-11-18 12:44 | CT ---
EXAMINATION TYPE: CT chest angio for PE DATE OF EXAM: 11/18/2020 COMPARISON: CTA chest November 14, 2018. HISTORY: Dyspnea, elevated d-dimer. History of left-sided breast cancer. CT DLP: 398.2 mGycm Automated exposure control for dose reduction was used. CONTRAST: CT Chest for pulmonary embolism performed with without and with IV Contrast, patient injected with 10 0 ml mL of Isovue 370. FINDINGS: LUNGS: Some lobulation to the right hemidiaphragm redemonstrated. Mild to moderate bibasilar linear s carring and/or atelectasis is redemonstrated. There are some new areas of peripheral reticulation and fibrotic change bilaterally in the upper and midlungs anterolateral aspect. No pleural effusion or p neumothorax is seen. Areas of bronchial occlusion felt to be mucous plugging in the lower lung bronch i are present on current study. MEDIASTINUM: There is suboptimal study with most dense contrast in the SVC and more dense contrast in the aorta versus pulmonary arteries. This heterogeneity towards the periphery. There is no central p ulmonary embolism. No peripheral pulmonary embolism clearly seen. No aortic aneurysm or dissection. There are no greater than 1 cm hilar or mediastinal lymph nodes. No pericardial effusion is seen. E nlarged main pulmonary artery of 3.2 cm, CT findings consistent with underlying pulmonary hypertensio n. Coronary artery calcification redemonstrated. Stable mild cardiomegaly. Moderate to large size hia calderon hernia again seen. OTHER: Scattered calcifications throughout the spleen redemonstrated. Findings consistent with produ cts of old granulomatous disease. Slightly lobulated contour to liver with prominent left hepatic lob e redemonstrated. Severe compression fracture T8 level with slight posterior retropulsion sagittal im age 89 remains present.Surgical changes and asymmetric left-sided skin thickening left breast partial ly imaged from prior cancer treatment. IMPRESSION: Suboptimal study without acute pulmonary embolism. Mild to moderate bibasilar scarring an d/or atelectatic change. Scattered mild peripheral reticular fibrotic changes new from prior. Persis tent cardiomegaly with new lower lung mucous plugging, correlate for possible bronchiolitis
[2020-11-18] MEDS: IPRATROPIUM-ALBUTEROL 3 ML NEB INHALATION PRN ×2 (15:44→20:08)
--- NOTE | 2020-11-18 16:35 | P.HPIM ---
History of Present Illness H&P Date: 11/18/20 This is a 75 [address] old patient of Dr. Myrick with past medical history of hypertension and hypertensive cardiovascular disease, hyperlipidemia, history of asthma follows Dr. Hernández, history of tracheobronchomalacia, GERD, hiatal hernia, history of breast cancer status post left lumpectomy with radiation therapy on letrozole, history of anxiety and depression on with history of a bilateral subsegmental pulmonary embolism on 12/2017, last admitted on 11/17/2018 for asthma exacerbation who comes in with worsening shortness of breath and cough with sputum production for the past 2-1/2 weeks. Patient did see pulmonary as outpatient and was started on Bactrim but Dr. Butler. Since there was no improvement in patient's symptoms patient decided to come to the ER. Assessment today patient's found to be coughing and having to take deep breath while at rest. Patient has been doing at home nebulizer treatment without any improvement. She does use 2 L of oxygen at home and at bedtime. On evaluation in the ER patient temp is 98.4 pulse 88 respiratory rate 18 blood pressure 118/75 and Esgic and saturating at 95% on 2 L patient d-dimer is marginally elevated 0.93 WBC is normal INR 0.9 CMP normal troponin 1 normal proBNP 102, rotavirus was negative. CTA was negative for acute PE mild to moderate bibasilar scarring and atelectasis changes seen scattered mild peripheral reticular fibrotic changes were noted persistent cardiomegaly with new lower lung mucous plugging noted with possible bronchiolitis. Patient initiated on Rocephin and azithromycin and Solu-Medrol site is 60 IV every 6 hours with consult from pulmonary. Review of Systems Constitutional: Endorses chills, Denies fever, endorses lethargy, endorses malaise, Denies poor appetite, Denies weakness, Denies weight loss Eyes: denies decreased vision, denies diplopia, denies discharge, denies pain Ears: deny: decreased hearing Ears, nose, mouth and throat: Denies dental pain, Denies headache, Denies nasal discharge, Denies nose pain Cardiovascular: Denies chest pain, Denies decreased exercise tolerance, Denies edema, Denies high blood pressure, Denies irregular heart beat, Denies palpit ations, Denies paroxysmal nocturnal dyspnea, Denies rapid heart beat, Denies shortness of breath Respiratory: Endorses congestion, endorses cough with sputum, endorses dyspnea, endorses home oxygen, endorses wheezing Gastrointestinal: Denies abdominal pain, Denies change in bowel habits, Denies coffee ground emesis, Denies early satiety, Denies excessive gas, Denies heartb urn, Denies hematemesis, Denies hematochezia, Denies loss of appetite, Denies nausea, Denies vomiting Genitourinary: Denies dysuria, Denies flank pain, Denies kidney stones, Denies menorrhagia, Denies urgency, Denies urinary frequency Musculoskeletal: Denies gait dysfunction, Denies limitation of motion, Denies morning stiffness, Denies muscle cramps Integumentary: Denies rash, Denies wounds, Denies brittle nails, Denies change in hair/nails, Denies darkening of skin Neurological: Denies balance difficulties, Denies change in speech, Denies double vision, Denies gait dysfunction, Denies loss of vision, Denies motor disturbance, Denies numbness, Denies paralysis, Denies paresthesias, Denies s eizures Psychiatric: Denies anxiety, Denies depression Endocrine: Denies excessive sweating, Denies excessive thirst, Denies high blood sugars, Denies palpitations Hematologic/Lymphatic: Denies easy bruising, Denies lymphadenopathy Past Medical History Past Medical History: Asthma, GERD/Reflux, Hyperlipidemia, Osteoarthritis (OA), Pneumonia, Pulmonary Embolus (PE) Additional Past Medical History / Comment(s): MIGRAINES, breast cancer with radiation (march-april)2017 History of Any Multi-Drug Resistant Organisms: None Reported Past Surgical History: Breast Surgery, Heart Catheterization, Hysterectomy, Joint Replacement Additional Past Surgical History / Comment(s): BREAST BX (X5). RT TKA. COLONOSCOPY. BILAT CATARACT SX. hernia with mesh placement. cardiac cath Past Anesthesia/Blood Transfusion Reactions: No Reported Reaction Past Psychological History: Anxiety, Depression Smoking Status: Former smoker Past Alcohol Use History: Occasional Past Drug Use History: None Reported - Past Family History Sister(s) Family Medical History: Cancer (Patient has 2 sisters with breast cancer there 5 year survivor.), Pulmonary Embolus Additional Family Medical History / Comment(s): 2 SISTERS -BREAST CANCER Brother(s) Family Medical History: Cancer (Patient has 2 brothers one of them with prostate cancer his 82-year-old now and the other one with melanoma his 81-year-old now) Additional Family Medical History / Comment(s): MELANOMA, PROSTATE Son(s) Family Medical History: No Reported History (Patient has 2 sons no major medical problems.) Daughter(s) Family Medical History: No Reported History (Patient has one daughter major medical problems.) Mother Family Medical History: Asthma (Mother at age of 93 from old age and she had a history of asthma.) Father Family Medical History: No Reported History (Father at age 91 from old age.) Medications and Allergies Home Medications Medication Instructions Recorded Confirmed Type Simvastatin [Zocor] 20 mg PO HS 09/20/16 11/18/20 History Omeprazole [PriLOSEC] 40 mg PO DAILY 08/05/18 11/18/20 History Budesonide [Pulmicort] 0.5 mg INHALATION RT-BID PRN 09/02/18 11/18/20 History Formoterol Fumarate [Perforomist] 20 mcg INHALATION RT-BID PRN 09/02/18 11/18/20 History Letrozole [Femara] 2.5 mg PO HS 09/02/18 11/18/20 History Losartan [Cozaar] 50 mg PO DAILY #30 tab 11/17/18 11/18/20 Rx Albuterol Sulfate [Ventolin HFA] 2 puff INHALATION RT-Q4H PRN 11/18/20 11/18/20 History Alendronate Sodium [Fosamax] 70 mg PO TH 11/18/20 11/18/20 History Montelukast [Singulair] 10 mg PO HS 11/18/20 11/18/20 History Oxybutynin Chloride 5 mg PO BID 11/18/20 11/18/20 History PARoxetine [Paxil] 10 mg PO HS 11/18/20 11/18/20 History Sulfamethox-Tmp 800-160Mg [Bactrim 1 tab PO BID 11/18/20 11/18/20 History DS 800-160 mg] Vit C/E/Zn/Coppr/Lutein/Zeaxan 1 cap PO BID 11/18/20 11/18/20 History [Preservision Areds 2 Softgel] Allergies Allergy/AdvReac Type Severity Reaction Status Date / Time cefuroxime AdvReac Cough Verified 11/18/20 10:42 Physical Exam Vitals: Vital Signs Temp Pulse Resp BP Pulse Ox 11/18/20 15:46 88 11/18/20 15:45 88 20 131/74 95 11/18/20 12:51 98.5 F 88 18 118/75 95 11/18/20 11:52 98 20 96 11/18/20 11:00 89 11/18/20 10:54 98.4 F 93 22 131/68 94 L 11/18/20 10:44 87 11/18/20 10:35 94 24 92 L 11/18/20 09:59 98.8 F 104 H 18 134/81 95 Intake and Output 11/18/20 11/18/20 11/18/20 06:59 14:59 22:59 Other: Weight 95.254 kg - Constitutional General appearance: cooperative, in moderate acute distress, obese - EENT Eyes: anicteric sclerae, PERRLA, normal appearance ENT: hearing grossly normal - Neck Neck: no lymphadenopathy, normal ROM, no other, no rigidity, no stridor, no thyromegaly - Respiratory Respiratory: bilateral: Diminished airways with bilateral rhonchi and wheezing noted in all the posterior and anterior lungs - Cardiovascular Rhythm: regular Heart sounds: normal: S1, S2 Abnormal Heart Sounds: no systolic murmur, no diastolic murmur, no rub, no S3 Gallop, no S4 Gallop, no click, no other - Gastrointestinal General gastrointestinal: normal bowel sounds, soft nontender - Integumentary Integumentary: no rash - Neurologic Neurologic: No gross motor or sensory deficit no gait abnormality and no difficulty with coordination - Musculoskeletal Musculoskeletal: gait normal, strength equal bilaterally - Psychiatric Psychiatric: A&O x's 3, appropriate affect Results CBC & Chem 7: 11/18/20 10:20 11/18/20 10:20 Labs: Abnormal Lab Results - Last 24 Hours (Table) 11/18/20 11/18/20 11/18/20 Range/Units 10:20 10:20 10:20 Lymphocytes # 0.8 L (1.0-4.8) k/uL D-Dimer 0.93 H (<0.60) mg/L FEU Glucose 100 H (74-99) mg/dL Thrombosis Risk Factor Assmnt - DVT/VTE Prophylaxis DVT/VTE Prophylaxis: Pharmacologic Prophylaxis ordered Assessment and Plan Plan: #1 acute respiratory insufficiency secondary secondary to acute asthma exacerbation and acute tracheal bronchitis. Solu-Medrol started at 60 IV every 6 hours continue DuoNeb as needed for shortness of breath. Initiated on Pulmicort 0.5 twice a day and Perforomist twice daily. Continue oxygen as needed. Pulmonary consultation placed. Continue Singulair 10 mg at bedtime. Mucinex 600 every 12 hours. #2 history of breast cancer status post left lumpectomy with radiation therapy continue letrozole 2.5 mg once every day #3 hypertension continue losartan 25 mg once daily #4 steroid-induced hyperglycemia continue insulin insulin sliding scale #5 hyperlipidemia continue simvastatin 20 mg at bedtime #6 history of pulmonary embolism CTA negative for PE. Patient was on eliqus 5 mg twice a day for 6 months #7 GERD with hiatal hernia continue Prilosec at 40 mg oral daily #8 history of compression fracture of thoracic spine pain control #9 history of depression and anxiety continue Paxil 10 mg at bedtime. #10 history of osteoporosis on Fosamax hold while patient is in the hospital #11 DVT prophylaxis heparin every 12 #12 GI prophylaxis with Prilosec 40 mg daily #13 CODE STATUS full code
[2020-11-18] MEDS ORDERED: ONDANSETRON 4 MG/2 ML VIAL IVP PRN (16:36)
--- NOTE | 2020-11-18 18:02 | P.CNPUL ---
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 Butler in the pulmonary clinic, and a recent history of acute asthma exacerbation was treated on an outpatient basis by Dr. Butler with a combination of antibiotics, nebulized bronchodilators. Patient had steroids given by her PCP on an outpatient basis for the past 3 months for acute asthma exacerbation. Patient is completing a 7 day course of Bactrim DS, and so far she has taken 5 days worth of it. She states she still feels very short of breath, she has a congested cough, wheezing, but she denied any fever, no chills. Does have home O2 at 2 L at bedtime if needed. She was tested for COVID 19 and was found to be negative. She is on 2 L of oxygen currently with a pulse ox of 95%, she is afebrile. Patient has a history of pulmonary embolism diagnosed back in August 2018, and she completed a course of Eliquis. Not on any chronic anticoagulation, other medical history includes history of breast cancer, status post left lumpectomy with radiation therapy on letrozole, history of anxiety and depression, previous history of pneumonia, hyperlipidemia, former smoker. Chest x-ray in emergency department showed possible underlying pulmonary arterial hypertension, interstitial opacities with a possibility of bronchitis or chronic asthma, and more focal patchy densities in the periphery of the right upper lobe and left base that could represent atelectasis or develo ping infiltrate. Underlying moderate to large sized hiatal hernia. CTA chest showed a suboptimal study without evidence of acute pulmonary embolism, mild to moderate bibasilar scarring, scattered mild peripheral reticular fibrotic changes. Persistent cardiomegaly with new lower lung mucous plugging. Patient was started on azithromycin and Rocephin, nebulized bronchodilators, IV steroids, and she is awaiting a bed for medical surgical floor. Review of Systems All systems: negative Constitutional: Denies chills, Denies fever Eyes: denies blurred vision, denies pain Ears, nose, mouth and throat: Denies headache, Denies sore throat Cardiovascular: Denies chest pain, Denies shortness of breath Respiratory: Reports congestion, Reports cough with sputum, Reports dyspnea, Reports home oxygen, Reports respiratory infections, Reports wheezing, Denies cough Gastrointestinal: Denies abdominal pain, Denies diarrhea, Denies nausea, Denies vomiting Genitourinary: Denies dysuria, Denies hematuria Musculoskeletal: Denies myalgias Integumentary: Denies pruritus, Denies rash Neurological: Denies numbness, Denies weakness Psychiatric: Denies anxiety, Denies depression Endocrine: Denies fatigue, Denies weight change Past Medical History Past Medical History: Asthma, GERD/Reflux, Hyperlipidemia, Osteoarthritis (OA), Pneumonia, Pulmonary Embolus (PE) Additional Past Medical History / Comment(s): MIGRAINES, breast cancer with radiation (march-april)2017 History of Any Multi-Drug Resistant Organisms: None Reported Past Surgical History: Breast Surgery, Heart Catheterization, Hysterectomy, Joint Replacement Additional Past Surgical History / Comment(s): BREAST BX (X5). RT TKA. COLONOSCOPY. BILAT CATARACT SX. hernia with mesh placement. cardiac cath Past Anesthesia/Blood Transfusion Reactions: No Reported Reaction Past Psychological History: Anxiety, Depression Smoking Status: Former smoker Past Alcohol Use History: Occasional Past Drug Use History: None Reported - Past Family History Sister(s) Family Medical History: Cancer (Patient has 2 sisters with breast cancer there 5 year survivor.), Pulmonary Embolus Additional Family Medical History / Comment(s): 2 SISTERS -BREAST CANCER Brother(s) Family Medical History: Cancer (Patient has 2 brothers one of them with prostate cancer his 82-year-old now and the other one with melanoma his 81-year-old now) Additional Family Medical History / Comment(s): MELANOMA, PROSTATE Son(s) Family Medical History: No Reported History (Patient has 2 sons no major medical problems.) Daughter(s) Family Medical History: No Reported History (Patient has one daughter major medical problems.) Mother Family Medical History: Asthma (Mother at age of 93 from old age and she had a history of asthma.) Father Family Medical History: No Reported History (Father at age 91 from old age.) Medications and Allergies Home Medications Medication Instructions Recorded Confirmed Type Simvastatin [Zocor] 20 mg PO HS 09/20/16 11/18/20 History Omeprazole [PriLOSEC] 40 mg PO DAILY 08/05/18 11/18/20 History Budesonide [Pulmicort] 0.5 mg INHALATION RT-BID PRN 09/02/18 11/18/20 History Formoterol Fumarate [Perforomist] 20 mcg INHALATION RT-BID PRN 09/02/18 11/18/20 History Letrozole [Femara] 2.5 mg PO HS 09/02/18 11/18/20 History Losartan [Cozaar] 50 mg PO DAILY #30 tab 11/17/18 11/18/20 Rx Albuterol Sulfate [Ventolin HFA] 2 puff INHALATION RT-Q4H PRN 11/18/20 11/18/20 History Alendronate Sodium [Fosamax] 70 mg PO TH 11/18/20 11/18/20 History Montelukast [Singulair] 10 mg PO HS 11/18/20 11/18/20 History Oxybutynin Chloride 5 mg PO BID 11/18/20 11/18/20 History PARoxetine [Paxil] 10 mg PO HS 11/18/20 11/18/20 History Sulfamethox-Tmp 800-160Mg [Bactrim 1 tab PO BID 11/18/20 11/18/20 History DS 800-160 mg] Vit C/E/Zn/Coppr/Lutein/Zeaxan 1 cap PO BID 11/18/20 11/18/20 History [Preservision Areds 2 Softgel] Allergies Allergy/AdvReac Type Severity Reaction Status Date / Time cefuroxime AdvReac Cough Verified 11/18/20 10:42 Physical Exam Vitals: Vital Signs Temp Pulse Resp BP Pulse Ox 11/18/20 15:46 88 11/18/20 15:45 88 20 131/74 95 11/18/20 12:51 98.5 F 88 18 118/75 95 11/18/20 11:52 98 20 96 11/18/20 11:00 89 11/18/20 10:54 98.4 F 93 22 131/68 94 L 11/18/20 10:44 87 11/18/20 10:35 94 24 92 L 11/18/20 09:59 98.8 F 104 H 18 134/81 95 Intake and Output 11/18/20 11/18/20 11/18/20 06:59 14:59 22:59 Other: Weight 95.254 kg GENERAL EXAM: Alert, very pleasant, 75-year-old white female, on 2 L of oxygen with pulse ox of 95%, with congested cough comfortable in no apparent distress. HEAD: Normocephalic/atraumatic. EYES: Normal reaction of pupils, equal size. Conjunctiva pink, sclera white. NOSE: Clear with pink turbinates. THROAT: No erythema or exudates. NECK: No masses, no JVD, no thyroid enlargement, no adenopathy. CHEST: No chest wall deformity. Symmetrical expansion. LUNGS: Equal air entry with scattered rhonchi and wheezing CVS: Regular rate and rhythm, normal S1 and S2, no gallops, no murmurs, no rubs ABDOMEN: Soft, nontender. No hepatosplenomegaly, normal bowel sounds, no guarding or rigidity. EXTREMITIES: No clubbing, no edema, no cyanosis, 2+ pulses and upper and lower extremities. MUSCULOSKELETAL: Muscle strength and tone normal. SPINE: No scoliosis or deformity SKIN: No rashes CENTRAL NERVOUS SYSTEM: Alert and oriented -3. No focal deficits, tone is normal in all 4 extremities. PSYCHIATRIC: Alert and oriented -3. Appropriate affect. Intact judgment and insight. Results - Laboratory Findings CBC and BMP: 11/18/20 10:20 11/18/20 10:20 PT/INR, D-dimer PT 10.1 sec (9.0-12.0) 11/18/20 10:20 INR 0.9 (<1.2) 11/18/20 10:20 D-Dimer 0.93 mg/L FEU (<0.60) H 11/18/20 10:20 Abnormal lab findings: Abnormal Labs 11/18/20 11/18/20 11/18/20 10:20 10:20 10:20 Lymphocytes # 0.8 L D-Dimer 0.93 H Glucose 100 H - Diagnostic Findings Chest x-ray: report reviewed, image reviewed CT scan - chest: report reviewed, image reviewed Assessment and Plan Plan: Assessment: #1. Acute hypoxic respiratory failure related to acute exacerbation of severe persistent bronchial asthma and purulent tracheobronchitis, CTA chest rule out possibility of pulmonary embolism, it did show bibasilar areas of scarring, atelectasis/infiltrates, possibility of bibasilar pneumonia is not completely ruled out. COVID 19 was negative. #2. Community-acquired pneumonia, with failure of outpatient treatment #3. Elevated d-dimer, CT chest was negative for pulmonary embolism #4. Severe persistent bronchial asthma on home oxygen at 2 L on as-needed basis #5. History of tracheobronchomalacia #6. History of left breast cancer with lumpectomy and radiation and let her's oh #7. History of pulmonary embolism in 2018, completed a course of Eliquis, currently not on any chronic anticoagulation #8. History of hyperlipidemia #9. This history of pneumonia #10. Former smoker Plan: Continue IV steroids, antibiotics, continue nebulized bronchodilators, chest x- ray and CT chest have been reviewed, possibility of underlying pneumonia is not completely excluded, we'll send a pro-calcitonin level, continue antibiotics, will continue to follow I performed a history & physical examination of the patient and discussed their management with my nurse practitioner, Cherri Taylor. I reviewed the nurse practitioner's note and agree with the documented findings and plan of care. Lung sounds are positive for diffuse wheezes throughout the lung moura. The findings and the impression was discussed with the patient. I attest to the documentation by the nurse practitioner. Time with Patient: Greater than 30
[2020-11-18] MEDS: methylPREDNISolone SOD SUCCI 125 MG/2 ML VIAL IV SCH ×2 (18:20→23:52)
[2020-11-18 18:25] LABS: Glucose,Whole Blood 194 mg/dL (75-99)
[2020-11-18] MEDS: ACETAMINOPHEN TAB 325 MG TAB PO PRN (18:29)
[2020-11-18] MEDS: BUDESONIDE 0.5 MG/2 ML NEBU INHALATION PRN (20:08)
[2020-11-18] MEDS: FORMOTEROL FUMARATE 20 MCG/2 ML NEBU INHALATION PRN (20:08)
[2020-11-18] MEDS: PARoxetine 10 MG TAB PO SCH (22:08)
[2020-11-18] MEDS: guaiFENesin 600 MG TABLET.ER PO SCH (22:08)
[2020-11-18] MEDS: OXYBUTYNIN CHLORIDE 5 MG TAB PO SCH (22:09)
[2020-11-18] MEDS: MONTELUKAST 10 MG TAB PO SCH (22:09)
[2020-11-18] MEDS: LETROZOLE 2.5 MG TAB PO SCH (22:09)
[2020-11-18] MEDS: ATORVASTATIN 10 MG TAB PO SCH (22:09)
[2020-11-19] MEDS: INSULIN ASPART (NovoLOG) 100 UNIT/ML VIAL SQ SCH ×5 (00:04→20:49)
[2020-11-19] MEDS: ACETAMINOPHEN TAB 325 MG TAB PO PRN ×3 (00:05→21:40)
[2020-11-19] MEDS: methylPREDNISolone SOD SUCCI 125 MG/2 ML VIAL IV SCH ×3 (05:23→17:40)
[2020-11-19 07:21] LABS: Glucose,Whole Blood 156 mg/dL (75-99)
[2020-11-19] MEDS ORDERED: PANTOPRAZOLE 40 MG TABLET PO SCH (07:30)
[2020-11-19 08:30] LABS: Basophils # (A) 0.01 X 10*3/uL (0.00-0.10); Basophils % (A) 0.2 %; Eosinophils # (A) 0 X 10*3/uL (0.04-0.35); Eosinophils % (A) 0 %; HCT 35.6 % (37.2-46.3); HGB 11.8 g/dL (12.0-15.0); Lymphocytes # (A) 0.38 X 10*3/uL (0.90-5.00); MCH 29.9 pg (27.0-32.0); MCHC 33.1 g/dL (32.0-37.0); MCV 90.1 fL (80.0-97.0); Monocytes # (A) 0.06 X 10*3/uL (0.20-1.00); Monocytes % (A) 1.3 %; Neutrophils # (A) 4.27 X 10*3/uL (1.80-7.70); Neutrophils % (A) 89.7 %; Platelet Count 271 X 10*3/uL (140-440); RBC 3.95 X 10*6/uL (4.10-5.20); RDW 15.5 % (11.5-14.5); WBC 4.76 X 10*3/uL (4.50-10.00)
[2020-11-19] MEDS ORDERED: AZITHROMYCIN 250 MG TAB PO SCH (09:00)
[2020-11-19] MEDS: LOSARTAN 50 MG TAB PO SCH (09:06)
[2020-11-19] MEDS: guaiFENesin 600 MG TABLET.ER PO SCH ×2 (09:06→20:49)
[2020-11-19] MEDS: IPRATROPIUM-ALBUTEROL 3 ML NEB INHALATION PRN ×4 (09:13→20:56)
[2020-11-19] MEDS: FORMOTEROL FUMARATE 20 MCG/2 ML NEBU INHALATION PRN ×2 (09:13→20:56)
[2020-11-19] MEDS: BUDESONIDE 0.5 MG/2 ML NEBU INHALATION PRN ×2 (09:13→20:56)
[2020-11-19 09:38] LABS: African American GFR (CKD) 96.9 (60.0-200.0); Albumin 4.4 g/dL (3.80-4.90); Albumin/Globulin Ratio 3.38 (1.60-3.17); Anion Gap 11.1 mmol/L (4.00-12.00); BUN/Creat Ratio 32.86 Ratio (12.00-20.00); Calcium 9.6 mg/dL (8.7-10.3); Carbon Dioxide 20.9 mmol/L (21.6-31.8); Globulin 1.3 g/dL (1.6-3.3); Non-African American GFR(CKD) 83.6 (60.0-200.0); Potassium 4.3 mmol/L (3.5-5.5); Total Bilirubin 0.3 mg/dL (0.3-1.2); Total Protein 5.7 g/dL (6.2-8.2)
[2020-11-19] MEDS: OXYBUTYNIN CHLORIDE 5 MG TAB PO SCH ×2 (10:07→20:50)
[2020-11-19] MEDS ORDERED: MORPHINE SULFATE 2 MG/ML SYRINGE IVP PRN (10:12)
[2020-11-19] MEDS: LIDOCAINE 5% PATCH TOPICAL SCH (10:36)
[2020-11-19] MEDS: IBUPROFEN 600 MG TAB PO PRN ×2 (10:36→16:37)
[2020-11-19 12:06] LABS: Glucose,Whole Blood 135 mg/dL (75-99)
[2020-11-19] MEDS ORDERED: BUTALB/APAP/CAFF 50-325-40MG TAB PO PRN (12:44)
--- NOTE | 2020-11-19 13:15 | P.PN ---
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 Butler in the pulmonary clinic, and a recent history of acute asthma exacerbation was treated on an outpatient basis by Dr. Butler with a combination of antibiotics, nebulized bronchodilators. Patient had steroids given by her PCP on an outpatient basis for the past 3 months for acute asthma exacerbation. Patient is completing a 7 day course of Bactrim DS, and so far she has taken 5 days worth of it. She states she still feels very short of breath, she has a congested cough, wheezing, but she denied any fever, no chills. Does have home O2 at 2 L at bedtime if needed. She was tested for COVID 19 and was found to be negative. She is on 2 L of oxygen currently with a pulse ox of 95%, she is afebrile. Patient has a history of pulmonary embolism diagnosed back in August 2018, and she completed a course of Eliquis. Not on any chronic anticoagulation, other medical history includes history of breast cancer, status post left lumpectomy with radiation therapy on letrozole, history of anxiety and depression, previous history of pneumonia, hyperlipidemia, former smoker. Chest x-ray in emergency department showed possible underlying pulmonary arterial hypertension, interstitial opacities with a possibility of bronchitis or chronic asthma, and more focal patchy densities in the periphery of the right upper lobe and left base that could represent atelectasis or developing infiltrate. Underlying moderate to large sized hiatal hernia. CTA chest showed a suboptimal study without evidence of acute pulmonary embolism, mild to moderate bibasilar scarring, scattered mild peripheral reticular fibrotic changes. Persistent cardiomegaly with new lower lung mucous plugging. Patient was started on azithromycin and Rocephin, nebulized bronchodilators, IV steroids, and she is awaiting a bed for medical surgical floor. On 11/19/2020 patient seen in follow-up on medical surgical floor, she still bronchospastic, dyspneic, but overall feeling a little bit better since yesterday, she remains on Rocephin and azithromycin for possibility of pneumonia however based on her low AT the level likelihood of pneumonia is unlikely. She remains on IV steroids in the form of Solu-Medrol 60 mg every 6 hours, she is on 2 L of oxygen pulse ox is 96%, she's had no fever or chills. Today's labs have been reviewed, showing Levaquin 4.76, hemoglobin is 11.8, electrolytes and renal profile were unremarkable Objective - Vital Signs Vital signs: Vital Signs Temp 97.9 F 11/19/20 08:00 Pulse 106 H 11/19/20 12:47 Resp 18 11/19/20 12:47 BP 135/80 11/19/20 08:00 Pulse Ox 96 11/19/20 09:13 Intake & Output 11/18/20 11/19/20 11/19/20 18:59 06:59 18:59 Intake Total 118 Balance 118 Weight 95.254 kg Intake: Oral 118 Other: Voiding Method Toilet Toilet # Voids 1 - Exam GENERAL EXAM: Alert, very pleasant, 75-year-old white female, on 2 L of oxygen with pulse ox of 96%, with congested cough comfortable in no apparent distress. HEAD: Normocephalic/atraumatic. EYES: Normal reaction of pupils, equal size. Conjunctiva pink, sclera white. NOSE: Clear with pink turbinates. THROAT: No erythema or exudates. NECK: No masses, no JVD, no thyroid enlargement, no adenopathy. CHEST: No chest wall deformity. Symmetrical expansion. LUNGS: Equal air entry with scattered rhonchi and wheezing CVS: Regular rate and rhythm, normal S1 and S2, no gallops, no murmurs, no rubs ABDOMEN: Soft, nontender. No hepatosplenomegaly, normal bowel sounds, no guarding or rigidity. EXTREMITIES: No clubbing, no edema, no cyanosis, 2+ pulses and upper and lower extremities. MUSCULOSKELETAL: Muscle strength and tone normal. SPINE: No scoliosis or deformity SKIN: No rashes CENTRAL NERVOUS SYSTEM: Alert and oriented -3. No focal deficits, tone is normal in all 4 extremities. PSYCHIATRIC: Alert and oriented -3. Appropriate affect. Intact judgment and insight. - Labs CBC & Chem 7: 11/19/20 05:10 11/19/20 05:10 Labs: Abnormal Lab Results - Last 24 Hours (Table) 11/18/20 11/19/20 11/19/20 Range/Units 18:21 05:10 05:10 RBC 3.95 L (4.10-5.20) X 10*6/uL Hgb 11.8 L (12.0-15.0) g/dL Hct 35.6 L (37.2-46.3) % RDW 15.5 H (11.5-14.5) % Lymphocytes # 0.38 L (0.90-5.00) X 10*3/uL Monocytes # 0.06 L (0.20-1.00) X 10*3/uL Eosinophils # 0 L (0.04-0.35) X 10*3/uL Carbon Dioxide 20.9 L (21.6-31.8) mmol/L BUN/Creatinine Ratio 32.86 H (12.00-20.00) Ratio Glucose 147 H (70-110) mg/dL POC Glucose (mg/dL) 194 H (75-99) mg/dL Total Protein 5.7 L (6.2-8.2) g/dL Globulin 1.3 L (1.6-3.3) g/dL Albumin/Globulin Ratio 3.38 H (1.60-3.17) g/dL 11/19/20 11/19/20 Range/Units 07:19 12:05 RBC (4.10-5.20) X 10*6/uL Hgb (12.0-15.0) g/dL Hct (37.2-46.3) % RDW (11.5-14.5) % Lymphocytes # (0.90-5.00) X 10*3/uL Monocytes # (0.20-1.00) X 10*3/uL Eosinophils # (0.04-0.35) X 10*3/uL Carbon Dioxide (21.6-31.8) mmol/L BUN/Creatinine Ratio (12.00-20.00) Ratio Glucose (70-110) mg/dL POC Glucose (mg/dL) 156 H 135 H (75-99) mg/dL Total Protein (6.2-8.2) g/dL Globulin (1.6-3.3) g/dL Albumin/Globulin Ratio (1.60-3.17) g/dL Assessment and Plan Plan: Assessment: #1. Acute hypoxic respiratory failure related to acute exacerbation of severe persistent bronchial asthma and purulent tracheobronchitis, CTA chest rule out possibility of pulmonary embolism, it did show bibasilar areas of scarring, possibility of pneumonia ruled out based on the local calcitonin level #2. Tracheobronchitis with failure of outpatient treatment #3. Elevated d-dimer, CT chest was negative for pulmonary embolism #4. Severe persistent bronchial asthma on home oxygen at 2 L on as-needed basis #5. History of tracheobronchomalacia #6. History of left breast cancer with lumpectomy and radiation and let her's [place] #7. History of pulmonary embolism in 2018, completed a course of Eliquis, currently not on any chronic anticoagulation #8. History of hyperlipidemia #9. This history of pneumonia #10. Former smoker Plan: We'll discontinue the azithromycin, continue with Rocephin for another 24 hours, continue same dose IV steroids and breathing treatments, pro-calcitonin level came back low making the possibility of pneumonia is likely. Overall patient is improving, breathing easier, increase activity as tolerated. We'll continue to follow I performed a history & physical examination of the patient and discussed their management with my nurse practitioner, Cherri Taylor. I reviewed the nurse practitioner's note and agree with the documented findings and plan of care. Lung sounds are positive for diffuse wheezes throughout the lung moura. The findings and the impression was discussed with the patient. I attest to the documentation by the nurse practitioner. Time with Patient: Less than 30
--- NOTE | 2020-11-19 14:03 | P.PN ---
Subjective Progress Note Date: 11/19/20 HISTORY OF PRESENT ILLNESS This is a 75 [address] old patient of Dr. Myrick with past medical history of hypertension and hypertensive cardiovascular disease, hyperlipidemia, history of asthma follows Dr. Hernández, history of tracheobronchomalacia, GERD, hiatal hernia, history of breast cancer status post left lumpectomy with radiation therapy on letrozole, history of anxiety and depression on with history of a bilateral subsegmental pulmonary embolism on 12/2017, last admitted on 11/17/2018 for asthma exacerbation who comes in with worsening shortness of breath and cough with sputum production for the past 2-1/2 weeks. Patient did see pulmonary as outpatient and was started on Bactrim but Dr. Butler. Since there was no improvement in patient's symptoms patient decided to come to the ER. Assessment today patient's found to be coughing and having to take deep breath while at rest. Patient has been doing at home nebulizer treatment without any improvement. She does use 2 L of oxygen at home and at bedtime. On evaluation in the ER patient temp is 98.4 pulse 88 respiratory rate 18 blood pressure 118/75 and Esgic and saturating at 95% on 2 L patient d-dimer is marginally elevated 0.93 WBC is normal INR 0.9 CMP normal troponin 1 normal proBNP 102, rotavirus was negative. CTA was negative for acute PE mild to moderate bibasilar scarring and atelectasis changes seen scattered mild peripheral reticular fibrotic changes were noted persistent cardiomegaly with new lower lung mucous plugging noted with possible bronchiolitis. Patient initiated on Rocephin and azithromycin and Solu-Medrol site is 60 IV every 6 hours with consult from pulmonary. REVIEW OF SYSTEMS Constitutional: No fever, no chills, no night sweats. No weight change. No weakness, fatigue or lethargy. No daytime sleepiness. EENT: No headache. No blurred vision or double vision, no loss of vision. No loss of Hearing, no ringing in the ears, no dizziness. No nasal drainage or congestion. No epistaxis. No sore throat. Lungs: Reports congestion, cough with sputum production, dyspnea, home oxygen, wheezing. Cardiovascular: No chest pain, no lower extremity edema. No palpitations. No paroxysmal nocturnal dyspnea. No orthopnea. No lightheadedness or dizziness. No syncopal episodes. Abdominal: No abdominal pain. No nausea, vomiting. No diarrhea. No constipation. No bloody or tarry stools.. No loss of appetite. Genitourinary: No dysuria, increased frequency, urgency. No urinary retention. Musculoskeletal: No myalgias. No muscle weakness, no gait dysfunction, no frequent falls. No back pain. No neck pain. Integumentary: No wounds, no lesions. No rash or pruritus. No unusual bruising. No change in hair or nails. Neurologic: No aphasia. No facial droop. No change in mentation. No head injury. No headache. No paralysis. No paresthesia. Psychiatric: No depression. No anxiety. No mood swings. Endocrine: No abnormal blood sugars. No weight change. No excessive sweating or thirst. No cold intolerance. PHYSICAL EXAMINATION Gen: This is a 75-year-old female. Patient is resting on the edge of the bed and appears comfortable and in no acute distress. Note to respiratory distress noted. HEENT: Head is atraumatic, normocephalic. Pupils equal, round. Sclerae is anicteric. NECK: Supple. No JVD. No lymphadenopathy. No thyromegaly. LUNGS: Diminished bilaterally with wheezing. No intercostal retractions. HEART: Regular rate and rhythm. No murmur. ABDOMEN: Soft. Bowel sounds are present. No masses. No tenderness. EXTREMITIES: No pedal edema. No calf tenderness. NEUROLOGICAL: Patient is awake, alert and oriented x3. Cranial nerves 2 through 12 are grossly intact. ASSESSMENT AND PLAN #1 acute respiratory insufficiency secondary secondary to acute asthma exacerbation and acute tracheal bronchitis. Continue Solu-Medrol started at 60 IV every 6 hours continue DuoNeb as needed for shortness of breath, continue Pulmicort 0.5 twice a day and Perforomist twice daily. Continue oxygen as needed. Pulmonary consultation appreciated. Continue Singulair 10 mg at bedtime. Mucinex 600 every 12 hours. #2 history of breast cancer status post left lumpectomy with radiation therapy continue letrozole 2.5 mg once every day #3 hypertension continue losartan 25 mg once daily #4 steroid-induced hyperglycemia continue insulin insulin sliding scale #5 hyperlipidemia continue simvastatin 20 mg at bedtime #6 history of pulmonary embolism CTA negative for PE. Patient was on eliqus 5 mg twice a day for 6 months #7 GERD with hiatal hernia continue Prilosec at 40 mg oral daily #8 history of compression fracture of thoracic spine pain control #9 history of depression and anxiety continue Paxil 10 mg at bedtime. #10 history of osteoporosis on Fosamax hold while patient is in the hospital #11 DVT prophylaxis heparin every 12 #12 GI prophylaxis with Prilosec 40 mg daily #13 CODE STATUS full code DISCHARGE PLAN Return home. Impression and plan of care have been directed as dictated by the signing physician. Julieta Wynn nurse practitioner acting as scribe for signing physician. Objective - Vital Signs Vital signs: Vital Signs Temp 97.9 F 11/19/20 08:00 Pulse 108 H 11/19/20 09:32 Resp 20 11/19/20 09:32 BP 135/80 11/19/20 08:00 Pulse Ox 96 11/19/20 09:13 Intake & Output 11/18/20 11/19/20 11/19/20 18:59 06:59 18:59 Intake Total 118 Balance 118 Weight 95.254 kg Intake: Oral 118 Other: Voiding Method Toilet # Voids 1 - Labs CBC & Chem 7: 11/19/20 05:10 11/19/20 05:10 Labs: Abnormal Lab Results - Last 24 Hours (Table) 11/18/20 11/18/20 11/18/20 Range/Units 10:20 10:20 10:20 RBC (4.10-5.20) X 10*6/uL Hgb (12.0-15.0) g/dL Hct (37.2-46.3) % RDW (11.5-14.5) % Lymphocytes # 0.8 L (1.0-4.8) k/uL Monocytes # (0.20-1.00) X 10*3/uL Eosinophils # (0.04-0.35) X 10*3/uL D-Dimer 0.93 H (<0.60) mg/L FEU Carbon Dioxide (21.6-31.8) mmol/L BUN/Creatinine Ratio (12.00-20.00) Ratio Glucose 100 H (74-99) mg/dL POC Glucose (mg/dL) (75-99) mg/dL Total Protein (6.2-8.2) g/dL Globulin (1.6-3.3) g/dL Albumin/Globulin Ratio (1.60-3.17) g/dL 11/18/20 11/19/20 11/19/20 Range/Units 18:21 05:10 05:10 RBC 3.95 L (4.10-5.20) X 10*6/uL Hgb 11.8 L (12.0-15.0) g/dL Hct 35.6 L (37.2-46.3) % RDW 15.5 H (11.5-14.5) % Lymphocytes # 0.38 L (1.0-4.8) k/uL Monocytes # 0.06 L (0.20-1.00) X 10*3/uL Eosinophils # 0 L (0.04-0.35) X 10*3/uL D-Dimer (<0.60) mg/L FEU Carbon Dioxide 20.9 L (21.6-31.8) mmol/L BUN/Creatinine Ratio 32.86 H (12.00-20.00) Ratio Glucose 147 H (74-99) mg/dL POC Glucose (mg/dL) 194 H (75-99) mg/dL Total Protein 5.7 L (6.2-8.2) g/dL Globulin 1.3 L (1.6-3.3) g/dL Albumin/Globulin Ratio 3.38 H (1.60-3.17) g/dL 11/19/20 Range/Units 07:19 RBC (4.10-5.20) X 10*6/uL Hgb (12.0-15.0) g/dL Hct (37.2-46.3) % RDW (11.5-14.5) % Lymphocytes # (1.0-4.8) k/uL Monocytes # (0.20-1.00) X 10*3/uL Eosinophils # (0.04-0.35) X 10*3/uL D-Dimer (<0.60) mg/L FEU Carbon Dioxide (21.6-31.8) mmol/L BUN/Creatinine Ratio (12.00-20.00) Ratio Glucose (74-99) mg/dL POC Glucose (mg/dL) 156 H (75-99) mg/dL Total Protein (6.2-8.2) g/dL Globulin (1.6-3.3) g/dL Albumin/Globulin Ratio (1.60-3.17) g/dL
[2020-11-19 16:51] LABS: Glucose,Whole Blood 165 mg/dL (75-99)
[2020-11-19] MEDS: PANTOPRAZOLE 40 MG TABLET PO SCH (17:39)
[2020-11-19 20:18] LABS: Glucose,Whole Blood 136 mg/dL (75-99)
[2020-11-19] MEDS: ATORVASTATIN 10 MG TAB PO SCH (20:49)
[2020-11-19] MEDS: PARoxetine 10 MG TAB PO SCH (20:50)
[2020-11-19] MEDS: MONTELUKAST 10 MG TAB PO SCH (20:50)
[2020-11-19] MEDS: MELATONIN 5 MG TABLET PO SCH (20:50)
[2020-11-19] MEDS: LETROZOLE 2.5 MG TAB PO SCH (21:34)
[2020-11-20] MEDS: methylPREDNISolone SOD SUCCI 125 MG/2 ML VIAL IV SCH ×5 (01:10→23:54)
[2020-11-20] MEDS: IPRATROPIUM-ALBUTEROL 3 ML NEB INHALATION PRN ×5 (04:02→21:37)
[2020-11-20] MEDS: IBUPROFEN 600 MG TAB PO PRN ×3 (04:19→21:37)
[2020-11-20 07:34] LABS: Glucose,Whole Blood 139 mg/dL (75-99)
[2020-11-20] MEDS: LOSARTAN 50 MG TAB PO SCH (07:37)
[2020-11-20] MEDS: PANTOPRAZOLE 40 MG TABLET PO SCH ×2 (07:37→17:25)
[2020-11-20] MEDS: guaiFENesin 600 MG TABLET.ER PO SCH ×2 (07:37→20:52)
[2020-11-20] MEDS: OXYBUTYNIN CHLORIDE 5 MG TAB PO SCH ×2 (07:38→21:33)
[2020-11-20] MEDS: FORMOTEROL FUMARATE 20 MCG/2 ML NEBU INHALATION PRN (09:02)
[2020-11-20] MEDS: BUDESONIDE 0.5 MG/2 ML NEBU INHALATION PRN ×2 (09:02→21:36)
[2020-11-20] MEDS: INSULIN ASPART (NovoLOG) 100 UNIT/ML VIAL SQ SCH ×4 (09:13→20:52)
[2020-11-20 10:26] LABS: Basophils # (A) 0.01 X 10*3/uL (0.00-0.10); Basophils % (A) 0.1 %; Eosinophils # (A) 0 X 10*3/uL (0.04-0.35); Eosinophils % (A) 0 %; HCT 35.2 % (37.2-46.3); HGB 11.3 g/dL (12.0-15.0); Lymphocytes % (A) 1.8 %; MCH 29.7 pg (27.0-32.0); MCHC 32.1 g/dL (32.0-37.0); MCV 92.4 fL (80.0-97.0); Monocytes # (A) 0.37 X 10*3/uL (0.20-1.00); Monocytes % (A) 3.3 %; Neutrophils # (A) 10.47 X 10*3/uL (1.80-7.70); Neutrophils % (A) 94.2 %; Platelet Count 269 X 10*3/uL (140-440); RBC 3.81 X 10*6/uL (4.10-5.20); RDW 15.9 % (11.5-14.5); WBC 11.12 X 10*3/uL (4.50-10.00)
[2020-11-20] MEDS: LIDOCAINE 5% PATCH TOPICAL SCH (10:43)
[2020-11-20] MEDS ORDERED: DOCUSATE 100 MG CAP PO PRN (11:02)
[2020-11-20 11:07] LABS: African American GFR (CKD) 82.4 (60.0-200.0); Albumin 4.4 g/dL (3.80-4.90); Albumin/Globulin Ratio 3.14 (1.60-3.17); Anion Gap 12.2 mmol/L (4.00-12.00); BUN/Creat Ratio 38.75 Ratio (12.00-20.00); Calcium 9.6 mg/dL (8.7-10.3); Carbon Dioxide 21.8 mmol/L (21.6-31.8); Globulin 1.4 g/dL (1.6-3.3); Non-African American GFR(CKD) 71.1 (60.0-200.0); Potassium 4.2 mmol/L (3.5-5.5); Total Bilirubin 0.4 mg/dL (0.2-1.2); Total Protein 5.8 g/dL (6.2-8.2)
[2020-11-20 11:45] LABS: Glucose,Whole Blood 141 mg/dL (75-99)
--- NOTE | 2020-11-20 13:23 | P.PN ---
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 Butler in the pulmonary clinic, and a recent history of acute asthma exacerbation was treated on an outpatient basis by Dr. Butler with a combination of antibiotics, nebulized bronchodilators. Patient had steroids given by her PCP on an outpatient basis for the past 3 months for acute asthma exacerbation. Patient is completing a 7 day course of Bactrim DS, and so far she has taken 5 days worth of it. She states she still feels very short of breath, she has a congested cough, wheezing, but she denied any fever, no chills. Does have home O2 at 2 L at bedtime if needed. She was tested for COVID 19 and was found to be negative. She is on 2 L of oxygen currently with a pulse ox of 95%, she is afebrile. Patient has a history of pulmonary embolism diagnosed back in August 2018, and she completed a course of Eliquis. Not on any chronic anticoagulation, other medical history includes history of breast cancer, status post left lumpectomy with radiation therapy on letrozole, history of anxiety and depression, previous history of pneumonia, hyperlipidemia, former smoker. Chest x-ray in emergency department showed possible underlying pulmonary arterial hypertension, interstitial opacities with a possibility of bronchitis or chronic asthma, and more focal patchy densities in the periphery of the right upper lobe and left base that could represent atelectasis or developing infiltrate. Underlying moderate to large sized hiatal hernia. CTA chest showed a suboptimal study without evidence of acute pulmonary embolism, mild to moderate bibasilar scarring, scattered mild peripheral reticular fibrotic changes. Persistent cardiomegaly with new lower lung mucous plugging. Patient was started on azithromycin and Rocephin, nebulized bronchodilators, IV steroids, and she is awaiting a bed for medical surgical floor. On 11/19/2020 patient seen in follow-up on medical surgical floor, she still bronchospastic, dyspneic, but overall feeling a little bit better since yesterday, she remains on Rocephin and azithromycin for possibility of pneumonia however based on her low AT the level likelihood of pneumonia is unlikely. She remains on IV steroids in the form of Solu-Medrol 60 mg every 6 hours, she is on 2 L of oxygen pulse ox is 96%, she's had no fever or chills. Today's labs have been reviewed, showing Levaquin 4.76, hemoglobin is 11.8, electrolytes and renal profile were unremarkable On 11/20/2020 patient seen in follow-up on medical surgical floor, she is sounding and doing significantly better, breathing easier, minimal weakness, she is on 2 L of oxygen pulse ox of 97%, she is afebrile, she stated she had a coughing episode last night, she was given a breathing treatments, it subsided. she continues on Solu-Medrol 60 every 6, breathing treatments, Pulmicort, Perforomist, and Mucinex in addition to Rocephin. She is afebrile. No chest pain or tightness, she is awake and alert, no altered mentation, no fever or chills. Sputum culture has been sent and is pending Objective - Vital Signs Vital signs: Vital Signs Temp 98.0 F 11/20/20 07:34 Pulse 110 H 11/20/20 12:20 Resp 18 11/20/20 12:20 BP 142/85 11/20/20 07:34 Pulse Ox 97 11/20/20 09:02 Intake & Output 11/19/20 11/20/20 11/20/20 18:59 06:59 18:59 Intake Total 698 300 Balance 698 300 Intake: Oral 698 300 Other: Voiding Method Toilet Toilet Toilet # Voids 1 - Exam GENERAL EXAM: Alert, very pleasant, 75-year-old white female, on 2 L of oxygen with pulse ox of 96%, with congested cough comfortable in no apparent distress. HEAD: Normocephalic/atraumatic. EYES: Normal reaction of pupils, equal size. Conjunctiva pink, sclera white. NOSE: Clear with pink turbinates. THROAT: No erythema or exudates. NECK: No masses, no JVD, no thyroid enlargement, no adenopathy. CHEST: No chest wall deformity. Symmetrical expansion. LUNGS: Equal air entry with scattered rhonchi and wheezing CVS: Regular rate and rhythm, normal S1 and S2, no gallops, no murmurs, no rubs ABDOMEN: Soft, nontender. No hepatosplenomegaly, normal bowel sounds, no guarding or rigidity. EXTREMITIES: No clubbing, no edema, no cyanosis, 2+ pulses and upper and lower extremities. MUSCULOSKELETAL: Muscle strength and tone normal. SPINE: No scoliosis or deformity SKIN: No rashes CENTRAL NERVOUS SYSTEM: Alert and oriented -3. No focal deficits, tone is normal in all 4 extremities. PSYCHIATRIC: Alert and oriented -3. Appropriate affect. Intact judgment and insight. - Labs CBC & Chem 7: 11/20/20 05:45 11/20/20 05:45 Labs: Abnormal Lab Results - Last 24 Hours (Table) 11/19/20 11/19/20 11/20/20 Range/Units 16:50 20:16 05:45 WBC 11.12 H (4.50-10.00) X 10*3/uL RBC 3.81 L (4.10-5.20) X 10*6/uL Hgb 11.3 L (12.0-15.0) g/dL Hct 35.2 L (37.2-46.3) % RDW 15.9 H (11.5-14.5) % Immature Gran # 0.07 H (0.00-0.04) X 10*3/uL Neutrophils # 10.47 H (1.80-7.70) X 10*3/uL Lymphocytes # 0.20 L (0.90-5.00) X 10*3/uL Eosinophils # 0 L (0.04-0.35) X 10*3/uL Anion Gap (4.00-12.00) mmol/L BUN (9.0-27.0) mg/dL BUN/Creatinine Ratio (12.00-20.00) Ratio Glucose (70-110) mg/dL POC Glucose (mg/dL) 165 H 136 H (75-99) mg/dL Total Protein (6.2-8.2) g/dL Globulin (1.6-3.3) g/dL 11/20/20 11/20/20 11/20/20 Range/Units 05:45 07:32 11:44 WBC (4.50-10.00) X 10*3/uL RBC (4.10-5.20) X 10*6/uL Hgb (12.0-15.0) g/dL Hct (37.2-46.3) % RDW (11.5-14.5) % Immature Gran # (0.00-0.04) X 10*3/uL Neutrophils # (1.80-7.70) X 10*3/uL Lymphocytes # (0.90-5.00) X 10*3/uL Eosinophils # (0.04-0.35) X 10*3/uL Anion Gap 12.20 H (4.00-12.00) mmol/L BUN 31.0 H (9.0-27.0) mg/dL BUN/Creatinine Ratio 38.75 H (12.00-20.00) Ratio Glucose 145 H (70-110) mg/dL POC Glucose (mg/dL) 139 H 141 H (75-99) mg/dL Total Protein 5.8 L (6.2-8.2) g/dL Globulin 1.4 L (1.6-3.3) g/dL Microbiology - Last 24 Hours (Table) 11/19/20 09:20 Gram Stain - Preliminary Sputum Sputum Culture - Preliminary Assessment and Plan Plan: Assessment: #1. Acute hypoxic respiratory failure related to acute exacerbation of severe persistent bronchial asthma and purulent tracheobronchitis, CTA chest rule out possibility of pulmonary embolism, it did show bibasilar areas of scarring, possibility of pneumonia ruled out based on low pro-calcitonin level #2. Tracheobronchitis with failure of outpatient treatment #3. Elevated d-dimer, CT chest was negative for pulmonary embolism #4. Severe persistent bronchial asthma on home oxygen at 2 L on as-needed basis #5. History of tracheobronchomalacia #6. History of left breast cancer with lumpectomy and radiation and let her's [place] #7. History of pulmonary embolism in 2018, completed a course of Eliquis, currently not on any chronic anticoagulation #8. History of hyperlipidemia #9. history of pneumonia #10. Former smoker Plan: Continue current medical treatment, continue IV steroids, nebulized bronchodilators, and antibiotics, vital signs are stable, patient is breathing easier, from pulmonary perspective she can be considered for discharge home when cleared by medicine or next 24-48 hours I performed a history & physical examination of the patient and discussed their management with my nurse practitioner, Cherri Taylor. I reviewed the nurse practitioner's note and agree with the documented findings and plan of care. Lung sounds are positive for diffuse wheezes throughout the lung moura. The findings and the impression was discussed with the patient. I attest to the documentation by the nurse practitioner. Time with Patient: Less than 30
--- NOTE | 2020-11-20 13:58 | P.PN ---
Subjective Progress Note Date: 11/20/20 HISTORY OF PRESENT ILLNESS This is a 75 [address] old patient of Dr. Myrick with past medical history of hypertension and hypertensive cardiovascular disease, hyperlipidemia, history of asthma follows Dr. Hernández, history of tracheobronchomalacia, GERD, hiatal hernia, history of breast cancer status post left lumpectomy with radiation therapy on letrozole, history of anxiety and depression on with history of a bilateral subsegmental pulmonary embolism on 12/2017, last admitted on 11/17/2018 for asthma exacerbation who comes in with worsening shortness of breath and cough with sputum production for the past 2-1/2 weeks. Patient did see pulmonary as outpatient and was started on Bactrim but Dr. Butler. Since there was no improvement in patient's symptoms patient decided to come to the ER. Assessment today patient's found to be coughing and having to take deep breath while at rest. Patient has been doing at home nebulizer treatment without any improvement. She does use 2 L of oxygen at home and at bedtime. On evaluation in the ER patient temp is 98.4 pulse 88 respiratory rate 18 blood pressure 118/75 and Esgic and saturating at 95% on 2 L patient d-dimer is marginally elevated 0.93 WBC is normal INR 0.9 CMP normal troponin 1 normal proBNP 102, rotavirus was negative. CTA was negative for acute PE mild to moderate bibasilar scarring and atelectasis changes seen scattered mild peripheral reticular fibrotic changes were noted persistent cardiomegaly with new lower lung mucous plugging noted with possible bronchiolitis. Patient initiated on Rocephin and azithromycin and Solu-Medrol site is 60 IV every 6 hours with consult from pulmonary. 11/20: She continues to have tightness and weakness with minimal improvement from yesterday. She states she had a spell during the night where she required a nebulizer treatment stat. She has complained of constipation today. She is continued on Solu-Medrol 60 mg IV every 6 hours. Patient has been afebrile, h eart rate 104, blood pressure 142/85 and pulse ox 94% on 2 L nasal cannula. Repeat blood work reveals WBC 11.12. Hemoglobin 11.3. BUN 31 and creatinine 0.8. Blood sugars running between 136 145. Sputum culture is in progress. REVIEW OF SYSTEMS Constitutional: No fever, no chills, no night sweats. No weight change. No weakness, fatigue or lethargy. No daytime sleepiness. EENT: No headache. No blurred vision or double vision, no loss of vision. No loss of Hearing, no ringing in the ears, no dizziness. No nasal drainage or congestion. No epistaxis. No sore throat. Lungs: Reports congestion, reports cough with sputum production, dyspnea, reports home oxygen, reports wheezing. Cardiovascular: No chest pain, no lower extremity edema. No palpitations. No paroxysmal nocturnal dyspnea. No orthopnea. No lightheadedness or dizziness. No syncopal episodes. Abdominal: No abdominal pain. No nausea, vomiting. No diarrhea. No constipation. No bloody or tarry stools.. No loss of appetite. Genitourinary: No dysuria, increased frequency, urgency. No urinary retention. Musculoskeletal: No myalgias. No muscle weakness, no gait dysfunction, no frequent falls. No back pain. No neck pain. Integumentary: No wounds, no lesions. No rash or pruritus. No unusual bruising. No change in hair or nails. Neurologic: No aphasia. No facial droop. No change in mentation. No head injury. No headache. No paralysis. No paresthesia. Psychiatric: No depression. No anxiety. No mood swings. Endocrine: No abnormal blood sugars. No weight change. No excessive sweating or thirst. No cold intolerance. PHYSICAL EXAMINATION Gen: This is a 75-year-old female. Patient is resting on the edge of the bed and appears comfortable and in no acute distress. No respiratory distress noted. HEENT: Head is atraumatic, normocephalic. Pupils equal, round. Sclerae is anicteric. NECK: Supple. No JVD. No lymphadenopathy. No thyromegaly. LUNGS: Diminished bilaterally with wheezing. No intercostal retractions. HEART: Regular rate and rhythm. No murmur. ABDOMEN: Soft. Bowel sounds are present. No masses. No tenderness. EXTREMITIES: No pedal edema. No calf tenderness. NEUROLOGICAL: Patient is awake, alert and oriented x3. Cranial nerves 2 through 12 are grossly intact. ASSESSMENT AND PLAN #1 acute respiratory insufficiency secondary to acute asthma exacerbation and acute tracheal bronchitis. Continue Solu-Medrol started at 60 IV every 6 hours continue DuoNeb as needed for shortness of breath, continue Pulmicort 0.5 twice a day and Perforomist twice daily, Perforomist twice daily. Continue oxygen as needed. Pulmonary consultation appreciated. Continue Singulair 10 mg at bedtime. Mucinex 600 every 12 hours. #2 history of breast cancer status post left lumpectomy with radiation therapy continue letrozole 2.5 mg once every day #3 hypertension continue losartan 25 mg once daily #4 steroid-induced hyperglycemia continue insulin insulin sliding scale #5 hyperlipidemia continue simvastatin 20 mg at bedtime #6 history of pulmonary embolism CTA negative for PE. Patient was on eliqus 5 mg twice a day for 6 months #7 GERD with hiatal hernia continue Prilosec at 40 mg oral daily #8 history of compression fracture of thoracic spine pain control #9 history of depression and anxiety continue Paxil 10 mg at bedtime. #10 history of osteoporosis on Fosamax hold while patient is in the hospital #11 DVT prophylaxis heparin every 12 #12 GI prophylaxis with Prilosec 40 mg daily #13 CODE STATUS full code DISCHARGE PLAN Return home. Impression and plan of care have been directed as dictated by the signing physician. Julieta Wynn nurse practitioner acting as scribe for signing physician. Objective - Vital Signs Vital signs: Vital Signs Temp 98.2 F 11/20/20 02:00 Pulse 100 11/20/20 04:13 Resp 16 11/20/20 02:00 BP 145/79 11/20/20 02:00 Pulse Ox 94 L 11/20/20 02:00 Intake & Output 11/19/20 11/20/20 11/20/20 18:59 06:59 18:59 Intake Total 698 Balance 698 Intake: Oral 698 Other: Voiding Method Toilet Toilet # Voids 1 - Labs CBC & Chem 7: 11/20/20 05:45 11/20/20 05:45 Labs: Abnormal Lab Results - Last 24 Hours (Table) 11/19/20 11/19/20 11/19/20 Range/Units 05:10 12:05 16:50 Carbon Dioxide 20.9 L (21.6-31.8) mmol/L BUN/Creatinine Ratio 32.86 H (12.00-20.00) Ratio Glucose 147 H (70-110) mg/dL POC Glucose (mg/dL) 135 H 165 H (75-99) mg/dL Total Protein 5.7 L (6.2-8.2) g/dL Globulin 1.3 L (1.6-3.3) g/dL Albumin/Globulin Ratio 3.38 H (1.60-3.17) g/dL 11/19/20 11/20/20 Range/Units 20:16 07:32 Carbon Dioxide (21.6-31.8) mmol/L BUN/Creatinine Ratio (12.00-20.00) Ratio Glucose (70-110) mg/dL POC Glucose (mg/dL) 136 H 139 H (75-99) mg/dL Total Protein (6.2-8.2) g/dL Globulin (1.6-3.3) g/dL Albumin/Globulin Ratio (1.60-3.17) g/dL Microbiology - Last 24 Hours (Table) 11/19/20 09:20 Gram Stain - Preliminary Sputum Sputum Culture - Preliminary
[2020-11-20 17:22] LABS: Glucose,Whole Blood 128 mg/dL (75-99)
[2020-11-20 20:43] LABS: Glucose,Whole Blood 195 mg/dL (75-99)
[2020-11-20] MEDS: ATORVASTATIN 10 MG TAB PO SCH (20:52)
[2020-11-20] MEDS: MELATONIN 5 MG TABLET PO SCH (20:52)
[2020-11-20] MEDS: MONTELUKAST 10 MG TAB PO SCH (20:52)
[2020-11-20] MEDS: PARoxetine 10 MG TAB PO SCH (21:33)
[2020-11-20] MEDS: LETROZOLE 2.5 MG TAB PO SCH (21:33)
[2020-11-21] MEDS: methylPREDNISolone SOD SUCCI 125 MG/2 ML VIAL IV SCH (05:32)
[2020-11-21] MEDS: IBUPROFEN 600 MG TAB PO PRN (05:36)
[2020-11-21] MEDS: IPRATROPIUM-ALBUTEROL 3 ML NEB INHALATION PRN (07:33)
[2020-11-21] MEDS: BUDESONIDE 0.5 MG/2 ML NEBU INHALATION PRN (07:33)
[2020-11-21] MEDS: FORMOTEROL FUMARATE 20 MCG/2 ML NEBU INHALATION PRN (07:33)
[2020-11-21 07:50] LABS: Glucose,Whole Blood 128 mg/dL (75-99)
[2020-11-21] MEDS: INSULIN ASPART (NovoLOG) 100 UNIT/ML VIAL SQ SCH (07:59)
[2020-11-21] MEDS: OXYBUTYNIN CHLORIDE 5 MG TAB PO SCH (08:00)
[2020-11-21] MEDS: PANTOPRAZOLE 40 MG TABLET PO SCH (08:00)
[2020-11-21] MEDS: LOSARTAN 50 MG TAB PO SCH (08:01)
[2020-11-21] MEDS: LIDOCAINE 5% PATCH TOPICAL SCH (08:01)
[2020-11-21] MEDS: guaiFENesin 600 MG TABLET.ER PO SCH (08:01)
--- NOTE | 2020-11-21 08:35 | P.DS ---
Providers Date of admission: 11/18/20 11:56 Expected date of discharge: 11/21/20 Attending physician: Fracisco Gallo MD Consults: 11/18/20 13:09 Consult Physician Urgent Consulting Provider: Clare Ayon Consult Reason/Comments: Asthma exacerbation Do you want consulting provider notified?: Yes Primary care physician: [facility] Course: HISTORY OF PRESENT ILLNESS This is a [address] patient of Dr[address] Myrick with past medical history of hypertension and hypertensive cardiovascular disease, hyperlipidemia, history of asthma follows Dr. Hernández, history of tracheobronchomalacia, GERD, hiatal hernia, history of breast cancer status post left lumpectomy with radiation therapy on letrozole, history of anxiety and depression on with history of a bilateral subsegmental pulmonary embolism on 12/2017, last admitted on 11/17/2018 for asthma exacerbation who comes in with worsening shortness of breath and cough with sputum production for the past 2-1/2 weeks. Patient did see pulmonary as outpatient and was started on Bactrim but Dr. Butler. Since there was no improvement in patient's symptoms patient decided to come to the ER. Assessment today patient's found to be coughing and having to take deep breath while at rest. Patient has been doing at home nebulizer treatment without any improvement. She does use 2 L of oxygen at home and at bedtime. On evaluation in the ER patient temp is 98.4 pulse 88 respiratory rate 18 blood pressure 118/75 and Esgic and saturating at 95% on 2 L patient d-dimer is marginally elevated 0.93 WBC is normal INR 0.9 CMP normal troponin 1 normal proBNP 102, rotavirus was negative. CTA was negative for acute PE mild to moderate bibasilar scarring and atelectasis changes seen scattered mild peripheral reticular fibrotic changes were noted persistent cardiomegaly with new lower lung mucous plugging noted with possible bronchiolitis. Patient initiated on Rocephin and azithromycin and Solu-Medrol site is 60 IV every 6 hours with consult from pulmonary. 11/20: She continues to have tightness and weakness with minimal improvement from yesterday. She states she had a spell during the night where she required a nebulizer treatment stat. She has complained of constipation today. She is continued on Solu-Medrol 60 mg IV every 6 hours. Patient has been afebrile, heart rate 104, blood pressure 142/85 and pulse ox 94% on 2 L nasal cannula. Repeat blood work reveals WBC 11.12. Hemoglobin 11.3. BUN 31 and creatinine 0.8. Blood sugars running between 136 145. Sputum culture is in progress. 11/21: The patient is currently on Solu-Medrol 60 mg IV every 6 hours. She has been afebrile, heart rate 96, blood pressure 117/72, pulse ox 96% on 2 L nasal cannula. Blood sugars are running between 120s and 195. Sputum cultures in progress. Patient states that she still has shortness of breath when she is up and still has cough but better from admission. She states her daughter came to visit yesterday from [place]. She slept well until 4 AM this morning. She has been afebrile, heart rate 96, blood pressure 117/72, pulse ox 96% on 2 L nasal cannula. Blood sugars running between 128 and 195. Patient is complaining of arthritis in her knees and is requesting a prescription for Voltaren gel which will be sent for the patient. Patient was cleared by pulmonary medicine yesterday and she will be discharged home today in stable condition. ASSESSMENT AND PLAN #1 acute respiratory insufficiency secondary to acute asthma exacerbation and acute tracheal bronchitis. #2 history of breast cancer status post left lumpectomy with radiation therapy. #3 hypertension. #4 steroid-induced hyperglycemia. #5 hyperlipidemia. #6 history of pulmonary embolism CTA negative for PE. . #7 GERD with hiatal hernia. #8 history of compression fracture of thoracic spine. #9 hrecurrent depression and generalized anxiety disorder. #10 history of osteoporosis. DISCHARGE PLAN Return home. Impression and plan of care have been directed as dictated by the signing physician. Julieta Wynn nurse practitioner acting as scribe for signing physic clarisa. Patient Condition at Discharge: Good Plan - Discharge Summary Discharge Rx Participant: No New Discharge Prescriptions: New guaiFENesin [Mucinex] 600 mg PO Q12HR tablet.er predniSONE 0 mg PO DIRECTED #30 tab Cephalexin [Keflex] 250 mg PO Q12HR #8 capsule Diclofenac Sodium Gel [Voltaren Gel] 2 gm TOPICAL QID #1 tube Continue Simvastatin [Zocor] 20 mg PO HS Omeprazole [PriLOSEC] 40 mg PO DAILY Budesonide [Pulmicort] 0.5 mg INHALATION RT-BID PRN PRN Reason: Shortness Of Breath Formoterol Fumarate [Perforomist] 20 mcg INHALATION RT-BID PRN PRN Reason: Shortness Of Breath Letrozole [Femara] 2.5 mg PO HS Losartan [Cozaar] 50 mg PO DAILY #30 tab Albuterol Sulfate [Ventolin HFA] 2 puff INHALATION RT-Q4H PRN PRN Reason: Shortness Of Breath Alendronate Sodium [Fosamax] 70 mg PO TH Montelukast [Singulair] 10 mg PO HS Oxybutynin Chloride 5 mg PO BID PARoxetine [Paxil] 10 mg PO HS Vit C/E/Zn/Coppr/Lutein/Zeaxan [Preservision Areds 2 Softgel] 1 cap PO BID Discontinued Sulfamethox-Tmp 800-160Mg [Bactrim DS 800-160 mg] 1 tab PO BID Discharge Medication List Simvastatin [Zocor] 20 mg PO HS 09/20/16 [History] Omeprazole [PriLOSEC] 40 mg PO DAILY 08/05/18 [History] Budesonide [Pulmicort] 0.5 mg INHALATION RT-BID PRN 09/02/18 [History] Formoterol Fumarate [Perforomist] 20 mcg INHALATION RT-BID PRN 09/02/18 [History] Letrozole [Femara] 2.5 mg PO HS 09/02/18 [History] Losartan [Cozaar] 50 mg PO DAILY #30 tab 11/17/18 [Rx] Albuterol Sulfate [Ventolin HFA] 2 puff INHALATION RT-Q4H PRN 11/18/20 [History] Alendronate Sodium [Fosamax] 70 mg PO TH 11/18/20 [History] Montelukast [Singulair] 10 mg PO HS 11/18/20 [History] Oxybutynin Chloride 5 mg PO BID 11/18/20 [History] PARoxetine [Paxil] 10 mg PO HS 11/18/20 [History] Vit C/E/Zn/Coppr/Lutein/Zeaxan [Preservision Areds 2 Softgel] 1 cap PO BID 11/18/20 [History] Cephalexin [Keflex] 250 mg PO Q12HR #8 capsule 11/21/20 [Rx] Diclofenac Sodium Gel [Voltaren Gel] 2 gm TOPICAL QID #1 tube 11/21/20 [Rx] guaiFENesin [Mucinex] 600 mg PO Q12HR tablet.er 11/21/20 [Rx] predniSONE 0 mg PO DIRECTED #30 tab 11/21/20 [Rx] Follow up Appointment(s)/Referral(s): [facility] [facility] [NON-STAFF] - As Needed Isac Myrick MD [Primary Care Provider] - 11/28/20 10:15 am (Appointment will be with DEVIN Brady) Nika Butler MD [STAFF PHYSICIAN] - 11/27/20 1:30 pm Discharge Disposition: HOME SELF-CARE
[2020-11-21 08:39] VITALS: BP 137/66; PULSE 95; RESP 20; TEMP 98.2
[2020-11-21 09:33] LABS: Basophils # (A) 0.01 X 10*3/uL (0.00-0.10); Basophils % (A) 0.1 %; Eosinophils # (A) 0 X 10*3/uL (0.04-0.35); Eosinophils % (A) 0 %; HCT 33.9 % (37.2-46.3); HGB 10.9 g/dL (12.0-15.0); Lymphocytes # (A) 0.27 X 10*3/uL (0.90-5.00); Lymphocytes % (A) 2.7 %; MCH 29.5 pg (27.0-32.0); MCHC 32.2 g/dL (32.0-37.0); MCV 91.6 fL (80.0-97.0); Monocytes # (A) 0.34 X 10*3/uL (0.20-1.00); Monocytes % (A) 3.4 %; Neutrophils # (A) 9.31 X 10*3/uL (1.80-7.70); Platelet Count 266 X 10*3/uL (140-440); WBC 10.01 X 10*3/uL (4.50-10.00)
[2020-11-21 09:50] LABS: African American GFR (CKD) 101.9 (60.0-200.0); Albumin 4.3 g/dL (3.80-4.90); Albumin/Globulin Ratio 3.91 (1.60-3.17); Anion Gap 9.9 mmol/L (4.00-12.00); Calcium 9.4 mg/dL (8.7-10.3); Carbon Dioxide 22.1 mmol/L (21.6-31.8); Globulin 1.1 g/dL (1.6-3.3); Non-African American GFR(CKD) 87.9 (60.0-200.0); Potassium 4.5 mmol/L (3.5-5.5); Total Bilirubin 0.4 mg/dL (0.3-1.2); Total Protein 5.4 g/dL (6.2-8.2)
== END 2020-11-21 10:50 | disposition home or self-care (01) ==
LOC: EC 09:58 → INTOOBSV 11:56 → 4SSUR 11:56 → 6NMEDSUR 23:14 → UNDODISIN 11-21 10:50
PROVIDERS: ADMIT Internal Medicine; ATTEND Internal Medicine
DX: J45.51 Severe persistent asthma with (acute) exacerbation (principal); Z87.891 Personal history of nicotine dependence; F32.9 Major depressive disorder, single episode, unspecified; E78.5 Hyperlipidemia, unspecified; F41.1 Generalized anxiety disorder; I11.9 Hypertensive heart disease without heart failure; J20.9 Acute bronchitis, unspecified; K21.9 Gastro-esophageal reflux disease without esophagitis; K44.9 Diaphragmatic hernia without obstruction or gangrene; K59.00 Constipation, unspecified; M17.0 Bilateral primary osteoarthritis of knee; M81.0 Age-related osteoporosis without current pathological fracture; R79.89 Other specified abnormal findings of blood chemistry; T38.0X5A Adverse effect of glucocorticoids and synthetic analogues, initial encounter; R73.9 Hyperglycemia, unspecified; Z20.822 Contact with and (suspected) exposure to COVID-19; Z79.51 Long term (current) use of inhaled steroids; Z79.811 Long term (current) use of aromatase inhibitors; Z79.83 Long term (current) use of bisphosphonates; Z79.899 Other long term (current) drug therapy; Z80.3 Family history of malignant neoplasm of breast; Z80.8 Family history of malignant neoplasm of other organs or systems; Z82.5 Family history of asthma and other chronic lower respiratory diseases; Z85.3 Personal history of malignant neoplasm of breast; Z86.711 Personal history of pulmonary embolism; Z86.718 Personal history of other venous thrombosis and embolism; Z87.01 Personal history of pneumonia (recurrent); Z90.710 Acquired absence of both cervix and uterus; Z96.651 Presence of right artificial knee joint; Z98.42 Cataract extraction status, left eye; Z98.41 Cataract extraction status, right eye; Z88.1 Allergy status to other antibiotic agents; Z99.81 Dependence on supplemental oxygen; Z92.3 Personal history of irradiation; G43.909 Migraine, unspecified, not intractable, without status migrainosus; J96.01 Acute respiratory failure with hypoxia; J18.9 Pneumonia, unspecified organism; J39.8 Other specified diseases of upper respiratory tract
CPT/HCPCS: 96376 ×5; 96366; 96365; 96375; 99285; 36415; 94640 ×8; 94760 ×3; 93005; 85379; 83880; 80053 ×4; 83605; 83735; 84484; 85025 ×4; 85610; 85730; 86140; 87070; 87205; 84145; 87635; 71046; 71275; G0378 ×4; J2930 ×4; J0696 ×4; Q9967; 96374

== ENCOUNTER → 2020-12-30 | Outpatient (CLI) | payer MEDICARE ==
--- NOTE | 2020-12-30 12:17 | BD ---
EXAMINATION TYPE: Axial Bone Density DATE OF EXAM: 12/30/2020 COMPARISON: 12/21/2018 CLINICAL HISTORY: 75-year-old female postmenopausal screening Height: 63 IN Weight: 208 LBS FRAX RISK QUESTIONS: Glucocorticoids (More than 3mos): BUDESONIDE 0.5 MG-2.5 ML INHALE 0.5 MG USING BREATHING MACHINE TWI CE DAILY. PT HAS BEEN TAKING THIS FOR 1+ YEARS (Ex: prednisone, prednisolone, methylprednisolone, dexamethasone, and hydrocortisone). History of Fracture in Adulthood: RT WRIST FX AGE 70 RISK FACTORS HISTORY OF: History of Wrist Fracture: RT WRIST AGE 70 Active: MODERATE Diet low in dairy products/other sources of calcium: YES Postmenopausal woman: TOTAL HYST AGE 51 Take estrogen and/or progesterone medications: NOT NOW How long: TOOK PREVIOUSLY FOR 5 YEARS Lost more than 2 inches in height since high school: YES 3 " MEDICATIONS: Prednisone or other steroids: TAKES BUDESONIDE 0.5 MG/2 ML SUSP. How Lon YEAR + Osteoporosis Medications: YES Which medication: Fosamax How Lon YEARS Additional Medications: ALBUTEROL INHALER, FOSAMAX, BUDESONIDE, OMEPRAZOLE, SINGULAIR, OXYBUTYNIN, PA ROXETINE, PERFORMIST, SIMVASTATIN Additional History: BREAST CANCER WITH RADIATION EXAM MEASUREMENTS: Bone mineral densitometry was performed using the [employer] System. Bone mineral density as measured about the Lumbar spine is: ----- L1-L4(G/cm2): 0.953 T Score Values are as follows: ----- L2: -1.6 ----- L3: -2.3 ----- L4: -2.1 ----- L1-L4: -1.9 Bone mineral density has: Increased 1.8% since study of: 12/21/2018 Bone mineral density about the R hip (g/cm2): 0.940 Bone mineral density about the L hip (g/cm2): 0.887 T Score values are as follows: -----R Neck: -0.7 -----L Neck: -1.1 -----R Total: -0.9 -----L Total: -1.4 Bone mineral density has: Decreased -3.0% since study of: 12/21/2018 IMPRESSION: Osteopenia (T Score between -2.5 and -1). There is slightly increased risk of fracture and the patient may be considered for treatment. Re-Screen 2-5 years. NOTE: T-SCORE=SD OF THE YOUNG ADULT MEAN.
== END | disposition home or self-care (01) ==
LOC: RADBDWWP 07:50
PROVIDERS: ATTEND Internal Medicine Hematology & Oncology
DX: M85.89 Other specified disorders of bone density and structure, multiple sites (principal); Z78.0 Asymptomatic menopausal state
CPT/HCPCS: 77080

== ENCOUNTER → 2020-12-31 | Outpatient (CLI) | payer MEDICARE | END | disposition home or self-care (01) | LOC: LABWHC1 12:20 | PROVIDERS: ATTEND Internal Medicine Critical Care Medicine | DX: J45.50 Severe persistent asthma, uncomplicated (principal) | CPT/HCPCS: 36415; 85008 ==

== ENCOUNTER → 2021-02-24 | Outpatient (CLI) | payer MEDICARE ==
--- NOTE | 2021-02-27 11:59 | MM ---
Reason for exam: additional evaluation requested from prior study. Last mammogram was performed 1 year ago. History: Patient is postmenopausal and has history of breast cancer at age 72. Family history of breast cancer in maternal sister at age 73 and breast cancer in sister at age 72. Malignant MG pre op needle loc LT of the left breast, February 08, 2018. Lumpectomy of the left breast, February 08, 2018. Malignant US breast needle core LT of the left breast, January 05, 2018. Benign cyst aspiration of the right breast. 2 benign excisional biopsies of the left breast. 3 benign excisional biopsies of the right breast. Took estrogen for 9 years beginning at age 50. Physical Findings: Nurse did not find any significant physical abnormalities on exam. MG 3D Diag Mammo W/Cad LEOBARDO Bilateral CC and MLO view(s) were taken. Prior study comparison: February 21, 2020, bilateral MG 3d diag mammo w/cad LEOBARDO. November 07, 2018, bilateral MG 3d diag mammo w/cad LEOBARDO. There are scattered fibroglandular densities. Left post operative changes. These results were verbally communicated with the patient and result sheet given to the patient on 02/24/21. ASSESSMENT: Benign, BI-RAD 2 RECOMMENDATION: Follow-up diagnostic mammogram of both breasts in 1 year.
== END | disposition home or self-care (01) ==
LOC: RADMAMWWP 13:36
PROVIDERS: ATTEND Radiology Diagnostic Radiology
DX: N64.89 Other specified disorders of breast (principal); Z78.0 Asymptomatic menopausal state; Z85.3 Personal history of malignant neoplasm of breast; Z80.3 Family history of malignant neoplasm of breast
CPT/HCPCS: 77066; G0279; 77062

== ENCOUNTER 2022-01-16 19:01 | Emergency (ER) | payer MEDICARE ==
[2022-01-16] MEDS ORDERED: SODIUM CHLORIDE 0.9% 1,000 ML IV ONE (19:25)
[2022-01-16] MEDS ORDERED: MORPHINE SULFATE 4 MG/ML SYRINGE IVP STA (19:28)
[2022-01-16 19:32] LABS: Basophils % (A) 0 %; Eosinophils % (A) 0 %; HGB 12.3 gm/dL (11.4-16.0); Lymphocytes # (A) 1.1 k/uL (1.0-4.8); Lymphocytes % (A) 30 %; MCH 33.6 pg (25.0-35.0); MCHC 32.4 g/dL (31.0-37.0); MCV 103.9 fL (80.0-100.0); Macrocytosis Slight; Mean Platelet Volume 7.5; Monocytes # (A) 0.4 k/uL (0-1.0); Monocytes % (A) 10 %; Neutrophils % (A) 56 %; Platelet Count 251 k/uL (150-450); RBC 3.65 m/uL (3.80-5.40); RDW 14.6 % (11.5-15.5); WBC 3.5 k/uL (3.8-10.6)
[2022-01-16 19:43] LABS: ALT 20 U/L (4-34); AST 29 U/L (14-36); African American GFR (CKD) >90 (>60 ml/min/1.73 sqM); Alkaline Phosphatase 86 U/L (38-126); Amylase 64 U/L (30-110); Anion Gap 7 mmol/L; Blood Urea Nitrogen 15 mg/dL (7-17); Calcium 9.2 mg/dL (8.4-10.2); Carbon Dioxide 23 mmol/L (22-30); Chloride 106 mmol/L (98-107); Glucose 99 mg/dL (74-99); Lipase 179 U/L (23-300); Non-African American GFR(CKD) 85 (>60 ml/min/1.73 sqM); Potassium 3.4 mmol/L (3.5-5.1); Sodium 136 mmol/L (137-145); Total Bilirubin 0.5 mg/dL (0.2-1.3); Total Protein 6.1 g/dL (6.3-8.2)
--- NOTE | 2022-01-16 19:43 | ED ---
Abdominal Pain HPI - General Chief Complaint: Abdominal Pain Stated Complaint: Abd Pain Time Seen by Provider: 01/16/22 19:12 Source: patient Mode of arrival: ambulatory Limitations: no limitations - History of Present Illness Initial Comments: is a 76-year-old female presents the emergency department today for evaluation of abdominal pain and lightheadedness. Patient reports she's had some diarrhea, this evening she developed severe stabbing abdominal pain that made her nauseated, pain was so severe she became lightheaded. Upon arrival the emergency department should a low blood pressure. However pain has improved since being brought back into the ER. - Related Data Home Medications Medication Instructions Recorded Confirmed Omeprazole [PriLOSEC] 20 mg PO BID 08/05/18 01/16/22 Letrozole [Femara] 2.5 mg PO HS 09/02/18 01/16/22 Alendronate Sodium [Fosamax] 70 mg PO BAJWA 11/18/20 01/16/22 Montelukast [Singulair] 10 mg PO HS 11/18/20 01/16/22 PARoxetine [Paxil] 10 mg PO HS 11/18/20 01/16/22 Vit C/E/Zn/Coppr/Lutein/Zeaxan 1 cap PO BID 11/18/20 01/16/22 [Preservision Areds 2 Softgel] Benralizumab [Fasenra] 30 mg SQ Q48D 01/16/22 01/16/22 Ergocalciferol (Vitamin D2) 1,250 mcg PO FR@2100 01/16/22 01/16/22 [Drisdol (50,000 Iu)] Rosuvastatin Calcium [Crestor] 5 mg PO HS 01/16/22 01/16/22 Thiamine HCl [Vitamin B-1] 100 mg PO HS 01/16/22 01/16/22 Triamcinolone 0.1% Cream [Kenalog 1 applic TOPICAL HS 01/16/22 01/16/22 0.1% Cream] Zinc Gluconate [Zinc] 50 mg PO HS 01/16/22 01/16/22 hydrOXYzine HCL [Atarax] 10 mg PO HS 01/16/22 01/16/22 Previous Rx's Medication Instructions Recorded Dicyclomine [Bentyl] 10 mg PO QID #12 capsule 01/16/22 Allergies Allergy/AdvReac Type Severity Reaction Status Date / Time cefuroxime AdvReac Cough Verified 01/16/22 19:41 Review of Systems ROS Statement: Those systems with pertinent positive or pertinent negative responses have been documented in the HPI. ROS Other: All systems not noted in ROS Statement are negative. Past Medical History Past Medical History: Asthma, GERD/Reflux, Hyperlipidemia, Osteoarthritis (OA), Pneumonia, Pulmonary Embolus (PE) Additional Past Medical History / Comment(s): MIGRAINES, breast cancer with radiation (march-april)2017 History of Any Multi-Drug Resistant Organisms: None Reported Past Surgical History: Breast Surgery, Heart Catheterization, Hysterectomy, Joint Replacement Additional Past Surgical History / Comment(s): BREAST BX (X5). RT TKA. COLONOSCOPY. BILAT CATARACT SX. hernia with mesh placement. cardiac cath Past Anesthesia/Blood Transfusion Reactions: No Reported Reaction Past Psychological History: Anxiety, Depression Smoking Status: Former smoker Past Alcohol Use History: Occasional Past Drug Use History: None Reported - Past Family History Sister(s) Family Medical History: Cancer (Patient has 2 sisters with breast cancer there 5 year survivor.), Pulmonary Embolus Additional Family Medical History / Comment(s): 2 SISTERS -BREAST CANCER Brother(s) Family Medical History: Cancer (Patient has 2 brothers one of them with prostate cancer his 82-year-old now and the other one with melanoma his 81-year-old now) Additional Family Medical History / Comment(s): MELANOMA, PROSTATE Son(s) Family Medical History: No Reported History (Patient has 2 sons no major medical problems.) Daughter(s) Family Medical History: No Reported History (Patient has one daughter major medical problems.) Mother Family Medical History: Asthma (Mother at age of 93 from old age and she had a history of asthma.) Father Family Medical History: No Reported History (Father at age 91 from old age.) General Exam - General Exam Comments Initial Comments: Physical Exam GENERAL: Patient is well-developed and well-nourished. Patient is nontoxic and well- hydrated and is in no distress. HENT: Normocephalic, Atraumatic. EYES: PERRL, EOMI PULMONARY: Unlabored respirations. No audible rales rhonchi or wheezing was noted. CARDIOVASCULAR: There is a regular rate and rhythm without any murmurs gallops or rubs. ABDOMEN: Soft and nontender with normal bowel sounds. No pulsatile masses No abdominal bruit SKIN: Skin is clear with no lesions or rashes and otherwise unremarkable. : Deferred NEUROLOGIC: Patient is alert and oriented x3. Moving all extremities spontaneously MUSCULOSKELETAL: Normal extremities with adequate strength and full range of motion. No lower extremity swelling or edema. No calf tenderness. PSYCHIATRIC: Normal psychiatric evaluation. Limitations: no limitations Course Vital Signs 01/16/22 01/16/22 01/16/22 19:05 19:18 19:26 Temperature 98.1 F Pulse Rate 62 64 62 Respiratory 22 22 20 Rate Blood Pressure 76/45 117/70 123/71 O2 Sat by Pulse 96 97 98 Oximetry 01/16/22 01/16/22 01/16/22 21:08 22:53 22:59 Temperature 97.9 F Pulse Rate 75 64 Respiratory 16 18 Rate Blood Pressure 159/90 133/67 O2 Sat by Pulse 98 95 Oximetry Medical Decision Making - Medical Decision Making Patient was brought to resuscitation from triage bay due to to complaining of abdominal pain with hypotension Labs and imaging were ordered, patient's blood pressure improved quickly upon resting in the resuscitation bay Imaging revealed no acute findings, blood vessels are unremarkable with no signs of dissection, no signs of bowel inflammation obstruction Patient's blood pressure normalized she received IV fluid and some pain medication Results were discussed patient is feeling much better and would like to be discharged home. I suspect the patient had a vasovagal episode due to pain. Abdominal pain is resolved I suspect it was due to gas pain the patient is stable for discharge home. - Lab Data Result diagrams: 01/16/22 19:25 01/16/22 19:25 Lab Results 01/16/22 01/16/22 01/16/22 Range/Units 19:25 19:25 21:07 WBC 3.5 L (3.8-10.6) k/uL RBC 3.65 L (3.80-5.40) m/uL Hgb 12.3 (11.4-16.0) gm/dL Hct 38.0 (34.0-46.0) % MCV 103.9 H (80.0-100.0) fL MCH 33.6 (25.0-35.0) pg MCHC 32.4 (31.0-37.0) g/dL RDW 14.6 (11.5-15.5) % Plt Count 251 (150-450) k/uL MPV 7.5 Neutrophils % 56 % Lymphocytes % 30 % Monocytes % 10 % Eosinophils % 0 % Basophils % 0 % Neutrophils # 2.0 (1.3-7.7) k/uL Lymphocytes # 1.1 (1.0-4.8) k/uL Monocytes # 0.4 (0-1.0) k/uL Eosinophils # 0.0 (0-0.7) k/uL Basophils # 0.0 (0-0.2) k/uL Macrocytosis Slight Sodium 136 L (137-145) mmol/L Potassium 3.4 L (3.5-5.1) mmol/L Chloride 106 (98-107) mmol/L Carbon Dioxide 23 (22-30) mmol/L Anion Gap 7 mmol/L BUN 15 (7-17) mg/dL Creatinine 0.67 (0.52-1.04) mg/dL Est GFR (CKD-EPI)AfAm >90 (>60 ml/min/1.73 sqM) Est GFR (CKD-EPI)NonAf 85 (>60 ml/min/1.73 sqM) Glucose 99 (74-99) mg/dL Calcium 9.2 (8.4-10.2) mg/dL Total Bilirubin 0.5 (0.2-1.3) mg/dL AST 29 (14-36) U/L ALT 20 (4-34) U/L Alkaline Phosphatase 86 (38-126) U/L Total Protein 6.1 L (6.3-8.2) g/dL Albumin 4.0 (3.5-5.0) g/dL Amylase 64 (30-110) U/L Lipase 179 (23-300) U/L Urine Color Light Yellow Urine Appearance Clear (Clear) Urine pH 6.0 (5.0-8.0) Ur Specific [place] >1.050 H (1.001-1.035) Urine Protein Negative (Negative) Urine Glucose (UA) Negative (Negative) Urine Ketones Negative (Negative) Urine Blood Negative (Negative) Urine Nitrite Negative (Negative) Urine Bilirubin Negative (Negative) Urine Urobilinogen <2.0 (<2.0) mg/dL Ur Leukocyte Esterase Negative (Negative) Disposition Clinical Impression: Abdominal pain, Vasovagal episode Disposition: HOME SELF-CARE Condition: Stable Instructions (If sedation given, give patient instructions): Syncope (DC) Prescriptions: Dicyclomine [Bentyl] 10 mg PO QID #12 capsule Is patient prescribed a controlled substance at d/c from ED?: No Referrals: Isac Myrick MD [Primary Care Provider] - 1-2 days
--- NOTE | 2022-01-16 20:47 | CT ---
EXAMINATION TYPE: CT angio abdomen pelvis CT DLP: 1717.3 mGycm, Automated exposure control for dose reduction was used. DATE OF EXAM: 01/16/2022 8:06 PM COMPARISON: CT chest angiogram 11/30/2020 CLINICAL INDICATION:Female, 76 years old with history of sudden abdominal pain and hypotension; sudde n abdominal pain posteriorly & hypotension. TECHNIQUE: Multiple thin slice sub-millimeter images were obtained through the abdomen, pelvis, and l ower extremities after administration of contrast. Patient was given Isovue 370, 100 cc intravenousl y. 3-D reconstructed images and maximum intensity projection images were obtained of the abdomen, pe lvis, and lower extremities. FINDINGS: Lower chest: Large hiatal hernia. The heart is moderately enlarged for size. Streaky atelectasis/scar ring in the lung bases. Some contrast passes axis spine felt to be chronic scarring changes. CTA Abdomen and pelvis: The abdominal aorta does not demonstrate aneurysmal dilatation. Atherosclero tic plaquing is identified within the abdominal aorta. The origins of the superior mesenteric artery , renal arteries, inferior mesenteric artery, and celiac axis are patent. The iliac vessels are norm al in morphology. Atherosclerotic plaquing is seen throughout the arterial vasculature. VISCERA: The liver, spleen, adrenal glands, kidneys, pancreas, and gallbladder are not optimally enha nced due the arterial phase utilized. LIVER: Unremarkable GALLBLADDER AND BILE DUCTS: Unremarkable. PANCREAS: Unremarkable. SPLEEN: Scattered calcified granulomas. ADRENAL GLANDS: Unremarkable. KIDNEYS AND URETERS: No evidence of hydronephrosis. There is a 4 mm nonobstructing renal calculus. Th e ureters are unremarkable. Right renal 16 mm cyst. PELVIS BLADDER: Unremarkable REPRODUCTIVE: Unremarkable. ABDOMEN & PELVIS STOMACH AND BOWEL: Large hiatal hernia, the duodenum is unremarkable. Scattered diverticula are noted throughout the colon. No evidence of bowel obstruction. PERITONEUM: No evidence of pneumoperitoneum or free fluid. VASCULATURE: No evidence of aortic aneurysm. MUSCULOSKELETAL: No acute osseous abnormalities. Severe multilevel disc degeneration changes are seen throughout the spine. Scattered vacuum disc, disc space narrowing present. There is which compressio n deformity of T8 vertebral body with complete height loss anteriorly. There is 5 mm retropulsion. Th ere is scoliosis changes of the spine. Chronic LYMPH NODES: No gross evidence for lymphadenopathy. SOFT TISSUE/ABDOMINAL WALL: Unremarkable IMPRESSION 1. No evidence of vascular occlusion. 2. Atherosclerotic disease involving arterial vasculature. 3. No evidence of hemorrhage or retroperitoneal bleed. 4. Colonic diverticulosis. 5. Compression deformity of the T8 vertebral body with 5 mm retropulsion complete height loss anterio rly, which is unchanged from prior. 6. Large hiatal hernia. 7. Nonobstructing left renal calculus.
[2022-01-16 21:38] LABS: Appearance,Urine Clear (Clear); Bilirubin,Urine Negative (Negative); Blood,Urine Negative (Negative); Color,Urine Light Yellow; Glucose,Urine (UA) Negative (Negative); Ketones,Urine Negative (Negative); Leukocyte Esterase,Urine Negative (Negative); Nitrite,Urine Negative (Negative); Protein,Urine Negative (Negative); Urobilinogen,Urine <2.0 mg/dL (<2.0)
[2022-01-16 21:49] LABS: Specific Gravity,Urine >1.050 (1.001-1.035)
[2022-01-16] MEDS ORDERED: DICYCLOMINE 10 MG/ML 2 ML AMP IM STA (22:07)
[2022-01-16 23:02] VITALS: TEMP 97.9
[2022-01-16 23:13] VITALS: BP 133/67; PULSE 64; RESP 18
== END 2022-01-16 23:00 | disposition home or self-care (01) ==
LOC: EC 19:01
DX: N20.0 Calculus of kidney (principal); R55 Syncope and collapse; E78.5 Hyperlipidemia, unspecified; J45.909 Unspecified asthma, uncomplicated; K21.9 Gastro-esophageal reflux disease without esophagitis; M19.90 Unspecified osteoarthritis, unspecified site; Z87.891 Personal history of nicotine dependence; Z88.1 Allergy status to other antibiotic agents; Z79.899 Other long term (current) drug therapy
CPT/HCPCS: 36415; 80053; 82150; 83690; 85025; 81003; 74174; 99284; 96374; 96361; 96372; J2270; J0500; Q9967

== ENCOUNTER → 2022-03-12 | Outpatient (CLI) | payer MEDICARE ==
--- NOTE | 2022-03-13 13:50 | MM ---
Reason for Exam: Screening (asymptomatic). Last screening mammogram was performed 12 month(s) ago. Patient History: Menarche at age 11. First Full-Term at age 24. Left ovary removed at age 50. Right ovary removed at age 50. Hysterectomy at age 50. Postmenopausal. Breast cancer, left, age 72. Previous DCIS pathology result. Previous chest radiation therapy at age 72. Patient tested for BRCA1 outcome was negative. Patient tested for BRCA2 outcome was negative. Estrogen for 9 years from age 50 until age 59. Benign Cyst Aspiration on the right side. 02/08/2018, Lumpectomy on the Left side. Benign Excisional Biopsy on the right side. Benign Excisional Biopsy on the right side. Benign Excisional Biopsy on the right side. Benign Excisional Biopsy on the left side. Benign Excisional Biopsy on the left side. 02/08/2018, Malignant Core Biopsy on the left side. 01/05/2018, Malignant Core Biopsy on the left side. Sister had breast cancer, age 73. Sister had breast cancer, age 72. Prior Study Comparison: 11/07/2018 Bilateral Diagnostic Mammogram, [facility]. 02/21/2020 Bilateral Diagnostic Mammogram, [facility]. 02/24/2021 Bilateral Diagnostic Mammogram, [facility]. Tissue Density: The breast tissue is heterogeneously dense. This may lower the sensitivity of mammography. Findings: Analyzed By CAD. Multiple surgical clips are within the left. There is slight asymmetry with greater parenchymal tissue on the left than right. Some architectural distortion medially in the left breast 12:00 middle position from prior biopsy. Exam appears stable from comparison. No suspicious groups of microcalcifications, spiculated or lobular masses, architectural distortion or other secondary signs of malignancy are mammographically apparent. Overall Assessment: Benign, BI-RAD 2 Management: Screening Mammogram of both breasts in 1 year. A negative mammogram report should not preclude additional follow up of suspicious palpable abnormalities. Patient should continue monthly self breast exam. A clinical breast exam by your physician is recommended on an annual basis and results should be correlated with mammographic findings. Electronically signed and approved by: Florentino Maharaj D.O. Radiologis
== END | disposition home or self-care (01) ==
LOC: RADMAMWWP 15:50
PROVIDERS: ATTEND Internal Medicine Hematology & Oncology
DX: Z12.31 Encounter for screening mammogram for malignant neoplasm of breast (principal)
CPT/HCPCS: 77063; 77067

== ENCOUNTER → 2022-09-10 | Outpatient (CLI) | payer MEDICARE ==
--- NOTE | 2022-09-10 15:35 | US ---
EXAMINATION TYPE: US venous doppler duplex LE RT DATE OF EXAM: 09/10/2022 3:26 PM COMPARISON: NONE CLINICAL HISTORY: M79.661 PAIN IN RT LOWER LEG. SIDE PERFORMED: Right TECHNIQUE: The lower extremity deep venous system is examined utilizing real time linear array sonog noel with graded compression, doppler sonography and color-flow sonography. VESSELS IMAGED: Common Femoral Vein Deep Femoral Vein Greater Saphenous Vein * Femoral Vein Popliteal Vein Small Saphenous Vein * Proximal Calf Veins (* superficial vessels) Right Leg: Negative for DVT IMPRESSION: 1. Right lower extremity ultrasound negative for deep venous thrombosis.
== END | disposition home or self-care (01) ==
LOC: RADUSWWP 14:59
PROVIDERS: ATTEND Internal Medicine Geriatric Medicine
DX: M79.661 Pain in right lower leg (principal)

== ENCOUNTER → 2023-03-15 | Outpatient (CLI) | payer MEDICARE ==
--- NOTE | 2023-03-17 07:13 | BD ---
EXAMINATION TYPE: Axial Bone Density DATE OF EXAM: 03/15/2023 CLINICAL HISTORY: 77 years old Female. ICD-10 CODE: C50.212 BREAST CANCER Height: 62.5 in Weight: 195 lbs FRAX RISK QUESTIONS: History of Fracture in Adulthood: rt wrist age 66; blaze ankle fx age 19 RISK FACTORS HISTORY OF: History of Wrist Fracture: rt wrist age 66 Active: yes Postmenopausal woman: total hysterectomy age 51 Take estrogen and/or progesterone medications: not now How long: took for 7 years Lost more than 2 inches in height since high school: yes 3" MEDICATIONS: Osteoporosis Medications: yes Which medication: Fosamax How Lon years Additional Medications: acid reflux meds, cholesterol meds, depression meds, vitamin for eyes Additional History: breast cancer with radiation EXAM MEASUREMENTS: Bone mineral densitometry was performed using the [employer] System. Bone mineral density as measured about the Lumbar spine is: ----- L1-L4(G/cm2): 0.997 T Score Values are as follows: ----- L1: -1.4 ----- L2: -1.6 ----- L3: -2.1 ----- L4: -1.1 ----- L1-L4: -1.5 Z Score Values are as follows: ----- L1: -0.4 ----- L2: -0.5 ----- L3: -1.1 ----- L4: -0.1 ----- L1-L4: -0.5 Bone mineral density has: Increased 4.6% since study of: 12/30/2020 Bone mineral density about the R hip (g/cm2): 0.834 Bone mineral density about the L hip (g/cm2): 0.794 T Score values are as follows: -----R Neck: -1.2 -----L Neck: -0.6 -----R Total: -1.4 -----L Total: -1.7 Z Score values are as follows: -----R Neck: 0.5 -----L Neck: 1.0 -----R Total: 0.0 -----L Total: -0.3 Bone mineral density has: Decreased -5.9% since study of: 12/30/2020 FRAX%s: The graph provided illustrates a 16.4% chance for a major osteoporotic fx and a 2.9% chance f or the hips probability for fx in 10 years time. IMPRESSION: Osteopenia (T Score between -2.5 and -1). There is slightly increased risk of fracture and the patient may be considered for treatment. Re-Screen 2-5 years. NOTE: T-SCORE=SD OF THE YOUNG ADULT MEAN.
--- NOTE | 2023-03-17 08:04 | MM ---
Reason for Exam: Screening (asymptomatic). Last mammogram was performed 1 year(s) and 1 month(s) ago. Patient History: Menarche at age 11. First Full-Term at age 24. Left ovary removed at age 50. Right ovary removed at age 50. Hysterectomy at age 50. Postmenopausal. Breast cancer, left, age 72. Previous DCIS pathology result. Previous chest radiation therapy at age 72. Patient tested for BRCA1 outcome was negative. Patient tested for BRCA2 outcome was negative. Estrogen for 9 years from age 50 until age 59. Benign Cyst Aspiration on the right side. 02/08/2018, Lumpectomy on the Left side. Benign Excisional Biopsy on the right side. Benign Excisional Biopsy on the right side. Benign Excisional Biopsy on the right side. Benign Excisional Biopsy on the left side. Benign Excisional Biopsy on the left side. 02/08/2018, Malignant Core Biopsy on the left side. 01/05/2018, Malignant Core Biopsy on the left side. Sister had breast cancer, age 73. Sister had breast cancer, age 72. Prior Study Comparison: 02/21/2020 Bilateral Diagnostic Mammogram, [facility]. 02/24/2021 Bilateral Diagnostic Mammogram, [facility]. 03/12/2022 Bilateral MG 3D screening mammo w/cad, [facility]. Tissue Density: The breast tissue is heterogeneously dense. This may lower the sensitivity of mammography. Findings: Analyzed By CAD. There is no suspicious group of microcalcifications or new suspicious mass in either breast. Multiple surgical clips redemonstrated in the left breast. Architectural distortion related to post treatment changes of the left breast. Benign-appearing calcifications within the right breast. Overall Assessment: Benign, BI-RAD 2 Management: Screening Mammogram of both breasts in 1 year. A clinical breast exam by your physician is recommended on an annual basis and results should be correlated with mammographic findings. Electronically signed and approved by: Reji Adan D.O.
== END | disposition home or self-care (01) ==
LOC: RADMAMWWP 09:57
PROVIDERS: ATTEND Internal Medicine Hematology & Oncology
DX: Z12.31 Encounter for screening mammogram for malignant neoplasm of breast (principal); C50.212 Malignant neoplasm of upper-inner quadrant of left female breast; M85.89 Other specified disorders of bone density and structure, multiple sites; Z78.0 Asymptomatic menopausal state; Z80.3 Family history of malignant neoplasm of breast
CPT/HCPCS: 77063; 77067; 77080

== ENCOUNTER → 2023-11-22 | Outpatient (CLI) | payer MEDICARE ==
--- NOTE | 2023-11-22 17:08 | XR ---
EXAMINATION TYPE: XR thoracic spine 3 views complete, XR lumbar spine 3 views DATE OF EXAM: 11/22/2023 Comparison: 2 views chest 12/31/2020 Clinical History: 78-year-old female M54.9 BACK PAIN Findings: Thoracic spine: There is severe osteopenia limiting osseous assessment. There is redemonstrated vertebral compression collapse of a mid thoracic vertebral bodies. However, now, there is a second vertebral body showing height loss just above. Approximately 60% overall height loss here. Alignment appears overall [place]ta[place]. Lumbar spine: Degenerated levoconvex scoliosis lumbar spine. Osteopenia. 5 lumbar type vertebral bodies. Advanced h ypertrophic facet arthropathy mid to lower lumbar spine. Baastrup's disease. Moderate multilevel dege nerative disc disease. There is accentuated lumbar lordosis. Trace degenerative grade 1 anterolisthes is L5-S1. Impression: Thoracic spine: 1. Severe osteopenia limiting the assessment. 2. Redemonstration of a vertebral compression collapse of the mid thoracic vertebral body. 3. Age indeterminate (but new compared to 12/31/2020) compression deformity with 60% overall height lo ss involving the thoracic vertebral body just above the chronic collapse. Lumbar spine: 4. Degenerated levoconvex scoliosis. Accentuated lower lumbar lordosis. 5. Severe hypertrophic facet arthropathy with degenerative grade 1 anterolisthesis L5-S1. 6. Moderate multilevel degenerative disc disease. 7. Baastrup's disease. 8. No vertebral compression collapse.
== END | disposition home or self-care (01) ==
LOC: RADXRMAIN 15:27
PROVIDERS: ATTEND Internal Medicine Geriatric Medicine
DX: M85.88 Other specified disorders of bone density and structure, other site (principal); M48.54XA Collapsed vertebra, not elsewhere classified, thoracic region, initial encounter for fracture; M43.17 Spondylolisthesis, lumbosacral region; M48.26 Kissing spine, lumbar region; M51.37 Other intervertebral disc degeneration, lumbosacral region
CPT/HCPCS: 72072; 72100

== ENCOUNTER → 2023-11-29 | Outpatient (CLI) | payer MEDICARE ==
--- NOTE | 2023-12-04 14:30 | MR ---
EXAMINATION TYPE: MR thoracic spine wo/w con DATE OF EXAM: 11/29/2023 7:39 PM CLINICAL INDICATION:Female, 78 years old with history of M54.9 BACK PAIN; PHH, Severe pain in back fo r 10 days. COMPARISON: 11/22/2023.. TECHNIQUE: Multi planar, multi sequence imaging was performed utilizing: T1-weighted, short-tau inver neftali recovery and T2-weighted of the thoracic spine. IV Contrast: 9 cc Gadavist (none if empty) FINDINGS: Alignment: Increased kyphosis at T7-T8 secondary to vertebral body compression fractures. Remainder o f the vertebral bodies besides T7 and T8 have preserved heights. Spinal cord: Spinal cord is within normal limits for signal. Discs: Multilevel disc desiccation. There is facet joint arthropathy throughout the spine. No neural foraminal stenosis worse at T7-T8 and T8-T9 with at least moderate bilateral, T9-T10 and T10-T11 with mild bilateral. No significant spinal canal stenosis. Mild ventral subarachnoid space during at T8 d ue to retropulsion of the T8 compression fracture. Osseous structures: Compression deformity of the T7 vertebrae with 50% height loss and T8 vertebrae w ith complete height loss. There is no retropulsion at T7 there is 4 mm retropulsion at T8. No abnorma l bony edema on inversion recovery sequences. Multilevel osteophyte formation and facet joint arthrop athy. Scattered disc space narrowing. Remote appearing fracture to the manubrium with mild cortical s tep-off. Limited postcontrast imaging demonstrates mild enhancement in the T7 vertebrae. No significa nt enhancement identified in the T8 vertebrae. No other areas of abnormal enhancement. There is a large hiatal hernia. IMPRESSION: 1. Mild edema within the T7 vertebrae's possibly representing a acute/subacute fracture in the setti ng of pain. The T8 vertebrae does not definitively have edema and appears to represent chronic fractu re. Complete height loss at T8 and 50% height loss at T7. No significant spinal canal stenosis. 2. Limited evaluation on postcontrast sequences due to motion, there is mild enhancement of the T7 v ertebrae likely reactive. 3. Large hiatal hernia. 4. Mild to moderate multilevel degeneration changes with facet arthropathy worse at T8-T10 with vary ing degrees of neural foraminal stenosis described above.
== END | disposition home or self-care (01) ==
LOC: RADMRIMAIN 17:42
PROVIDERS: ATTEND Internal Medicine Geriatric Medicine
DX: M47.814 Spondylosis without myelopathy or radiculopathy, thoracic region (principal); M51.34 Other intervertebral disc degeneration, thoracic region; K44.9 Diaphragmatic hernia without obstruction or gangrene; M99.72 Connective tissue and disc stenosis of intervertebral foramina of thoracic region; R60.0 Localized edema
CPT/HCPCS: 72157; A9585

== ENCOUNTER → 2023-12-06 | Outpatient (CLI) | payer MEDICARE ==
[2023-12-06 14:48] LABS: INR 0.9 (<1.2); Prothrombin Time 10.2 sec (10.0-12.5)
--- NOTE | 2023-12-06 16:06 | XR ---
EXAMINATION TYPE: XR chest 2V DATE OF EXAM: 12/06/2023 COMPARISON: 11/18/2020, MRI 11/29/2023 INDICATION: Preop evaluation, compression fracture TECHNIQUE: Frontal and lateral views of the chest are obtained. FINDINGS: The heart size is normal. The pulmonary vasculature is normal. The lungs are clear. Hiatal hernia is present with an air-fluid level. There is a severe compression deformity in the midthoracic spine. Milder compression deformities just superior. No obvious posterior wall displacement is identified. This is somewhat limited on this vie w however. IMPRESSION: 1. No acute pulmonary process. 2. Severe compression deformity mid thoracic region
[2023-12-06 18:45] LABS: HGB 12.8 g/dL (12.0-15.0); MCH 34.8 pg (27.0-32.0); MCHC 33.7 g/dL (32.0-37.0); MCV 103.3 FL (80.0-97.0); Mean Platelet Volume 9.3 FL (9.5-12.2); NRBC Per 100 WBC 0 X 10*3/uL (0.00-0.01); Platelet Count 226 X 10*3/uL (140-440); RBC 3.68 X 10*6/uL (4.10-5.20); RDW 14.4 % (11.5-14.5); WBC 6.03 X 10*3/uL (4.50-10.00)
[2023-12-06 19:45] LABS: Appearance,Urine Cloudy (Clear); Bilirubin,Urine Small (Negative); Blood,Urine Trace (Negative); Color,Urine Dark Yellow (Yellow); Ketones,Urine Trace (Negative); Nitrite,Urine Negative (Negative); Specific Gravity,Urine 1.028 (1.001-1.030)
[2023-12-06 20:15] LABS: Bacteria,Urine 1+ (None Seen); Calcium Oxalate Crystals,Urine Present (None Seen); Uric Acid Crystals,Urine Present
[2023-12-06 21:53] LABS: ALT 14 U/L (8-44); AST 18 U/L (13-35); Albumin 4.3 g/dL (3.8-4.9); Albumin/Globulin Ratio 2.26 Ratio (1.60-3.17); Alkaline Phosphatase 109 U/L (41-126); Blood Urea Nitrogen 24.3 mg/dL (9.0-27.0); Calcium 9.2 mg/dL (8.7-10.3); Carbon Dioxide 23.1 mmol/L (21.6-31.8); Chloride 105 mmol/L (96-109); Globulin 1.9 g/dL (1.6-3.3); Glucose 94 mg/dL (70-110); Potassium 4.5 mmol/L (3.5-5.5); Sodium 140 mmol/L (135-145); Total Bilirubin 0.4 mg/dL (0.3-1.2); Total Protein 6.2 g/dL (6.2-8.2)
== END | disposition home or self-care (01) ==
LOC: LABWHC1 12:14
PROVIDERS: ATTEND Orthopaedic Surgery Orthopaedic Surgery of the Spine
DX: Z01.818 Encounter for other preprocedural examination (principal); M48.54XA Collapsed vertebra, not elsewhere classified, thoracic region, initial encounter for fracture; M79.10 Myalgia, unspecified site; M41.86 Other forms of scoliosis, lumbar region; M51.24 Other intervertebral disc displacement, thoracic region; M47.815 Spondylosis without myelopathy or radiculopathy, thoracolumbar region; M51.35 Other intervertebral disc degeneration, thoracolumbar region
CPT/HCPCS: 36415; 71046; 80053; 81001; 85027; 85610; 85730

== ENCOUNTER → 2024-01-03 | Outpatient (CLI) | payer MEDICARE ==
[2024-01-03 18:17] LABS: Basophils # (A) 0.01 X 10*3/uL (0.00-0.10); Basophils % (A) 0.2 %; Eosinophils # (A) 0 X 10*3/uL (0.04-0.35); Eosinophils % (A) 0 %; HCT 37.1 % (37.2-46.3); HGB 12.3 g/dL (12.0-15.0); Lymphocytes # (A) 0.92 X 10*3/uL (0.90-5.00); Lymphocytes % (A) 15.5 %; MCHC 33.2 g/dL (32.0-37.0); MCV 102.5 FL (80.0-97.0); Mean Platelet Volume 9.6 FL (9.5-12.2); Monocytes # (A) 0.76 X 10*3/uL (0.20-1.00); Monocytes % (A) 12.8 %; NRBC Per 100 WBC 0 X 10*3/uL (0.00-0.01); Neutrophils # (A) 4.23 X 10*3/uL (1.80-7.70); Neutrophils % (A) 71.2 %; Platelet Count 278 X 10*3/uL (140-440); RBC 3.62 X 10*6/uL (4.10-5.20); RDW 14.6 % (11.5-14.5); WBC 5.94 X 10*3/uL (4.50-10.00)
[2024-01-03 20:42] LABS: BUN/Creat Ratio 35.83 Ratio (12.00-20.00); Blood Urea Nitrogen 21.5 mg/dL (9.0-27.0); Calcium 9.9 mg/dL (8.7-10.3); Carbon Dioxide 23.9 mmol/L (21.6-31.8); Chloride 102 mmol/L (96-109); Glucose 95 mg/dL (70-110); Potassium 4.4 mmol/L (3.5-5.5); Sodium 139 mmol/L (135-145)
== END | disposition home or self-care (01) ==
LOC: LABPAT 12:04
PROVIDERS: ATTEND Orthopaedic Surgery Orthopaedic Surgery of the Spine
DX: Z01.812 Encounter for preprocedural laboratory examination (principal); M48.54XA Collapsed vertebra, not elsewhere classified, thoracic region, initial encounter for fracture
CPT/HCPCS: 36415; 80048; 85025

== ENCOUNTER 2024-01-12 12:41 | Day surgery (SDC) | payer MEDICARE ==
[2024-01-07 16:24] VITALS: BMI 32.9
[~2024-01-12 12:41] MED LIST changes: +HYDROmorphone 0.5 MG/0.5 ML SYRINGE IVP PRN; -LACTATED RINGERS 1,000 ML IV SCH; +LIDOCAINE 1% (10MG/ML) FOR IV START INTRADERMA PRN; -LIDOCAINE 1% 20 ML VIAL (10MG/ML) FOR IV START INTRADERMA PRN; -MIDAZOLAM 2 MG/2 ML VIAL IV PRN; -Pre Op ABX Message 1 EACH MISC MISCELLANE ONE; +SODIUM CHLORIDE 0.9% IRRIGATIO 1,000 ML IRRIGATION PRN
[2024-01-12] MEDS: LACTATED RINGERS 1,000 ML IV SCH (13:01)
[2024-01-12] MEDS: ONDANSETRON 4 MG/2 ML VIAL IVP ONE (13:16)
[2024-01-12] MEDS ORDERED: MIDAZOLAM 2 MG/2 ML VIAL ONE (13:39)
[2024-01-12] MEDS ORDERED: LIDOCAINE 1% INJ 10MG/ML (20 ML MDV) ONE (13:39)
[2024-01-12] MEDS ORDERED: SUCCINYLCHOLINE CHLORIDE 200 MG/10 ML VIAL IV ONE (13:39)
[2024-01-12] MEDS ORDERED: PROPOFOL 10 MG/ML 20 ML VIAL IV ONE (13:39)
[2024-01-12] MEDS ORDERED: fentaNYL (PF) 50 MCG/ML 2 ML AMP ONE (13:39)
[2024-01-12] MEDS ORDERED: PHENYLEPHRINE 10 MG/ML VIAL ONE (13:39)
[2024-01-12] MEDS: LIDOCAINE 1%-EPI 1:100,000 20 ML VIAL SQ ONE (13:43)
[2024-01-12] MEDS: IOPAMIDOL M200 10 ML VIAL MISCELLANE ONE (13:43)
[2024-01-12] MEDS ORDERED: HYDROmorphone 0.5 MG/0.5 ML SYRINGE IVP PRN (14:36)
[2024-01-12] MEDS ORDERED: BENZOCAINE/MENTHOL LOZENG 1 EACH LOZENGE MUCOUS MEM PRN (14:36)
[2024-01-12] MEDS ORDERED: HYDROmorphone 1 MG/ML 1 ML SYRINGE IVP PRN (14:36)
[2024-01-12] MEDS ORDERED: HYDROcodone/APAP 5-325MG 1 EACH TAB PO PRN (14:36)
[2024-01-12] MEDS ORDERED: ACETAMINOPHEN TAB 325 MG TAB PO PRN (14:37)
[2024-01-12] MEDS ORDERED: CYCLOBENZAPRINE 5 MG TAB PO PRN (14:37)
[2024-01-12] MEDS ORDERED: ONDANSETRON 4 MG/2 ML VIAL IVP PRN (14:37)
[2024-01-12] MEDS ORDERED: SENNOSIDES-DOCUSATE SODIUM 1 EACH TAB PO PRN (14:37)
[2024-01-12] MEDS ORDERED: HYDROcodone/APAP 7.5-325MG 1 EACH TAB PO PRN (14:39)
[2024-01-12] MEDS ORDERED: ALPRAZolam 0.25 MG TAB PO PRN (14:39)
[2024-01-12] MEDS ORDERED: ALBUTEROL NEBULIZED 2.5 MG/3 ML INHALATION PRN ×2 (14:39→14:59)
[2024-01-12] MEDS ORDERED: SODIUM CHLORIDE 0.9% 1,000 ML IV SCH (14:45)
[2024-01-12] MEDS ORDERED: BENRALIZUMAB 30 MG/ML SQ SCH (14:45)
--- NOTE | 2024-01-12 14:45 | P.OP ---
Date of Procedure: 01/12/24 Preoperative Diagnosis: T6 vertebral compression fracture, osteoporotic Thoracic back pain Failed conservative management Osteoporosis Postoperative Diagnosis: Same Anesthesia: GETA Pathology: other (T6 vertebral body biopsy sent to pathology) Condition: stable Disposition: PACU Description of Procedure: BRIEF OPERATIVE NOTE Preoperative Diagnosis: T6 vertebral compression fracture, osteoporotic Thoracic back pain Failed conservative management Osteoporosis Postoperative Diagnosis: Same Procedure: Kyphoplasty of T6 Vertebral body biopsy of T6 Use of biplanar fluoroscopic guidance Surgeon: Dr. Medina Clinical Administrative Coordinator: Rivas BELTRAN who is present throughout the entire the case persistence during positioning, dissection, exposure, visualization, and all crucial elements of the case as well as closure. Anesthesia: General anesthesia per Dr. Whitlock Estimated blood loss: Less than 10 mL Specimen: Vertebral body biopsy of T6 sent to pathology in formalin Complications: None apparent Components implanted: Bone cement approximately 4 and half cc Disposition: To recovery room in good stable condition. OPERATIVE INDICATIONS The patient has been having issues in their back over the past several weeks. About 6 weeks ago the patient had been treated for a compression deformity at T7. She had a chronic compression fracture at T8 and a newer fracture at T7. She attempted conservative treatment was not having any relief and underwent a vertebral kyphoplasty at T7. She initially had relief for about less than a week but then started having new increased pain around the same area. She was found to have a new compression formerly at T6. The cement appeared to be stable and the T7 and T8 vertebrae's appear to be stable but she had new compression deformity at T6 which was felt to be a new osteoporotic compression fracture. The patient's imaging and exam correlated with her symptoms for new fracture at T6. She again tried conservative treatment and bracing. The patient has been through conservative treatment. They attempted conservative care with bracing however they're not having any benefit despite brace use. They continue to have significant pain and debility due to their fracture. With the obvious progression of her imaging I felt that the new fracture of T6 was symptomatic for her and discussed the possibility of kyphoplasty at T6 as well. I explained to her that it is difficult to predict the overall outcome of her procedures as she has had multiple compression fractures around the same area, she has significant osteoporosis, she been treated for osteoporosis in the past. I discussed with her that idea that she has significant focal kyphosis around the area and with her deformity and her poor bone quality that she may continue to have problems. We discussed the possibility of reconstructive surgery with segmental fixation and felt that this was not a good option for her. She was not able to tolerate bracing and was interested in pursuing kyphoplasty at T6. We discussed various treatment options including surgery, and the patient wishes to proceed with surgery We discussed the risk, patient's alternatives and benefits of surgery including but not limited to, risk of bleeding risk of infection, risk of need for further surgery, risk of decreased, loss of motion, loss of function, cement extravasation, nerve damage, paralysis, heart attack, blindness and . OPERATIVE SUMMARY After discussing all the risks, patient alternatives and benefits at length, the patient elected to proceed with surgical intervention, signed informed consent, and presented for their procedure. The patient was seen and examined in the preoperative holding area and the surgical site was marked. The patient was given antibiotics and brought to the operating room. The patient was sedated and intubated by anesthesia in standard fashion. The patient was positioned on to the operating room table in a prone position on the appropriate well-padded and well molded bilateral chest rolls. We were careful to pad any bony prominences and pressure points. We were careful to maintain the patient's cervical spine and good neutral alignment and position throughout. We used 2 C-arm machines to establish biplanar fluoroscopic guidance in AP and lateral positions. We were able to localize the fractures appropriately. The patient was prepped and draped in a normal standard fashion. An appropriate timeout and keystone protocol performed. We were able to proceed with the carlito marah. The local wound area was infiltrated with local anesthetic. An incision was made over the lateral aspect of the pedicle over the appropriate levels with a small 2 mm stab incision on the right over T6 pedicle. Intraoperative fluoroscopy was taken which showed a marker at the appropriate level at T6. With the appropriate level positively confirmed, I was able to position a sharp trocar over the lateral aspect of the pedicle. As able to advance the trocar into the pedicle and into the posterior aspect of vertebral body being careful to avoid penetration cephalad caudad or medially. The trocar was placed appropriately into the posterior aspect of vertebral body at the appropriate levels. This was confirmed with C-arm guidance. With the trocar intact I was then able to take a bone biopsy with a biopsy punch or a bony drill. The biopsy specimen was passed off to be sent to pathology in formalin. I was then able to place the kyphoplasty balloon within the vertebral body. The position was checked on C-arm. I was able to inflate the balloon under low pressure and visualization with C-arm. The balloon was well enclosed within the vertebral body. The cement was prepared. With the cement at appropriate working condition the balloons were deflated and removed. Had very low pressure for inflation. I was able to place bony cement with trocar with the cement delivery device under low pressure. It had good fill within the vertebral body. There is no evidence of any extravasation of the cement posteriorly toward the canal. The cement was well contained at the appropriate levels of T6. The cement was allowed to cure appropriately. The trochars removed and final images were taken on C-arm. This showed the cement at the appropriate levels with a new cement at T6 and the old cement at T7. We were able to proceed with closure. The wound was cleaned and dried and dressed with the appropriate dressing. The drapes were broken down. The patient was gently rolled back onto their hospital bed being careful to maintain their cervical spine and good neutral alignment and position. They were woken up by anesthesia, extubated, and brought to the recovery room in good stable condition. The patient will be admitted to the hospital for observation and for appropriate postoperative care, medical management and monitoring. We will continue to follow them closely about the postoperative course.
--- NOTE | 2024-01-12 14:59 | FL ---
EXAMINATION TYPE: FL guidance operating room, XR thoracic spine 2V Intraoperative/procedural fluorosc opic services were provided. Total fluoroscopy time is 47 seconds with a total of 3 submitted images to PACS. Please see the operative/procedural note for further details. DAP: 2.50549 mGym2 Gycm2 uGym2 cGycm2
[2024-01-12 15:13] VITALS: TEMP 97.2
[2024-01-12 16:05] VITALS: RESP 16
[2024-01-12 16:54] VITALS: BP 134/70; PULSE 89
[2024-01-12] MEDS ORDERED: KETOROLAC 15 MG/ML 1 ML VIAL IVP SCH (18:00)
[2024-01-12] MEDS ORDERED: PANTOPRAZOLE 40 MG TABLET PO SCH (21:00)
[2024-01-12] MEDS ORDERED: ATORVASTATIN 10 MG TAB PO SCH (21:00)
[2024-01-12] MEDS ORDERED: PARoxetine 20 MG TAB PO SCH (21:00)
[2024-01-12] MEDS ORDERED: NON FORMULARY DRUG (Vit C/E/Zn/Coppr/Lutein/Zeaxan [Preservision Areds 2 Softgel] 1 EACH C PO SCH (21:00)
[2024-01-12] MEDS ORDERED: MONTELUKAST 10 MG TAB PO SCH (21:00)
[2024-01-13] MEDS ORDERED: CALCIUM CARB-VIT D 500 MG-5 MCG TAB PO SCH (09:00)
[2024-01-14] MEDS ORDERED: ERGOCALCIFEROL 1,250 MCG (50,000 IU) CAPSULE PO SCH (09:00)
== END 2024-01-12 16:36 | disposition home or self-care (01) ==
LOC: OR 12:41
PROVIDERS: ATTEND Orthopaedic Surgery Orthopaedic Surgery of the Spine
DX: S22.050A Wedge compression fracture of T5-T6 vertebra, initial encounter for closed fracture (principal); M41.86 Other forms of scoliosis, lumbar region; F10.90 Alcohol use, unspecified, uncomplicated; I82.409 Acute embolism and thrombosis of unspecified deep veins of unspecified lower extremity; E78.5 Hyperlipidemia, unspecified; M19.90 Unspecified osteoarthritis, unspecified site; J45.909 Unspecified asthma, uncomplicated; K21.9 Gastro-esophageal reflux disease without esophagitis; F32.A Depression, unspecified; F41.9 Anxiety disorder, unspecified; Z90.710 Acquired absence of both cervix and uterus; Z87.891 Personal history of nicotine dependence; Z98.890 Other specified postprocedural states; X58.XXXA Exposure to other specified factors, initial encounter; Z79.899 Other long term (current) drug therapy; Z79.51 Long term (current) use of inhaled steroids
CPT/HCPCS: 72070; 22513; C1713; J2250; J0330; J0690; J2405; J2001; J3010; J2704; Q9966; J2371

== ENCOUNTER → 2024-03-31 | Outpatient (CLI) | payer MEDICARE ==
[2024-03-31 13:31] LABS: Basophils % (A) 0 %; Eosinophils % (A) 0 %; HCT 37.2 % (34.0-46.0); HGB 11.9 gm/dL (11.4-16.0); Hypochromasia Moderate; Lymphocytes # (A) 0.6 k/uL (1.0-4.8); Lymphocytes % (A) 21 %; MCH 32.8 pg (25.0-35.0); MCV 102.6 fL (80.0-100.0); Macrocytosis Slight; Mean Platelet Volume 7.4; Monocytes # (A) 0.4 k/uL (0-1.0); Monocytes % (A) 11 %; Neutrophils % (A) 66 %; Platelet Count 304 k/uL (150-450); RBC 3.62 m/uL (3.80-5.40); RDW 14.5 % (11.5-15.5); WBC 3.1 k/uL (3.8-10.6)
[2024-03-31 13:34] LABS: ALT 10 U/L (4-34); African American GFR (CKD) >90 (>60 ml/min/1.73 sqM); Albumin 4.1 g/dL (3.5-5.0); Albumin/Globulin Ratio 1.6; Anion Gap 7 mmol/L; Blood Urea Nitrogen 17 mg/dL (7-17); Calcium 9.6 mg/dL (8.4-10.2); Carbon Dioxide 24 mmol/L (22-30); Chloride 108 mmol/L (98-107); Globulin 2.5 g/dL; Glucose 91 mg/dL (74-99); Non-African American GFR(CKD) >90 (>60 ml/min/1.73 sqM); Sodium 139 mmol/L (137-145); Total Bilirubin 0.6 mg/dL (0.2-1.3); Total Protein 6.6 g/dL (6.3-8.2)
[2024-03-31 13:37] LABS: AST 27 U/L (14-36); Alkaline Phosphatase 79 U/L (38-126); Potassium 4.1 mmol/L (3.5-5.1)
[2024-03-31 13:38] LABS: Appearance,Urine Clear (Clear); Bilirubin,Urine Negative (Negative); Blood,Urine Negative (Negative); Color,Urine Yellow; Glucose,Urine (UA) Negative (Negative); Ketones,Urine Negative (Negative); Leukocyte Esterase,Urine Small (Negative); Mucus,Urine Moderate /hpf; Nitrite,Urine Negative (Negative); PH, Urine 5.5 (5.0-8.0); Protein,Urine Trace (Negative); Specific Gravity,Urine 1.023 (1.001-1.035); Squamous Epithelial Cell,Urine <1 /hpf (0-4); WBC,Urine 4 /hpf (0-5)
--- NOTE | 2024-03-31 15:06 | CT ---
EXAMINATION TYPE: CT abdomen pelvis w con DATE OF EXAM: 03/31/2024 COMPARISON: None HISTORY: left side abd pain, suspected diverticulitis. CT DLP: 1338.0 mGycm CONTRAST: CT scan of the abdomen and pelvis is performed with Oral Contrast and with IV Contrast, patient injec rome with 100ml mL of Isovue 300. FINDINGS: LUNG BASES-: No visible nodule. No infiltrate. Moderate fixed hiatal hernia. LIVER/GB: No calcified gallstones. No space occupying hepatic lesion. Biliary tree is of normal ca liber. PANCREAS: No inflammation. No distinct mass. SPLEEN: No splenic enlargement. No lesion seen. Calcified splenic granulomata. ADRENALS: No nodule. No thickening. KIDNEYS/BLADDER: No hydronephrosis. No nephrolithiasis. No distinct renal mass. Urinary bladder g rossly unremarkable. BOWEL: Normal appendix. Normal bowel caliber. No inflammation. Sigmoid diverticulosis without diver ticulitis. GENITAL ORGANS: No gross abnormality. LYMPH NODES: No greater than 1cm abdominal or pelvic lymph nodes are appreciated. AORTA: No significant abnormality. OSSEOUS STRUCTURES: No significant abnormality is seen. OTHER: Small fat-containing umbilical hernia. IMPRESSION: 1. Moderate fixed hiatal hernia. 2. Sigmoid diverticulosis without diverticulitis. 3. Small fat-containing umbilical hernia
== END | disposition home or self-care (01) ==
LOC: RADCTMAIN 12:13
PROVIDERS: ATTEND Internal Medicine Geriatric Medicine
DX: K57.30 Diverticulosis of large intestine without perforation or abscess without bleeding (principal); K42.9 Umbilical hernia without obstruction or gangrene; K44.9 Diaphragmatic hernia without obstruction or gangrene
CPT/HCPCS: 80053; 85025; 81001; 74177; Q9967

== ENCOUNTER → 2024-07-26 | Outpatient (CLI) | payer MEDICARE ==
--- NOTE | 2024-07-31 08:54 | MM ---
Reason for Exam: Screening (asymptomatic). Last mammogram was performed 1 year(s) and 4 month(s) ago. Patient History: Menarche at age 11. First Full-Term at age 24. Left ovary removed at age 50. Right ovary removed at age 50. Hysterectomy at age 50. Postmenopausal. Breast cancer, left, age 72. Previous DCIS pathology result. Previous chest radiation therapy at age 72. Patient tested for BRCA1 outcome was negative. Patient tested for BRCA2 outcome was negative. Estrogen for 9 years from age 50 until age 59. Benign Cyst Aspiration on the right side. 02/08/2018, Lumpectomy on the Left side. Benign Excisional Biopsy on the right side. Benign Excisional Biopsy on the right side. Benign Excisional Biopsy on the right side. Benign Excisional Biopsy on the left side. Benign Excisional Biopsy on the left side. 02/08/2018, Malignant Core Biopsy on the left side. 01/05/2018, Malignant Core Biopsy on the left side. Sister had breast cancer, age 73. Sister had breast cancer, age 72. Prior Study Comparison: 10/05/2016 Bilateral Screening Mammogram, [facility]. 12/15/2017 Bilateral Screening Mammogram, [facility]. 12/24/2017 Left Diagnostic Mammogram, [facility]. 01/05/2018 Left Diagnostic Mammogram, [facility]. 11/07/2018 Bilateral Diagnostic Mammogram, [facility]. 02/21/2020 Bilateral Diagnostic Mammogram, [facility]. 02/24/2021 Bilateral Diagnostic Mammogram, [facility]. 03/12/2022 Bilateral MG 3D screening mammo w/cad, [facility]. 03/15/2023 Bilateral MG 3D screening mammo w/cad, [facility]. Tissue Density: There are scattered areas of fibroglandular density. Findings: Analyzed By CAD. Left breast surgical clips. Right breast: There is no suspicious group of microcalcifications or new suspicious mass. Benign-appearing calcifications right breast. Left breast: There is no suspicious group of microcalcifications or new suspicious mass. Overall Assessment: Benign, BI-RAD 2 Management: Screening Mammogram of both breasts in [address] [facility] will attempt to contact patient to return for supplemental views and ultrasound if indicated. Patient should continue monthly self-breast exams. A clinical breast exam by your physician is recommended on an annual basis. This exam should not preclude additional follow-up of suspicious palpable abnormalities. Note on Felicia scores and lifetime risk: 1. A Felicia score greater than 3% is considered moderate risk. If this is the case, consider specialist referral to assess eligibility for a risk reducing agent. 2. If overall lifetime risk for the development of breast cancer is 20% or higher, the patient may qualify for future screening with alternating mammogram and breast MRI. [facility], , 07/31/2024 8:51 AM. Electronically signed and approved by: Alexis Limon DO
== END | disposition home or self-care (01) ==
LOC: RADMAMWWP 11:15
PROVIDERS: ATTEND Internal Medicine Hematology & Oncology
DX: Z12.31 Encounter for screening mammogram for malignant neoplasm of breast (principal); R92.323 Mammographic fibroglandular density, bilateral breasts; Z78.0 Asymptomatic menopausal state; Z80.3 Family history of malignant neoplasm of breast
CPT/HCPCS: 77063; 77067

== ENCOUNTER 2025-02-01 12:53 | Emergency (ER) | payer MEDICARE ==
--- NOTE | 2025-02-01 13:28 | ED ---
Abdominal Pain HPI - General Chief Complaint: Abdominal Pain Stated Complaint: Urogenital,Back pain Time Seen by Provider: 02/01/25 13:07 Source: patient, RN notes reviewed Mode of arrival: wheelchair Limitations: no limitations - History of Present Illness Initial Comments: This is an 79-year-old female with history including diverticulosis, breast can cer, GERD presenting with for abdominal/back pain (01/20) x 7 days. Patient describes pain as constant pressure with associated anorexia and small bowel movements. Endorses use of [id number] stool softener with minimal relief. Endorses prior use of Burney but does not take opiates at this time. Denies fever, chills, chest pain, dyspnea, N/V/D, hematochezia, melena, urinary symptoms, vaginal bleeding/discharge. MD Complaint: abdominal pain Onset/Timin -: days(s) - Related Data Home Medications Medication Instructions Recorded Confirmed Omeprazole [PriLOSEC] 20 mg PO HS 08/05/18 01/12/24 Montelukast [Singulair] 10 mg PO HS 11/18/20 01/12/24 Vit C/E/Zn/Coppr/Lutein/Zeaxan 1 cap PO BID 11/18/20 01/12/24 [Preservision Areds 2 Softgel] Benralizumab [Fasenra] 30 mg SQ Q60D 01/16/22 01/12/24 Ergocalciferol (Vitamin D2) 1,250 mcg PO FR 01/16/22 01/12/24 [Drisdol (50,000 Iu)] Rosuvastatin Calcium [Crestor] 5 mg PO HS 01/16/22 01/12/24 ALPRAZolam [Xanax] 0.25 mg PO TID PRN 01/07/24 01/12/24 Albuterol Inhaler [Ventolin Hfa 1 - 2 puff INHALATION Q6H PRN 01/07/24 01/12/24 Inhaler] Calcium Citrate/Vitamin D3 1 each PO DAILY 01/07/24 01/12/24 [Citracal + D Maximum Caplet] HYDROcodone/APAP 7.5-325MG [Burney 1 tab PO Q6HR PRN 01/07/24 01/12/24 7.5-325] Omeprazole [PriLOSEC] 20 mg PO DAILY PRN 01/07/24 01/12/24 PARoxetine [Paxil] 20 mg PO HS 01/07/24 01/12/24 Allergies Allergy/AdvReac Type Severity Reaction Status Date / Time cefuroxime AdvReac Nausea & Verified 02/01/25 13:03 Vomiting Review of Systems ROS Statement: Those systems with pertinent positive or pertinent negative responses have been documented in the HPI. ROS Other: All systems not noted in ROS Statement are negative. Past Medical History Past Medical History: Asthma, Cancer, Deep Vein Thrombosis (DVT), GERD/Reflux, Hyperlipidemia, Osteoarthritis (OA), Pneumonia Additional Past Medical History / Comment(s): Hx migraines, none in a long time. hx left breast cancer with radiation March-April 2018, then took Femara for 5 yrs. Thin skin. History of Any Multi-Drug Resistant Organisms: None Reported Past Surgical History: Breast Surgery, Heart Catheterization, Hysterectomy, Joint Replacement Additional Past Surgical History / Comment(s): Left breast biopsy X5, left breast lumpectomy, right total knee replacement, colonoscopy, bilaterall cataract surgery, hernia with mesh placement, Kyphoplasty T7 12/23/23 Past Anesthesia/Blood Transfusion Reactions: No Reported Reaction Past Psychological History: Anxiety, Depression Smoking Status: Former smoker Past Alcohol Use History: Occasional Past Drug Use History: None Reported - Past Family History Sister(s) Family Medical History: Cancer, Pulmonary Embolus Additional Family Medical History / Comment(s): 2 SISTER'S -BREAST CANCER. Brother(s) Family Medical History: Cancer Additional Family Medical History / Comment(s): 2 BROTHER'S HAD CANCER - MELANOMA, PROSTATE. Son(s) Family Medical History: No Reported History Daughter(s) Family Medical History: No Reported History Mother Family Medical History: Asthma Father Family Medical History: No Reported History General Exam Limitations: no limitations General appearance: alert, in no apparent distress Head exam: Present: atraumatic, normocephalic, normal inspection Eye exam: Present: normal appearance, PERRL, EOMI. Absent: scleral icterus, conjunctival injection, periorbital swelling ENT exam: Present: normal exam, mucous membranes moist Neck exam: Present: normal inspection. Absent: tenderness, meningismus, lymphadenopathy Respiratory exam: Present: normal lung sounds bilaterally. Absent: respiratory distress, wheezes, rales, rhonchi, stridor, accessory muscle use, decreased breath sounds, prolonged expiratory Cardiovascular Exam: Present: regular rate, normal rhythm, normal heart sounds. Absent: systolic murmur, diastolic murmur, rubs, gallop, clicks GI/Abdominal exam: Present: soft, distended, tenderness (Positive RUQ TTP, negative Musa sign. Positive LLQ TTP without guarding), normal bowel sounds, hernia (Small, reducible umbilical hernia noted). Absent: guarding, rebound, rigid, organomegaly, mass Extremities exam: Present: normal inspection, full ROM, normal capillary refill. Absent: tenderness, pedal edema, joint swelling, calf tenderness Back exam: Present: normal inspection, muscle spasm, paraspinal tenderness (Positive bilateral paralumbar muscle spasm and point tenderness.). Absent: CVA tenderness (R), CVA tenderness (L), vertebral tenderness Neurological exam: Present: alert, oriented X3, CN II-XII intact Psychiatric exam: Present: normal affect, normal mood Skin exam: Present: warm, dry, intact, normal color. Absent: rash Course Vital Signs 02/01/25 02/01/25 12:55 14:08 Temperature 98.3 F Pulse Rate 82 68 Respiratory 17 16 Rate Blood Pressure 143/76 158/98 O2 Sat by Pulse 96 97 Oximetry Medical Decision Making - Medical Decision Making Was pt. sent in by a medical professional or institution (DEVIN Malone, HUMID SYSTEM OPERATOR, urgent care, hospital, or snf...) When possible be specific @ -[No] Did you speak to anyone other than the patient for history (EMS, parent, family, police, friend...)? What history was obtained from this source @ -[No] Did you review nursing and triage notes (agree or disagree)? Why? @ -[I reviewed and agree with nursing and triage notes] Were old charts reviewed (outside hosp., previous admission, EMS record, old EKG, old radiological studies, urgent care reports/EKG's, snf records)? Report findings @ -[No old charts were reviewed] Differential Diagnosis (chest pain, altered mental status, abdominal pain women, abdominal pain men, vaginal bleeding, weakness, fever, dyspnea, syncope, headache, dizziness, GI bleed, back pain, seizure, CVA, palpatations, mental health, musculoskeletal)? @ -Differential Abdominal Pain Women: Appendicitis, Cholecystitis, diverticulosis, ischemic bowel, pancreatitis, hepatitis, UTI, gastroenteritis, AAA, incarcerated hernia, bowel obstruction, constipation, inflammatory bowel, hepatitis, peptic ulcer disease, splenic infarction, perforated viscus, vulvitis, ovarian torsion, PID, kidney stone, placenta abruption, this is not meant to be an all-inclusive list Differential Back Pain: Strain, zoster, cauda equina syndrome, epidural abscess, vertebral osteomyelitis, discitis, fracture, subluxation, disc herniation, DJD, spinal stenosis, dissection, AAA, pancreatitis, peptic ulcer disease, pyelonephritis, kidney stone, this is not meant to be an all-inclusive list. EKG interpreted by me (3pts min.). @ -Not done X-rays interpreted by me (1pt min.). @ -[None done] CT interpreted by me (1pt min.). @ -[None done] U/S interpreted by me (1pt. min.). @ -[None done] What testing was considered but not performed or refused? (CT, X-rays, U/S, labs)? Why? @ -[None] What meds were considered but not given or refused? Why? @ -[None] Did you discuss the management of the patient with other professionals (professionals i.e. , PA, HUMID SYSTEM OPERATOR, lab, RT, psych nurse, social sciences research scientist, briquette molder, teacher, senior major gifts officer, game preserve manager)? Give summary @ -[No] Was smoking cessation discussed for >3mins.? @ -[No] Was critical care preformed (if so, how long)? @ -[No] Were there social determinants of health that impacted care today? How? (Homelessness, low income, unemployed, alcoholism, drug addiction, t ransportation, low edu. Level, literacy, decrease access to med. care, long-term, rehab)? @ -[No] Was there de-escalation of care discussed even if they declined (Discuss DNR or withdrawal of care, Hospice)? DNR status @ -[No] What co-morbidities impacted this encounter? (DM, HTN, Smoking, COPD, CAD, Can cer, CVA, ARF, Chemo, Hep., AIDS, mental health diagnosis, sleep apnea, morbid obesity)? @ -[None] Was patient admitted / discharged? Hospital course, mention meds given and route, prescriptions, significant lab abnormalities, going to OR and other pertinent info. @ -[hospital course] Undiagnosed new problem with uncertain prognosis? @ -[No] Drug Therapy requiring intensive monitoring for toxicity (Heparin, Nitro, Insulin, Cardizem)? @ -[No] Were any procedures done? @ -[No] Diagnosis/symptom? @ -[default] Acute, or Chronic, or Acute on Chronic? @ -Acute Uncomplicated (without systemic symptoms) or Complicated (systemic symptoms)? @ -Uncomplicated Side effects of treatment? @ -[No] Exacerbation, Progression, or Severe Exacerbation? @ -[No] Poses a threat to life or bodily function? How? (Chest pain, [place], [place], pneumonia, PE, COPD, DKA, ARF, appy, cholecystitis, CVA, Diverticulitis, Homicidal, Suicidal, threat to staff... and all critical care pts) @ -[No] - Lab Data Result diagrams: 02/01/25 13:56 02/01/25 13:56 Lab Results 02/01/25 02/01/25 02/01/25 Range/Units 13:56 13:56 13:56 WBC 2.88 L (4.50-10.00) 10*3/uL RBC 3.44 L (4.10-5.20) 10*6/uL Hgb 11.8 L (12.0-15.0) g/dL Hct 35.0 L (37.2-46.3) % MCV 101.7 H (80.0-97.0) fL MCH 34.3 H (27.0-32.0) pg MCHC 33.7 (32.0-37.0) g/dL Plt Count 249 (140-440) 10*3/uL MPV 9.4 L (9.5-12.2) fL Immature Gran % (Auto) 0 % Neutrophils % 65.6 % Lymphocytes % 20.5 % Monocytes % 13.9 % Eosinophils % 0.0 % Basophils % 0.0 % Immature Gran # 0.00 (0.00-0.04) 10*3/uL Neutrophils # 1.89 (1.80-7.70) 10*3/uL Lymphocytes # 0.59 L (0.90-5.00) 10*3/uL Monocytes # 0.40 (0.20-1.00) 10*3/uL Eosinophils # 0.00 L (0.04-0.35) 10*3/uL Basophils # 0.00 (0.00-0.10) 10*3/uL Sodium 138 (137-145) mmol/L Potassium 4.0 (3.5-5.1) mmol/L Chloride 106 (98-107) mmol/L Carbon Dioxide 23 (22-30) mmol/L Anion Gap 9 mmol/L BUN 17 (7-17) mg/dL Creatinine 0.49 L (0.52-1.04) mg/dL Est GFR (CKD-EPI)AfAm >90 (>60 ml/min/1.73 sqM) Est GFR (CKD-EPI)NonAf >90 (>60 ml/min/1.73 sqM) Glucose 88 (74-99) mg/dL Plasma Lactic Acid Deshaun 0.6 L (0.7-2.0) mmol/L Calcium 9.4 (8.4-10.2) mg/dL Total Bilirubin 0.7 (0.2-1.3) mg/dL AST 23 (14-36) U/L ALT 12 (4-34) U/L Alkaline Phosphatase 97 (38-126) U/L Total Protein 6.7 (6.3-8.2) g/dL Albumin 4.0 (3.5-5.0) g/dL Lipase 65 (23-300) U/L Urine Color Urine Appearance (Clear) Urine pH (5.0-8.0) Ur Specific [place] (1.001-1.035) Urine Protein (Negative) Urine Glucose (UA) (Negative) Urine Ketones (Negative) Urine Blood (Negative) Urine Nitrite (Negative) Urine Bilirubin (Negative) Urine Urobilinogen (<2.0) mg/dL Ur Leukocyte Esterase (Negative) Urine RBC (0-5) /hpf Urine WBC (0-5) /hpf Ur Squamous Epith Cells (0-4) /hpf Hyaline Casts (0-2) /lpf Urine Mucus (None) /hpf 02/01/25 Range/Units 14:05 WBC (4.50-10.00) 10*3/uL RBC (4.10-5.20) 10*6/uL Hgb (12.0-15.0) g/dL Hct (37.2-46.3) % MCV (80.0-97.0) fL MCH (27.0-32.0) pg MCHC (32.0-37.0) g/dL Plt Count (140-440) 10*3/uL MPV (9.5-12.2) fL Immature Gran % (Auto) % Neutrophils % % Lymphocytes % % Monocytes % % Eosinophils % % Basophils % % Immature Gran # (0.00-0.04) 10*3/uL Neutrophils # (1.80-7.70) 10*3/uL Lymphocytes # (0.90-5.00) 10*3/uL Monocytes # (0.20-1.00) 10*3/uL Eosinophils # (0.04-0.35) 10*3/uL Basophils # (0.00-0.10) 10*3/uL Sodium (137-145) mmol/L Potassium (3.5-5.1) mmol/L Chloride (98-107) mmol/L Carbon Dioxide (22-30) mmol/L Anion Gap mmol/L BUN (7-17) mg/dL Creatinine (0.52-1.04) mg/dL Est GFR (CKD-EPI)AfAm (>60 ml/min/1.73 sqM) Est GFR (CKD-EPI)NonAf (>60 ml/min/1.73 sqM) Glucose (74-99) mg/dL Plasma Lactic Acid Deshaun (0.7-2.0) mmol/L Calcium (8.4-10.2) mg/dL Total Bilirubin (0.2-1.3) mg/dL AST (14-36) U/L ALT (4-34) U/L Alkaline Phosphatase (38-126) U/L Total Protein (6.3-8.2) g/dL Albumin (3.5-5.0) g/dL Lipase (23-300) U/L Urine Color Yellow Urine Appearance Clear (Clear) Urine pH 6.0 (5.0-8.0) Ur Specific [place] 1.024 (1.001-1.035) Urine Protein Trace H (Negative) Urine Glucose (UA) Negative (Negative) Urine Ketones Negative (Negative) Urine Blood Negative (Negative) Urine Nitrite Negative (Negative) Urine Bilirubin Negative (Negative) Urine Urobilinogen 3.0 (<2.0) mg/dL Ur Leukocyte Esterase Trace H (Negative) Urine RBC 10 H (0-5) /hpf Urine WBC 1 (0-5) /hpf Ur Squamous Epith Cells 4 (0-4) /hpf Hyaline Casts 4 H (0-2) /lpf Urine Mucus Many H (None) /hpf Disposition Clinical Impression: Abdominal pain, Lumbar compression fracture, Thoracic compression fracture Disposition: HOME SELF-CARE Condition: Fair Instructions (If sedation given, give patient instructions): Abdominal Pain (ED), Vertebral Compression Fracture (ED) Additional Instructions: Increase water, prune juice and soluble/insoluble fiber intake. Follow-up with gastroenterology for ongoing abdominal pain. Follow-up with orthospine for vertebral compression fractures. Is patient prescribed a controlled substance at d/c from ED?: No Referrals: Isac Myrick MD [Primary Care Provider] - 1-2 days Maria Luz John MD [STAFF PHYSICIAN] - 1-2 days Time of Disposition: 15:35
[2025-02-01 14:13] LABS: HGB 11.8 g/dL (12.0-15.0); Lymphocytes # (A) 0.59 10*3/uL (0.90-5.00); Lymphocytes % (A) 20.5 %; MCH 34.3 pg (27.0-32.0); MCHC 33.7 g/dL (32.0-37.0); MCV 101.7 fL (80.0-97.0); Mean Platelet Volume 9.4 fL (9.5-12.2); Monocytes % (A) 13.9 %; Neutrophils # (A) 1.89 10*3/uL (1.80-7.70); Neutrophils % (A) 65.6 %; Platelet Count 249 10*3/uL (140-440); RBC 3.44 10*6/uL (4.10-5.20); RDW 14.8 % (11.5-14.5); WBC 2.88 10*3/uL (4.50-10.00)
[2025-02-01] MEDS: SODIUM CHLORIDE 0.9% 1,000 ML IV STA (14:13)
[2025-02-01 14:19] LABS: Appearance,Urine Clear (Clear); Bilirubin,Urine Negative (Negative); Blood,Urine Negative (Negative); Color,Urine Yellow; Glucose,Urine (UA) Negative (Negative); Hyaline Casts,Urine 4 /lpf (0-2); Ketones,Urine Negative (Negative); Leukocyte Esterase,Urine Trace (Negative); Mucus,Urine Many /hpf; Nitrite,Urine Negative (Negative); Protein,Urine Trace (Negative); RBC,Urine 10 /hpf (0-5); Specific Gravity,Urine 1.024 (1.001-1.035); Squamous Epithelial Cell,Urine 4 /hpf (0-4); WBC,Urine 1 /hpf (0-5)
[2025-02-01 14:26] LABS: ALT 12 U/L (4-34); AST 23 U/L (14-36); African American GFR (CKD) >90 (>60 ml/min/1.73 sqM); Alkaline Phosphatase 97 U/L (38-126); Anion Gap 9 mmol/L; Blood Urea Nitrogen 17 mg/dL (7-17); Calcium 9.4 mg/dL (8.4-10.2); Carbon Dioxide 23 mmol/L (22-30); Chloride 106 mmol/L (98-107); Glucose 88 mg/dL (74-99); Lipase 65 U/L (23-300); Non-African American GFR(CKD) >90 (>60 ml/min/1.73 sqM); Sodium 138 mmol/L (137-145); Total Bilirubin 0.7 mg/dL (0.2-1.3); Total Protein 6.7 g/dL (6.3-8.2)
--- NOTE | 2025-02-01 15:22 | CT ---
EXAMINATION TYPE: CT abdomen pelvis w con DATE OF EXAM: 02/01/2025 COMPARISON: 1923 CLINICAL INDICATION: Female, 79 years old with history of LLQ and RUQ TTP; PHH, Pt is coming in for a bdominal pain and back pain. Per pt her last normal bowel movement was 1 week ago. Pt has been taking stool softners and suppositories. TECHNIQUE: Performed without Oral Contrast and with IV Contrast, patient injected with 100 ml mL of Isovue 300. CT DLP: 1126.[address] CTDI: mGy Automated exposure control for dose reduction was used. FINDINGS: The lung bases are clear. There is a large hiatal hernia with a partially intrathoracic stomach. The gallbladder is normal without distention, wall thickening, pericholecystic fluid or gallstones. T here is no biliary ductal dilatation. There is no focal mass or organomegaly involving the liver, pancreas, spleen or adrenal glands. Incid ental note is made of multiple calcified splenic granulomas. There is no solid renal mass or hydronephrosis and there is homogeneous contrast enhancement of the r enal parenchyma. There is a nonobstructing 6.4 mm left renal calcification. The caliber the abdominal aorta is normal is no retroperitoneal adenopathy or hemorrhage. The bowel loops are normal in caliber and there is no evidence of dilatation or obstruction. No infla mmatory changes are identified in the bowel wall or mesentery. There is moderate diverticulosis of th e sigmoid colon without CT evidence of acute diverticulitis. There is no free intraperitoneal air or fluid. No pelvic mass, free fluid, abscess or adenopathy. There is surgical absence of the uterus. There is a moderate and progressive compression fracture T12. There is a mild to moderate progressive compression fracture of L3 IMPRESSION: 1. Stable Large hiatal hernia with partially intrathoracic stomach 2. Stable 6.5 mm nonobstructing right renal calcification. 3. Worsening compression fractures of T12 and L3 as described above. 4. Moderate diverticulosis of the sigmoid colon without acute diverticulitis. [facility], , 02/01/2025 3:19 PM
[2025-02-01] MEDS: KETOROLAC 15 MG/ML 1 ML VIAL IVP STA (16:26)
[2025-02-01] MEDS: MAGNESIUM CITRATE 296 ML BOTTLE PO ONE (16:27)
[2025-02-01 18:45] VITALS: BP 144/94; PULSE 89; RESP 19; TEMP 98.1
== END 2025-02-01 18:45 | disposition home or self-care (01) ==
LOC: EC 12:53
DX: S32.000A Wedge compression fracture of unspecified lumbar vertebra, initial encounter for closed fracture (principal); S22.000A Wedge compression fracture of unspecified thoracic vertebra, initial encounter for closed fracture; K42.9 Umbilical hernia without obstruction or gangrene; Z88.1 Allergy status to other antibiotic agents; Z87.891 Personal history of nicotine dependence; X58.XXXA Exposure to other specified factors, initial encounter
CPT/HCPCS: 36415; 80053; 83605; 83690; 85025; 81001; 74177; 99284; 96374; 96361; J1885; Q9967; 99285

== ENCOUNTER 2025-02-15 15:57 | Emergency (ER) | payer MEDICARE ==
--- NOTE | 2025-02-15 16:29 | ED ---
SOB HPI - General Chief Complaint: Shortness of Breath Stated Complaint: SOB Time Seen by Provider: 02/15/25 16:03 Source: patient, EMS Mode of arrival: EMS Limitations: no limitations - History of Present Illness Initial Comments: 79-year-old female with past medical history of DVT, hyperlipidemia who presents to the emergency department reporting shortness of breath. States that she was at home and began coughing and could not take deep breaths. Patient did have a fall and hit her chest this past Wednesday. Denies hitting her head. No loss of consciousness. Patient does use inhalers at home. She denies hemoptysis. No nausea or vomiting. No abdominal pain. Patient does take [place] at home for chronic pain. Patient does not take any blood thinners. No other alleviating, precipitating modifying factors - Related Data Home Medications Medication Instructions Recorded Confirmed Omeprazole [PriLOSEC] 20 mg PO HS 08/05/18 01/12/24 Montelukast [Singulair] 10 mg PO HS 11/18/20 01/12/24 Vit C/E/Zn/Coppr/Lutein/Zeaxan 1 cap PO BID 11/18/20 01/12/24 [Preservision Areds 2 Softgel] Benralizumab [Fasenra] 30 mg SQ Q60D 01/16/22 01/12/24 Ergocalciferol (Vitamin D2) 1,250 mcg PO FR 01/16/22 01/12/24 [Drisdol (50,000 Iu)] Rosuvastatin Calcium [Crestor] 5 mg PO HS 01/16/22 01/12/24 ALPRAZolam [Xanax] 0.25 mg PO TID PRN 01/07/24 01/12/24 Albuterol Inhaler [Ventolin Hfa 1 - 2 puff INHALATION Q6H PRN 01/07/24 01/12/24 Inhaler] Calcium Citrate/Vitamin D3 1 each PO DAILY 01/07/24 01/12/24 [Citracal + D Maximum Caplet] HYDROcodone/APAP 7.5-325MG [[place] 1 tab PO Q6HR PRN 01/07/24 01/12/24 7.5-325] Omeprazole [PriLOSEC] 20 mg PO DAILY PRN 01/07/24 01/12/24 PARoxetine [Paxil] 20 mg PO HS 01/07/24 01/12/24 Previous Rx's Medication Instructions Recorded Famotidine [Pepcid] 20 mg PO BID #30 tablet 02/01/25 oxyCODONE-APAP 5-325MG [Percocet 1 tab PO Q4HR PRN 3 Days #18 tab 02/15/25 5-325 mg] Allergies Allergy/AdvReac Type Severity Reaction Status Date / Time cefuroxime AdvReac Nausea & Verified 02/15/25 16:51 Vomiting Review of Systems ROS Statement: Those systems with pertinent positive or pertinent negative responses have been documented in the HPI. ROS Other: All systems not noted in ROS Statement are negative. Past Medical History Past Medical History: Asthma, Cancer, Deep Vein Thrombosis (DVT), GERD/Reflux, Hyperlipidemia, Osteoarthritis (OA), Pneumonia Additional Past Medical History / Comment(s): Hx migraines, none in a long time. hx left breast cancer with radiation March-April 2018, then took Femara for 5 yr s. Thin skin. History of Any Multi-Drug Resistant Organisms: None Reported Past Surgical History: Breast Surgery, Heart Catheterization, Hysterectomy, Joint Replacement Additional Past Surgical History / Comment(s): Left breast biopsy X5, left breast lumpectomy, right total knee replacement, colonoscopy, bilaterall cataract surgery, hernia with mesh placement, Kyphoplasty T7 12/23/23 Past Anesthesia/Blood Transfusion Reactions: No Reported Reaction Past Psychological History: Anxiety, Depression Smoking Status: Former smoker Past Alcohol Use History: Occasional Past Drug Use History: None Reported - Past Family History Sister(s) Family Medical History: Cancer, Pulmonary Embolus Additional Family Medical History / Comment(s): 2 SISTER'S -BREAST CANCER. Brother(s) Family Medical History: Cancer Additional Family Medical History / Comment(s): 2 BROTHER'S HAD CANCER - MELANOMA, PROSTATE. Son(s) Family Medical History: No Reported History Daughter(s) Family Medical History: No Reported History Mother Family Medical History: Asthma Father Family Medical History: No Reported History General Exam Limitations: no limitations General appearance: alert, in no apparent distress Head exam: Present: atraumatic, normocephalic, normal inspection Eye exam: Present: normal appearance, PERRL, EOMI. Absent: scleral icterus, conjunctival injection, periorbital swelling ENT exam: Present: normal exam, mucous membranes moist Neck exam: Present: normal inspection. Absent: tenderness, meningismus, lymphadenopathy Respiratory exam: Present: normal lung sounds bilaterally, chest wall tenderness (Tenderness to palpation of the sternum and left upper chest wall). Absent: respiratory distress, wheezes, rales, rhonchi, stridor Cardiovascular Exam: Present: regular rate, normal rhythm, normal heart sounds. Absent: systolic murmur, diastolic murmur, rubs, gallop, clicks GI/Abdominal exam: Present: soft, normal bowel sounds. Absent: distended, tenderness, guarding, rebound, rigid Extremities exam: Present: normal inspection, full ROM, normal capillary refill. Absent: tenderness, pedal edema, joint swelling, calf tenderness Back exam: Present: normal inspection Neurological exam: Present: alert, oriented X3, CN II-XII intact Psychiatric exam: Present: normal affect, normal mood Skin exam: Present: warm, dry, intact, normal color. Absent: rash Course Vital Signs 02/15/25 02/15/25 02/15/25 15:59 16:07 20:01 Temperature 98.6 F 97.9 F Pulse Rate 61 57 L Respiratory 19 19 18 Rate Blood Pressure 163/92 144/68 O2 Sat by Pulse 97 92 L Oximetry Medical Decision Making - Medical Decision Making Was pt. sent in by a medical professional or institution (, PA, COMPLIANCE REPRESENTATIVE DEALER, urgent care, hospital, or senior living...) When possible be specific @ -No Did you speak to anyone other than the patient for history (EMS, parent, family, police, friend...)? What history was obtained from this source @ -No Did you review nursing and triage notes (agree or disagree)? Why? @ -I reviewed and agree with nursing and triage notes Were old charts reviewed (outside hosp., previous admission, EMS record, old EKG, old radiological studies, urgent care reports/EKG's, senior living records)? Report findings @ -No old charts were reviewed Differential Diagnosis (chest pain, altered mental status, abdominal pain women, abdominal pain men, vaginal bleeding, weakness, fever, dyspnea, syncope, headache, dizziness, GI bleed, back pain, seizure, CVA, palpatations, mental health, musculoskeletal)? @ -Differential Dyspnea: Coronary syndrome, arrhythmia, tamponade, asthma, COPD, pulmonary embolism, pneumonia, pneumothorax, pulmonary effusion, anaphylaxis, diabetic ketoacidosis, flailed chest, pulmonary contusion, diaphragmatic rupture, anemia, neuromu scular, this is not meant to be an all-inclusive list. EKG interpreted by me (3pts min.). @ -yes and demonstrates sinus bradycardia with a rate of 56. NE interval 157. QRS 148. QTc of 441. Intraventricular conduction delay with a right bundle branch block. X-rays interpreted by me (1pt min.). @ -Yes which demonstrates no acute process CT interpreted by me (1pt min.). @ -Yes which demonstrates sternal fracture U/S interpreted by me (1pt. min.). @ -None done What testing was considered but not performed or refused? (CT, X-rays, U/S, labs)? Why? @ -None What meds were considered but not given or refused? Why? @ -None Did you discuss the management of the patient with other professionals (professionals i.e. , PA, COMPLIANCE REPRESENTATIVE DEALER, lab, RT, psych nurse, social work msw, granulator tender, teacher, tank officer, telephonic case manager)? Give summary @ -No Was smoking cessation discussed for >3mins.? @ -No Was critical care preformed (if so, how long)? @ -No Were there social determinants of health that impacted care today? How? (Homelessness, low income, unemployed, alcoholism, drug addiction, transportati on, low edu. Level, literacy, decrease access to med. care, [place] [facility], rehab)? @ -No Was there de-escalation of care discussed even if they declined (Discuss DNR or withdrawal of care, Hospice)? DNR status @ -No What co-morbidities impacted this encounter? (DM, HTN, Smoking, COPD, CAD, Cancer, CVA, ARF, Chemo, Hep., AIDS, mental health diagnosis, sleep apnea, morbid obesity)? @ -Chronic pain on narcotics Was patient admitted / discharged? Hospital course, mention meds given and route, prescriptions, significant lab abnormalities, going to OR and other pertinent info. @ -Upon arrival patient seen and evaluated in room 19. Thorough history and physical exam was performed. Laboratory studies are conducted. Patient was provided with pain medications. Chest x-ray is followed by CT due to elevated D-dimer. CT does demonstrates no fracture. Patient was comfortable going home. I did increase her pain medications from [place]'s to Percocets. She is to follow-up with her doctor in 2 to 4 days. Return for any new or worsening symptoms. Patient agreeable to plan was discharged home in stable condition Undiagnosed new problem with uncertain prognosis? @ -No Drug Therapy requiring intensive monitoring for toxicity (Heparin, Nitro, Insulin, Cardizem)? @ -No Were any procedures done? @ -No Diagnosis/symptom? @ -Acute respiratory insufficiency, acute fall, sternal fracture Acute, or Chronic, or Acute on Chronic? @ -Acute Uncomplicated (without systemic symptoms) or Complicated (systemic symptoms)? @ -Complicated Side effects of treatment? @ -No Exacerbation, Progression, or Severe Exacerbation? @ -No Poses a threat to life or bodily function? How? (Chest pain, [place], [place], pneumonia, PE, COPD, DKA, ARF, appy, cholecystitis, CVA, Diverticulitis, Homicidal, Suicidal, threat to staff... and all critical care pts) @ -No - Lab Data Result diagrams: 02/15/25 16:42 02/15/25 16:42 Lab Results 02/15/25 02/15/25 02/15/25 Range/Units 16:42 16:42 16:42 WBC 3.46 L (4.50-10.00) 10*3/uL RBC 3.17 L (4.10-5.20) 10*6/uL Hgb 10.9 L (12.0-15.0) g/dL Hct 31.9 L (37.2-46.3) % MCV 100.6 H (80.0-97.0) fL MCH 34.4 H (27.0-32.0) pg MCHC 34.2 (32.0-37.0) g/dL Plt Count 198 (140-440) 10*3/uL MPV 10.3 (9.5-12.2) fL Immature Gran % (Auto) 0.3 % Neutrophils % 74.8 % Lymphocytes % 11.6 % Monocytes % 13.3 % Eosinophils % 0.0 % Basophils % 0.0 % Immature Gran # 0.01 (0.00-0.04) 10*3/uL Neutrophils # 2.59 (1.80-7.70) 10*3/uL Lymphocytes # 0.40 L (0.90-5.00) 10*3/uL Monocytes # 0.46 (0.20-1.00) 10*3/uL Eosinophils # 0.00 L (0.04-0.35) 10*3/uL Basophils # 0.00 (0.00-0.10) 10*3/uL Manual Slide Review Performed PT 10.8 (10.0-12.5) sec INR 1.0 (<1.2) APTT 21.3 L (22.0-30.0) sec D-Dimer 3.19 H (<0.60) mg/L FEU Sodium 137 (137-145) mmol/L Potassium 3.9 (3.5-5.1) mmol/L Chloride 105 (98-107) mmol/L Carbon Dioxide 22 (22-30) mmol/L Anion Gap 10 mmol/L BUN 35 H (7-17) mg/dL Creatinine 0.46 L (0.52-1.04) mg/dL Est GFR (CKD-EPI)AfAm >90 (>60 ml/min/1.73 sqM) Est GFR (CKD-EPI)NonAf >90 (>60 ml/min/1.73 sqM) Glucose 105 H (74-99) mg/dL Plasma Lactic Acid Deshaun (0.7-2.0) mmol/L Calcium 9.3 (8.4-10.2) mg/dL Total Bilirubin 0.6 (0.2-1.3) mg/dL AST 24 (14-36) U/L ALT 11 (4-34) U/L Alkaline Phosphatase 99 (38-126) U/L Troponin I (0.000-0.034) ng/mL NT-Pro-B Natriuret Pep 1300 pg/mL Total Protein 6.4 (6.3-8.2) g/dL Albumin 3.8 (3.5-5.0) g/dL 02/15/25 02/15/25 Range/Units 16:42 16:42 WBC (4.50-10.00) 10*3/uL RBC (4.10-5.20) 10*6/uL Hgb (12.0-15.0) g/dL Hct (37.2-46.3) % MCV (80.0-97.0) fL MCH (27.0-32.0) pg MCHC (32.0-37.0) g/dL Plt Count (140-440) 10*3/uL MPV (9.5-12.2) fL Immature Gran % (Auto) % Neutrophils % % Lymphocytes % % Monocytes % % Eosinophils % % Basophils % % Immature Gran # (0.00-0.04) 10*3/uL Neutrophils # (1.80-7.70) 10*3/uL Lymphocytes # (0.90-5.00) 10*3/uL Monocytes # (0.20-1.00) 10*3/uL Eosinophils # (0.04-0.35) 10*3/uL Basophils # (0.00-0.10) 10*3/uL Manual Slide Review PT (10.0-12.5) sec INR (<1.2) APTT (22.0-30.0) sec D-Dimer (<0.60) mg/L FEU Sodium (137-145) mmol/L Potassium (3.5-5.1) mmol/L Chloride (98-107) mmol/L Carbon Dioxide (22-30) mmol/L Anion Gap mmol/L BUN (7-17) mg/dL Creatinine (0.52-1.04) mg/dL Est GFR (CKD-EPI)AfAm (>60 ml/min/1.73 sqM) Est GFR (CKD-EPI)NonAf (>60 ml/min/1.73 sqM) Glucose (74-99) mg/dL Plasma Lactic Acid Deshaun 0.8 (0.7-2.0) mmol/L Calcium (8.4-10.2) mg/dL Total Bilirubin (0.2-1.3) mg/dL AST (14-36) U/L ALT (4-34) U/L Alkaline Phosphatase (38-126) U/L Troponin I <0.012 (0.000-0.034) ng/mL NT-Pro-B Natriuret Pep pg/mL Total Protein (6.3-8.2) g/dL Albumin (3.5-5.0) g/dL Disposition Clinical Impression: Sternal fracture, Fall, Chest pain Disposition: HOME SELF-CARE Condition: Stable Instructions (If sedation given, give patient instructions): Chest Pain (ED) Additional Instructions: You have a fracture of your sternum. Take the pain medications as it is instructed. Follow-up with Dr. Soler at your scheduled appointment tomorrow. Return for any new or worsening symptoms Prescriptions: oxyCODONE-APAP 5-325MG [Percocet 5-325 mg] 1 tab PO Q4HR PRN 3 Days #18 tab PRN Reason: Pain Is patient prescribed a controlled substance at d/c from ED?: Yes When asked, does pt state using other controlled substances?: No If prescribed controlled substance>3 days was MAPS reviewed?: Prescribed <3 Days If opioid is for acute pain is fill amount 7 days or less?: Yes If Rx opioid, was Start Talking consent form obtained?: Yes Referrals: Isac Myrick MD [Primary Care Provider] - 1-2 days Time of Disposition: 19:31
[2025-02-15] MEDS: MORPHINE SULFATE 4 MG/ML SYRINGE IVP STA (16:39)
[2025-02-15 16:55] LABS: HCT 31.9 % (37.2-46.3); HGB 10.9 g/dL (12.0-15.0); Lymphocytes % (A) 11.6 %; MCH 34.4 pg (27.0-32.0); MCHC 34.2 g/dL (32.0-37.0); MCV 100.6 fL (80.0-97.0); Mean Platelet Volume 10.3 fL (9.5-12.2); Monocytes # (A) 0.46 10*3/uL (0.20-1.00); Monocytes % (A) 13.3 %; Neutrophils # (A) 2.59 10*3/uL (1.80-7.70); Neutrophils % (A) 74.8 %; RBC 3.17 10*6/uL (4.10-5.20); RDW 14.2 % (11.5-14.5); WBC 3.46 10*3/uL (4.50-10.00)
[2025-02-15 17:15] LABS: Platelet Count 198 10*3/uL (140-440)
--- NOTE | 2025-02-15 17:19 | XR ---
EXAMINATION TYPE: XR chest 2V DATE OF EXAM: 02/15/2025 CLINICAL INDICATION: Female, 79 years old with history of difficulty breathing, TECHNIQUE: Frontal and lateral views of the chest are obtained. COMPARISON: Chest x-ray December 06, 2023 FINDINGS: Persistent cardiomegaly with atherosclerotic and ectatic thoracic aorta. There is exaggerat ed thoracic kyphosis with new two-level vertebroplasty in the mid thoracic spine. There is new mild c entral vascular congestion and small to tiny bilateral pleural effusions. IMPRESSION: Findings suggest CHF exacerbation/fluid overload state. Correlate clinically. [facility], , 02/15/2025 5:17 PM
[2025-02-15 17:22] LABS: ALT 11 U/L (4-34); AST 24 U/L (14-36); African American GFR (CKD) >90 (>60 ml/min/1.73 sqM); Albumin 3.8 g/dL (3.5-5.0); Alkaline Phosphatase 99 U/L (38-126); Anion Gap 10 mmol/L; Blood Urea Nitrogen 35 mg/dL (7-17); Calcium 9.3 mg/dL (8.4-10.2); Carbon Dioxide 22 mmol/L (22-30); Chloride 105 mmol/L (98-107); Glucose 105 mg/dL (74-99); Non-African American GFR(CKD) >90 (>60 ml/min/1.73 sqM); Potassium 3.9 mmol/L (3.5-5.1); Sodium 137 mmol/L (137-145); Total Bilirubin 0.6 mg/dL (0.2-1.3); Total Protein 6.4 g/dL (6.3-8.2)
[2025-02-15 17:26] LABS: Partial Thromboplastin Time 21.3 sec (22.0-30.0); Prothrombin Time 10.8 sec (10.0-12.5)
[2025-02-15 17:30] LABS: NT-Pro-B-Type Natriuretic Pept 1300 pg/mL
--- NOTE | 2025-02-15 19:06 | CT ---
EXAMINATION TYPE: CT angio chest DATE OF EXAM: 02/15/2025 6:36 PM COMPARISON: CT abdomen 03/31/2024 02/02/2024. CLINICAL INDICATION: Female, 79 years old with history of sob; SOB. Severe CP. R/O PE and Dissection. TECHNIQUE/CONTRAST: CTA scan of the thorax is performed with IV Contrast, patient injected with 100 ml mL of Isovue 370, MIP images are created and reviewed these are created on a separate workstation.. CT DLP: 856.1 mGycm, Automated exposure control for dose reduction was used. FINDINGS: Lungs/Pleura: No evidence of focal consolidation, pleural effusion or pneumothorax. Airway: Large airways are patent. Heart: Size within normal limits. No significant coronary artery calcifications. Large hiatal hernia present. Vasculature: There is no evidence for a filling defect within the pulmonary vasculature to suggest ac morteza pulmonary embolism. The pulmonary artery is of normal size. Mediastinum: No gross evidence of adenopathy. Musculoskeletal: Other scattered degeneration changes of the spine. There is cortical stepping off of this sternum about the anterior superficial and deep portion series 203 image 75 Compression deformi ties throughout the spine somewhat vertebroplasty changes. Involving T12 with 50% height loss central ly T8 with complete height loss T7-6 with vertebroplasty changes T5 and T4 with 75% and 25% loss resp ectively. Soft Tissues/lymph nodes: Unremarkable. Lower neck: No significant findings. Upper Abdomen: Scattered splenic calcified granulomas. Indeterminate 16 mm right renal cortical lesio n measuring 25 Hounsfield units. IMPRESSION: 1. No evidence of pulmonary embolism. No evidence for dissection. No evidence for aneurysm. 2. Cortical step-off to the sternum correlate with pain for acute fracture. 3. Right renal cortical lesion which is thought to represent cyst given no enhancement 02/01/2025. No follow-up recommended. 4. Large hiatal hernia. [facility], , 02/15/2025 7:04 PM
[2025-02-15] MEDS: HYDROmorphone 1 MG/ML 1 ML SYRINGE IVP STA (19:47)
[2025-02-15 20:02] VITALS: BP 144/68; PULSE 57; RESP 18; TEMP 97.9
== END 2025-02-15 20:01 | disposition home or self-care (01) ==
LOC: EC 15:57
DX: S22.20XA Unspecified fracture of sternum, initial encounter for closed fracture (principal); G89.29 Other chronic pain; Z87.891 Personal history of nicotine dependence; Z88.1 Allergy status to other antibiotic agents; W19.XXXA Unspecified fall, initial encounter
CPT/HCPCS: 99285; 96374; 96375; 36415; 93005; 85379; 83880; 80053; 83605; 84484; 85025; 85610; 85730; 71046; 71275; J2270; J1171; Q9967

== ENCOUNTER → 2025-03-12 | Outpatient (CLI) | payer MEDICARE ==
--- NOTE | 2025-03-12 15:20 | NM ---
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 Images acquired 3 hours post injection. FINDINGS: No abnormal uptake is identified within the appendicular or axial skeleton to suggest metastatic dise ase. Increased uptake within the sternum and spine and anterior right ribs suggestive of fractures seen on prior 02/15/2025 imaging. There is increased uptake within the bilateral shoulder, sternoclavicular, and sacroiliac joints con sistent with degenerative changes. No other photopenic areas or areas of increased activity are ident ified. Physiologic radiotracer activity is demonstrated in the kidneys and bladder. IMPRESSION: Multiple areas of uptake involving the sternum and spine possibly related to fracture seen on . Additionally uptake within the right anterior ribs compatible with fracture seen on CT which with cortical buckling. Consider pet/CT for complete workup if this concern for metastatic disease. [facility], , 03/12/2025 3:18 PM
== END | disposition home or self-care (01) ==
LOC: RADNMMAIN 10:54
PROVIDERS: ATTEND Internal Medicine Hematology & Oncology
DX: C50.212 Malignant neoplasm of upper-inner quadrant of left female breast (principal)
CPT/HCPCS: 78306; A9503

== ENCOUNTER → 2025-03-30 | Outpatient (CLI) | payer MEDICARE ==
--- NOTE | 2025-04-01 08:05 | PE ---
EXAMINATION TYPE: PET CT fusion skull to thigh DATE OF EXAM: 03/30/2025 CLINICAL INDICATION:Female, 79 years old with history of R91.1 LUNG NODULE; TECHNIQUE: Following the intravenous administration of 10.43 mCi of F-18 FDG, whole body images are performed from the skull base to the midthigh. Images are reviewed on the computer in the coronal, axial, and sagittal planes. Reconstructed rotating images are created on independent workstation and reviewed on the computer. A non-contrast CT is performed in conjunction with the PET scan. Glucose level 93 mg/dL CT DLP: 817 mGycm, Automated exposure control for dose reduction was used. COMPARISON: CT 02/15/2025, 02/01/2025, 03/31/2024, PET/CT None, MRI: None, nuclear medicine bone scan 02/13 FINDINGS: Mediastinal SUV mean is 2.5. Hepatic parenchyma SUV mean is 3.0. SKULL BASE AND NECK: No suspicious radiotracer activity. CHEST, MEDIASTINUM, AND HILAR REGION: Few stable small pulmonary nodules. No suspicious FDG activity above background levels. ABDOMEN AND PELVIS: No suspicious radiotracer activity. MUSCULOSKELETAL STRUCTURES: Multifocal subacute appearing depressed fractures of the sternum. There is increased radiotracer acti vity at these fracture sites with a max SUV of 6.5. Remote appearing fracture of the manubrium withou t radiotracer activity. Multilevel compression deformities of the thoracolumbar spine with vertebral augmentation. There is s ome low level radiotracer uptake. Healing anterior right-sided rib fractures without significant radiotracer activity. OTHER CT: Bilateral aphakia. Mild bilateral carotid bulb calcifications. Moderate cardiomegaly with p rominence of the left ventricle and left atrium. Mild coronary artery calcifications. Mild atheroscle rotic calcification of the aorta and its branches. Surgical change within the left breast. Calcified splenic granulomas. Large hiatal hernia. Nonobstructing left renal similar calculus. Periampullary du odenal diverticulum. Small to moderate sized fat filled umbilical hernia. Sigmoid diverticulosis with out evidence for acute diverticulitis. The uterus is surgically absent. Degenerative changes of the s pine. Diffuse bone demineralization. Mild S-shaped scoliotic curvature of the thoracolumbar spine. Re demonstration of scattered linear scarring or atelectasis. IMPRESSION: 1. No suspicious radiotracer activity to suggest malignancy or metastasis. Follow-up CT chest in 3 [facility] is recommended. 2. Subacute appearing depressed sternal fractures which is progressed from prior CT. Additional suba cute to remote appearing multilevel thoracic compression deformities. Healing right-sided rib fractur es. [facility], , 04/01/2025 8:02 AM
== END | disposition home or self-care (01) ==
LOC: RADPETMAIN 11:54
PROVIDERS: ATTEND Internal Medicine Critical Care Medicine
DX: R91.1 Solitary pulmonary nodule (principal); S22.41XD Multiple fractures of ribs, right side, subsequent encounter for fracture with routine healing
CPT/HCPCS: 78815; A9552

== ENCOUNTER → 2025-04-05 | Outpatient (CLI) | payer MEDICARE ==
--- NOTE | 2025-04-05 12:47 | BD ---
EXAMINATION TYPE: Axial Bone Density DATE OF EXAM: 04/05/2025 CLINICAL HISTORY: 79 years old Female. 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 History of Fracture in Adulthood: yes 3. Menopause before 45: no, 51 RISK FACTORS HISTORY OF: bilat wrists and ankles fractured, height loss, sternum and ribs, thoracic and lumbar fx February 2023 Spine Fracture: yes, thoracic and lumbar, 2024 History of Wrist Fracture: yes, bilat as an adult MEDICATIONS: bp meds, cholesterol, reflux meds, depression meds, hx of radiation, breast ca, eye meds, pain meds, Osteoporosis Medications: fosamax, for about 10 yrs not on it now, stopped after last bone density in 2022 EXAM MEASUREMENTS: Bone mineral densitometry was performed using the [employer]. broken lumbar and thoracic vert 2024 Bone mineral density about the R hip (g/cm2): 0.808 Bone mineral density about the L hip (g/cm2): 0.849 T Score values are as follows: -----R Neck: -1.1 -----L Neck: -0.5 -----R Total: -1.6 -----L Total: -1.3 Z Score values are as follows: -----R Neck: 1.0 -----L Neck: 1.6 -----R Total: 0.3 -----L Total: 0.6 Bone mineral density has: Increased 1.8% since study of: 03.15.2023 hx of wrist fxs FRAX%s: The graph provided illustrates a 16.6% chance for a major osteoporotic fx and a 3.2% chance f or the hips probability for fx in 10 years time. IMPRESSION: Osteopenia (T Score between -2.5 and -1). There is slightly increased risk of fracture and the patient may be considered for treatment. Re-Screen 2-5 years. NOTE: T-SCORE=SD OF THE YOUNG ADULT MEAN. [facility], , 04/05/2025 12:45 PM
== END | disposition home or self-care (01) ==
LOC: RADBDWWP 11:00
PROVIDERS: ATTEND Internal Medicine Hematology & Oncology
DX: Z03.89 Encounter for observation for other suspected diseases and conditions ruled out (principal); M81.0 Age-related osteoporosis without current pathological fracture; C50.212 Malignant neoplasm of upper-inner quadrant of left female breast; M85.89 Other specified disorders of bone density and structure, multiple sites
CPT/HCPCS: 77080